=== PATIENT | female | born 1945 | race Caucasian/White ===

== ENCOUNTER 2023-09-06 20:52 | Emergency (ER) | payer OTHER ==
--- OUTSIDE RECORDS SUMMARY | 2023-09-06 21:07 | XMS REPORT | Continuity of Care Document ---
:1945 Author Organization [facility] t Address [address] [place] [address] [address] [place] [address] Care Team Providers Name Role Phone Yareli Casey MD Primary Care Physician [phone] VERONIQUE BURNS Attending Clinician Unavailable ZARIA ARANDA Attending Clinician Unavailable YARELI CASEY Attending Clinician Unavailable [place] HOLLIDAY, Alan Villagran Attending Clinician Unavailable KIM WHITAKER Attending Clinician Unavailable Briana Nunez MD Attending Clinician Kim Whitaker MD Attending Clinician Rod Cadet MD Attending Clinician Veronique Burns MD Attending Clinician [phone] Yareli Casey MD Attending Clinician Doctor Unassigned, [place] Attending Clinician Unavailable Lab, Ang - Db Attending Clinician Unavailable Zaria Aranda MD Attending Clinician 2, [facility] Attending Clinician Unavailable ANA YATES Attending Clinician Unavailable ANA YATES Attending Clinician Unavailable ISMAEL LANCASTER Attending Clinician Unavailable Hebert Lopez MD Attending Clinician Jorje Lane MD Attending Clinician JORJE LANE Attending Clinician Unavailable Pura Gurrola LCSW Attending Clinician Lab, [facility] Attending Clinician Unavailable OGUNLANA, LAURIE A Attending Clinician Unavailable Ilana Elizabeth RN Attending Clinician Unavailable Cira Ibarra MD Attending Clinician Only, [facility] Test Attending Clinician Unavailable Oniel Oliver MD Attending Clinician Nayely Soto MD Attending Clinician NAYELY SOTO Attending Clinician Unavailable Vaccine, Ang Db Cbc Fam Attending Clinician Unavailable ONIEL OLIVER Attending Clinician Unavailable Stormy PT, Susan Tejada Attending Clinician Unavailable Bryan GARCIA, Jacek Dong Attending Clinician Unavailable AMELIA STRINGER Attending Clinician Unavailable Seferino PAC, Amelia S Attending Clinician Aj FLY TIER, Alexandria Villagran Attending Clinician Unavailable Sergio Ponce PT, Jannie Attending Clinician Unavailable Kathy Adams PTA Attending Clinician Unavailable Provider, [facility] Attending Clinician Unavailable Fabiana Palacios RN Attending Clinician Unavailable EBRAMARY DÍAZ Attending Clinician Unavailable Only, Ang Db Test Attending Clinician Unavailable Ebrahim SALES MARKETING DIRECTORMary Attending Clinician Jesus KRUGER Attending Clinician Unavailable Slick PACJesus Attending Clinician ENOC VALERO Attending Clinician Unavailable Nurse, [facility] Pob Immunization Attending Clinician Unavailable Enco Valero DO Attending Clinician Radiology Attending Clinician Unavailable RADIOLOGY Attending Clinician Unavailable ABRAM RASHID Attending Clinician Unavailable ABRAM RASHID Attending Clinician Unavailable 1, [facility] Sleep Lab Bed Attending Clinician Unavailable Abram Rashid MD Attending Clinician VERONIQUE BURNS Admitting Clinician Unavailable ROD CADET Admitting Clinician Unavailable ANA YATES Admitting Clinician Unavailable ISMAEL LANCASTER Admitting Clinician Unavailable Veronique Burns MD Admitting Clinician [phone] ONIEL OLIVER Admitting Clinician Unavailable Jesus KRUGER Admitting Clinician Unavailable RADHA DUFF Admitting Clinician Unavailable Payers Payer Name Policy Type Policy Number Effective Date Expiration Date [facility] MEDICARE PART A [id number] 2011 \\T\\ B 00:00:00 MUTUAL RUSS VARELA [id number] 2011 00:00:00 Problems Condition Condition Condition Status Onset Resolution Last Treating Co mments Source Name Details Category Date Date Treatment Clinician Date Hypotensio Hypotensio Disease Active 2022-11 U nivers n due to n due to 0-08 ity of hypovolemi [place]ov[place]mi [place] a a 00 Medical Branch Leg edema Leg edema Disease Active Uni vers 4-18 ity of 00:00: [place] 00 Medical Branch Diabetic Diabetic Disease Active Unive rs ulcer of ulcer of 2-15 ity of right right 00:00: [place] midfoot midfoot 00 Medical associated associated Br anch with with diabetes diabetes mellitus mellitus due to due to underlying underlying condition, condition, unspecifie unspecifie d ulcer d ulcer stage stage Diabetic Diabetic Disease Active Unive rs ulcer of ulcer of 2-15 ity of right right 00:00: [place] midfoot midfoot 00 Medical associated associated Br anch with with diabetes diabetes mellitus mellitus due to due to underlying underlying condition, condition, unspecifie unspecifie d ulcer d ulcer stage stage Elevated Elevated Disease Active Unive rs brain brain 1-18 ity of natriureti natriureti 00:00: [place] c peptide c peptide 00 Medi doris (BNP) (BNP) Branch level level Venous Venous Disease Active 2021-11 Overview: Univer s insufficie insufficie 2-19 Formattin ity of ncy of ncy of 00:00: g of this [place] both lower both lower 00 note Me dical extremitie extremitie might be Branch s s different from the original. Added automatic ally from request for surgery [id number] Instabilit Instabilit Disease Active Overview : Univers y of y of 8-29 Formattin ity of reverse reverse 00:00: g of this [place] total total 00 note Medical arthroplas arthroplas might be Branch ty of ty of different right right from the shoulder shoulder original. Added automatic ally from request for surgery [id number] Preoperati Preoperati Disease Active Overview : Univers ve testing ve testing 7-25 Formattin ity of 00:00: g of this [place] 00 note Medical might be Branch different from the original. Added automatic ally from request for surgery [id number] Closed Closed Disease Active Overview: Univer s 2-part 2-part 06-17 Formattin ity of displaced displaced 00:00: g of this [place] fracture fracture 00 note Medica l of of might be Branch surgical surgical different neck of neck of from the right right original. humerus humerus Added with with automatic nonunion, nonunion, ally from subsequent subsequent request encounter encounter for surgery [id number] Type 2 Type 2 Disease Active Univers diabetes diabetes 2-11 ity of mellitus, mellitus, 00:[place] without without 00 Medical long-term long-term Bran ch current current use of use of insulin insulin AIDA on AIDA on Disease Active Univers CPAP CPAP 8-16 ity of 00:00: Medical Branch Hyperlipid Hyperlipid Disease Active U nivers emia, emia, 8-16 ity of unspecifie unspecifie 00:00[place] d d 00 Medical hyperlipid hyperlipid Br anch emia type emia type Essential Essential Disease Active Uni vers hypertensi hypertensi 8-16 it y of on on 00:00: Medical Branch Obesity Obesity Disease Active Univers (BMI (BMI 7-28 ity of 30-39.9) 30-39.9) 00:00: 00 Medical Branch Allergies, Adverse Reactions, Alerts Allergy Allergy Status Severity Reaction(s) Onset Inactive Treating Comm ents Source Name Type Date Date Clinician POVIDONE DRUG Active Rash Univers -IODINE INGREDI 1-19 ity of 00:00: Medical Branch Povidone Propensi Active Rash Univer s -Iodine ty to 1-19 ity of adverse 00:00: [place] reaction 00 Medical s Branch Codeine Propensi Active Itching 2005-11 Univer s ty to 0-25 ity of adverse 00:00: [place] reaction Medical s Branch Penicill Propensi Active Hives 2005-11 Univer s ins ty to 0-25 ity of adverse 00:00: [place] reaction Medical s Branch CODEINE DRUG Active ITCHING 2005-11 Univers INGREDI 0-25 ity of 00:00: Medical Branch PENICILL Drug Active Hives 2005-11 Univers INS Class 0-25 ity of 00:00: [place] [id number] Medical Branch Social History Social Habit Start Date Stop Date Quantity Comments Source History of tobacco Passive smoker Un iversity of use [place] [facility] History SDOH University o f Alcohol Std Drinks [place] [facility] History SDOH University o f Alcohol Binge [place] Medic al Branch History SDWI University o f Alcohol Comment [place] Med ical Branch Gender identity Universit y of [facility] Sexual orientation Univer sity of [facility] Alcohol intake 2023-08-31 2023-08-31 Lifetime University of 00:00:00 00:00:00 non-drinker [facility] (finding) Branch Exposure to 2023-03-07 2023-03-17 Not sure [facility] SARS-CoV-2 (event) 00:00:00 13:38:00 [facility] History of Social 2022-12-03 2022-12-03 Univers ity of function 00:00:00 00:00:00 [facility] Tobacco use and 2022-07-24 2022-07-24 Smokeless Universit y of exposure 00:00:00 00:00:00 tobacco non-user [facility] dical Branch History SDOH 2021-09-07 2021-09-07 1 University o f Alcohol Frequency 00:00:00 00:00:00 [facility] edical [place] Sex [birth year] Universit y of 00:00:00 00:00:00 [facility] Smoking Status Start Date Stop Date Source Never smoked tobacco [facility] Medications Ordered Filled Start Stop Current Ordering Indication Dosage Frequency Signature Comments Components Source Medication Medication Date Date Medication? Clinician (SIG) Name Name aspirin 81 2022-11 Yes 81mg Take 81 mg U nivers mg chewable 0-11 by mouth ity of tablet 17:41: daily. [place] [address] Medical Branch Cholecalcif 2022-11 Yes Take by Uni vers hiren, 0-11 mouth ity of Vitamin D3, 17:41: [place]. [place] 25 mcg 39 Medical (1,000 Branch unit) capsule Acetaminoph 2022-11 Yes Take by Uni vers en 500 mg 0-11 mouth ity of Cap 17:41: daily. [place] [address] Indication Medical s: and prn Branch BIOTIN ORAL 2022-11 Yes Take by Uni vers 0-11 mouth ity of 17:41: daily. [place] [address] Medical Branch cycloSPORIN 2022-[address] in Un mayo E (RESTASIS 0-11 each eye 2 it y of MULTIDOSE) 17:41: (two) [place] 0.05 % Drop 39 times Medical daily. Branch tramadol 2022-11 Yes Take by Univer s HCl 0-11 mouth. ity of (TRAMADOL 17:41: [place] ORAL) 39 Medical Branch aspirin 81 2022-11 Yes 81mg Take 81 mg U nivers mg chewable 0-11 by mouth ity of tablet 17:41: daily. [place] [address] Medical Branch Cholecalcif 2022-11 Yes Take by Uni vers hiren, 0-11 mouth ity of Vitamin D3, 17:41: daily. [place] 25 mcg 39 Medical (1,000 Branch unit) capsule Acetaminoph 2022-11 Yes Take by Uni vers en 500 mg 0-11 mouth ity of Cap 17:41: daily. [place] [address] Indication Medical s: and prn Branch BIOTIN ORAL 2022-11 Yes Take by Uni vers 0-11 mouth ity of 17:41: daily. [place] [address] Medical Branch cycloSPORIN 2022-[address] in [place] E (RESTASIS 0-11 each eye 2 it y of MULTIDOSE) 17:41: (two) [place] 0.05 % Drop 39 times Medical daily. Branch tramadol 2022-11 Yes Take by Univer s HCl 0-11 mouth. ity of (TRAMADOL 17:41: [place] ORAL) 39 Medical Branch tiZANidine 2022-11- Yes [id number] 4mg Take 1 Univers 4 mg tablet 0-11 11-11 tablet by it y of 00:00: 05:59 mouth [place] 00 :00 every 8 Medical (eight) Branch hours as needed for Pain (scale 4-6) for up to 30 days. tiZANidine 2022-11- Yes [id number] 4mg Take 1 Univers 4 mg tablet 0-11 11-11 tablet by it y of 00:00: 05:59 mouth [place] 00 :00 every 8 Medical (eight) Branch hours as needed for Pain (scale 4-6) for up to 30 days. simethicone 2022-11 Yes 80mg 80 mg, Univ ers (GAS RELIEF 0-09 Oral, ity of (SIMETHICON 23:00: PC+HS, [place] E)) 00 First dose Medical chewable on [facility] tablet 80 09/01/23 at mg 1800, Until Discontinu ed, Routine methocarbam 2022-11 Yes 500mg 500 mg, Un mayo oL 0-09 Oral, TID, ity of (ROBAXIN) 21:15: First dose [place] tablet 500 00 on [facility] mg 09/01/23 at Branch 1615, Until Discontinu ed, Routine pravastatin 2022-11- No 40mg 40 mg, Uni vers (PRAVACHOL) 009 Oral, QHS, i ty of tablet 40 02:00: 18:31 First dose [place] mg 00 :18 on [facility] 08/31/23 at Branch 2100, Until Discontinu ed, Routine enoxaparin 2022-11 Yes 40mg 40 mg, Unive rs (LOVENOX) 0-08 Subcutaneo ity of injection 22:00: [place], DAILY, [place] 40 mg 00 First dose Medical on [facility] 08/31/23 at 1700, Until Discontinu ed, Routine Sliding 2022-11 Yes Subcutaneo Univ ers Scale 0-08 us, TID ity of Insulin - 17:00: MEALS+HS, [place] Lispro 00 First dose Medical (HumaLOG) on [facility] 08/31/23 at 1200, Until Discontinu ed, Routine magnesium 2022-11- No 2g 2 g, IV Univ ers sulfate in 008-31 Piggyback, it y of water 2 17:00: 17:24 Administer [place] gram/50 mL 00 :00 over 60 Medica l (4 %) Minutes, Branch infusion 2 ONCE, 1 g dose, On [place] 08/31/23 at 1200, Routine sulfur 2022-11- No [id number] 5mL 5 mL, Univ ers hexafluorid 008-31 Intravenou i ty of e microsphr 15:45: 15:31 s, ONCE, 1 [place] (LUMASON) 00 :00 dose, On Medica l injection 5 [facility] mL 08/31/23 at 1045, Routine
pricing/signage team member approving Restricted medication : ZARIA ARANDA omeprazole 2022-11 Yes 20mg 20 mg, Unive rs (PRILOSEC) 0-08 Oral, ity of capsule 20 14:00: DAILY, [place] mg 00 First dose Medical on [facility] 08/31/23 at 0900, Until Discontinu ed, Routine KCL 2022-11 Yes 20meq 20 mEq, Univers (KLOR-CON 0-08 Oral, ity of M20) tablet 14:00: DAILY, [place] 20 mEq 00 First dose Medical on [facility] 08/31/23 at 0900, Until Discontinu ed, Routine fluticasone 2022-11 Yes 2{spray 2 [place], Univers propionate 0-08 } Nasal, ity of 50 14:00: DAILY, [place] mcg/actuati 00 First dose Me dical on nasal on [facility] spray 2 08/31/23 at [place] 0900, Until Discontinu ed, Routine aspirin 2022-11 Yes 81mg 81 mg, Univers chewable 0-08 Oral, ity of tablet 81 14:00: DAILY, [place] mg 00 First dose Medical on [facility] 08/31/23 at 0900, Until Discontinu ed, Routine glucagon 2022-11 Yes 1mg 1 mg, Univers (GLUCAGEN 0-08 Intramuscu ity of DIAGNOSTIC 13:32: lar, PRN, [place] KIT) 50 Starting Medical injection 1 on [facility] mg 08/31/23 at 0832, Until Discontinu ed, BRETT, Blood Glucose < or = 70 mg/dL and patient is NPO, unable to swallow or has mental changes. dextrose 50 2022-11 Yes 25mL 25 mL, Univ ers % in water 0-08 Slow IV ity of (D50W) 13:32: Push, PRN, [place] injection 50 Starting Medica l 25 mL on [facility] 08/31/23 at 0832, Until Discontinu ed, BRETT, Blood Glucose < or = 70 mg/dL and patient is NPO, unable to swallow or has mental status changes. gabapentin 2022-11 Yes 600mg 600 mg, Uni vers (NEURONTIN) 0-08 Oral, BID, it y of tablet 600 13:00: First dose [place] mg 00 on [facility] 08/31/23 at Branch 0800, Until Discontinu ed, Routine KCL 20 2022-11 No 40meq 40 mEq, Univer s mEq/15 mL 0-08 10-08 Oral, ity of solution 40 12:00: 13:53 ONCE, 1 [place] mEq 00 :00 dose, On Medical [facility] 08/31/23 at 0700, Routine NaCl 0.9% 2022-11 Yes 1000mL at 125 Univ ers (NS) IV 0-08 mL/hr, ity of infusion 08:45: Intravenou [place] 1,000 mL 00 s, Medical CONTINUOUS Branch , Starting on [place] 08/31/23 at 0345, Until Discontinu ed, Routine ondansetron 2022-11 Yes 4mg 4 mg, Slow Univers (ZOFRAN 0-08 IV Push, ity of (PF)) 08:15: Q6HPRN, [place] injection 4 45 Starting Medi doris mg on [facility] 08/31/23 at 0315, Until Discontinu ed, Routine, Nausea and Vomiting (N/V) traMADoL 2022-11- No 50mg 50 mg, Univer s (ULTRAM) 0-08 10-10 Oral, ity of tablet 50 08:15: 08:14 Q8HPRN, [place] mg 31 :31 Starting Medical on [facility] 08/31/23 at 0315, Until 09/02/23 at 0314, Routine, Pain (scale 4-6) acetaminoph 2022-11 Yes 1000mg 1,000 mg, Univers en 0-08 Oral, ity of (TYLENOL) 08:15: Q6HPRN, [place] tablet 23 Starting Medical 1,000 mg on [facility] 08/31/23 at 0315, Until Discontinu ed, Routine, Pain (scale 1-3), Temp > 38 C iopamidol 2022-11- No [id number] 88mL 88 mL, U nivers (ISOVUE 0-08 10-08 Intravenou ity o f 370-500 mL) 07:00: 07:00 s, ONCE, 1 [place] injection 00 :00 dose, On Medica l 88 mL [facility] 08/31/23 at 0200, Routine aspirin 81 2022-11 Yes 81mg Take 81 mg U nivers mg chewable 0-08 by mouth ity of tablet 06:18: daily. [place] 40 [facility] Branch Cholecalcif 2022-11 Yes Take by Uni vers hiren, 0-08 mouth ity of Vitamin D3, 06:18: daily. [place] 25 mcg 40 Medical (1,000 Branch unit) capsule Acetaminoph 2022-11 Yes Take by Uni vers en 500 mg 0-08 mouth ity of Cap 06:18: daily. [place] [address] Indication Medical s: and prn Branch BIOTIN ORAL 2022-11 Yes Take by Uni vers 0-08 mouth ity of 06:18: daily. [place] [address] Medical Branch cycloSPORIN 2022-[address] in [place] E (RESTASIS 0-08 each eye 2 it y of MULTIDOSE) 06:18: (two) [place] 0.05 % Drop 40 times Medical daily. Branch tramadol 2022-11 Yes Take by Univer s HCl 0-08 mouth. ity of (TRAMADOL 06:18: [place] ORAL) Medical Branch aspirin 81 2022-11 Yes 81mg Take 81 mg U nivers mg chewable 0-08 by mouth ity of tablet 06:18: daily. [place] [address] Medical Branch Cholecalcif 2022-11 Yes Take by Uni vers hiren, 0-08 mouth ity of Vitamin D3, 06:18: daily. [place] 25 mcg 40 Medical (1,000 Branch unit) capsule Acetaminoph 2022-11 Yes Take by Uni vers en 500 mg 0-08 mouth ity of Cap 06:18: daily. [place] [address] Indication Medical s: and prn Branch BIOTIN ORAL 2022-11 Yes Take by Uni vers 0-08 mouth ity of 06:18: daily. [address] Branch cycloSPORIN 2022-[address] in [place] E (RESTASIS 0-08 each eye 2 it y of MULTIDOSE) 06:18: (two) [place] 0.05 % Drop 40 times Medical daily. Branch tramadol 2022-11 Yes Take by Univer s HCl 0-08 mouth. ity of (TRAMADOL 06:18: [place] ORAL) 40 Medical Branch NaCl 0.9% 2022-11- No 1000mL at 999 Uni vers (NS) IV 0-08 10-08 mL/hr, ity of infusion 05:30: 07:13 Intravenou [place] 1,000 mL 00 :00 s, ONCE, 1 Medic al dose, On Branch 08/31/23 at 0030, Routine acetaminoph 2022-11- No 1000mg 1,000 mg, Univers en 0-08 10-08 Oral, ity of (TYLENOL) 04:00: 03:05 ONCE, 1 [place] tablet 00 :00 dose, On Medical 1,000 mg Sat Branch 08/30/23 at 2300, Routine omeprazole 3-0 Yes TAKE 1 Unive rs 20 mg 8-28 CAPSULE BY ity of capsule 00:00: MOUTH [place] 00 DAILY Medical Branch omeprazole 2023-0 Yes TAKE 1 Unive rs 20 mg 8-28 CAPSULE BY ity of capsule 00:00: MOUTH [place] 00 DAILY Medical Branch omeprazole 2023-0 Yes TAKE 1 Unive rs 20 mg 8-28 CAPSULE BY ity of capsule 00:00: MOUTH [place] 00 DAILY Medical Branch omeprazole 2023-0 Yes TAKE 1 Unive rs 20 mg 8-28 CAPSULE BY ity of capsule 00:00: MOUTH [place] 00 DAILY Medical Branch omeprazole 2023-0 Yes TAKE 1 Unive rs 20 mg 8-28 CAPSULE BY ity of capsule 00:00: MOUTH [place] 00 DAILY Medical Branch OMEPRAZOLE 2023-0 Yes TAKE 1 Unive rs 20 mg 7-18 CAPSULE BY ity of capsule 00:00: MOUTH [place] 00 DAILY Medical Branch OMEPRAZOLE 2023-0 Yes TAKE 1 Unive rs 20 mg 7-18 CAPSULE BY ity of capsule 00:00: MOUTH [place] 00 DAILY Medical Branch furosemide 2023-0 Yes [id number] 40mg Take 2 [place] 20 mg 7-18 tablets by ity of tablet 00:00: mouth in [place] 00 the Medical morning. Branch KCL 10 mEq 3-0 Yes [id number] 20meq Take 2 U nivers tablet 7-18 tablets by ity of 00:00: mouth in [place] 00 the Medical morning. Branch furosemide 2023-0 Yes [id number] 40mg Take 2 [place] 20 mg 7-18 tablets by ity of tablet 00:00: mouth in [place] 00 the Medical morning. Branch KCL 10 mEq 3-0 Yes [id number] 20meq Take 2 U nivers tablet 7-18 tablets by ity of 00:00: mouth in [place] 00 the Medical morning. Branch furosemide 2023-0 Yes [id number] 40mg Take 2 [place] 20 mg 7-18 tablets by ity of tablet 00:00: mouth in [place] 00 the Medical morning. Branch KCL 10 mEq 3-0 Yes [id number] 20meq Take 2 U nivers tablet 7-18 tablets by ity of 00:00: mouth in [place] 00 the Medical morning. Branch furosemide 2022-0 Yes [id number] 40mg Take 2 [place] 20 mg 7-18 tablets by ity of tablet 00:00: mouth in [place] the Medical morning. Branch KCL 10 mEq 2022-0 Yes [id number] 20meq Take 2 U nivers tablet 7-18 tablets by ity of 00:00: mouth in [place] the Medical morning. Branch furosemide 2022-0 Yes [id number] 40mg Take 2 [place] 20 mg 7-18 tablets by ity of tablet 00:00: mouth in [place] the Medical morning. Branch KCL 10 mEq 2022-0 Yes [id number] 20meq Take 2 U nivers tablet 7-18 tablets by ity of 00:00: mouth in [place] the Medical morning. Branch furosemide 2022-0 Yes [id number] 40mg Take 2 [place] 20 mg 7-18 tablets by ity of tablet 00:00: mouth in [place] the Medical morning. Branch KCL 10 mEq 2022-0 Yes [id number] 20meq Take 2 U nivers tablet 7-18 tablets by ity of 00:00: mouth in [place] the Medical morning. Branch OMEPRAZOLE 2022-0 2022- No TAKE 1 Univ ers 20 mg 7-18 08-28 CAPSULE BY ity of capsule 00:00: 00:00 [facility] 00 :00 DAILY Medical Branch OMEPRAZOLE 2022-0 Yes TAKE 1 Unive rs 20 mg 6-21 CAPSULE BY ity of capsule 00:00: [facility] DAILY Medical Branch OMEPRAZOLE 2022-0 2022- No TAKE 1 Univ ers 20 mg 6-21 07-18 CAPSULE BY ity of capsule 00:00: 00:00 [facility] 00 :00 DAILY Medical Branch CETIRIZINE 2022-0 Yes TAKE ONE Uni vers 10 mg 6-13 TABLET BY ity of tablet 00:00: [facility] 00 DAILY Medical Branch CETIRIZINE 2022-0 Yes TAKE ONE Uni vers 10 mg 6-13 TABLET BY ity of tablet 00:00: [facility] DAILY Medical Branch CETIRIZINE 2022-0 Yes TAKE ONE Uni vers 10 mg 6-13 TABLET BY ity of tablet 00:00: [facility] 00 DAILY Medical Branch CETIRIZINE 2022-0 Yes TAKE ONE Uni vers 10 mg 6-13 TABLET BY ity of tablet 00:00: [facility] DAILY Medical Branch CETIRIZINE 0 Yes TAKE ONE Uni vers 10 mg 6-13 TABLET BY ity of tablet 00:00: [facility] DAILY Medical Branch CETIRIZINE 2022-0 Yes TAKE ONE Uni vers 10 mg 6-13 TABLET BY ity of tablet 00:00: [facility] DAILY Medical Branch CETIRIZINE 2022-0 Yes TAKE ONE Uni vers 10 mg 6-13 TABLET BY ity of tablet 00:00: [facility] DAILY Medical Branch CETIRIZINE 2022-0 Yes TAKE ONE Uni vers 10 mg 6-13 TABLET BY ity of tablet 00:00: [facility] DAILY Medical Branch CETIRIZINE 0 Yes TAKE ONE Uni vers 10 mg 6-13 TABLET BY ity of tablet 00:00: [facility] DAILY Medical Branch OMEPRAZOLE 2022-0 Yes TAKE ONE Uni vers 20 mg 5-22 CAPSULE BY ity of capsule 00:00: [facility] DAILY Medical Branch OMEPRAZOLE 2022-0 Yes TAKE ONE Uni vers 20 mg 5-22 CAPSULE BY ity of capsule 00:00: [facility] DAILY Medical Branch OMEPRAZOLE 2022-0 Yes TAKE ONE Uni vers 20 mg 5-22 CAPSULE BY ity of capsule 00:00: [facility] DAILY Medical Branch OMEPRAZOLE 2022-0 2022- No TAKE ONE Un mayo 20 mg 5-22 06-21 CAPSULE BY ity of capsule 00:00: 00:00 [facility] 00 :00 DAILY Medical Branch ENALAPRIL 5 2022-0 Yes [id number] TAKE ONE Univers mg tablet 5-07 TABLET BY ity o f 00:00: [facility] DAILY Medical Branch ENALAPRIL 5 2022-0 Yes [id number] TAKE ONE Univers mg tablet 5-07 TABLET BY ity o f 00:00: [facility] DAILY Medical Branch ENALAPRIL 5 2022-0 Yes [id number] TAKE ONE Univers mg tablet 5-07 TABLET BY ity o f 00:00: [facility] DAILY Medical Branch ENALAPRIL 5 2022-0 Yes [id number] TAKE ONE Univers mg tablet 5-07 TABLET BY ity o f 00:00: [facility] DAILY Medical Branch ENALAPRIL 5 2022-0 Yes [id number] TAKE ONE Univers mg tablet 5-07 TABLET BY ity o f 00:00: MOUTH [place] 00 DAILY Medical Branch ENALAPRIL 5 2022-0 Yes [id number] TAKE ONE Univers mg tablet 5-07 TABLET BY ity o f 00:00: MOUTH [place] 00 DAILY Medical Branch ENALAPRIL 5 2022-0 Yes [id number] TAKE ONE Univers mg tablet 5-07 TABLET BY ity o f 00:00: MOUTH [place] 00 DAILY Medical Branch ENALAPRIL 5 2022-0 Yes [id number] TAKE ONE Univers mg tablet 5-07 TABLET BY ity o f 00:00: MOUTH [place] 00 DAILY Medical Branch ENALAPRIL 5 2022-0 Yes [id number] TAKE ONE Univers mg tablet 5-07 TABLET BY ity o f 00:00: MOUTH [place] 00 DAILY Medical Branch ENALAPRIL 5 2022-0 Yes [id number] TAKE ONE Univers mg tablet 5-07 TABLET BY ity o f 00:00: MOUTH [place] 00 DAILY Medical Branch ENALAPRIL 5 2022-0 Yes [id number] TAKE ONE Univers mg tablet 5-07 TABLET BY ity o f 00:00: MOUTH [place] 00 DAILY Medical Branch ENALAPRIL 5 2022-0 Yes [id number] TAKE ONE Univers mg tablet 5-07 TABLET BY ity o f 00:00: MOUTH [place] 00 DAILY Medical Branch omega-3 2022-0 2022- No 1g Take 1 g Unive rs fatty 4-24 04-24 by mouth ity of acids-vitam 13:58: 00:00 daily. [place] in E 1,000 49 :00 Medical mg capsule Branch omega-3 2022-0 2022- No 1g Take 1 g Unive rs fatty 4-24 04-24 by mouth ity of acids-vitam 13:58: 00:00 daily. [place] in E 1,000 49 :00 Medical mg capsule Branch glipiZIDE 2022-0 Yes [id number] 2.5mg Take 1 U nivers XL 2.5 mg 4-24 tablet by ity o f 24 hr 00:00: mouth [place] tablet 00 daily with Medical breakfast. Branch glipiZIDE 2022-0 Yes [id number] 2.5mg Take 1 [facility] XL 2.5 mg 4-24 tablet by ity o f 24 hr 00:00: mouth [place] tablet 00 daily with Medical breakfast. Branch glipiZIDE 2022-0 Yes [id number] 2.5mg Take 1 [facility] XL 2.5 mg 4-24 tablet by ity o f 24 hr 00:00: mouth [place] tablet 00 daily with Medical breakfast. Branch glipiZIDE 2022-0 Yes [id number] 2.5mg Take 1 [facility] XL 2.5 mg 4-24 tablet by ity o f 24 hr 00:00: mouth [place] tablet 00 daily with Medical breakfast. Branch glipiZIDE 2022-0 Yes [id number] 2.5mg Take 1 [facility] XL 2.5 mg 4-24 tablet by ity o f 24 hr 00:00: mouth [place] tablet 00 daily with Medical breakfast. Branch glipiZIDE 2022-0 Yes [id number] 2.5mg Take 1 [facility] XL 2.5 mg 4-24 tablet by ity o f 24 hr 00:00: mouth [place] tablet 00 daily with Medical breakfast. Branch glipiZIDE 2022-0 Yes [id number] 2.5mg Take 1 [facility] XL 2.5 mg 4-24 tablet by ity o f 24 hr 00:00: mouth [place] tablet 00 daily with Medical breakfast. Branch glipiZIDE 2022-0 Yes [id number] 2.5mg Take 1 [facility] XL 2.5 mg 4-24 tablet by ity o f 24 hr 00:00: mouth [place] tablet 00 daily with Medical breakfast. Branch glipiZIDE 2022-0 Yes [id number] 2.5mg Take 1 [facility] XL 2.5 mg 4-24 tablet by ity o f 24 hr 00:00: mouth [place] tablet 00 daily with Medical breakfast. Branch glipiZIDE 2022-0 Yes [id number] 2.5mg Take 1 [facility] XL 2.5 mg 4-24 tablet by ity o f 24 hr 00:00: mouth [place] tablet 00 daily with Medical breakfast. Branch glipiZIDE 2022-0 Yes [id number] 2.5mg Take 1 [facility] XL 2.5 mg 4-24 tablet by ity o f 24 hr 00:00: mouth [place] tablet 00 daily with Medical breakfast. Branch glipiZIDE 2022-0 Yes [id number] 2.5mg Take 1 [facility] XL 2.5 mg 4-24 tablet by ity o f 24 hr 00:00: mouth [place] tablet 00 daily with Medical breakfast. Branch glipiZIDE 3-0 Yes [id number] 2.5mg Take 1 [facility] XL 2.5 mg 4-24 tablet by ity o f 24 hr 00:00: mouth [place] tablet 00 daily with Medical breakfast. Branch glipiZIDE 2022-0 Yes [id number] 2.5mg Take 1 [facility] XL 2.5 mg 4-24 tablet by ity o f 24 hr 00:00: mouth [place] tablet 00 daily with Medical breakfast. Branch glipiZIDE 2022-0 Yes [id number] 2.5mg Take 1 [facility] XL 2.5 mg 4-24 tablet by ity o f 24 hr 00:00: mouth [place] tablet 00 daily with Medical breakfast. Branch glipiZIDE 2022-0 Yes [id number] 2.5mg Take 1 [facility] XL 2.5 mg 4-24 tablet by ity o f 24 hr 00:00: mouth [place] tablet 00 daily with Medical breakfast. Branch OMEPRAZOLE 3-0 Yes TAKE ONE [facility] vers 20 mg 4-19 CAPSULE BY ity of capsule 00:00: MOUTH [place] 00 DAILY Medical Branch OMEPRAZOLE 3-0 Yes TAKE ONE [facility] vers 20 mg 4-19 CAPSULE BY ity of capsule 00:00: MOUTH 00 DAILY Medical Branch OMEPRAZOLE 3-0 Yes TAKE ONE [facility] vers 20 mg 4-19 CAPSULE BY ity of capsule 00:00: MOUTH [place] 00 DAILY Medical Branch OMEPRAZOLE 3-0 Yes TAKE ONE [facility] vers 20 mg 4-19 CAPSULE BY ity of capsule 00:00: [facility] 00 DAILY Medical Branch OMEPRAZOLE 3-0 Yes TAKE ONE [facility] vers 20 mg 4-19 CAPSULE BY ity of capsule 00:00: MOUTH 00 DAILY Medical Branch OMEPRAZOLE 3-0 Yes TAKE ONE [facility] vers 20 mg 4-19 CAPSULE BY ity of capsule 00:00: MOUTH [place] 00 DAILY Medical Branch OMEPRAZOLE 3-0 2023- No TAKE ONE [facility] 20 mg 4-19 05-22 CAPSULE BY ity of capsule 00:00: 00:00 MOUTH [place] 00 :00 DAILY Medical Branch furosemide 3-0 Yes [id number] 40mg Take 2 [facility] 20 mg 4-18 tablets by ity of tablet 00:00: mouth in [place] 00 the Medical morning. Branch KCL 10 mEq 2022-0 Yes [id number] 20meq Take 2 [facility] tablet 4-18 tablets by ity of 00:00: mouth in [place] the Medical morning. Branch furosemide 2023-0 Yes [id number] 40mg Take 2 [facility] 20 mg 4-18 tablets by ity of tablet 00:00: mouth in [place] the Medical morning. Branch KCL 10 mEq 2023-0 Yes [id number] 20meq Take 2 [facility] tablet 4-18 tablets by ity of 00:00: mouth in [place] the Medical morning. Branch furosemide 2023-0 Yes [id number] 40mg Take 2 [facility] 20 mg 4-18 tablets by ity of tablet 00:00: mouth in [place] the Medical morning. Branch KCL 10 mEq 2023-0 Yes [id number] 20meq Take 2 [facility] tablet 4-18 tablets by ity of 00:00: mouth in [place] the Medical morning. Branch furosemide 2023-0 Yes [id number] 40mg Take 2 [facility] 20 mg 4-18 tablets by ity of tablet 00:00: mouth in [place] the Medical morning. Branch KCL 10 mEq 2023-0 Yes [id number] 20meq Take 2 [facility] tablet 4-18 tablets by ity of 00:00: mouth in [place] the Medical morning. Branch furosemide 2023-0 Yes [id number] 40mg Take 2 [facility] 20 mg 4-18 tablets by ity of tablet 00:00: mouth in [place] the Medical morning. Branch KCL 10 mEq 2023-0 Yes [id number] 20meq Take 2 [facility] tablet 4-18 tablets by ity of 00:00: mouth in [place] the Medical morning. Branch furosemide 2023-0 Yes [id number] 40mg Take 2 [facility] 20 mg 4-18 tablets by ity of tablet 00:00: mouth in [place] the Medical morning. Branch KCL 10 mEq 2023-0 Yes [id number] 20meq Take 2 [facility] tablet 4-18 tablets by ity of 00:00: mouth in [place] the Medical morning. Branch furosemide 2023-0 Yes [id number] 40mg Take 2 [facility] 20 mg 4-18 tablets by ity of tablet 00:00: mouth in [place] the Medical morning. Branch KCL 10 mEq 2023-0 Yes [id number] 20meq Take 2 [facility] tablet 4-18 tablets by ity of 00:00: mouth in [place] 00 the Medical morning. Branch furosemide 2023-0 Yes [id number] 40mg Take 2 [facility] 20 mg 4-18 tablets by ity of tablet 00:00: mouth in [place] the Medical morning. Branch KCL 10 mEq 2023-0 Yes [id number] 20meq Take 2 [facility] tablet 4-18 tablets by ity of 00:00: mouth in [place] the Medical morning. Branch furosemide 2023-0 Yes [id number] 40mg Take 2 [facility] 20 mg 4-18 tablets by ity of tablet 00:00: mouth in [place] the Medical morning. Branch KCL 10 mEq 2023-0 Yes [id number] 20meq Take 2 [facility] tablet 4-18 tablets by ity of 00:00: mouth in [place] the Medical morning. Branch furosemide 2023-0 Yes [id number] 40mg Take 2 [facility] 20 mg 4-18 tablets by ity of tablet 00:00: mouth in [place] the Medical morning. Branch KCL 10 mEq 2023-0 Yes [id number] 20meq Take 2 [facility] tablet 4-18 tablets by ity of 00:00: mouth in [place] the Medical morning. Branch furosemide 2023-0 Yes [id number] 40mg Take 2 [facility] 20 mg 4-18 tablets by ity of tablet 00:00: mouth in [place] the Medical morning. Branch KCL 10 mEq 2023-0 Yes [id number] 20meq Take 2 [facility] tablet 4-18 tablets by ity of 00:00: mouth in [place] the Medical morning. Branch furosemide 2023-0 Yes [id number] 40mg Take 2 [facility] 20 mg 4-18 tablets by ity of tablet 00:00: mouth in [place] the Medical morning. Branch KCL 10 mEq 2023-0 Yes [id number] 20meq Take 2 [facility] tablet 4-18 tablets by ity of 00:00: mouth in [place] the Medical morning. Branch furosemide 2023-0 Yes [id number] 40mg Take 2 [facility] 20 mg 4-18 tablets by ity of tablet 00:00: mouth in [place] the Medical morning. Branch KCL 10 mEq 2023-0 Yes [id number] 20meq Take 2 [facility] tablet 4-18 tablets by ity of 00:00: mouth in [place] 00 the Medical morning. Branch furosemide 2023-0 Yes [id number] 40mg Take 2 [facility] 20 mg 4-18 tablets by ity of tablet 00:00: mouth in [place] 00 the Medical morning. Branch KCL 10 mEq 2023-0 Yes [id number] 20meq Take 2 [facility] tablet 4-18 tablets by ity of 00:00: mouth in [place] 00 the Medical morning. Branch furosemide 2023-0 Yes [id number] 40mg Take 2 [facility] 20 mg 4-18 tablets by ity of tablet 00:00: mouth in [place] 00 the Medical morning. Branch KCL 10 mEq 2023-0 Yes [id number] 20meq Take 2 [facility] tablet 4-18 tablets by ity of 00:00: mouth in [place] 00 the Medical morning. Branch KCL 10 mEq 2023-0 Yes [id number] 20meq Take 2 [facility] tablet 3-31 tablets by ity of 00:00: mouth in [place] 00 the Medical morning. Branch KCL 10 mEq 2023-0 2023- No [id number] 20meq Take 2 [facility] tablet 3-31 04-18 tablets by ity of 00:00: 00:00 mouth in [place] 00 :00 the Medical morning. Branch KCL 10 mEq 2023-0 2023- No [id number] 20meq Take 2 [facility] tablet 3-31 04-18 tablets by ity of 00:00: 00:00 mouth in [place] 00 :00 the Medical morning. Branch KCL 10 mEq 2023-0 2023- No [id number] 20meq Take 2 [facility] tablet 3-31 04-18 tablets by ity of 00:00: 00:00 mouth in [place] 00 :00 the Medical morning. [place] aspirin 81 2023-0 Yes 81mg Take 81 mg [facility] mg chewable 2-15 by mouth ity of tablet 09:36: daily. [address] aspirin 81 2023-0 Yes 81mg Take 81 mg [facility] mg chewable 2-15 by mouth ity of tablet 09:36: daily. [address] aspirin 81 2023-0 Yes 81mg Take 81 mg [facility] mg chewable 2-15 by mouth ity of tablet 09:36: daily. [address] aspirin 81 2023-0 Yes 81mg Take 81 mg [facility] mg chewable 2-15 by mouth ity of tablet 09:36: daily. [address] aspirin 81 2022-0 Yes 81mg Take 81 mg [facility] mg chewable 2-15 by mouth ity of tablet 09:36: daily. [address] Branch aspirin 81 2022-0 Yes 81mg Take 81 mg [facility] mg chewable 2-15 by mouth ity of tablet 09:36: daily. [address] aspirin 81 2022-0 Yes 81mg Take 81 mg [facility] mg chewable 2-15 by mouth ity of tablet 09:36: daily. [address] aspirin 81 2022-0 Yes 81mg Take 81 mg [facility] mg chewable 2-15 by mouth ity of tablet 09:36: daily. [address] aspirin 81 2022-0 Yes 81mg Take 81 mg [facility] mg chewable 2-15 by mouth ity of tablet 09:36: daily. [address] aspirin 81 2022-0 Yes 81mg Take 81 mg [facility] mg chewable 2-15 by mouth ity of tablet 09:36: daily. [address] aspirin 81 2022-0 Yes 81mg Take 81 mg [facility] mg chewable 2-15 by mouth ity of tablet 09:36: daily. [address] aspirin 81 2022-0 Yes 81mg Take 81 mg [facility] mg chewable 2-15 by mouth ity of tablet 09:36: daily. [address] aspirin 81 2022-0 Yes 81mg Take 81 mg [facility] mg chewable 2-15 by mouth ity of tablet 09:36: daily. [address] aspirin 81 2022-0 Yes 81mg Take 81 mg [facility] mg chewable 2-15 by mouth ity of tablet 09:36: daily. [address] aspirin 81 2022-0 Yes 81mg Take 81 mg [facility] mg chewable 2-15 by mouth ity of tablet 09:36: daily. [address] aspirin 81 3-0 Yes 81mg Take 81 mg [facility] mg chewable 2-15 by mouth ity of tablet 09:36: daily. [address] aspirin 81 3-0 Yes 81mg Take 81 mg [facility] mg chewable 2-15 by mouth ity of tablet 09:36: daily. [address] aspirin 81 3-0 Yes 81mg Take 81 mg [facility] mg chewable 2-15 by mouth ity of tablet 09:36: daily. [address] aspirin 81 2022-0 Yes 81mg Take 81 mg [facility] mg chewable 2-15 by mouth ity of tablet 09:36: daily. [address] aspirin 81 3-0 Yes 81mg Take 81 mg [facility] mg chewable 2-15 by mouth ity of tablet 09:36: daily. [address] aspirin 81 2022-0 Yes 81mg Take 81 mg [facility] mg chewable 2-15 by mouth ity of tablet 09:36: daily. [address] aspirin 81 3-0 Yes 81mg Take 81 mg [facility] mg chewable 2-15 by mouth ity of tablet 09:36: daily. [address] aspirin 81 3-0 Yes 81mg Take 81 mg [facility] mg chewable 2-15 by mouth ity of tablet 09:36: daily. [address] aspirin 81 3-0 Yes 81mg Take 81 mg [facility] mg chewable 2-15 by mouth ity of tablet 09:36: daily. [address] aspirin 81 3-0 Yes 81mg Take 81 mg [facility] mg chewable 2-15 by mouth ity of tablet 09:36: daily. [address] silver 2023-0 Yes [id number] Apply to [facility] sulfADIAZIN 2-06 area(s) 2 ity of E 1 % cream 00:00: (two) [place] 00 times Medical daily. Branch silver 2023-0 Yes [id number] Apply to [facility] sulfADIAZIN 2-06 area(s) 2 ity of E 1 % cream 00:00: (two) [place] 00 times Medical daily. Branch silver 2023-0 Yes [id number] Apply to [facility] sulfADIAZIN 2-06 area(s) 2 ity of E 1 % cream 00:00: (two) [place] 00 times Medical daily. Branch silver 2023-0 Yes [id number] Apply to [facility] sulfADIAZIN 2-06 area(s) 2 ity of E 1 % cream 00:00: (two) [place] 00 times Medical daily. Branch silver 2023-0 Yes [id number] Apply to [facility] sulfADIAZIN 2-06 area(s) 2 ity of E 1 % cream 00:00: (two) [place] 00 times Medical daily. Branch silver 2023-0 Yes [id number] Apply to [facility] sulfADIAZIN 2-06 area(s) 2 ity of E 1 % cream 00:00: (two) [place] 00 times Medical daily. Branch silver 2023-0 Yes [id number] Apply to [facility] sulfADIAZIN 2-06 area(s) 2 ity of E 1 % cream 00:00: (two) [place] 00 times Medical daily. Branch silver 2023-0 Yes [id number] Apply to [facility] sulfADIAZIN 2-06 area(s) 2 ity of E 1 % cream 00:00: (two) [place] 00 times Medical daily. Branch silver 2023-0 Yes [id number] Apply to [facility] sulfADIAZIN 2-06 area(s) 2 ity of E 1 % cream 00:00: (two) [place] 00 times Medical daily. Branch silver 2023-0 Yes [id number] Apply to [facility] sulfADIAZIN 2-06 area(s) 2 ity of E 1 % cream 00:00: (two) [place] 00 times Medical daily. Branch silver 2023-0 Yes [id number] Apply to [facility] sulfADIAZIN 2-06 area(s) 2 ity of E 1 % cream 00:00: (two) [place] 00 times Medical daily. Branch silver 2023-0 Yes [id number] Apply to [facility] sulfADIAZIN 2-06 area(s) 2 ity of E 1 % cream 00:00: (two) [place] 00 times Medical daily. Branch silver 2023-0 Yes [id number] Apply to [facility] sulfADIAZIN 2-06 area(s) 2 ity of E 1 % cream 00:00: (two) [place] 00 times Medical daily. Branch silver 2023-0 Yes [id number] Apply to [facility] sulfADIAZIN 2-06 area(s) 2 ity of E 1 % cream 00:00: (two) [place] 00 times Medical daily. Branch silver 2023-0 Yes [id number] Apply to [facility] sulfADIAZIN 2-06 area(s) 2 ity of E 1 % cream 00:00: (two) [place] 00 times Medical daily. Branch silver 2023-0 Yes [id number] Apply to [facility] sulfADIAZIN 2-06 area(s) 2 ity of E 1 % cream 00:00: (two) [place] 00 times Medical daily. Branch silver 2023-0 Yes [id number] Apply to [facility] sulfADIAZIN 2-06 area(s) 2 ity of E 1 % cream 00:00: (two) [place] 00 times Medical daily. Branch silver 2023-0 Yes [id number] Apply to [facility] sulfADIAZIN 2-06 area(s) 2 ity of E 1 % cream 00:00: (two) [place] 00 times Medical daily. Branch ciprofloxac 2023-0 Yes [id number] 500mg Take 1 [facility] in HCl 500 2-06 tablet by ity of mg tablet 00:00: mouth [place] 00 every 12 Medical (twelve) Branch hours. silver 2023-0 Yes [id number] Apply to [facility] sulfADIAZIN 2-06 area(s) 2 ity of E 1 % cream 00:00: (two) [place] 00 times Medical daily. Branch ciprofloxac 2023-0 Yes [id number] 500mg Take 1 [facility] in HCl 500 2-06 tablet by ity of mg tablet 00:00: mouth [place] 00 every 12 Medical (twelve) Branch hours. silver 2023-0 Yes [id number] Apply to [facility] sulfADIAZIN 2-06 area(s) 2 ity of E 1 % cream 00:00: (two) [place] 00 times Medical daily. Branch ciprofloxac 2023-0 Yes [id number] 500mg Take 1 [facility] in HCl 500 2-06 tablet by ity of mg tablet 00:00: mouth [place] 00 every 12 Medical (twelve) Branch hours. silver 2023-0 Yes [id number] Apply to [facility] sulfADIAZIN 2-06 area(s) 2 ity of E 1 % cream 00:00: (two) [place] 00 times Medical daily. Branch ciprofloxac 2023-0 Yes [id number] 500mg Take 1 [facility] in HCl 500 2-06 tablet by ity of mg tablet 00:00: mouth [place] 00 every 12 Medical (twelve) Branch hours. silver 2023-0 Yes [id number] Apply to [facility] sulfADIAZIN 2-06 area(s) 2 ity of E 1 % cream 00:00: (two) [place] 00 times Medical daily. Branch ciprofloxac 2023-0 Yes [id number] 500mg Take 1 [facility] in HCl 500 2-06 tablet by ity of mg tablet 00:00: mouth [place] 00 every 12 Medical (twelve) Branch hours. silver 2023-0 Yes [id number] Apply to [facility] sulfADIAZIN 2-06 area(s) 2 ity of E 1 % cream 00:00: (two) [place] 00 times Medical daily. Branch ciprofloxac 2023-0 Yes [id number] 500mg Take 1 [facility] in HCl 500 2-06 tablet by ity of mg tablet 00:00: mouth [place] 00 every 12 Medical (twelve) Branch hours. silver 2023-0 Yes [id number] Apply to [facility] sulfADIAZIN 2-06 area(s) 2 ity of E 1 % cream 00:00: (two) [place] 00 times Medical daily. Branch ciprofloxac 2023-0 Yes [id number] 500mg Take 1 [facility] in HCl 500 2-06 tablet by ity of mg tablet 00:00: mouth [place] 00 every 12 Medical (twelve) Branch hours. silver 2023-0 Yes [id number] Apply to [facility] sulfADIAZIN 2-06 area(s) 2 ity of E 1 % cream 00:00: (two) [place] 00 times Medical daily. Branch ciprofloxac 2023-0 Yes [id number] 500mg Take 1 [facility] in HCl 500 2-06 tablet by ity of mg tablet 00:00: mouth [place] 00 every 12 Medical (twelve) Branch hours. silver 2023-0 Yes [id number] Apply to [facility] sulfADIAZIN 2-06 area(s) 2 ity of E 1 % cream 00:00: (two) [place] 00 times Medical daily. Branch ciprofloxac 2023-0 Yes [id number] 500mg Take 1 [facility] in HCl 500 2-06 tablet by ity of mg tablet 00:00: mouth [place] 00 every 12 Medical (twelve) Branch hours. silver 2023-0 Yes [id number] Apply to [facility] sulfADIAZIN 2-06 area(s) 2 ity of E 1 % cream 00:00: (two) [place] 00 times Medical daily. Branch silver 2023-0 Yes [id number] Apply to [facility] sulfADIAZIN 2-06 area(s) 2 ity of E 1 % cream 00:00: (two) [place] 00 times Medical daily. Branch silver 2023-0 Yes [id number] Apply to [facility] sulfADIAZIN 2-06 area(s) 2 ity of E 1 % cream 00:00: (two) [place] 00 times Medical daily. Branch silver 2023-0 Yes [id number] Apply to [facility] sulfADIAZIN 2-06 area(s) 2 ity of E 1 % cream 00:00: (two) [place] 00 times Medical daily. Branch silver 2023-0 Yes [id number] Apply to [facility] sulfADIAZIN 2-06 area(s) 2 ity of E 1 % cream 00:00: (two) [place] 00 times Medical daily. Branch silver 2023-0 Yes [id number] Apply to [facility] sulfADIAZIN 2-06 area(s) 2 ity of E 1 % cream 00:00: (two) [place] 00 times Medical daily. Branch silver 3-0 Yes [id number] Apply to [facility] sulfADIAZIN 2-06 area(s) 2 ity of E 1 % cream 00:00: (two) [place] 00 times Medical daily. Branch ciprofloxac 3-0 3- No [id number] 500mg Take 1 [facility] in HCl 500 2-06 04-18 tablet by ity of mg tablet 00:00: 00:00 mouth [place] 00 :00 every 12 Medical (twelve) Branch hours. ciprofloxac 3-0 3- No [id number] 500mg Take 1 [facility] in HCl 500 2-06 04-18 tablet by ity of mg tablet 00:00: 00:00 mouth [place] 00 :00 every 12 Medical (twelve) Branch hours. ciprofloxac 3-0 2023- No [id number] 500mg Take 1 [facility] in HCl 500 2-06 04-18 tablet by ity of mg tablet 00:00: 00:00 mouth [place] 00 :00 every 12 Medical (twelve) Branch hours. OMEPRAZOLE 2022-0 Yes TAKE ONE [facility] vers 20 mg 1-30 CAPSULE BY ity of capsule 00:00: MOUTH [place] 00 DAILY Medical Branch OMEPRAZOLE 2022-0 Yes TAKE ONE [facility] vers 20 mg 1-30 CAPSULE BY ity of capsule 00:00: MOUTH [place] 00 DAILY Medical Branch OMEPRAZOLE 2023-0 Yes TAKE ONE [facility] vers 20 mg 1-30 CAPSULE BY ity of capsule 00:00: [facility] DAILY Medical Branch OMEPRAZOLE 2023-0 Yes TAKE ONE [facility] vers 20 mg 1-30 CAPSULE BY ity of capsule 00:00: [facility] DAILY Medical Branch OMEPRAZOLE 2023-0 Yes TAKE ONE [facility] vers 20 mg 1-30 CAPSULE BY ity of capsule 00:00: [facility] DAILY Medical Branch OMEPRAZOLE 2023-0 Yes TAKE ONE [facility] vers 20 mg 1-30 CAPSULE BY ity of capsule 00:00: [facility] DAILY Medical Branch OMEPRAZOLE 3-0 Yes TAKE ONE [facility] vers 20 mg 1-30 CAPSULE BY ity of capsule 00:00: [facility] DAILY Medical Branch OMEPRAZOLE 3-0 Yes TAKE ONE [facility] vers 20 mg 1-30 CAPSULE BY ity of capsule 00:00: [facility] DAILY Medical Branch OMEPRAZOLE 3-0 Yes TAKE ONE [facility] vers 20 mg 1-30 CAPSULE BY ity of capsule 00:00: [facility] DAILY Medical Branch OMEPRAZOLE 3-0 Yes TAKE ONE [facility] vers 20 mg 1-30 CAPSULE BY ity of capsule 00:00: [facility] DAILY Medical Branch OMEPRAZOLE 3-0 Yes TAKE ONE [facility] vers 20 mg 1-30 CAPSULE BY ity of capsule 00:00: [facility] DAILY Medical Branch OMEPRAZOLE 3-0 Yes TAKE ONE [facility] vers 20 mg 1-30 CAPSULE BY ity of capsule 00:00: [facility] DAILY Medical Branch OMEPRAZOLE 3-0 2023- No TAKE ONE [facility] 20 mg 1-30 04-19 CAPSULE BY ity of capsule 00:00: 00:00 [facility] 00 :00 DAILY Medical Branch gadobenate 2022-0 2023- No [id number] .2mL/kg 0.2 mL/kg, [facility] dimeglumine 12-20 Intravenou i ty of (MULTIHANCE 20:00: 19:46 s, ONCE, 1 [place] -15 mL) 00 :00 dose, On Medical injection Fri Branch 0.2 mL/kg 12/20/22 at 1400, Routine ciprofloxac 2022-0 Yes [id number] 250mg Take 1 [facility] in HCl 1-20 tablet by ity of (CIPRO) 250 00:00: mouth [place] mg tablet 00 every 12 Medica l (twelve) Branch hours. ciprofloxac 2023-0 Yes [id number] 250mg Take 1 [facility] in HCl 1-20 tablet by ity of (CIPRO) 250 00:00: mouth [place] mg tablet 00 every 12 Medica l (twelve) Branch hours. ciprofloxac 2023-0 Yes [id number] 250mg Take 1 [facility] in HCl 1-20 tablet by ity of (CIPRO) 250 00:00: mouth [place] mg tablet 00 every 12 Medica l (twelve) Branch hours. ciprofloxac 2023-0 Yes [id number] 250mg Take 1 [facility] in HCl 1-20 tablet by ity of (CIPRO) 250 00:00: mouth [place] mg tablet 00 every 12 Medica l (twelve) Branch hours. ciprofloxac 2023-0 Yes [id number] 250mg Take 1 [facility] in HCl 1-20 tablet by ity of (CIPRO) 250 00:00: mouth [place] mg tablet 00 every 12 Medica l (twelve) Branch hours. ciprofloxac 2023-0 Yes [id number] 250mg Take 1 [facility] in HCl 1-20 tablet by ity of (CIPRO) 250 00:00: mouth [place] mg tablet 00 every 12 Medica l (twelve) Branch hours. ciprofloxac 2023-0 Yes [id number] 250mg Take 1 [facility] in HCl 1-20 tablet by ity of (CIPRO) 250 00:00: mouth [place] mg tablet 00 every 12 Medica l (twelve) Branch hours. ciprofloxac 2023-0 Yes [id number] 250mg Take 1 [facility] in HCl 1-20 tablet by ity of (CIPRO) 250 00:00: mouth [place] mg tablet 00 every 12 Medica l (twelve) Branch hours. ciprofloxac 2023-0 Yes [id number] 250mg Take 1 [facility] in HCl 1-20 tablet by ity of (CIPRO) 250 00:00: mouth [place] mg tablet 00 every 12 Medica l (twelve) Branch hours. ciprofloxac 2023-0 2023- No [id number] 250mg Take 1 [facility] in HCl 1-20 04-18 tablet by ity of (CIPRO) 250 00:00: 00:00 mouth [place] mg tablet 00 :00 every 12 Medica l (twelve) Branch hours. ciprofloxac 3-0 3- No [id number] 250mg Take 1 [facility] in HCl 1-20 04-18 tablet by ity of (CIPRO) 250 00:00: 00:00 mouth [place] mg tablet 00 :00 every 12 Medica l (twelve) Branch hours. ciprofloxac 2022-0 3- No [id number] 250mg Take 1 [facility] in HCl 1-20 04-18 tablet by ity of (CIPRO) 250 00:00: 00:00 mouth [place] mg tablet 00 :00 every 12 Medica l (twelve) Branch hours. doxycycline 2022-0 Yes [id number] 100mg Take 1 [facility] monohydrate 1-17 capsule by it y of 100 mg 00:00: mouth in [place] capsule 00 the Medical morning Branch and 1 capsule in the evening. doxycycline 2022-0 Yes [id number] 100mg Take 1 [facility] monohydrate 1-17 capsule by it y of 100 mg 00:00: mouth in [place] capsule 00 the Medical morning Branch and 1 capsule in the evening. doxycycline 2022-0 Yes [id number] 100mg Take 1 [facility] monohydrate 1-17 capsule by it y of 100 mg 00:00: mouth in [place] capsule 00 the Medical morning Branch and 1 capsule in the evening. doxycycline 3-0 Yes [id number] 100mg Take 1 [facility] monohydrate 1-17 capsule by it y of 100 mg 00:00: mouth in [place] capsule 00 the Medical morning Branch and 1 capsule in the evening. doxycycline 3-0 Yes [id number] 100mg Take 1 [facility] monohydrate 1-17 capsule by it y of 100 mg 00:00: mouth in [place] capsule 00 the Medical morning Branch and 1 capsule in the evening. doxycycline 3-0 Yes [id number] 100mg Take 1 [facility] monohydrate 1-17 capsule by it y of 100 mg 00:00: mouth in [place] capsule 00 the Medical morning Branch and 1 capsule in the evening. doxycycline 2023-0 Yes [id number] 100mg Take 1 [facility] monohydrate 1-17 capsule by it y of 100 mg 00:00: mouth in [place] capsule 00 the Medical morning Branch and 1 capsule in the evening. doxycycline 3-0 Yes [id number] 100mg Take 1 [facility] monohydrate 1-17 capsule by it y of 100 mg 00:00: mouth in [place] capsule 00 the Medical morning Branch and 1 capsule in the evening. doxycycline 2023-0 Yes [id number] 100mg Take 1 [facility] monohydrate 1-17 capsule by it y of 100 mg 00:00: mouth in [place] capsule 00 the Medical morning Branch and 1 capsule in the evening. doxycycline 2023-0 Yes [id number] 100mg Take 1 [facility] monohydrate 1-17 capsule by it y of 100 mg 00:00: mouth in [place] capsule 00 the Medical morning Branch and 1 capsule in the evening. doxycycline 2023-0 Yes [id number] 100mg Take 1 [facility] monohydrate 1-17 capsule by it y of 100 mg 00:00: mouth in [place] capsule 00 the Medical morning Branch and 1 capsule in the evening. doxycycline 2023-0 Yes [id number] 100mg Take 1 [facility] monohydrate 1-17 capsule by it y of 100 mg 00:00: mouth in [place] capsule 00 the Medical morning Branch and 1 capsule in the evening. doxycycline 2023-0 Yes [id number] 100mg Take 1 [facility] monohydrate 1-17 capsule by it y of 100 mg 00:00: mouth in [place] capsule 00 the Medical morning Branch and 1 capsule in the evening. doxycycline 2023-0 Yes [id number] 100mg Take 1 [facility] monohydrate 1-17 capsule by it y of 100 mg 00:00: mouth in [place] capsule 00 the Medical morning Branch and 1 capsule in the evening. doxycycline 2023-0 Yes [id number] 100mg Take 1 [facility] monohydrate 1-17 capsule by it y of 100 mg 00:00: mouth in [place] capsule 00 the Medical morning Branch and 1 capsule in the evening. doxycycline 2023-0 Yes [id number] 100mg Take 1 [facility] monohydrate 1-17 capsule by it y of 100 mg 00:00: mouth in [place] capsule 00 the Medical morning Branch and 1 capsule in the evening. doxycycline 2023-0 Yes [id number] 100mg Take 1 [facility] monohydrate 1-17 capsule by it y of 100 mg 00:00: mouth in [place] capsule 00 the Medical morning Branch and 1 capsule in the evening. doxycycline 2023-0 Yes [id number] 100mg Take 1 [facility] monohydrate 1-17 capsule by it y of 100 mg 00:00: mouth in [place] capsule 00 the Medical morning Branch and 1 capsule in the evening. doxycycline 2023-0 Yes [id number] 100mg Take 1 [facility] monohydrate 1-17 capsule by it y of 100 mg 00:00: mouth in [place] capsule 00 the Medical morning Branch and 1 capsule in the evening. doxycycline 2022-0 Yes [id number] 100mg Take 1 [facility] monohydrate 1-17 capsule by it y of 100 mg 00:00: mouth in [place] capsule 00 the Medical morning Branch and 1 capsule in the evening. doxycycline 2022-0 Yes [id number] 100mg Take 1 [facility] monohydrate 1-17 capsule by it y of 100 mg 00:00: mouth in [place] capsule 00 the Medical morning Branch and 1 capsule in the evening. doxycycline 2022-0 Yes [id number] 100mg Take 1 [facility] monohydrate 1-17 capsule by it y of 100 mg 00:00: mouth in [place] capsule 00 the Medical morning Branch and 1 capsule in the evening. doxycycline 2022-0 Yes [id number] 100mg Take 1 [facility] monohydrate 1-17 capsule by it y of 100 mg 00:00: mouth in [place] capsule 00 the Medical morning Branch and 1 capsule in the evening. doxycycline 2022-0 2023- No [id number] 100mg Take 1 [facility] monohydrate 1-17 04-18 capsule by i ty of 100 mg 00:00: 00:00 mouth in [place] capsule 00 :00 the Medical morning Branch and 1 capsule in the evening. doxycycline 2022-0 3- No [id number] 100mg Take 1 [facility] monohydrate 1-17 04-18 capsule by i ty of 100 mg 00:00: 00:00 mouth in [place] capsule 00 :00 the Medical morning Branch and 1 capsule in the evening. doxycycline 2022-0 3- No [id number] 100mg Take 1 [facility] monohydrate 1-17 04-18 capsule by i ty of 100 mg 00:00: 00:00 mouth in [place] capsule 00 :00 the Medical morning Branch and 1 capsule in the evening. FENTanyl PF 2022-0 Yes 25ug 25 mcg, [facility] vers (SUBLIMAZE 1-10 Slow IV ity of (PF)) 19:44: Push, [place] injection 11 Q5MIN PRN, Medi doris 25 mcg 4 doses, Branch Starting on Fri12/03/22 at 1344, Until Discontinu ed, Routine, Pain (scale 4-6), PACU ondansetron Yes 4mg 4 mg, Slow [facility] (ZOFRAN -10 IV Push, ity of (PF)) 19:44: PRN, 1 [place] injection 4 11 dose, Medical mg Starting Branch on Fri12/03/22 at 1344, Until Discontinu ed, Routine, Nausea and Vomiting (N/V), PACU acetaminoph 2022- No 1000mg 1,000 mg, [facility] en ADULT 12-03 IV ity of ([facility]) 19:44: 19:43 Infusion, [place] injection 11 :11 at 400 Medical 1,000 mg mL/hr Branch Administer over 15 Minutes, PRN, Starting on Fri12/03/22 at 1344, Until Fri12/04/22 at 1343, Routine, Pain (scale 1-3), PACU
In dication: Perioperat jerrica Patient FENTanyl PF 2022- No 25ug 25 mcg, [facility] (SUBLIMAZE 12-03 Slow IV ity o f (PF)) 19:44: 00:10 Push, [place] injection 11 :53 Q5MIN PRN, Medi doris 25 mcg 4 doses, Branch Starting on Fri12/03/22 at 1344, Until Fri12/03/22 at 1810, Routine, Pain (scale 4-6), PACU acetaminoph 2022- No 1000mg 1,000 mg, [facility] en ADULT 12-03 IV ity of ([facility]) 19:44: 00:10 [place]fusion, [place] injection 11 :53 at 400 Medical 1,000 mg mL/hr Branch Administer over 15 Minutes, PRN, Starting on Fri12/03/22 at 1344, Until Fri12/03/22 at 1810, Routine, Pain (scale 1-3), PACU
In dication: Perioperat jerrica Patient ondansetron 2022- No 4mg 4 mg, Slow [facility] (ZOFRAN 12-03 IV Push, ity of (PF)) 19:44: 00:10 PRN, 1 [place] injection 4 11 :53 dose, Medical mg Starting Branch on Fri12/03/22 at 1344, Until Fri12/03/22 at 1810, Routine, Nausea and Vomiting (N/V), PACU EPINEPHrine 2022-0 2022- No PRN, [facility] rs 1:1,000 (1 -08 24- Starting ity of mg/mL) 16:58: 19:52 on Fri (ADRENALIN) 00 :47 12/03/22 at [place] [facility] 2 mL, 1058, Branch lidocaine Intra-op 2% (XYLOCAINE) 40 mL, sodium bicarbonate 1 mEq/mL (8.4 %) 10 mL in NaCl 0.9% (NS) 1,000 mL OR irrigation heparin 2022-0 2022- No PRN, [facility] 10,000 -08 24- Starting ity of units in NS 16:58: 19:52 on Fri [place] as 1000 mL for 00 :47 12/03/22 at [facility] [facility] vascular 1058, Branch Intra-op aspirin 81 0 Yes 81mg Take 81 mg U nivers mg chewable 1-10 by mouth ity of tablet 16:05: daily. [place] [address] Medical Branch omega-3 0 Yes 1g Take 1 g [facility] fatty 1-10 by mouth ity of acids-vitam 16:05: [place]. [place] 1,000 53 Medical mg capsule Branch Cholecalcif Yes Take by [facility] vers hiren, 1-10 mouth ity of Vitamin D3, 16:05: daily. [place] 25 [place] 53 Medical (1,000 Branch unit) capsule Acetaminoph Yes Take by [facility] en 500 mg 1-10 mouth ity of Cap 16:05: daily. [place] [address] Indication Medical s: and prn Branch BIOTIN ORAL 0 Yes Take by [facility] vers 1-10 mouth ity of 16:05: daily. [place] [address] Medical Branch cycloSPORIN [address] [facility] (RESTASIS 1-10 each eye 2 it y of MULTIDOSE) 16:05: (two) [place] 0.05 % Drop 53 times Medical daily. Branch tramadol 0 Yes Take by Un[facility] HCl 1-10 mouth. ity of (TRAMADOL 16:05: [place] ORAL) 53 Medical Branch aspirin 81 0 Yes 81mg Take 81 mg U nivers mg chewable 1-10 by mouth ity of tablet 16:05: daily. [place] [address] Medical Branch omega-3 2023-0 Yes 1g Take 1 g [facility] fatty 1-10 by mouth ity of acids-vitam 16:05: daily. [place] 1,000 53 Medical mg capsule Branch Cholecalcif 3-0 Yes Take by [facility] vers hiren, 1-10 mouth ity of Vitamin D3, 16:05: daily. [place] 25 [place] 53 Medical (1,000 Branch unit) capsule Acetaminoph 2023-0 Yes Take by [facility] en 500 mg 1-10 mouth ity of Cap 16:05: daily. [place] [address] Indication Medical s: and prn Branch BIOTIN ORAL 3-0 Yes Take by [facility] vers 1-10 mouth ity of 16:05: daily. [place] [address] Medical Branch cycloSPORIN 3-[address] in [facility] (RESTASIS 1-10 each eye 2 it y of MULTIDOSE) 16:05: (two) [place] 0.05 % Drop 53 times Medical daily. Branch tramadol 3-0 Yes Take by Univer s HCl 1-10 mouth. ity of (TRAMADOL 16:05: [place] ORAL) Medical Branch aspirin 81 2022-0 Yes 81mg Take 81 mg U nivers mg chewable 1-10 by mouth ity of tablet 16:05: daily. [place] [address] Medical Branch omega-3 3-0 Yes 1g Take 1 g [facility] fatty 1-10 by mouth ity of acids-vitam 16:05: daily. [place] 1,000 53 Medical mg capsule Branch Cholecalcif 3-0 Yes Take by [facility] vers hiren, 1-10 mouth ity of Vitamin D3, 16:05: daily. [place] 25 [place] 53 Medical (1,000 Branch unit) capsule Acetaminoph 3-0 Yes Take by [facility] vers en 500 mg 1-10 mouth ity of Cap 16:05: daily. [place] [address] Indication Medical s: and prn Branch BIOTIN ORAL 3-0 Yes Take by [facility] vers 1-10 mouth ity of 16:05: daily. [place] [address] Medical Branch cycloSPORIN 3-[address] in [facility] (RESTASIS 1-10 each eye 2 it y of MULTIDOSE) 16:05: (two) [place] 0.05 % Drop 53 times Medical daily. Branch tramadol 2023-0 Yes Take by Univer s HCl 1-10 mouth. ity of (TRAMADOL 16:05: [place] ORAL) 53 Medical Branch aspirin 81 2022-0 Yes 81mg Take 81 mg U nivers mg chewable 1-10 by mouth ity of tablet 16:05: daily. [place] [address] Medical Branch omega-3 2022-0 Yes 1g Take 1 g [facility] fatty 1-10 by mouth ity of acids-vitam 16:05: daily. [place] 1,000 53 Medical mg capsule Branch Cholecalcif 0 Yes Take by [facility] vers hiren, 1-10 mouth ity of Vitamin D3, 16:05: daily. [place] 25 [place] 53 Medical (1,000 Branch unit) capsule Acetaminoph 2022-0 Yes Take by [facility] vers en 500 mg 1-10 mouth ity of Cap 16:05: daily. [place] [address] Indication Medical s: and prn Branch BIOTIN ORAL 0 Yes Take by [facility] vers 1-10 mouth ity of 16:05: daily. [place] [address] Medical Branch cycloSPORIN [address] [facility] (RESTASIS 1-10 each eye 2 it y of MULTIDOSE) 16:05: (two) [place] 0.05 % Drop 53 times Medical daily. Branch tramadol 0 Yes Take by Univer s HCl 1-10 mouth. ity of (TRAMADOL 16:05: [place] ORAL) 53 Medical Branch aspirin 81 0 Yes 81mg Take 81 mg U nivers mg chewable 1-10 by mouth ity of tablet 16:05: daily. [place] [address] Medical Branch omega-3 2022-0 Yes 1g Take 1 g [facility] fatty 1-10 by mouth ity of acids-vitam 16:05: daily. [place] 1,000 53 Medical mg capsule Branch Cholecalcif 0 Yes Take by [facility] vers hiren, 1-10 mouth ity of Vitamin D3, 16:05: daily. [place] 25 [place] 53 Medical (1,000 Branch unit) capsule Acetaminoph 2022-0 Yes Take by [facility] vers en 500 mg 1-10 mouth ity of Cap 16:05: daily. [place] [address] Indication Medical s: and prn Branch BIOTIN ORAL 2022-0 Yes Take by [facility] vers 1-10 mouth ity of 16:05: daily. [place] [address] Medical Branch cycloSPORIN 2022-[address] in [facility] (RESTASIS 1-10 each eye 2 it y of MULTIDOSE) 16:05: (two) [place] 0.05 % Drop 53 times Medical daily. Branch tramadol 3-0 Yes Take by Univer s HCl 1-10 mouth. ity of (TRAMADOL 16:05: [place] ORAL) 53 Medical Branch aspirin 81 2022-0 Yes 81mg Take 81 mg U nivers mg chewable 1-10 by mouth ity of tablet 16:05: daily. [place] [address] Medical Branch omega-3 2022-0 Yes 1g Take 1 g [facility] fatty 1-10 by mouth ity of acids-vitam 16:05: daily. [place] 1,000 53 Medical mg capsule Branch Cholecalcif 2022-0 Yes Take by [facility] vers hiren, 1-10 mouth ity of Vitamin D3, 16:05: daily. [place] 25 [place] 53 Medical (1,000 Branch unit) capsule Acetaminoph 2022-0 Yes Take by [facility] vers en 500 mg 1-10 mouth ity of Cap 16:05: daily. [place] [address] Indication Medical s: and prn Branch BIOTIN ORAL 2022-0 Yes Take by [facility] vers 1-10 mouth ity of 16:05: daily. [place] [address] Medical Branch cycloSPORIN 2022-[address] in [facility] (RESTASIS 1-10 each eye 2 it y of MULTIDOSE) 16:05: (two) [place] 0.05 % Drop 53 times Medical daily. Branch tramadol 2022-0 Yes Take by Univer s HCl 1-10 mouth. ity of (TRAMADOL 16:05: [place] ORAL) 53 Medical Branch aspirin 81 2022-0 Yes 81mg Take 81 mg U nivers mg chewable 1-10 by mouth ity of tablet 16:05: daily. [place] [address] Medical Branch omega-3 2022-0 Yes 1g Take 1 g [facility] fatty 1-10 by mouth ity of acids-vitam 16:05: daily. [place] 1,000 53 Medical mg capsule Branch Cholecalcif 2022-0 Yes Take by [facility] vers hiren, 1-10 mouth ity of Vitamin D3, 16:05: daily. [place] 25 [place] 53 Medical (1,000 Branch unit) capsule Acetaminoph 2023-0 Yes Take by [facility] vers en 500 mg 1-10 mouth ity of Cap 16:05: daily. [place] [address] Indication Medical s: and prn Branch BIOTIN ORAL 2022-0 Yes Take by [facility] vers 1-10 mouth ity of 16:05: daily. [place] [address] Medical Branch cycloSPORIN 2022-[address] in [facility] (RESTASIS 1-10 each eye 2 it y of MULTIDOSE) 16:05: (two) [place] 0.05 % Drop 53 times Medical daily. Branch tramadol 2022-0 Yes Take by Univer s HCl 1-10 mouth. ity of (TRAMADOL 16:05: [place] ORAL) 53 Medical Branch aspirin 81 2022-0 Yes 81mg Take 81 mg U nivers mg chewable 1-10 by mouth ity of tablet 16:05: daily. [place] [address] Medical Branch omega-3 2022-0 Yes 1g Take 1 g [facility] fatty 1-10 by mouth ity of acids-vitam 16:05: daily. [place] 1,000 53 Medical mg capsule Branch Cholecalcif 0 Yes Take by [facility] vers hiren, 1-10 mouth ity of Vitamin D3, 16:05: daily. [place] 25 [place] 53 Medical (1,000 Branch unit) capsule Acetaminoph 2022-0 Yes Take by [facility] vers en 500 mg 1-10 mouth ity of Cap 16:05: daily. [place] [address] Indication Medical s: and prn Branch BIOTIN ORAL 2022-0 Yes Take by [facility] vers 1-10 mouth ity of 16:05: daily. [place] [address] Medical Branch cycloSPORIN 2022-[address] in [facility] (RESTASIS 1-10 each eye 2 it y of MULTIDOSE) 16:05: (two) [place] 0.05 % Drop 53 times Medical daily. Branch tramadol 2022-0 Yes Take by Univer s HCl 1-10 mouth. ity of (TRAMADOL 16:05: [place] ORAL) 53 Medical Branch aspirin 81 2022-0 Yes 81mg Take 81 mg U nivers mg chewable 1-10 by mouth ity of tablet 16:05: daily. [place] [address] Medical Branch omega-3 2022-0 Yes 1g Take 1 g [facility] fatty 1-10 by mouth ity of acids-vitam 16:05: daily. [place] 1,000 53 Medical mg capsule Branch Cholecalcif 3-0 Yes Take by [facility] vers hiren, 1-10 mouth ity of Vitamin D3, 16:05: daily. [place] 25 [place]cg 53 Medical (1,000 Branch unit) capsule Acetaminoph 3-0 Yes Take by [facility] vers en 500 mg 1-10 mouth ity of Cap 16:05: daily. [place] [address] Indication Medical s: and prn Branch BIOTIN ORAL 2022-0 Yes Take by [facility] vers 1-10 mouth ity of 16:05: daily. [place] [address] Medical Branch cycloSPORIN 3-[address] in [facility] (RESTASIS 1-10 each eye 2 it y of MULTIDOSE) 16:05: (two) [place] 0.05 % Drop 53 times Medical daily. Branch tramadol 2022-0 Yes Take by Univer s HCl 1-10 mouth. ity of (TRAMADOL 16:05: [place] ORAL) 53 Medical Branch aspirin 81 2022-0 Yes 81mg Take 81 mg U nivers mg chewable 1-10 by mouth ity of tablet 16:05: daily. [place] [address] Medical Branch omega-3 2022-0 Yes 1g Take 1 g [facility] fatty 1-10 by mouth ity of acids-vitam 16:05: daily. [place] 1,000 53 Medical mg capsule Branch Cholecalcif 3-0 Yes Take by Uni vers hiren, 1-10 mouth ity of Vitamin D3, 16:05: daily. [place] 25 [place]cg 53 Medical (1,000 Branch unit) capsule Acetaminoph 2023-0 Yes Take by Uni vers en 500 mg 1-10 mouth ity of Cap 16:05: daily. [place] [address] Indication Medical s: and prn Branch BIOTIN ORAL 3-0 Yes Take by Uni vers 1-10 mouth ity of 16:05: daily. [place] [address] Medical Branch cycloSPORIN 3-[address] in [facility] (RESTASIS 1-10 each eye 2 it y of MULTIDOSE) 16:05: (two) [place] 0.05 % Drop 53 times Medical daily. Branch tramadol 3-0 Yes Take by Univer s HCl 1-10 mouth. ity of (TRAMADOL 16:05: [place] ORAL) 53 Medical Branch aspirin 81 3-0 Yes 81mg Take 81 mg U nivers mg chewable 1-10 by mouth ity of tablet 16:05: daily. [place] [address] Medical Branch omega-3 3-0 Yes 1g Take 1 g [facility] fatty 1-10 by mouth ity of acids-vitam 16:05: daily. [place] in [place] 1,000 53 Medical mg capsule Branch Cholecalcif 3-0 Yes Take by Uni vers hiren, 1-10 mouth ity of Vitamin D3, 16:05: daily. [place] 25 [place]cg 53 Medical (1,000 Branch unit) capsule Acetaminoph 3-0 Yes Take by Uni vers en 500 mg 1-10 mouth ity of Cap 16:05: daily. [place] [address] Indication Medical s: and prn Branch BIOTIN ORAL 3-0 Yes Take by Uni vers 1-10 mouth ity of 16:05: daily. [place] [address] Medical Branch cycloSPORIN 3-[address] in [facility] (RESTASIS 1-10 each eye 2 it y of MULTIDOSE) 16:05: (two) [place] 0.05 % Drop 53 times Medical daily. Branch tramadol 2022-0 Yes Take by Univer s HCl 1-10 mouth. ity of (TRAMADOL 16:05: [place] ORAL) Medical Branch aspirin 81 2022-0 Yes 81mg Take 81 mg U nivers mg chewable 1-10 by mouth ity of tablet 16:05: daily. [place] [address] Medical Branch omega-3 3-0 Yes 1g Take 1 g [facility] fatty 1-10 by mouth ity of acids-vitam 16:05: daily. [place] 1,000 53 Medical mg capsule Branch Cholecalcif 3-0 Yes Take by Uni vers hiren, 1-10 mouth ity of Vitamin D3, 16:05: daily. [place] 25 [place]cg 53 Medical (1,000 Branch unit) capsule Acetaminoph 3-0 Yes Take by Uni vers en 500 mg 1-10 mouth ity of Cap 16:05: daily. [place] [address] Indication Medical s: and prn Branch BIOTIN ORAL 3-0 Yes Take by Uni vers 1-10 mouth ity of 16:05: daily. [place] [address] Medical Branch cycloSPORIN 3-[address] in [facility] (RESTASIS 1-10 each eye 2 it y of MULTIDOSE) 16:05: (two) [place] 0.05 % Drop 53 times Medical daily. Branch tramadol 2023-0 Yes Take by Univer s HCl 1-10 mouth. ity of (TRAMADOL 16:05: [place] ORAL) 53 Medical Branch aspirin 81 2022-0 Yes 81mg Take 81 mg U nivers mg chewable 1-10 by mouth ity of tablet 16:05: daily. [place] [address] Medical Branch omega-3 2022-0 Yes 1g Take 1 g [facility] fatty 1-10 by mouth ity of acids-vitam 16:05: daily. [place] in [place] 1,000 53 Medical mg capsule Branch Cholecalcif 0 Yes Take by [facility] vers hiren, 1-10 mouth ity of Vitamin D3, 16:05: daily. [place] 25 [place]cg 53 Medical (1,000 Branch unit) capsule Acetaminoph 2022-0 Yes Take by [facility] en 500 mg 1-10 mouth ity of Cap 16:05: daily. [place] [address] Indication Medical s: and prn Branch BIOTIN ORAL 2022-0 Yes Take by [facility] vers 1-10 mouth ity of 16:05: daily. [place] [address] Medical Branch cycloSPORIN 2022-[address] in [facility] (RESTASIS 1-10 each eye 2 it y of MULTIDOSE) 16:05: (two) [place] 0.05 % Drop 53 times Medical daily. Branch aspirin 81 0 Yes 81mg Take 81 mg U nivers mg chewable 1-10 by mouth ity of tablet 16:05: daily. [place] [address] Medical Branch omega-3 0 Yes 1g Take 1 g [facility] fatty 1-10 by mouth ity of acids-vitam 16:05: daily. [place] in [place] 1,000 53 Medical mg capsule Branch Cholecalcif 2022-0 Yes Take by [facility] vers hiren, 1-10 mouth ity of Vitamin D3, 16:05: daily. [place] 25 [place]cg 53 Medical (1,000 Branch unit) capsule Acetaminoph 2022-0 Yes Take by [facility] vers en 500 mg 1-10 mouth ity of Cap 16:05: daily. [place] [address] Indication Medical s: and prn Branch BIOTIN ORAL 2022-0 Yes Take by [facility] vers 1-10 mouth ity of 16:05: daily. [place] [address] Medical Branch cycloSPORIN 2022-[address] in [facility] (RESTASIS 1-10 each eye 2 it y of MULTIDOSE) 16:05: (two) [place] 0.05 % Drop 53 times Medical daily. Branch tramadol 2023-0 Yes Take by Univer s HCl 1-10 mouth. ity of (TRAMADOL 16:05: [place] ORAL) 53 Medical Branch aspirin 81 3-0 Yes 81mg Take 81 mg U nivers mg chewable 1-10 by mouth ity of tablet 16:05: daily. [place] [address] Medical Branch omega-3 2022-0 Yes 1g Take 1 g [facility] fatty 1-10 by mouth ity of acids-vitam 16:05: daily. [place] in [place] 1,000 53 Medical mg capsule Branch Cholecalcif 2022-0 Yes Take by Uni vers hiren, 1-10 mouth ity of Vitamin D3, 16:05: daily. [place] 25 [place]cg 53 Medical (1,000 Branch unit) capsule Acetaminoph 2022-0 Yes Take by Uni vers en 500 mg 1-10 mouth ity of Cap 16:05: daily. [place] [address] Indication Medical s: and prn Branch BIOTIN ORAL 2022-0 Yes Take by Uni vers 1-10 mouth ity of 16:05: daily. [place] [address] Medical Branch cycloSPORIN 2022-[address] in [facility] (RESTASIS 1-10 each eye 2 it y of MULTIDOSE) 16:05: (two) [place] 0.05 % Drop 53 times Medical daily. Branch tramadol 3-0 Yes Take by Univer s HCl 1-10 mouth. ity of (TRAMADOL 16:05: [place] ORAL) 53 Medical Branch aspirin 81 2022-0 Yes 81mg Take 81 mg U nivers mg chewable 1-10 by mouth ity of tablet 16:05: daily. [place] [address] Medical Branch omega-3 2022-0 Yes 1g Take 1 g [facility] fatty 1-10 by mouth ity of acids-vitam 16:05: daily. [place] in [place] 1,000 53 Medical mg capsule Branch Cholecalcif 3-0 Yes Take by Uni vers hiren, 1-10 mouth ity of Vitamin D3, 16:05: daily. [place] 25 [place] 53 Medical (1,000 Branch unit) capsule Acetaminoph 2023-0 Yes Take by Uni vers en 500 mg 1-10 mouth ity of Cap 16:05: daily. [place] 53 Indication Medical s: and prn Branch BIOTIN ORAL 2022-0 Yes Take by Uni vers 1-10 mouth ity of 16:05: daily. [place] 53 Medical Branch cycloSPORIN 2022-[address] in [facility] (RESTASIS 1-10 each eye 2 it y of MULTIDOSE) 16:05: (two) [place] 0.05 % Drop 53 times Medical daily. Branch tramadol 2022-0 Yes Take by Univer s HCl 1-10 mouth. ity of (TRAMADOL 16:05: [place] ORAL) 53 Medical Branch aspirin 81 2022-0 Yes 81mg Take 81 mg U nivers mg chewable 1-10 by mouth ity of tablet 16:05: daily. [place] [address] Medical Branch omega-3 2022-0 Yes 1g Take 1 g [facility] fatty 1-10 by mouth ity of acids-vitam 16:05: daily. [place] in [place] 1,000 53 Medical mg capsule Branch Cholecalcif 2022-0 Yes Take by Uni vers hiren, 1-10 mouth ity of Vitamin D3, 16:05: daily. [place] 25 [place] 53 Medical (1,000 Branch unit) capsule Acetaminoph 0 Yes Take by [facility] vers en 500 mg 1-10 mouth ity of Cap 16:05: daily. [place] [address] Indication Medical s: and prn Branch BIOTIN ORAL 2022-0 Yes Take by Uni vers 1-10 mouth ity of 16:05: daily. [place] [address] Medical Branch cycloSPORIN 2022-[address] in [facility] (RESTASIS 1-10 each eye 2 it y of MULTIDOSE) 16:05: (two) [place] 0.05 % Drop 53 times Medical daily. Branch tramadol 2022-0 Yes Take by Univer s HCl 1-10 mouth. ity of (TRAMADOL 16:05: [place] ORAL) 53 Medical Branch aspirin 81 2022-0 Yes 81mg Take 81 mg U nivers mg chewable 1-10 by mouth ity of tablet 16:05: daily. [place] [address] Medical Branch omega-3 2022-0 Yes 1g Take 1 g [facility] fatty 1-10 by mouth ity of acids-vitam 16:05: daily. [place] in [place] 1,000 53 Medical mg capsule Branch Cholecalcif 2022-0 Yes Take by Uni vers hiren, 1-10 mouth ity of Vitamin D3, 16:05: daily. [place] 25 [place] 53 Medical (1,000 Branch unit) capsule Acetaminoph 2022-0 Yes Take by Uni vers en 500 mg 1-10 mouth ity of Cap 16:05: daily. [place] [address] Indication Medical s: and prn Branch BIOTIN ORAL 2022-0 Yes Take by Uni vers 1-10 mouth ity of 16:05: daily. [place] [address] Medical Branch cycloSPORIN 2022-[address] in [facility] (RESTASIS 1-10 each eye 2 it y of MULTIDOSE) 16:05: (two) [place] 0.05 % Drop 53 times Medical daily. Branch tramadol 2022-0 Yes Take by Univer s HCl 1-10 mouth. ity of (TRAMADOL 16:05: [place] ORAL) 53 Medical Branch aspirin 81 2022-0 Yes 81mg Take 81 mg U nivers mg chewable 1-10 by mouth ity of tablet 16:05: daily. [place] [address] Medical Branch omega-3 2022-0 Yes 1g Take 1 g [facility] fatty 1-10 by mouth ity of acids-vitam 16:05: daily. [place] in [place] 1,000 53 Medical mg capsule Branch Cholecalcif 2022-0 Yes Take by Uni vers hiren, 1-10 mouth ity of Vitamin D3, 16:05: daily. [place] 25 [place] 53 Medical (1,000 Branch unit) capsule Acetaminoph 2022-0 Yes Take by Uni vers en 500 mg 1-10 mouth ity of Cap 16:05: daily. [place] [address] Indication Medical s: and prn Branch BIOTIN ORAL 2022-0 Yes Take by Uni vers 1-10 mouth ity of 16:05: daily. [place] [address] Medical Branch cycloSPORIN 3-[address] in [facility] (RESTASIS 1-10 each eye 2 it y of MULTIDOSE) 16:05: (two) [place] 0.05 % Drop 53 times Medical daily. Branch tramadol 3-0 Yes Take by Univer s HCl 1-10 mouth. ity of (TRAMADOL 16:05: [place] ORAL) 53 Medical Branch aspirin 81 2022-0 Yes 81mg Take 81 mg U nivers mg chewable 1-10 by mouth ity of tablet 16:05: daily. [place] [address] Medical Branch omega-3 2022-0 Yes 1g Take 1 g [facility] fatty 1-10 by mouth ity of acids-vitam 16:05: daily. [place] in [place] 1,000 53 Medical mg capsule Branch Cholecalcif 3-0 Yes Take by Uni vers hiren, 1-10 mouth ity of Vitamin D3, 16:05: daily. [place] 25 [place] 53 Medical (1,000 Branch unit) capsule Acetaminoph 2023-0 Yes Take by Uni vers en 500 mg 1-10 mouth ity of Cap 16:05: daily. [place] [address] Indication Medical s: and prn Branch BIOTIN ORAL 2022-0 Yes Take by Uni vers 1-10 mouth ity of 16:05: daily. [place] [address] Medical Branch cycloSPORIN 3-[address] in [facility] (RESTASIS 1-10 each eye 2 it y of MULTIDOSE) 16:05: (two) [place] 0.05 % Drop 53 times Medical daily. Branch tramadol 2022-0 Yes Take by Univer s HCl 1-10 mouth. ity of (TRAMADOL 16:05: [place] ORAL) 53 Medical Branch aspirin 81 2022-0 Yes 81mg Take 81 mg U nivers mg chewable 1-10 by mouth ity of tablet 16:05: daily. [place] [address] Medical Branch omega-3 2022-0 Yes 1g Take 1 g [facility] s fatty 1-10 by mouth ity of acids-vitam 16:05: daily. [place] in [place] 1,000 53 Medical mg capsule Branch Cholecalcif 2022-0 Yes Take by Uni vers [place], 1-10 mouth ity of Vitamin D3, 16:05: daily. [place] 25 [place] 53 Medical (1,000 Branch unit) capsule Acetaminoph 2023-0 Yes Take by Uni vers en 500 mg 1-10 mouth ity of Cap 16:05: daily. [place] [address] Indication Medical s: and prn Branch BIOTIN ORAL 3-0 Yes Take by Uni vers 1-10 mouth ity of 16:05: daily. [place] [address] Medical Branch cycloSPORIN 3-[address] in [facility] (RESTASIS 1-10 each eye 2 it y of MULTIDOSE) 16:05: (two) [place] 0.05 % Drop 53 times Medical daily. Branch tramadol 3-0 Yes Take by Univer s HCl 1-10 mouth. ity of (TRAMADOL 16:05: [place] ORAL) 53 Medical Branch omega-3 2022-0 Yes 1g Take 1 g [facility] fatty 1-10 by mouth ity of acids-vitam 16:05: [place]. [place]000 53 [facility] mg capsule Branch Cholecalcif 2022-0 Yes Take by [facility] hiren, 1-10 mouth ity of Vitamin D3, 16:05: daily. [place] 25 [place] 53 [facility] (1,000 Branch unit) capsule Acetaminoph 2022-0 Yes Take by [facility] vers en 500 mg 1-10 mouth ity of Cap 16:05: daily. [place] [address] Indication Medical s: and prn Branch BIOTIN ORAL 2022-0 Yes Take by [facility] vers 1-10 mouth ity of 16:05: daily. [place] [address] Medical Branch cycloSPORIN 2022-[address] in [facility] (RESTASIS 1-10 each eye 2 it y of MULTIDOSE) 16:05: (two) [place] 0.05 % Drop 53 times Medical daily. Branch tramadol 2022-0 Yes Take by [facility] HCl 1-10 mouth. ity of (TRAMADOL 16:05: [place] ORAL) 53 Medical Branch omega-3 2022-0 Yes 1g Take 1 g [facility] fatty 1-10 by mouth ity of acids-vitam 16:05: daily. [place],000 53 [facility] mg capsule Branch Cholecalcif 0 Yes Take by [facility], 1-10 mouth ity of Vitamin D3, 16:05: daily. [place] 25 [place] 53 [facility] (1,000 Branch unit) capsule Acetaminoph 2022-0 Yes Take by [facility] en 500 mg 1-10 mouth ity of Cap 16:05: daily. [place] [address] Indication Medical s: and prn Branch BIOTIN ORAL 2022-0 Yes Take by [facility] vers 1-10 mouth ity of 16:05: daily. [place] [address] Medical Branch cycloSPORIN 2022-[address] in [facility] (RESTASIS 1-10 each eye 2 it y of MULTIDOSE) 16:05: (two) [place] 0.05 % Drop 53 times Medical daily. Branch tramadol 3-0 Yes Take by [facility] HCl 1-10 mouth. ity of (TRAMADOL 16:05: [place] ORAL) 53 Medical Branch omega-3 2022-0 Yes 1g Take 1 g [facility] fatty 1-10 by mouth ity of acids-vitam 16:05: daily. [place],000 53 [facility] mg capsule Branch Cholecalcif 3-0 Yes Take by [facility] vers [place], 1-10 mouth ity of Vitamin D3, 16:05: daily. [place] 25 [place] 53 [facility] (1,000 Branch unit) capsule Acetaminoph 3-0 Yes Take by [facility] vers en 500 mg 1-10 mouth ity of Cap 16:05: daily. [place] [address] Indication Medical s: and prn Branch BIOTIN ORAL 3-0 Yes Take by [facility] vers 1-10 mouth ity of 16:05: daily. [place] [address] Medical Branch cycloSPORIN 3-[address] in [facility] (RESTASIS 1-10 each eye 2 it y of MULTIDOSE) 16:05: (two) [place] 0.05 % Drop 53 times Medical daily. Branch tramadol 3-0 Yes Take by [facility] HCl 1-10 mouth. ity of (TRAMADOL 16:05: [place] ORAL) 53 Medical Branch omega-3 2022-0 Yes 1g Take 1 g [facility] fatty 1-10 by mouth ity of acids-vitam 16:05: daily. [place],000 53 [facility] mg capsule Branch Cholecalcif 2022-0 Yes Take by [facility], 1-10 mouth ity of Vitamin D3, 16:05: daily. [place] 25 [place] 53 [facility] (1,000 Branch unit) capsule Acetaminoph 3-0 Yes Take by [facility] en 500 mg 1-10 mouth ity of Cap 16:05: daily. [place] [address] Indication Medical s: and prn Branch BIOTIN ORAL 2022-0 Yes Take by [facility] vers 1-10 mouth ity of 16:05: daily. [place] [address] Medical Branch cycloSPORIN 3-[address] in [facility] (RESTASIS 1-10 each eye 2 it y of MULTIDOSE) 16:05: (two) [place] 0.05 % Drop 53 times Medical daily. Branch tramadol 2023-0 Yes Take by [facility] HCl 1-10 mouth. ity of (TRAMADOL 16:05: [place] ORAL) 53 Medical Branch omega-3 2023-0 Yes 1g Take 1 g [facility] fatty 1-10 by mouth ity of acids-vitam 16:05: daily. [place] 1,000 53 [facility] mg capsule Branch Cholecalcif 2022-0 Yes Take by [facility], 1-10 mouth ity of Vitamin D3, 16:05: daily. [place] 25 [place] 53 [facility] (1,000 Branch unit) capsule Acetaminoph 2022-0 Yes Take by [facility] vers en 500 mg 1-10 mouth ity of Cap 16:05: daily. [place] [address] Indication Medical s: and prn Branch BIOTIN ORAL 2022-0 Yes Take by [facility] vers 1-10 mouth ity of 16:05: daily. [place] 53 Medical Branch cycloSPORIN 2022-[address] in [facility] (RESTASIS 1-10 each eye 2 it y of MULTIDOSE) 16:05: (two) [place] 0.05 % Drop 53 times Medical daily. Branch tramadol 2022-0 Yes Take by [facility] HCl 1-10 mouth. ity of (TRAMADOL 16:05: [place] ORAL) 53 Medical Branch omega-3 2022-0 Yes 1g Take 1 g [facility] fatty 1-10 by mouth ity of acids-vitam 16:05: daily. [place] 1,000 53 [facility] mg capsule Branch Cholecalcif 2022-0 Yes Take by [facility], 1-10 mouth ity of Vitamin D3, 16:05: daily. [place] 25 [place] 53 [facility] (1,000 Branch unit) capsule Acetaminoph 2022-0 Yes Take by [facility] en 500 mg 1-10 mouth ity of Cap 16:05: daily. [place] [address] Indication Medical s: and prn Branch BIOTIN ORAL 2022-0 Yes Take by [facility] vers 1-10 mouth ity of 16:05: daily. [place] [address] Medical Branch cycloSPORIN 2022-[address] in [facility] (RESTASIS 1-10 each eye 2 it y of MULTIDOSE) 16:05: (two) [place] 0.05 % Drop 53 times Medical daily. Branch tramadol 3-0 Yes Take by [facility] HCl 1-10 mouth. ity of (TRAMADOL 16:05: [place] ORAL) 53 Medical Branch omega-3 2022-0 Yes 1g Take 1 g [facility] fatty 1-10 by mouth ity of acids-vitam 16:05: daily. [place] 1,000 53 Medical mg capsule Branch Cholecalcif 2022-0 Yes Take by [facility], 1-10 mouth ity of Vitamin D3, 16:05: daily. [place] 25 [place] 53 [facility] (1,000 Branch unit) capsule Acetaminoph 2022-0 Yes Take by [facility] en 500 mg 1-10 mouth ity of Cap 16:05: daily. [place] [address] Indication Medical s: and prn Branch BIOTIN ORAL 2022-0 Yes Take by [facility] vers 1-10 mouth ity of 16:05: daily. [place] [address] Medical Branch cycloSPORIN 2022-[address] in [facility] (RESTASIS 1-10 each eye 2 it y of MULTIDOSE) 16:05: (two) [place] 0.05 % Drop 53 times Medical daily. Branch tramadol 2022-0 Yes Take by [facility] HCl 1-10 mouth. ity of (TRAMADOL 16:05: [place] ORAL) 53 Medical Branch omega-3 2022-0 Yes 1g Take 1 g [facility] fatty 1-10 by mouth ity of acids-vitam 16:05: daily. [place],000 53 [facility] mg capsule Branch Cholecalcif 2022-0 Yes Take by [facility], 1-10 mouth ity of Vitamin D3, 16:05: daily. [place] 25 [place] 53 [facility] (1,000 Branch unit) capsule Acetaminoph 2022-0 Yes Take by [facility] en 500 mg 1-10 mouth ity of Cap 16:05: daily. [place] [address] Indication Medical s: and prn Branch BIOTIN ORAL 2022-0 Yes Take by [facility] vers 1-10 mouth ity of 16:05: daily. [place] [address] Medical Branch cycloSPORIN 2022-[address] in [facility] (RESTASIS 1-10 each eye 2 it y of MULTIDOSE) 16:05: (two) [place] 0.05 % Drop 53 times Medical daily. Branch tramadol 3-0 Yes Take by [facility] HCl 1-10 mouth. ity of (TRAMADOL 16:05: [place] ORAL) 53 Medical Branch omega-3 3-0 Yes 1g Take 1 g [facility] fatty 1-10 by mouth ity of acids-vitam 16:05: daily. [place] 1,000 53 Medical mg capsule Branch Cholecalcif 2022-0 Yes Take by [facility], 1-10 mouth ity of Vitamin D3, 16:05: daily. [place] 25 [place] 53 Medical (1,000 Branch unit) capsule Acetaminoph 2022-0 Yes Take by [facility] en 500 mg 1-10 mouth ity of Cap 16:05: daily. [place] [address] Indication Medical s: and prn Branch BIOTIN ORAL 2022-0 Yes Take by [facility] vers 1-10 mouth ity of 16:05: daily. [place] [address] Medical Branch cycloSPORIN 2022-[address] in [facility] (RESTASIS 1-10 each eye 2 it y of MULTIDOSE) 16:05: (two) [place] 0.05 % Drop 53 times Medical daily. Branch tramadol 2022-0 Yes Take by [facility] HCl 1-10 mouth. ity of (TRAMADOL 16:05: [place] ORAL) 53 Medical Branch omega-3 2022-0 Yes 1g Take 1 g [facility] fatty 1-10 by mouth ity of acids-vitam 16:05: daily. [place] 1,000 53 Medical mg capsule Branch Cholecalcif 2022-0 Yes Take by [facility], 1-10 mouth ity of Vitamin D3, 16:05: daily. [place] 25 [place] 53 Medical (1,000 Branch unit) capsule Acetaminoph 2022-0 Yes Take by [facility] vers en 500 mg 1-10 mouth ity of Cap 16:05: daily. [place] [address] Indication Medical s: and prn Branch BIOTIN ORAL 2022-0 Yes Take by [facility] vers 1-10 mouth ity of 16:05: daily. [place] [address] Medical Branch cycloSPORIN 2022-[address] in [facility] (RESTASIS 1-10 each eye 2 it y of MULTIDOSE) 16:05: (two) [place] 0.05 % Drop 53 times Medical daily. Branch tramadol 3-0 Yes Take by [facility] HCl 1-10 mouth. ity of (TRAMADOL 16:05: [place] ORAL) 53 Medical Branch omega-3 2022-0 Yes 1g Take 1 g [facility] fatty 1-10 by mouth ity of acids-vitam 16:05: daily. [place] 1,000 53 Medical mg capsule Branch Cholecalcif 3-0 Yes Take by [facility] hi[facility], 1-10 mouth ity of Vitamin D3, 16:05: daily. [place] 25 [place]cg 53 Medical (1,000 Branch unit) capsule Acetaminoph 2023-0 Yes Take by [facility] en 500 mg 1-10 mouth ity of Cap 16:05: daily. [place] 53 Indication Medical s: and prn Branch BIOTIN ORAL 2023-0 Yes Take by [facility] vers 1-10 mouth ity of 16:05: daily. [place] [address] Medical Branch cycloSPORIN 2023-[address] in [facility] (RESTASIS 1-10 each eye 2 it y of MULTIDOSE) 16:05: (two) [place] 0.05 % Drop 53 times Medical daily. Branch tramadol 2023-0 Yes Take by [facility] HCl 1-10 mouth. ity of (TRAMADOL 16:05: [place] ORAL) 53 Medical Branch Cholecalcif 2023-0 Yes Take by [facility] hi[facility], 1-10 mouth ity of Vitamin D3, 16:05: daily. [place] 25 [place] 53 Medical (1,000 Branch unit) capsule Acetaminoph 2023-0 Yes Take by [facility] vers en 500 mg 1-10 mouth ity of Cap 16:05: daily. [place] [address] Indication Medical s: and prn Branch BIOTIN ORAL 3-0 Yes Take by [facility] vers 1-10 mouth ity of 16:05: daily. [place] [address] Medical Branch cycloSPORIN 2023-[address] in [facility] (RESTASIS 1-10 each eye 2 it y of MULTIDOSE) 16:05: (two) [place] 0.05 % Drop 53 times Medical daily. Branch tramadol 2023-0 Yes Take by [facility] HCl 1-10 mouth. ity of (TRAMADOL 16:05: [place] ORAL) 53 Medical Branch Cholecalcif 2023-0 Yes Take by [facility] hi[facility], 1-10 mouth ity of Vitamin D3, 16:05: daily. [place] 25 [place] 53 Medical (1,000 Branch unit) capsule Acetaminoph 2023-0 Yes Take by [facility] vers en 500 mg 1-10 mouth ity of Cap 16:05: daily. [place] 53 Indication Medical s: and prn Branch BIOTIN ORAL 2023-0 Yes Take by [facility] vers 1-10 mouth ity of 16:05: daily. [place] 53 Medical Branch cycloSPORIN 2023-[address] in [facility] (RESTASIS 1-10 each eye 2 it y of MULTIDOSE) 16:05: (two) [place] 0.05 % Drop 53 times Medical daily. Branch tramadol 2023-0 Yes Take by [facility] HCl 1-10 mouth. ity of (TRAMADOL 16:05: [place] ORAL) 53 Medical Branch Cholecalcif 2023-0 Yes Take by [facility] hiren, 1-10 mouth ity of Vitamin D3, 16:05: daily. [place] 25 [place] 53 Medical (1,000 Branch unit) capsule Acetaminoph 2023-0 Yes Take by [facility] vers en 500 mg 1-10 mouth ity of Cap 16:05: daily. [place] [address] Indication Medical s: and prn Branch BIOTIN ORAL 3-0 Yes Take by [facility] vers 1-10 mouth ity of 16:05: daily. [place] [address] Medical Branch cycloSPORIN 3-[address] in [facility] (RESTASIS 1-10 each eye 2 it y of MULTIDOSE) 16:05: (two) [place] 0.05 % Drop 53 times Medical daily. Branch tramadol 2023-0 Yes Take by [facility] HCl 1-10 mouth. ity of (TRAMADOL 16:05: [place] ORAL) 53 Medical Branch Cholecalcif 3-0 Yes Take by [facility] vers hiren, 1-10 mouth ity of Vitamin D3, 16:05: daily. [place] 25 [place]cg 53 Medical (1,000 Branch unit) capsule Acetaminoph 2023-0 Yes Take by [facility] vers en 500 mg 1-10 mouth ity of Cap 16:05: daily. [place] [address] Indication Medical s: and prn Branch BIOTIN ORAL 3-0 Yes Take by Uni vers 1-10 mouth ity of 16:05: daily. [place] [address] Medical Branch cycloSPORIN 2023-[address] in [facility] (RESTASIS 1-10 each eye 2 it y of MULTIDOSE) 16:05: (two) [place] 0.05 % Drop 53 times Medical daily. Branch tramadol 2023-0 Yes Take by [facility] HCl 1-10 mouth. ity of (TRAMADOL 16:05: [place] ORAL) 53 Medical Branch Cholecalcif 2023-0 Yes Take by [facility] hiren, 1-10 mouth ity of Vitamin D3, 16:05: daily. [place] 25 [place] 53 Medical (1,000 Branch unit) capsule Acetaminoph 2023-0 Yes Take by [facility] vers en 500 mg 1-10 mouth ity of Cap 16:05: daily. [place] [address] Indication Medical s: and prn Branch BIOTIN ORAL 3-0 Yes Take by Uni vers 1-10 mouth ity of 16:05: daily. [place] 53 Medical Branch cycloSPORIN 3-[address] in [facility] (RESTASIS 1-10 each eye 2 it y of MULTIDOSE) 16:05: (two) [place] 0.05 % Drop 53 times Medical daily. Branch tramadol 3-0 Yes Take by [facility] HCl 1-10 mouth. ity of (TRAMADOL 16:05: [place] ORAL) 53 Medical Branch Cholecalcif 3-0 Yes Take by [facility] hiren, 1-10 mouth ity of Vitamin D3, 16:05: daily. [place] 25 [place] 53 Medical (1,000 Branch unit) capsule Acetaminoph 2023-0 Yes Take by [facility] vers en 500 mg 1-10 mouth ity of Cap 16:05: daily. [place] [address] Indication Medical s: and prn Branch BIOTIN ORAL 3-0 Yes Take by Uni vers 1-10 mouth ity of 16:05: daily. [place] [address] Medical Branch cycloSPORIN 3-[address] in [facility] (RESTASIS 1-10 each eye 2 it y of MULTIDOSE) 16:05: (two) [place] 0.05 % Drop 53 times Medical daily. Branch tramadol 3-0 Yes Take by [facility] HCl 1-10 mouth. ity of (TRAMADOL 16:05: [place] ORAL) 53 Medical Branch Cholecalcif 3-0 Yes Take by [facility] hiren, 1-10 mouth ity of Vitamin D3, 16:05: daily. [place] 25 [place] 53 Medical (1,000 Branch unit) capsule Acetaminoph 2023-0 Yes Take by [facility] vers en 500 mg 1-10 mouth ity of Cap 16:05: daily. [place] [address] Indication Medical s: and prn Branch BIOTIN ORAL 3-0 Yes Take by Uni vers 1-10 mouth ity of 16:05: daily. [place] 53 Medical Branch cycloSPORIN 3-[address] in [facility] (RESTASIS 1-10 each eye 2 it y of MULTIDOSE) 16:05: (two) [place] 0.05 % Drop 53 times Medical daily. Branch tramadol 2023-0 Yes Take by [facility] HCl 1-10 mouth. ity of (TRAMADOL 16:05: [place] ORAL) 53 Medical Branch Cholecalcif 2023-0 Yes Take by [facility] hiren, 1-10 mouth ity of Vitamin D3, 16:05: daily. [place] 25 [place] 53 Medical (1,000 Branch unit) capsule Acetaminoph 2023-0 Yes Take by [facility] vers en 500 mg 1-10 mouth ity of Cap 16:05: daily. [place] [address] Indication Medical s: and prn Branch BIOTIN ORAL 3-0 Yes Take by Uni vers 1-10 mouth ity of 16:05: daily. [place] [address] Medical Branch cycloSPORIN 3-[address] in [facility] (RESTASIS 1-10 each eye 2 it y of MULTIDOSE) 16:05: (two) [place] 0.05 % Drop 53 times Medical daily. Branch tramadol 3-0 Yes Take by [facility] HCl 1-10 mouth. ity of (TRAMADOL 16:05: [place] ORAL) 53 Medical Branch Cholecalcif 3-0 Yes Take by [facility] vers hiren, 1-10 mouth ity of Vitamin D3, 16:05: daily. [place] 25 [place] 53 Medical (1,000 Branch unit) capsule Acetaminoph 3-0 Yes Take by [facility] vers en 500 mg 1-10 mouth ity of Cap 16:05: daily. [place] [address] Indication Medical s: and prn Branch BIOTIN ORAL 3-0 Yes Take by Uni vers 1-10 mouth ity of 16:05: daily. [place] [address] Medical Branch cycloSPORIN 3-[address] in [facility] (RESTASIS 1-10 each eye 2 it y of MULTIDOSE) 16:05: (two) [place] 0.05 % Drop 53 times Medical daily. Branch tramadol 2023-0 Yes Take by [facility] HCl 1-10 mouth. ity of (TRAMADOL 16:05: [place] ORAL) 53 Medical Branch Cholecalcif 3-0 Yes Take by [facility] vers hiren, 1-10 mouth ity of Vitamin D3, 16:05: daily. [place] 25 [place] 53 Medical (1,000 Branch unit) capsule Acetaminoph 2023-0 Yes Take by [facility] vers en 500 mg 1-10 mouth ity of Cap 16:05: daily. [place] [address] Indication Medical s: and prn Branch BIOTIN ORAL 3-0 Yes Take by Uni vers 1-10 mouth ity of 16:05: daily. [place] [address] Medical Branch cycloSPORIN 2023-[address] in [facility] (RESTASIS 1-10 each eye 2 it y of MULTIDOSE) 16:05: (two) [place] 0.05 % Drop 53 times Medical daily. Branch tramadol 2023-0 Yes Take by [facility] HCl 1-10 mouth. ity of (TRAMADOL 16:05: [place] ORAL) 53 Medical Branch Cholecalcif 2023-0 Yes Take by [facility] vers hiren, 1-10 mouth ity of Vitamin D3, 16:05: daily. [place] 25 [place] 53 Medical (1,000 Branch unit) capsule Acetaminoph 2023-0 Yes Take by [facility] vers en 500 mg 1-10 mouth ity of Cap 16:05: daily. [place] [address] Indication Medical s: and prn Branch BIOTIN ORAL 3-0 Yes Take by Uni vers 1-10 mouth ity of 16:05: daily. [place] [address] Medical Branch cycloSPORIN 2023-[address] in [facility] (RESTASIS 1-10 each eye 2 it y of MULTIDOSE) 16:05: (two) [place] 0.05 % Drop 53 times Medical daily. Branch tramadol 2023-0 Yes Take by [facility] HCl 1-10 mouth. ity of (TRAMADOL 16:05: [place] ORAL) 53 Medical Branch Cholecalcif 3-0 Yes Take by [facility] vers hiren, 1-10 mouth ity of Vitamin D3, 16:05: daily. [place] 25 [place] 53 Medical (1,000 Branch unit) capsule Acetaminoph 2023-0 Yes Take by [facility] vers en 500 mg 1-10 mouth ity of Cap 16:05: daily. [place] [address] Indication Medical s: and prn Branch BIOTIN ORAL 3-0 Yes Take by Uni vers 1-10 mouth ity of 16:05: daily. [place] [address] Medical Branch cycloSPORIN 2023-[address] in [facility] (RESTASIS 1-10 each eye 2 it y of MULTIDOSE) 16:05: (two) [place] 0.05 % Drop 53 times Medical daily. Branch tramadol 2023-0 Yes Take by [facility] HCl 1-10 mouth. ity of (TRAMADOL 16:05: [place] ORAL) 53 Medical Branch Cholecalcif 2023-0 Yes Take by [facility] vers hiren, 1-10 mouth ity of Vitamin D3, 16:05: daily. [place] 25 [place] 53 Medical (1,000 Branch unit) capsule Acetaminoph 2022-0 Yes Take by [facility] vers en 500 mg 1-10 mouth ity of Cap 16:05: daily. [place] [address] Indication Medical s: and prn Branch BIOTIN ORAL 2022-0 Yes Take by Uni vers 1-10 mouth ity of 16:05: daily. [place] [address] Medical Branch cycloSPORIN 2022-[address] in [facility] (RESTASIS 1-10 each eye 2 it y of MULTIDOSE) 16:05: (two) [place] 0.05 % Drop 53 times Medical daily. Branch tramadol 2022-0 Yes Take by [facility] s HCl 1-10 mouth. ity of (TRAMADOL 16:05: [place] ORAL) Medical Branch Cholecalcif 0 Yes Take by [facility] hiren, 1-10 mouth ity of Vitamin D3, 16:05: daily. [place] 25 [place] 53 Medical (1,000 Branch unit) capsule Acetaminoph 2022-0 Yes Take by [facility] vers en 500 mg 1-10 mouth ity of Cap 16:05: daily. [place] [address] Indication Medical s: and prn Branch BIOTIN ORAL 0 Yes Take by Uni vers 1-10 mouth ity of 16:05: daily. [place] [address] Medical Branch cycloSPORIN 2022-[address] in [facility] (RESTASIS 1-10 each eye 2 it y of MULTIDOSE) 16:05: (two) [place] 0.05 % Drop 53 times Medical daily. Branch tramadol 0 Yes Take by [facility] s HCl 1-10 mouth. ity of (TRAMADOL 16:05: [place] ORAL) 53 Medical Branch clindamycin 2021-11 Yes [id number] 150mg Take 1 [facility] 150 mg 2-22 capsule by ity of capsule 00:00: mouth 4 [place] 00 (four) Medical times Branch daily. clindamycin 2021- Yes [id number] 150mg Take 1 [facility] 150 mg 2-22 capsule by ity of capsule 00:00: mouth 4 [place] 00 (four) Medical times Branch daily. clindamycin 2021-11 Yes [id number] 150mg Take 1 [facility] 150 mg 2-22 capsule by ity of capsule 00:00: mouth 4 [place] 00 (four) Medical times Branch daily. clindamycin 2021-11 Yes [id number] 150mg Take 1 [facility] 150 mg 2-22 capsule by ity of capsule 00:00: mouth [address] [place] [address] () Medical times Branch daily. clindamycin 2021-11 Yes [id number] 150mg Take 1 [facility] 150 mg 2-22 capsule by ity of capsule 00:00: mouth [address] [place] [address] (four) Medical times Branch daily. clindamycin 2021-11 Yes [id number] 150mg Take 1 [facility] 150 mg 2-22 capsule by ity of capsule 00:00: mouth [address] [place] [address] (four) Medical times Branch daily. clindamycin 2021-11 Yes [id number] 150mg Take 1 [facility] 150 mg 2-22 capsule by ity of capsule 00:00: [address] () Medical times Branch daily. clindamycin 2021-11 Yes [id number] 150mg Take 1 [facility] 150 mg 2-22 capsule by ity of capsule 00:00: [address] () Medical times Branch daily. clindamycin 2021-11 Yes [id number] 150mg Take 1 [facility] 150 mg 2-22 capsule by ity of capsule 00:00: mouth [address] [place] [address] () Medical times Branch daily. clindamycin 2021-11 Yes [id number] 150mg Take 1 [facility] 150 mg 2-22 capsule by ity of capsule 00:00: [address] () Medical times Branch daily. clindamycin 2021-11 Yes [id number] 150mg Take 1 [facility] 150 mg 2-22 capsule by ity of capsule 00:00: [address] () Medical times Branch daily. clindamycin 2021-11 Yes [id number] 150mg Take 1 [facility] 150 mg 2-22 capsule by ity of capsule 00:00: mouth [address] [place] [address] () Medical times Branch daily. clindamycin 2021-11 Yes [id number] 150mg Take 1 [facility] 150 mg 2-22 capsule by ity of capsule 00:00: mouth [address] [place] [address] () Medical times Branch daily. clindamycin 2021-11 Yes [id number] 150mg Take 1 [facility] 150 mg 2-22 capsule by ity of capsule 00:00: mouth [address] [place] [address] () Medical times Branch daily. clindamycin 2021-11 Yes [id number] 150mg Take 1 [facility] 150 mg 2-22 capsule by ity of capsule 00:00: mouth [place] () Medical times Branch daily. clindamycin 2021-11 Yes [id number] 150mg Take 1 [facility] 150 mg 2-22 capsule by ity of capsule 00:00: mouth [place] () Medical times Branch daily. clindamycin 2021-11 Yes [id number] 150mg Take 1 [facility] 150 mg 2-22 capsule by ity of capsule 00:00: mouth [place] () Medical times Branch daily. clindamycin 2021-11 Yes [id number] 150mg Take 1 [facility] 150 mg 2-22 capsule by ity of capsule 00:00: mouth [place] () Medical times Branch daily. clindamycin 2021-11 Yes [id number] 150mg Take 1 [facility] 150 mg 2-22 capsule by ity of capsule 00:00: mouth [place] () Medical times Branch daily. clindamycin 2021-11 Yes [id number] 150mg Take 1 [facility] 150 mg 2-22 capsule by ity of capsule 00:00: mouth [address] [place] [address] () Medical times Branch daily. clindamycin 2021-11 Yes [id number] 150mg Take 1 [facility] 150 mg 2-22 capsule by ity of capsule 00:00: [address] () Medical times Branch daily. clindamycin 2021-11 Yes [id number] 150mg Take 1 [facility] 150 mg 2-22 capsule by ity of capsule 00:00: mouth [address] [place] [address] () Medical times Branch daily. clindamycin 2021-11 Yes [id number] 150mg Take 1 [facility] 150 mg 2-22 capsule by ity of capsule 00:00: mouth [address] [place] [address] () Medical times Branch daily. clindamycin 2021-11 Yes [id number] 150mg Take 1 [facility] 150 mg 2-22 capsule by ity of capsule 00:00: mouth [address] [place] [address] () Medical times Branch daily. clindamycin 2021-11 Yes [id number] 150mg Take 1 [facility] 150 mg 2-22 capsule by ity of capsule 00:00: mouth [address] [place] [address] () Medical times Branch daily. clindamycin 2021-11 2023- No [id number] 150mg Take 1 [facility] 150 mg 2-22 04-18 capsule by ity of capsule 00:00: 00:00 [facility] 4 [place] 00 :00 (four) Medical times Branch daily. clindamycin 2021-11- No [id number] 150mg Take 1 [facility] 150 mg 2-22 04-18 capsule by ity of capsule 00:00: 00:00 [facility] 4 [place] 00 :00 (four) Medical times Branch daily. clindamycin 2021-11- No [id number] 150mg Take 1 [facility] 150 mg 2-22 04-18 capsule by ity of capsule 00:00: 00:00 [facility] 4 [place] 00 :00 (four) Medical times Branch daily. cetirizine 2021-11 Yes TAKE ONE [facility] vers 10 mg 2-19 TABLET BY ity of tablet 00:00: [facility] DAILY Medical Branch cetirizine 2021-11 Yes TAKE ONE Uni vers 10 mg 2-19 TABLET BY ity of tablet 00:00: [facility] DAILY Medical Branch cetirizine 2021-11 Yes TAKE ONE [facility] vers 10 mg 2-19 TABLET BY ity of tablet 00:00: [facility] DAILY Medical Branch cetirizine 2021-11 Yes TAKE ONE [facility] vers 10 mg 2-19 TABLET BY ity of tablet 00:00: [facility] DAILY Medical Branch cetirizine 2021-11 Yes TAKE ONE [facility] vers 10 mg 2-19 TABLET BY ity of tablet 00:00: [facility] DAILY Medical Branch cetirizine 2021-11 Yes TAKE ONE [facility] vers 10 mg 2-19 TABLET BY ity of tablet 00:00: [facility] DAILY Medical Branch cetirizine 2021-11 Yes TAKE ONE [facility] vers 10 mg 2-19 TABLET BY ity of tablet 00:00: [facility] DAILY Medical Branch cetirizine 2021-11 Yes TAKE ONE [facility] vers 10 mg 2-19 TABLET BY ity of tablet 00:00: [facility] DAILY Medical Branch cetirizine 2021-11 Yes TAKE ONE [facility] vers 10 mg 2-19 TABLET BY ity of tablet 00:00: [facility] DAILY Medical Branch cetirizine 2021-11 Yes TAKE ONE [facility] vers 10 mg 2-19 TABLET BY ity of tablet 00:00: [facility] DAILY Medical Branch cetirizine 2021-11 Yes TAKE ONE [facility] vers 10 mg 2-19 TABLET BY ity of tablet 00:00: [facility] DAILY Medical Branch cetirizine 2021-11 Yes TAKE ONE Uni vers 10 mg 2-19 TABLET BY ity of tablet 00:00: [facility] DAILY Medical Branch cetirizine 2021-11 Yes TAKE ONE [facility] vers 10 mg 2-19 TABLET BY ity of tablet 00:00: [facility] DAILY Medical Branch cetirizine 2021-11 Yes TAKE ONE Uni vers 10 mg 2-19 TABLET BY ity of tablet 00:00: [facility] DAILY Medical Branch cetirizine 2021-11 Yes TAKE ONE [facility] vers 10 mg 2-19 TABLET BY ity of tablet 00:00: [facility] DAILY Medical Branch cetirizine 2021-11 Yes TAKE ONE [facility] vers 10 mg 2-19 TABLET BY ity of tablet 00:00: [facility] DAILY Medical Branch cetirizine 2021-11 Yes TAKE ONE [facility] vers 10 mg 2-19 TABLET BY ity of tablet 00:00: [facility] DAILY Medical Branch cetirizine 2021-11 Yes TAKE ONE [facility] vers 10 mg 2-19 TABLET BY ity of tablet 00:00: [facility] DAILY Medical Branch cetirizine 2021-11 Yes TAKE ONE [facility] vers 10 mg 2-19 TABLET BY ity of tablet 00:00: [facility] DAILY Medical Branch cetirizine 2021-11 Yes TAKE ONE [facility] vers 10 mg 2-19 TABLET BY ity of tablet 00:00: [facility] DAILY Medical Branch cetirizine 2021-11 Yes TAKE ONE [facility] vers 10 mg 2-19 TABLET BY ity of tablet 00:00: [facility] DAILY Medical Branch cetirizine 2021-11 Yes TAKE ONE [facility] vers 10 mg 2-19 TABLET BY ity of tablet 00:00: [facility] DAILY Medical Branch cetirizine 2021-11 Yes TAKE ONE [facility] vers 10 mg 2-19 TABLET BY ity of tablet 00:00: [facility] DAILY Medical Branch cetirizine 2021-11 Yes TAKE ONE [facility] vers 10 mg 2-19 TABLET BY ity of tablet 00:00: [facility] DAILY Medical Branch cetirizine 2021-11 Yes TAKE ONE [facility] vers 10 mg 2-19 TABLET BY ity of tablet 00:00: [facility] DAILY Medical Branch cetirizine 2021-11 Yes TAKE ONE [facility] vers 10 mg 2-19 TABLET BY ity of tablet 00:00: [facility] DAILY Medical Branch cetirizine 2021-11 Yes TAKE ONE [facility] vers 10 mg 2-19 TABLET BY ity of tablet 00:00: [facility] DAILY Medical Branch cetirizine 2021-11 Yes TAKE ONE [facility] vers 10 mg 2-19 TABLET BY ity of tablet 00:00: [facility] DAILY Medical Branch cetirizine 2021-11 Yes TAKE ONE [facility] vers 10 mg 2-19 TABLET BY ity of tablet 00:00: [facility] DAILY Medical Branch cetirizine 2021-11 Yes TAKE ONE [facility] vers 10 mg 2-19 TABLET BY ity of tablet 00:00: [facility] DAILY Medical Branch cetirizine 2021-11 Yes TAKE ONE [facility] vers 10 mg 2-19 TABLET BY ity of tablet 00:00: [facility] DAILY Medical Branch cetirizine 2021-11 Yes TAKE ONE [facility] vers 10 mg 2-19 TABLET BY ity of tablet 00:00: [facility] DAILY Medical Branch cetirizine 2021-11 Yes TAKE ONE [facility] vers 10 mg 2-19 TABLET BY ity of tablet 00:00: [facility] DAILY Medical Branch cetirizine 2021-11 Yes TAKE ONE [facility] vers 10 mg 2-19 TABLET BY ity of tablet 00:00: [facility] DAILY Medical Branch cetirizine 2021-11 Yes TAKE ONE [facility] vers 10 mg 2-19 TABLET BY ity of tablet 00:00: [facility] DAILY Medical Branch cetirizine 2021-11 Yes TAKE ONE [facility] vers 10 mg 2-19 TABLET BY ity of tablet 00:00: [facility] DAILY Medical Branch cetirizine 2021-11 Yes TAKE ONE [facility] vers 10 mg 2-19 TABLET BY ity of tablet 00:00: [facility] DAILY Medical Branch cetirizine 2021-11 Yes TAKE ONE [facility] vers 10 mg 2-19 TABLET BY ity of tablet 00:00: [facility] DAILY Medical Branch cetirizine 2021-11 Yes TAKE ONE [facility] vers 10 mg 2-19 TABLET BY ity of tablet 00:00: [facility] DAILY Medical Branch cetirizine 2021-11 Yes TAKE ONE [facility] vers 10 mg 2-19 TABLET BY ity of tablet 00:00: [facility] DAILY Medical Branch cetirizine 2021-11 Yes TAKE ONE [facility] vers 10 mg 2-19 TABLET BY ity of tablet 00:00: [facility] DAILY Medical Branch cetirizine 2021-11- No TAKE ONE [facility] 10 mg 2-19 06-13 TABLET BY ity of tablet 00:00: 00:00 [facility] 00 : DAILY Medical Branch OMEPRAZOLE 2021-11 Yes TAKE ONE [facility] vers 20 mg 1-26 CAPSULE BY ity of capsule 00:00: [facility] DAILY Medical Branch OMEPRAZOLE 2021-11 Yes TAKE ONE [facility] vers 20 mg 1-26 CAPSULE BY ity of capsule 00:00: [facility] DAILY Medical Branch OMEPRAZOLE 2021-11 Yes TAKE ONE [facility] vers 20 mg 1-26 CAPSULE BY ity of capsule 00:00: [facility] DAILY Medical Branch OMEPRAZOLE 2021-11 Yes TAKE ONE [facility] vers 20 mg 1-26 CAPSULE BY ity of capsule 00:00: [facility] DAILY Medical Branch OMEPRAZOLE 2021-11 Yes TAKE ONE [facility] vers 20 mg 1-26 CAPSULE BY ity of capsule 00:00: [facility] DAILY Medical Branch OMEPRAZOLE 2021-11 Yes TAKE ONE [facility] vers 20 mg 1-26 CAPSULE BY ity of capsule 00:00: [facility] DAILY Medical Branch OMEPRAZOLE 2021-11 Yes TAKE ONE [facility] vers 20 mg 1-26 CAPSULE BY ity of capsule 00:00: [facility] DAILY Medical Branch OMEPRAZOLE 2021-11 Yes TAKE ONE [facility] vers 20 mg 1-26 CAPSULE BY ity of capsule 00:00: [facility] DAILY Medical Branch OMEPRAZOLE 2021-11 Yes TAKE ONE [facility] vers 20 mg 1-26 CAPSULE BY ity of capsule 00:00: [facility] DAILY Medical Branch OMEPRAZOLE 2021-11 Yes TAKE ONE [facility] vers 20 mg 1-26 CAPSULE BY ity of capsule 00:00: [facility] DAILY Medical Branch OMEPRAZOLE 2021-11 Yes TAKE ONE [facility] vers 20 mg 1-26 CAPSULE BY ity of capsule 00:00: [facility] DAILY Medical Branch OMEPRAZOLE 2021-11 Yes TAKE ONE [facility] vers 20 mg 1-26 CAPSULE BY ity of capsule 00:00: [facility] DAILY Medical Branch OMEPRAZOLE 2021-11 Yes TAKE ONE [facility] vers 20 mg 1-26 CAPSULE BY ity of capsule 00:00: [facility] DAILY Medical Branch OMEPRAZOLE 2021-11 Yes TAKE ONE [facility] vers 20 mg 1-26 CAPSULE BY ity of capsule 00:00: [facility] DAILY Medical Branch OMEPRAZOLE 2021-11 Yes TAKE ONE [facility] vers 20 mg 1-26 CAPSULE BY ity of capsule 00:00: [facility] DAILY Medical Branch OMEPRAZOLE 2021-11 Yes TAKE ONE [facility] vers 20 mg 1-26 CAPSULE BY ity of capsule 00:00: [facility] DAILY Medical Branch OMEPRAZOLE 2021-11 Yes TAKE ONE [facility] vers 20 mg 1-26 CAPSULE BY ity of capsule 00:00: [facility] DAILY Medical Branch OMEPRAZOLE 2021-11 Yes TAKE ONE [facility] vers 20 mg 1-26 CAPSULE BY ity of capsule 00:00: [facility] DAILY Medical Branch OMEPRAZOLE 2021-11 Yes TAKE ONE [facility] vers 20 mg 1-26 CAPSULE BY ity of capsule 00:00: [facility] DAILY Medical Branch OMEPRAZOLE 2021-11 Yes TAKE ONE [facility] vers 20 mg 1-26 CAPSULE BY ity of capsule 00:00: [facility] DAILY Medical Branch OMEPRAZOLE 2021-11 Yes TAKE ONE [facility] vers 20 mg 1-26 CAPSULE BY ity of capsule 00:00: [facility] DAILY Medical Branch OMEPRAZOLE 2021-11- No TAKE ONE [facility] 20 mg 1-26 01-30 CAPSULE BY ity of capsule 00:00: 00:00 [facility] 00 :00 DAILY Medical Branch OMEPRAZOLE 2021-11- No TAKE ONE [facility] 20 mg 1-26 01-30 CAPSULE BY ity of capsule 00:00: 00:00 [facility] 00 :00 DAILY Medical Branch CETIRIZINE 2021-11 Yes TAKE ONE [facility] vers 10 mg 1-22 TABLET BY ity of tablet 00:00: [facility] DAILY Medical Branch CETIRIZINE 2021-11 Yes TAKE ONE [facility] vers 10 mg 1-22 TABLET BY ity of tablet 00:00: [facility] DAILY Medical Branch CETIRIZINE 2021-11 Yes TAKE ONE [facility] vers 10 mg 1-22 TABLET BY ity of tablet 00:00: [facility] DAILY Medical Branch CETIRIZINE 2021-11 Yes TAKE ONE [facility] vers 10 mg 1-22 TABLET BY ity of tablet 00:00: [facility] DAILY Medical Branch CETIRIZINE 2021-11 Yes TAKE ONE [facility] vers 10 mg 1-22 TABLET BY ity of tablet 00:00: [facility] 00 DAILY Medical Branch CETIRIZINE 2021-11- No TAKE ONE [facility] 10 mg 1-22 12-19 TABLET BY ity of tablet 00:00: 00:00 MOUTH [place] 00 :00 DAILY Medical Branch KCL 10 mEq 2021-1 Yes [id number] 20meq Take 2 U nivers tablet 0-31 tablets by ity of 00:00: mouth in [place] the Medical morning. Branch KCL 10 mEq 2021-1 Yes [id number] 20meq Take 2 U nivers tablet 0-31 tablets by ity of 00:00: mouth in [place] the Medical morning. Branch KCL 10 mEq 2021-1 Yes [id number] 20meq Take 2 U nivers tablet 0-31 tablets by ity of 00:00: mouth in [place] the Medical morning. Branch KCL 10 mEq 2021-1 Yes [id number] 20meq Take 2 U nivers tablet 0-31 tablets by ity of 00:00: mouth in [place] the Medical morning. Branch KCL 10 mEq 2021-1 Yes [id number] 20meq Take 2 U nivers tablet 0-31 tablets by ity of 00:00: mouth in [place] the Medical morning. Branch KCL 10 mEq 2021-1 Yes [id number] 20meq Take 2 U nivers tablet 0-31 tablets by ity of 00:00: mouth in [place] the Medical morning. Branch KCL 10 mEq 2021-1 Yes [id number] 20meq Take 2 U [facility]ivers tablet 0-31 tablets by ity of 00:00: mouth in [place] the Medical morning. Branch KCL 10 mEq 2021-1 Yes [id number] 20meq Take 2 U [facility]ivers tablet 0-31 tablets by ity of 00:00: mouth in [place] the Medical morning. Branch KCL 10 mEq 2021-1 Yes [id number] 20meq Take 2 U nivers tablet 0-31 tablets by ity of 00:00: mouth in [place] the Medical morning. Branch KCL 10 mEq 2021-1 Yes [id number] 20meq Take 2 U nivers tablet 0-31 tablets by ity of 00:00: mouth in [place] the Medical morning. Branch KCL 10 mEq 2021-1 Yes [id number] 20meq Take 2 U nivers tablet 0-31 tablets by ity of 00:00: mouth in [place] the Medical morning. Branch KCL 10 mEq 2021-11 Yes [id number] 20meq Take 2 U [facility]ivers tablet 0-31 tablets by ity of 00:00: mouth in [place] the Medical morning. Branch KCL 10 mEq 2021-1 Yes [id number] 20meq Take 2 U nivers tablet 0-31 tablets by ity of 00:00: mouth in [place] the Medical morning. Branch KCL 10 mEq 2021-1 Yes [id number] 20meq Take 2 U nivers tablet 0-31 tablets by ity of 00:00: mouth in [place] the Medical morning. Branch KCL 10 mEq 2021-11 Yes [id number] 20meq Take 2 U [facility]ivers tablet 0-31 tablets by ity of 00:00: mouth in [place] the Medical morning. Branch KCL 10 mEq 2021- Yes [id number] 20meq Take 2 U [facility]ivers tablet 0-31 tablets by ity of 00:00: mouth in [place] the Medical morning. Branch KCL 10 mEq 2021- Yes [id number] 20meq Take 2 U [facility]ivers tablet 0-31 tablets by ity of 00:00: mouth in [place] the Medical morning. Branch KCL 10 mEq 2021-11 Yes [id number] 20meq Take 2 U [facility]ivers tablet 0-31 tablets by ity of 00:00: mouth in [place] the Medical morning. Branch KCL 10 mEq 2021-11 Yes [id number] 20meq Take 2 [facility]ivers tablet 0-31 tablets by ity of 00:00: mouth in [place] the Medical morning. Branch KCL 10 mEq 2021- Yes [id number] 20meq Take 2 U [facility]ivers tablet 0-31 tablets by ity of 00:00: mouth in [place] the Medical morning. Branch KCL 10 mEq 2021-11 Yes [id number] 20meq Take 2 U [facility]ivers tablet 0-31 tablets by ity of 00:00: mouth in [place] the Medical morning. Branch KCL 10 mEq 2021-1 Yes [id number] 20meq Take 2 U [facility]ivers tablet 0-31 tablets by ity of 00:00: mouth in [place] the Medical morning. Branch KCL 10 mEq 2021-1 Yes [id number] 20meq Take 2 U [facility]ivers tablet 0-31 tablets by ity of 00:00: mouth in [place] the Medical morning. Branch KCL 10 mEq 2021-1 Yes [id number] 20meq Take 2 U [facility]ivers tablet 0-31 tablets by ity of 00:00: mouth in [place] the Medical morning. Branch KCL 10 mEq 2021-1 Yes [id number] 20meq Take 2 [facility] tablet 0-31 tablets by ity of 00:00: mouth in [place] the Medical morning. Branch KCL 10 mEq 2021-1 Yes [id number] 20meq Take 2 [facility]ivers tablet 0-31 tablets by ity of 00:00: mouth in [place] the Medical morning. Branch KCL 10 mEq 2021-1 Yes [id number] 20meq Take 2 U [facility]ivers tablet 0-31 tablets by ity of 00:00: mouth in [place] the Medical morning. Branch KCL 10 mEq 2021-1 Yes [id number] 20meq Take 2 U nivers tablet 0-31 tablets by ity of 00:00: mouth in [place] the Medical morning. Branch KCL 10 mEq 2021-1 Yes [id number] 20meq Take 2 [facility]ivers tablet 0-31 tablets by ity of 00:00: mouth in [place] the Medical morning. Branch KCL 10 mEq 2021-1 Yes [id number] 20meq Take 2 U nivers tablet 0-31 tablets by ity of 00:00: mouth in [place] the Medical morning. Branch KCL 10 mEq 2021-1 Yes [id number] 20meq Take 2 [facility]ivers tablet 0-31 tablets by ity of 00:00: mouth in [place] the Medical morning. Branch KCL 10 mEq 2021-1 Yes [id number] 20meq Take 2 [facility] nivers tablet 0-31 tablets by ity of 00:00: mouth in [place] the Medical morning. Branch KCL 10 mEq 2021-1 Yes [id number] 20meq Take 2 U nivers tablet 0-31 tablets by ity of 00:00: mouth in [place] the Medical morning. Branch KCL 10 mEq 2021-1 Yes [id number] 20meq Take 2 [facility] nivers tablet 0-31 tablets by ity of 00:00: mouth in [place] the Medical morning. Branch KCL 10 mEq 2021-1 Yes [id number] 20meq Take 2 [facility]ivers tablet 0-31 tablets by ity of 00:00: mouth in [place] the Medical morning. Branch KCL 10 mEq 2021-1 Yes [id number] 20meq Take 2 U nivers tablet 0-31 tablets by ity of 00:00: mouth in [place] 00 the Medical morning. Branch KCL 10 mEq 2021-11- No [id number] 20meq Take 2 [facility] tablet 0-31 03-31 tablets by ity of 00:00: 00:00 mouth in [place] 00 :00 the Medical morning. Branch CETIRIZINE 2021-11 Yes TAKE ONE [facility] vers 10 mg 0-24 TABLET BY ity of tablet 00:00: MOUTH [place] DAILY Medical Branch CETIRIZINE 2021-11 Yes TAKE ONE [facility] vers 10 mg 0-24 TABLET BY ity of tablet 00:00: MOUTH [place] DAILY Medical Branch CETIRIZINE 2021-11 Yes TAKE ONE [facility] vers 10 mg 0-24 TABLET BY ity of tablet 00:00: MOUTH [place] DAILY Medical Branch CETIRIZINE 2021-11 Yes TAKE ONE [facility] vers 10 mg 0-24 TABLET BY ity of tablet 00:00: MOUTH [place] DAILY Medical Branch CETIRIZINE 2021-11 Yes TAKE ONE [facility] vers 10 mg 0-24 TABLET BY ity of tablet 00:00: MOUTH [place] 00 DAILY Medical Branch CETIRIZINE 2021-11- No TAKE ONE [facility] 10 mg 0-24 11-22 TABLET BY ity of tablet 00:00: 00:00 MOUTH [place] 00 :00 DAILY Medical Branch aspirin 81 2021-11 Yes 81mg Take 81 mg U nivers mg chewable 0-13 by mouth ity of tablet 13:10: daily. [address] omega-3 2021-11 Yes 1g Take 1 g Univer s fatty 0-13 by mouth ity of acids-vitam 13:10: [place]. [place] in E 1,000 19 Medical mg capsule Branch Cholecalcif 2021-11 Yes Take by Uni vers hiren, 0-13 mouth ity of Vitamin D3, 13:10: [place]. [place] 25 mcg 19 Medical (1,000 Branch unit) capsule Acetaminoph 2021-11 Yes Take by Uni vers en 500 mg 0-13 mouth ity of Cap 13:10: daily. [place] [address] Indication Medical s: and prn Branch BIOTIN ORAL 2021-11 Yes Take by Uni vers 0-13 mouth ity of 13:10: daily. [place] [address] Medical Branch cycloSPORIN 2022-[address] [facility] E (RESTASIS 0-13 each eye 2 it y of MULTIDOSE) 13:10: (two) [place] 0.05 % Drop 19 times Medical daily. Branch tramadol 2021-11 Yes Take by Univer s HCl 0-13 mouth. ity of (TRAMADOL 13:10: [place] ORAL) 19 Medical Branch aspirin 81 2021-11 Yes 81mg Take 81 mg U nivers mg chewable 0-13 by mouth ity of tablet 13:10: daily. [place] [address] Medical Branch omega-3 2021-11 Yes 1g Take 1 g Univer s fatty 0-13 by mouth ity of acids-vitam 13:10: daily. [place] in [place] 1,000 19 Medical mg capsule Branch Cholecalcif 2021-11 Yes Take by Uni vers hiren, 0-13 mouth ity of Vitamin D3, 13:10: daily. [place] 25 mcg 19 Medical (1,000 Branch unit) capsule Acetaminoph 2021-11 Yes Take by Uni vers en 500 mg 0-13 mouth ity of Cap 13:10: daily. [place] [address] Indication Medical s: and prn Branch BIOTIN ORAL 2021-11 Yes Take by Uni vers 0-13 mouth ity of 13:10: daily. [place] [address] Medical Branch cycloSPORIN 2021-[address] in [facility] (RESTASIS 0-13 each eye 2 it y of MULTIDOSE) 13:10: (two) [place] 0.05 % Drop 19 times Medical daily. Branch tramadol 2021-11 Yes Take by Univer s HCl 0-13 mouth. ity of (TRAMADOL 13:10: [place] ORAL) 19 Medical Branch aspirin 81 2021-11 Yes 81mg Take 81 mg U nivers mg chewable 0-13 by mouth ity of tablet 13:10: daily. [place] [address] Medical Branch omega-3 2021-11 Yes 1g Take 1 g Univer s fatty 0-13 by mouth ity of acids-vitam 13:10: daily. [place] in [place] 1,000 19 Medical mg capsule Branch Cholecalcif 2021-11 Yes Take by Uni vers hiren, 0-13 mouth ity of Vitamin D3, 13:10: daily. [place] 25 mcg 19 Medical (1,000 Branch unit) capsule Acetaminoph 2021-11 Yes Take by Uni vers en 500 mg 0-13 mouth ity of Cap 13:10: daily. [place] 19 Indication Medical s: and prn Branch BIOTIN ORAL 2021-11 Yes Take by Uni vers 0-13 mouth ity of 13:10: daily. [place] [address] Medical Branch cycloSPORIN 2021-[address] in [facility] (RESTASIS 0-13 each eye 2 it y of MULTIDOSE) 13:10: (two) [place] 0.05 % Drop 19 times Medical daily. Branch tramadol 2021-11 Yes Take by Univer s HCl 0-13 mouth. ity of (TRAMADOL 13:10: [place] ORAL) 19 Medical Branch aspirin 81 2021-11 Yes 81mg Take 81 mg U nivers mg chewable 0-13 by mouth ity of tablet 13:10: daily. [place] [address] Medical Branch omega-3 2021-11 Yes 1g Take 1 g Univer s fatty 0-13 by mouth ity of acids-vitam 13:10: daily. [place] in [place] 1,000 19 Medical mg capsule Branch Cholecalcif 2021-11 Yes Take by Uni vers hiren, 0-13 mouth ity of Vitamin D3, 13:10: daily. [place] 25 mcg 19 Medical (1,000 Branch unit) capsule Acetaminoph 2021-11 Yes Take by Uni vers en 500 mg 0-13 mouth ity of Cap 13:10: daily. [place] [address] Indication Medical s: and prn Branch BIOTIN ORAL 2021-11 Yes Take by Uni vers 0-13 mouth ity of 13:10: daily. [place] [address] Medical Branch cycloSPORIN 2021-[address] in [facility] (RESTASIS 0-13 each eye 2 it y of MULTIDOSE) 13:10: (two) [place] 0.05 % Drop 19 times Medical daily. Branch tramadol 2021-11 Yes Take by Univer s HCl 0-13 mouth. ity of (TRAMADOL 13:10: [place] ORAL) 19 Medical Branch aspirin 81 2021-11 Yes 81mg Take 81 mg U nivers mg chewable 0-13 by mouth ity of tablet 13:10: daily. [place] [address] Medical Branch omega-3 2021-11 Yes 1g Take 1 g Univer s fatty 0-13 by mouth ity of acids-vitam 13:10: daily. [place] in [place] 1,000 19 Medical mg capsule Branch Cholecalcif 2021-11 Yes Take by Uni vers hiren, 0-13 mouth ity of Vitamin D3, 13:10: daily. [place] 25 mcg 19 Medical (1,000 Branch unit) capsule Acetaminoph 2021-11 Yes Take by Uni vers en 500 mg 0-13 mouth ity of Cap 13:10: daily. [place] [address] Indication Medical s: and prn Branch BIOTIN ORAL 2021-11 Yes Take by Uni vers 0-13 mouth ity of 13:10: daily. [place] [address] Medical Branch cycloSPORIN 2021-[address] in [facility] (RESTASIS 0-13 each eye 2 it y of MULTIDOSE) 13:10: (two) [place] 0.05 % Drop 19 times Medical daily. Branch tramadol 2021-11 Yes Take by Univer s HCl 0-13 mouth. ity of (TRAMADOL 13:10: [place] ORAL) 19 Medical Branch aspirin 81 2021-11 Yes 81mg Take 81 mg U nivers mg chewable 0-13 by mouth ity of tablet 13:10: daily. [place] [address] Medical Branch omega-3 2021-11 Yes 1g Take 1 g Univer s fatty 0-13 by mouth ity of acids-vitam 13:10: daily. [place] in [place] 1,000 19 Medical mg capsule Branch Cholecalcif 2021-11 Yes Take by Uni vers hiren, 0-13 mouth ity of Vitamin D3, 13:10: daily. [place] 25 mcg 19 Medical (1,000 Branch unit) capsule Acetaminoph 2021-11 Yes Take by Uni vers en 500 mg 0-13 mouth ity of Cap 13:10: daily. [place] [address] Indication Medical s: and prn Branch BIOTIN ORAL 2021-11 Yes Take by Uni vers 0-13 mouth ity of 13:10: daily. [place] [address] Medical Branch cycloSPORIN 2021-[address] [facility] (RESTASIS 0-13 each eye 2 it y of MULTIDOSE) 13:10: (two) [place] 0.05 % Drop 19 times Medical daily. Branch tramadol 2021-11 Yes Take by Univer s HCl 0-13 mouth. ity of (TRAMADOL 13:10: [place] ORAL) 19 Medical Branch aspirin 81 2021-11 Yes 81mg Take 81 mg U nivers mg chewable 0-13 by mouth ity of tablet 13:10: daily. [place] 19 Medical Branch omega-3 2021-11 Yes 1g Take 1 g Univer s fatty 0-13 by mouth ity of acids-vitam 13:10: daily. [place] in [place] 1,000 19 Medical mg capsule Branch Cholecalcif 2021-11 Yes Take by Uni vers hiren, 0-13 mouth ity of Vitamin D3, 13:10: daily. [place] 25 mcg 19 Medical (1,000 Branch unit) capsule Acetaminoph 2021-11 Yes Take by Uni vers en 500 mg 0-13 mouth ity of Cap 13:10: daily. [place] [address] Indication Medical s: and prn Branch BIOTIN ORAL 2021-11 Yes Take by Uni vers 0-13 mouth ity of 13:10: daily. [place] [address] Medical Branch cycloSPORIN 2021-[address] in [facility] (RESTASIS 0-13 each eye 2 it y of MULTIDOSE) 13:10: (two) [place] 0.05 % Drop 19 times Medical daily. Branch tramadol 2021-11 Yes Take by Univer s HCl 0-13 mouth. ity of (TRAMADOL 13:10: [place] ORAL) Medical Branch aspirin 81 2021-11 Yes 81mg Take 81 mg U nivers mg chewable 0-13 by mouth ity of tablet 13:10: daily. [place] [address] Medical Branch omega-3 2021-11 Yes 1g Take 1 g Univer s fatty 0-13 by mouth ity of acids-vitam 13:10: daily. [place] in [place] 1,000 19 Medical mg capsule Branch Cholecalcif 2021-11 Yes Take by Uni vers hiren, 0-13 mouth ity of Vitamin D3, 13:10: daily. [place] 25 mcg 19 Medical (1,000 Branch unit) capsule Acetaminoph 2021-11 Yes Take by Uni vers en 500 mg 0-13 mouth ity of Cap 13:10: daily. [place] [address] Indication Medical s: and prn Branch BIOTIN ORAL 2021-11 Yes Take by Uni vers 0-13 mouth ity of 13:10: daily. [place] [address] Medical Branch cycloSPORIN 2021-[address] [facility] (RESTASIS 0-13 each eye 2 it y of MULTIDOSE) 13:10: (two) [place] 0.05 % Drop 19 times Medical daily. Branch tramadol 2021-11 Yes Take by Univer s HCl 0-13 mouth. ity of (TRAMADOL 13:10: [place] ORAL) 19 Medical Branch aspirin 81 2021-11 Yes 81mg Take 81 mg U nivers mg chewable 0-13 by mouth ity of tablet 13:10: daily. [place] [address] Medical Branch omega-3 2021-11 Yes 1g Take 1 g Univer s fatty 0-13 by mouth ity of acids-vitam 13:10: daily. [place] in [place] ,000 19 Medical mg capsule Branch Cholecalcif 2021-11 Yes Take by Uni vers hiren, 0-13 mouth ity of Vitamin D3, 13:10: daily. [place] 25 mcg 19 Medical (1,000 Branch unit) capsule Acetaminoph 2021-11 Yes Take by Uni vers en 500 mg 0-13 mouth ity of Cap 13:10: daily. [place] [address] Indication Medical s: and prn Branch BIOTIN ORAL 2021-11 Yes Take by Uni vers 0-13 mouth ity of 13:10: daily. [place] [address] Medical Branch cycloSPORIN 2021-[address] [facility] (RESTASIS 0-13 each eye 2 it y of MULTIDOSE) 13:10: (two) [place] 0.05 % Drop 19 times Medical daily. Branch tramadol 2021-11 Yes Take by Univer s HCl 0-13 mouth. ity of (TRAMADOL 13:10: [place] ORAL) 19 Medical Branch aspirin 81 2021-11 Yes 81mg Take 81 mg U nivers mg chewable 0-13 by mouth ity of tablet 13:10: daily. [place] [address] Medical Branch omega-3 2021-11 Yes 1g Take 1 g Univer s fatty 0-13 by mouth ity of acids-vitam 13:10: daily. [place] in [place] ,000 19 Medical mg capsule Branch Cholecalcif 2021-11 Yes Take by Uni vers hiren, 0-13 mouth ity of Vitamin D3, 13:10: daily. [place] 25 mcg 19 Medical (1,000 Branch unit) capsule Acetaminoph 2021-11 Yes Take by Uni vers en 500 mg 0-13 mouth ity of Cap 13:10: daily. [place] [address] Indication Medical s: and prn Branch BIOTIN ORAL 2021-11 Yes Take by Uni vers 0-13 mouth ity of 13:10: daily. [place] [address] Medical Branch cycloSPORIN 2021-[address] [facility] (RESTASIS 0-13 each eye 2 it y of MULTIDOSE) 13:10: (two) [place] 0.05 % Drop 19 times Medical daily. Branch tramadol 2021-11 Yes Take by Univer s HCl 0-13 mouth. ity of (TRAMADOL 13:10: [place] ORAL) 19 Medical Branch aspirin 81 2021-11 Yes 81mg Take 81 mg U nivers mg chewable 0-13 by mouth ity of tablet 13:10: daily. [place] [address] Medical Branch omega-3 2021-11 Yes 1g Take 1 g Univer s fatty 0-13 by mouth ity of acids-vitam 13:10: daily. [place] in E 1,000 19 Medical mg capsule Branch Cholecalcif 2021-11 Yes Take by Uni vers hiren, 0-13 mouth ity of Vitamin D3, 13:10: daily. [place] 25 mcg 19 Medical (1,000 Branch unit) capsule Acetaminoph 2021-11 Yes Take by Uni vers en 500 mg 0-13 mouth ity of Cap 13:10: daily. [place] [address] Indication Medical s: and prn Branch BIOTIN ORAL 2021-11 Yes Take by Uni vers 0-13 mouth ity of 13:10: daily. [place] [address] Medical Branch cycloSPORIN 2021-[address] [facility] (RESTASIS 0-13 each eye 2 it y of MULTIDOSE) 13:10: (two) [place] 0.05 % Drop 19 times Medical daily. Branch tramadol 2021-11 Yes Take by Univer s HCl 0-13 mouth. ity of (TRAMADOL 13:10: [place] ORAL) 19 Medical Branch aspirin 81 2021-11 Yes 81mg Take 81 mg U nivers mg chewable 0-13 by mouth ity of tablet 13:10: daily. [place] [address] Medical Branch omega-3 2021-11 Yes 1g Take 1 g Univer s fatty 0-13 by mouth ity of acids-vitam 13:10: daily. [place] in E 1,000 19 Medical mg capsule Branch Cholecalcif 2021-11 Yes Take by Uni vers hiren, 0-13 mouth ity of Vitamin D3, 13:10: daily. [place] 25 mcg 19 Medical (1,000 Branch unit) capsule Acetaminoph 2021-11 Yes Take by Uni vers en 500 mg 0-13 mouth ity of Cap 13:10: daily. [place] 19 Indication Medical s: and prn Branch BIOTIN ORAL 2021-11 Yes Take by Uni vers 0-13 mouth ity of 13:10: daily. [place] [address] Medical Branch cycloSPORIN 2021-11 Yes Place in [facility] (RESTASIS 0-13 each eye 2 it y of MULTIDOSE) 13:10: (two) [place] 0.05 % Drop 19 times Medical daily. Branch tramadol 2021-11 Yes Take by [facility] HCl 0-13 mouth. ity of (TRAMADOL 13:10: [place] ORAL) 19 Medical Branch aspirin 81 2021-11 Yes 81mg Take 81 mg U nivers mg chewable 0-13 by mouth ity of tablet 13:10: daily. [place] [address] Medical Branch omega-3 2021-11 Yes 1g Take 1 g [facility] fatty 0-13 by mouth ity of acids-vitam 13:10: [place]. [place] 1,000 19 Medical mg capsule Branch Cholecalcif 2021-11 Yes Take by [facility] vers hiren, 0-13 mouth ity of Vitamin D3, 13:10: [place]. [place] 25 mcg 19 Medical (1,000 Branch unit) capsule Acetaminoph 2021-11 Yes Take by [facility] vers en 500 mg 0-13 mouth ity of Cap 13:10: daily. [place] Indication Medical s: and prn Branch BIOTIN ORAL 2021-11 Yes Take by Uni vers 0-13 mouth ity of 13:10: daily. [place] [address] Medical Branch cycloSPORIN 2021-[address] [facility] (RESTASIS 0-13 each eye 2 it y of MULTIDOSE) 13:10: (two) [place] 0.05 % Drop 19 times Medical daily. Branch tramadol 2021-11 Yes Take by [facility] HCl 0-13 mouth. ity of (TRAMADOL 13:10: [place] ORAL) 19 Medical Branch aspirin 81 2021-11 Yes 81mg Take 81 mg U nivers mg chewable 0-13 by mouth ity of tablet 13:10: daily. [place] [address] Medical Branch omega-3 2021-11 Yes 1g Take 1 g [facility] fatty 0-13 by mouth ity of acids-vitam 13:10: [place]. [place] 1,000 19 Medical mg capsule Branch Cholecalcif 2021-11 Yes Take by [facility], 0-13 mouth ity of Vitamin D3, 13:10: daily. [place] 25 [place]cg 19 Medical (1,000 Branch unit) capsule Acetaminoph 2021-11 Yes Take by [facility] en 500 mg 0-13 mouth ity of Cap 13:10: daily. [place] [address] Indication Medical s: and prn Branch BIOTIN ORAL 2021-11 Yes Take by Uni vers 0-13 mouth ity of 13:10: daily. [place] [address] Medical Branch cycloSPORIN 2021-[address] [place] [facility] (RESTASIS 0-13 each eye 2 it y of MULTIDOSE) 13:10: (two) [place] 0.05 % Drop 19 times Medical daily. Branch tramadol 2021-11 Yes Take by [facility] HCl 0-13 mouth. ity of (TRAMADOL 13:10: [place] ORAL) 19 Medical Branch aspirin 81 2021-11 Yes 81mg Take 81 mg U nivers mg chewable 0-13 by mouth ity of tablet 13:10: daily. [place] [address] Medical Branch omega-3 2021-11 Yes 1g Take 1 g [facility] fatty 0-13 by mouth ity of acids-vitam 13:10: daily. [place] 1,000 19 Medical mg capsule Branch Cholecalcif 2021-11 Yes Take by [facility], 0-13 mouth ity of Vitamin D3, 13:10: daily. [place] 25 [place]cg 19 Medical (1,000 Branch unit) capsule Acetaminoph 2021-11 Yes Take by [facility] vers en 500 mg 0-13 mouth ity of Cap 13:10: daily. [place] [address] Indication Medical s: and prn Branch BIOTIN ORAL 2021-11 Yes Take by Uni vers 0-13 mouth ity of 13:10: daily. [place] [address] Medical Branch cycloSPORIN 2021-[address] [place] [facility] (RESTASIS 0-13 each eye 2 it y of MULTIDOSE) 13:10: (two) [place] 0.05 % Drop 19 times Medical daily. Branch tramadol 2021-11 Yes Take by [facility] HCl 0-13 mouth. ity of (TRAMADOL 13:10: [place] ORAL) 19 Medical Branch aspirin 81 2021-11 Yes 81mg Take 81 mg U nivers mg chewable 0-13 by mouth ity of tablet 13:10: daily. [place] [address] Medical Branch omega-3 2021-11 Yes 1g Take 1 g [facility] fatty 0-13 by mouth ity of acids-vitam 13:10: daily. [place] 1,000 19 Medical mg capsule Branch Cholecalcif 2021-11 Yes Take by [facility], 0-13 mouth ity of Vitamin D3, 13:10: daily. [place] 25 mcg 19 Medical (1,000 Branch unit) capsule Acetaminoph 2021-11 Yes Take by [facility] vers en 500 mg 0-13 mouth ity of Cap 13:10: daily. [place] [address] Indication Medical s: and prn Branch BIOTIN ORAL 2021-11 Yes Take by [facility] vers 0-13 mouth ity of 13:10: daily. [place] [address] Medical Branch cycloSPORIN 2021-[address] [facility] (RESTASIS 0-13 each eye 2 it y of MULTIDOSE) 13:10: (two) [place] 0.05 % Drop 19 times Medical daily. Branch tramadol 2021-11 Yes Take by [facility] HCl 0-13 mouth. ity of (TRAMADOL 13:10: [place] ORAL) Medical Branch aspirin 81 2021-11 Yes 81mg Take 81 mg U nivers mg chewable 0-13 by mouth ity of tablet 13:10: daily. [place] [address] Medical Branch omega-3 2021-11 Yes 1g Take 1 g [facility] fatty 0-13 by mouth ity of acids-vitam 13:10: daily. [place] 1,000 19 Medical mg capsule Branch Cholecalcif 2021-11 Yes Take by [facility] hi[facility], 0-13 mouth ity of Vitamin D3, 13:10: daily. [place] 25 [place]cg 19 Medical (1,000 Branch unit) capsule Acetaminoph 2021-11 Yes Take by [facility] vers en 500 mg 0-13 mouth ity of Cap 13:10: daily. [place] [address] Indication Medical s: and prn Branch BIOTIN ORAL 2021-11 Yes Take by [facility] vers 0-13 mouth ity of 13:10: daily. [place] [address] Medical Branch cycloSPORIN 2021-[address] [place] [facility] (RESTASIS 0-13 each eye 2 it y of MULTIDOSE) 13:10: (two) [place] 0.05 % Drop 19 times Medical daily. Branch tramadol 2021-11 Yes Take by [facility] HCl 0-13 mouth. ity of (TRAMADOL 13:10: [place] ORAL) 19 Medical Branch aspirin 81 2021-11 Yes 81mg Take 81 mg U nivers mg chewable 0-13 by mouth ity of tablet 13:10: daily. [place] [address] Medical Branch omega-3 2021-11 Yes 1g Take 1 g [facility] fatty 0-13 by mouth ity of acids-vitam 13:10: daily. [place] ,000 19 Medical mg capsule Branch Cholecalcif 2021-11 Yes Take by [facility], 0-13 mouth ity of Vitamin D3, 13:10: daily. [place] 25 [place]cg 19 Medical (1,000 Branch unit) capsule Acetaminoph 2021-11 Yes Take by [facility] vers en 500 mg 0-13 mouth ity of Cap 13:10: daily. [place] [address] Indication Medical s: and prn Branch BIOTIN ORAL 2021-11 Yes Take by Uni vers 0-13 mouth ity of 13:10: daily. [place] [address] Medical Branch cycloSPORIN 2021-[address] [place] [facility] (RESTASIS 0-13 each eye 2 it y of MULTIDOSE) 13:10: (two) [place] 0.05 % Drop 19 times Medical daily. Branch tramadol 2021-11 Yes Take by [facility] HCl 0-13 mouth. ity of (TRAMADOL 13:10: [place] ORAL) 19 Medical Branch aspirin 81 2021-11 Yes 81mg Take 81 mg U nivers mg chewable 0-13 by mouth ity of tablet 13:10: daily. [place] [address] Medical Branch omega-3 2021-11 Yes 1g Take 1 g [facility] fatty 0-13 by mouth ity of acids-vitam 13:10: daily. [place] ,000 19 Medical mg capsule Branch Cholecalcif 2021-11 Yes Take by [facility], 0-13 mouth ity of Vitamin D3, 13:10: daily. [place] 25 [place]cg 19 Medical (1,000 Branch unit) capsule Acetaminoph 2021-11 Yes Take by [facility] vers en 500 mg 0-13 mouth ity of Cap 13:10: daily. [place] [address] Indication Medical s: and prn Branch BIOTIN ORAL 2021-11 Yes Take by [facility] vers 0-13 mouth ity of 13:10: daily. [place] [address] Medical Branch cycloSPORIN 2021-[address] [place] [facility] (RESTASIS 0-13 each eye 2 it y of MULTIDOSE) 13:10: (two) [place] 0.05 % Drop 19 times Medical daily. Branch tramadol 2021-11 Yes Take by [facility] HCl 0-13 mouth. ity of (TRAMADOL 13:10: [place] ORAL) 19 Medical Branch aspirin 81 2021-11 Yes 81mg Take 81 mg U nivers mg chewable 0-13 by mouth ity of tablet 13:10: daily. [place] [address] Medical Branch omega-3 2021-11 Yes 1g Take 1 g [facility] fatty 0-13 by mouth ity of acids-vitam 13:10: daily. [place] in [place] 1,000 19 Medical mg capsule Branch Cholecalcif 2021-11 Yes Take by [facility] hiren, 0-13 mouth ity of Vitamin D3, 13:10: daily. [place] 25 mcg 19 Medical (1,000 Branch unit) capsule Acetaminoph 2021-11 Yes Take by [facility] vers en 500 mg 0-13 mouth ity of Cap 13:10: daily. [place] 19 Indication Medical s: and prn Branch BIOTIN ORAL 2021-11 Yes Take by Uni vers 0-13 mouth ity of 13:10: daily. [place] [address] Medical Branch cycloSPORIN 2021-[address] [place] [facility] (RESTASIS 0-13 each eye 2 it y of MULTIDOSE) 13:10: (two) [place] 0.05 % Drop 19 times Medical daily. Branch tramadol 2021-11 Yes Take by [facility] HCl 0-13 mouth. ity of (TRAMADOL 13:10: [place] ORAL) Medical Branch CALCIUM 2021-11- No Take by Un[facility] s CARBONATE/V 0-13 10-13 mouth ity of ITAMIN D2 13:10: 00:00 daily. [place] (CALCIUM 19 :00 Medical 600 + D Branch ORAL) CALCIUM 2021-11- No Take by Univer s CARBONATE/V 0-13 10-13 mouth ity of ITAMIN D2 13:10: 00:00 daily. [place] (CALCIUM 19 :00 Medical 600 + D Branch ORAL) gabapentin 2021-11 Yes [id number] 600mg Take 1 [facility] 600 mg 0-13 tablet by ity of tablet 00:00: mouth in [place] 00 the Medical morning Branch and 1 tablet in the evening. pravastatin 2021-11 Yes [id number] 40mg Take 1 [facility] 40 mg 0-13 tablet by ity of tablet 00:00: mouth at [place] 00 bedtime. Medical Branch raloxifene 2021-11 Yes [id number] 60mg Take 1 [facility] 60 mg 0-13 tablet by ity of tablet 00:00: mouth in [place] 00 the Medical morning. Branch gabapentin 2021-11 Yes [id number] 600mg Take 1 [facility] 600 mg 0-13 tablet by ity of tablet 00:00: mouth in [place] 00 the Medical morning Branch and 1 tablet in the evening. pravastatin 2021-11 Yes [id number] 40mg Take 1 [facility] 40 mg 0-13 tablet by ity of tablet 00:00: mouth at [place] 00 bedtime. Medical Branch raloxifene 2021-11 Yes [id number] 60mg Take 1 [facility] 60 mg 0-13 tablet by ity of tablet 00:00: mouth in [place] 00 the Medical morning. Branch gabapentin 2021-11 Yes [id number] 600mg Take 1 [facility] 600 mg 0-13 tablet by ity of tablet 00:00: mouth in [place] the Medical morning Branch and 1 tablet in the evening. pravastatin 2021-11 Yes [id number] 40mg Take 1 [facility] 40 mg 0-13 tablet by ity of tablet 00:00: mouth at [place] 00 bedtime. Medical Branch raloxifene 2021-11 Yes [id number] 60mg Take 1 [facility] 60 mg 0-13 tablet by ity of tablet 00:00: mouth in [place] 00 the Medical morning. Branch gabapentin 2021-11 Yes [id number] 600mg Take 1 [facility] 600 mg 0-13 tablet by ity of tablet 00:00: mouth in [place] 00 the Medical morning Branch and 1 tablet in the evening. pravastatin 2021-11 Yes [id number] 40mg Take 1 [facility] 40 mg 0-13 tablet by ity of tablet 00:00: mouth at [place] 00 bedtime. Medical Branch raloxifene 2021-11 Yes [id number] 60mg Take 1 [facility] 60 mg 0-13 tablet by ity of tablet 00:00: mouth in [place] 00 the Medical morning. Branch gabapentin 2021-11 Yes [id number] 600mg Take 1 [facility] 600 mg 0-13 tablet by ity of tablet 00:00: mouth in [place] 00 the Medical morning Branch and 1 tablet in the evening. pravastatin 2021-11 Yes [id number] 40mg Take 1 [facility] 40 mg 0-13 tablet by ity of tablet 00:00: mouth at [place] 00 bedtime. Medical Branch raloxifene 2021-11 Yes [id number] 60mg Take 1 [facility] 60 mg 0-13 tablet by ity of tablet 00:00: mouth in [place] 00 the Medical morning. Branch gabapentin 2021-11 Yes [id number] 600mg Take 1 [facility] 600 mg 0-13 tablet by ity of tablet 00:00: mouth in [place] 00 the Medical morning Branch and 1 tablet in the evening. pravastatin 2021-11 Yes [id number] 40mg Take 1 [facility] 40 mg 0-13 tablet by ity of tablet 00:00: mouth at [place] 00 bedtime. Medical Branch raloxifene 2021-11 Yes [id number] 60mg Take 1 [facility] 60 mg 0-13 tablet by ity of tablet 00:00: mouth in [place] 00 the Medical morning. Branch gabapentin 2021-11 Yes [id number] 600mg Take 1 [facility] 600 mg 0-13 tablet by ity of tablet 00:00: mouth in [place] the Medical morning Branch and 1 tablet in the evening. pravastatin 2021-11 Yes [id number] 40mg Take 1 [facility] 40 mg 0-13 tablet by ity of tablet 00:00: mouth at [place] 00 bedtime. Medical Branch raloxifene 2021-11 Yes [id number] 60mg Take 1 [facility] 60 mg 0-13 tablet by ity of tablet 00:00: mouth in [place] 00 the Medical morning. Branch gabapentin 2021-11 Yes [id number] 600mg Take 1 [facility] 600 mg 0-13 tablet by ity of tablet 00:00: mouth in [place] 00 the Medical morning Branch and 1 tablet in the evening. pravastatin 2021-11 Yes [id number] 40mg Take 1 [facility] 40 mg 0-13 tablet by ity of tablet 00:00: mouth at [place] 00 bedtime. Medical Branch raloxifene 2021-11 Yes [id number] 60mg Take 1 [facility] 60 mg 0-13 tablet by ity of tablet 00:00: mouth in [place] 00 the Medical morning. Branch gabapentin 2021-11 Yes [id number] 600mg Take 1 [facility] 600 mg 0-13 tablet by ity of tablet 00:00: mouth in [place] 00 the Medical morning Branch and 1 tablet in the evening. pravastatin 2021-11 Yes [id number] 40mg Take 1 [facility] 40 mg 0-13 tablet by ity of tablet 00:00: mouth at [place] 00 bedtime. Medical Branch raloxifene 2021-11 Yes [id number] 60mg Take 1 [facility] 60 mg 0-13 tablet by ity of tablet 00:00: mouth in [place] 00 the Medical morning. Branch gabapentin 2021-11 Yes [id number] 600mg Take 1 [facility] 600 mg 0-13 tablet by ity of tablet 00:00: mouth in [place] 00 the Medical morning Branch and 1 tablet in the evening. pravastatin 2021-11 Yes [id number] 40mg Take 1 [facility] 40 mg 0-13 tablet by ity of tablet 00:00: mouth at [place] 00 bedtime. Medical Branch raloxifene 2021-11 Yes [id number] 60mg Take 1 [facility] 60 mg 0-13 tablet by ity of tablet 00:00: mouth in [place] 00 the Medical morning. Branch gabapentin 2021-11 Yes [id number] 600mg Take 1 [facility] 600 mg 0-13 tablet by ity of tablet 00:00: mouth in [place] the Medical morning Branch and 1 tablet in the evening. pravastatin 2021-11 Yes [id number] 40mg Take 1 [facility] 40 mg 0-13 tablet by ity of tablet 00:00: mouth at [place] 00 bedtime. Medical Branch raloxifene 2021-11 Yes [id number] 60mg Take 1 [facility] 60 mg 0-13 tablet by ity of tablet 00:00: mouth in [place] 00 the Medical morning. Branch gabapentin 2021-11 Yes [id number] 600mg Take 1 [facility] 600 mg 0-13 tablet by ity of tablet 00:00: mouth in [place] 00 the Medical morning Branch and 1 tablet in the evening. pravastatin 2021-11 Yes [id number] 40mg Take 1 [facility] 40 mg 0-13 tablet by ity of tablet 00:00: mouth at [place] 00 bedtime. Medical Branch raloxifene 2021-11 Yes [id number] 60mg Take 1 [facility] 60 mg 0-13 tablet by ity of tablet 00:00: mouth in [place] 00 the Medical morning. Branch gabapentin 2021-11 Yes [id number] 600mg Take 1 [facility] 600 mg 0-13 tablet by ity of tablet 00:00: mouth in [place] 00 the Medical morning Branch and 1 tablet in the evening. pravastatin 2021-11 Yes [id number] 40mg Take 1 [facility] 40 mg 0-13 tablet by ity of tablet 00:00: mouth at [place] 00 bedtime. Medical Branch raloxifene 2021-11 Yes [id number] 60mg Take 1 [facility] 60 mg 0-13 tablet by ity of tablet 00:00: mouth in [place] 00 the Medical morning. Branch gabapentin 2021-11 Yes [id number] 600mg Take 1 [facility] 600 mg 0-13 tablet by ity of tablet 00:00: mouth in [place] 00 the Medical morning Branch and 1 tablet in the evening. pravastatin 2021-11 Yes [id number] 40mg Take 1 [facility] 40 mg 0-13 tablet by ity of tablet 00:00: mouth at [place] 00 bedtime. Medical Branch raloxifene 2021-11 Yes [id number] 60mg Take 1 [facility] 60 mg 0-13 tablet by ity of tablet 00:00: mouth in [place] 00 the Medical morning. Branch gabapentin 2021-11 Yes [id number] 600mg Take 1 [facility] 600 mg 0-13 tablet by ity of tablet 00:00: mouth in [place] the Medical morning Branch and 1 tablet in the evening. pravastatin 2021-11 Yes [id number] 40mg Take 1 [facility] 40 mg 0-13 tablet by ity of tablet 00:00: mouth at [place] 00 bedtime. Medical Branch raloxifene 2021-11 Yes [id number] 60mg Take 1 [facility] 60 mg 0-13 tablet by ity of tablet 00:00: mouth in [place] 00 the Medical morning. Branch gabapentin 2021-11 Yes [id number] 600mg Take 1 [facility] 600 mg 0-13 tablet by ity of tablet 00:00: mouth in [place] 00 the Medical morning Branch and 1 tablet in the evening. pravastatin 2021-11 Yes [id number] 40mg Take 1 [facility] 40 mg 0-13 tablet by ity of tablet 00:00: mouth at [place] 00 bedtime. Medical Branch raloxifene 2021-11 Yes [id number] 60mg Take 1 [facility] 60 mg 0-13 tablet by ity of tablet 00:00: mouth in [place] 00 the Medical morning. Branch gabapentin 2021-11 Yes [id number] 600mg Take 1 [facility] 600 mg 0-13 tablet by ity of tablet 00:00: mouth in [place] 00 the Medical morning Branch and 1 tablet in the evening. pravastatin 2021-11 Yes [id number] 40mg Take 1 [facility] 40 mg 0-13 tablet by ity of tablet 00:00: mouth at [place] 00 bedtime. Medical Branch raloxifene 2021-11 Yes [id number] 60mg Take 1 [facility] 60 mg 0-13 tablet by ity of tablet 00:00: mouth in [place] 00 the Medical morning. Branch gabapentin 2021-11 Yes [id number] 600mg Take 1 [facility] 600 mg 0-13 tablet by ity of tablet 00:00: mouth in [place] 00 the Medical morning Branch and 1 tablet in the evening. pravastatin 2021-11 Yes [id number] 40mg Take 1 [facility] 40 mg 0-13 tablet by ity of tablet 00:00: mouth at [place] 00 bedtime. Medical Branch raloxifene 2021-11 Yes [id number] 60mg Take 1 [facility] 60 mg 0-13 tablet by ity of tablet 00:00: mouth in [place] 00 the Medical morning. Branch gabapentin 2021-11 Yes [id number] 600mg Take 1 [facility] 600 mg 0-13 tablet by ity of tablet 00:00: mouth in [place] the Medical morning Branch and 1 tablet in the evening. pravastatin 2021-11 Yes [id number] 40mg Take 1 [facility] 40 mg 0-13 tablet by ity of tablet 00:00: mouth at [place] 00 bedtime. Medical Branch raloxifene 2021-11 Yes [id number] 60mg Take 1 [facility] 60 mg 0-13 tablet by ity of tablet 00:00: mouth in [place] 00 the Medical morning. Branch gabapentin 2021-11 Yes [id number] 600mg Take 1 [facility] 600 mg 0-13 tablet by ity of tablet 00:00: mouth in [place] 00 the Medical morning Branch and 1 tablet in the evening. pravastatin 2021-11 Yes [id number] 40mg Take 1 [facility] 40 mg 0-13 tablet by ity of tablet 00:00: mouth at [place] 00 bedtime. Medical Branch raloxifene 2021-11 Yes [id number] 60mg Take 1 [facility] 60 mg 0-13 tablet by ity of tablet 00:00: mouth in [place] 00 the Medical morning. Branch gabapentin 2021-11 Yes [id number] 600mg Take 1 [facility] 600 mg 0-13 tablet by ity of tablet 00:00: mouth in [place] 00 the Medical morning Branch and 1 tablet in the evening. pravastatin 2021-11 Yes [id number] 40mg Take 1 [facility] 40 mg 0-13 tablet by ity of tablet 00:00: mouth at [place] 00 bedtime. Medical Branch raloxifene 2021-11 Yes [id number] 60mg Take 1 [facility] 60 mg 0-13 tablet by ity of tablet 00:00: mouth in [place] 00 the Medical morning. Branch gabapentin 2021-11 Yes [id number] 600mg Take 1 [facility] 600 mg 0-13 tablet by ity of tablet 00:00: mouth in [place] 00 the Medical morning Branch and 1 tablet in the evening. pravastatin 2021-11 Yes [id number] 40mg Take 1 [facility] 40 mg 0-13 tablet by ity of tablet 00:00: mouth at [place] 00 bedtime. Medical Branch raloxifene 2021-11 Yes [id number] 60mg Take 1 [facility] 60 mg 0-13 tablet by ity of tablet 00:00: mouth in [place] 00 the Medical morning. Branch gabapentin 2021-11 Yes [id number] 600mg Take 1 [facility] 600 mg 0-13 tablet by ity of tablet 00:00: mouth in [place] the Medical morning Branch and 1 tablet in the evening. pravastatin 2021-11 Yes [id number] 40mg Take 1 [facility] 40 mg 0-13 tablet by ity of tablet 00:00: mouth at [place] 00 bedtime. Medical Branch raloxifene 2021-11 Yes [id number] 60mg Take 1 [facility] 60 mg 0-13 tablet by ity of tablet 00:00: mouth in [place] 00 the Medical morning. Branch gabapentin 2021-11 Yes [id number] 600mg Take 1 [facility] 600 mg 0-13 tablet by ity of tablet 00:00: mouth in [place] 00 the Medical morning Branch and 1 tablet in the evening. pravastatin 2021-11 Yes [id number] 40mg Take 1 [facility] 40 mg 0-13 tablet by ity of tablet 00:00: mouth at [place] 00 bedtime. Medical Branch raloxifene 2021-11 Yes [id number] 60mg Take 1 [facility] 60 mg 0-13 tablet by ity of tablet 00:00: mouth in [place] 00 the Medical morning. Branch gabapentin 2021-11 Yes [id number] 600mg Take 1 [facility] 600 mg 0-13 tablet by ity of tablet 00:00: mouth in [place] 00 the Medical morning Branch and 1 tablet in the evening. pravastatin 2021-11 Yes [id number] 40mg Take 1 [facility] 40 mg 0-13 tablet by ity of tablet 00:00: mouth at [place] 00 bedtime. Medical Branch raloxifene 2021-11 Yes [id number] 60mg Take 1 [facility] 60 mg 0-13 tablet by ity of tablet 00:00: mouth in [place] 00 the Medical morning. Branch gabapentin 2021-11 Yes [id number] 600mg Take 1 [facility] 600 mg 0-13 tablet by ity of tablet 00:00: mouth in [place] 00 the Medical morning Branch and 1 tablet in the evening. pravastatin 2021-11 Yes [id number] 40mg Take 1 [facility] 40 mg 0-13 tablet by ity of tablet 00:00: mouth at [place] 00 bedtime. Medical Branch raloxifene 2021-11 Yes [id number] 60mg Take 1 [facility] 60 mg 0-13 tablet by ity of tablet 00:00: mouth in [place] 00 the Medical morning. Branch gabapentin 2021-11 Yes [id number] 600mg Take 1 [facility] 600 mg 0-13 tablet by ity of tablet 00:00: mouth in [place] the Medical morning Branch and 1 tablet in the evening. pravastatin 2021-11 Yes [id number] 40mg Take 1 [facility] 40 mg 0-13 tablet by ity of tablet 00:00: mouth at [place] 00 bedtime. Medical Branch raloxifene 2021-11 Yes [id number] 60mg Take 1 [facility] 60 mg 0-13 tablet by ity of tablet 00:00: mouth in [place] 00 the Medical morning. Branch gabapentin 2021-11 Yes [id number] 600mg Take 1 [facility] 600 mg 0-13 tablet by ity of tablet 00:00: mouth in [place] 00 the Medical morning Branch and 1 tablet in the evening. pravastatin 2021-11 Yes [id number] 40mg Take 1 [facility] 40 mg 0-13 tablet by ity of tablet 00:00: mouth at [place] 00 bedtime. Medical Branch raloxifene 2021-11 Yes [id number] 60mg Take 1 [facility] 60 mg 0-13 tablet by ity of tablet 00:00: mouth in [place] 00 the Medical morning. Branch gabapentin 2021-11 Yes [id number] 600mg Take 1 [facility] 600 mg 0-13 tablet by ity of tablet 00:00: mouth in [place] 00 the Medical morning Branch and 1 tablet in the evening. pravastatin 2021-11 Yes [id number] 40mg Take 1 [facility] 40 mg 0-13 tablet by ity of tablet 00:00: mouth at [place] 00 bedtime. Medical Branch raloxifene 2021-11 Yes [id number] 60mg Take 1 [facility] 60 mg 0-13 tablet by ity of tablet 00:00: mouth in [place] 00 the Medical morning. Branch gabapentin 2021-11 Yes [id number] 600mg Take 1 [facility] 600 mg 0-13 tablet by ity of tablet 00:00: mouth in [place] 00 the Medical morning Branch and 1 tablet in the evening. pravastatin 2021-11 Yes [id number] 40mg Take 1 [facility] 40 mg 0-13 tablet by ity of tablet 00:00: mouth at [place] 00 bedtime. Medical Branch raloxifene 2021-11 Yes [id number] 60mg Take 1 [facility] 60 mg 0-13 tablet by ity of tablet 00:00: mouth in [place] 00 the Medical morning. Branch gabapentin 2021-11 Yes [id number] 600mg Take 1 [facility] 600 mg 0-13 tablet by ity of tablet 00:00: mouth in [place] the Medical morning Branch and 1 tablet in the evening. pravastatin 2021-11 Yes [id number] 40mg Take 1 [facility] 40 mg 0-13 tablet by ity of tablet 00:00: mouth at [place] 00 bedtime. Medical Branch raloxifene 2021-11 Yes [id number] 60mg Take 1 [facility] 60 mg 0-13 tablet by ity of tablet 00:00: mouth in [place] 00 the Medical morning. Branch gabapentin 2021-11 Yes [id number] 600mg Take 1 [facility] 600 mg 0-13 tablet by ity of tablet 00:00: mouth in [place] 00 the Medical morning Branch and 1 tablet in the evening. pravastatin 2021-11 Yes [id number] 40mg Take 1 [facility] 40 mg 0-13 tablet by ity of tablet 00:00: mouth at [place] 00 bedtime. Medical Branch raloxifene 2021-11 Yes [id number] 60mg Take 1 [facility] 60 mg 0-13 tablet by ity of tablet 00:00: mouth in [place] 00 the Medical morning. Branch gabapentin 2021-11 Yes [id number] 600mg Take 1 [facility] 600 mg 0-13 tablet by ity of tablet 00:00: mouth in [place] 00 the Medical morning Branch and 1 tablet in the evening. pravastatin 2021-11 Yes [id number] 40mg Take 1 [facility] 40 mg 0-13 tablet by ity of tablet 00:00: mouth at [place] 00 bedtime. Medical Branch raloxifene 2021-11 Yes [id number] 60mg Take 1 [facility] 60 mg 0-13 tablet by ity of tablet 00:00: mouth in [place] 00 the Medical morning. Branch gabapentin 2021-11 Yes [id number] 600mg Take 1 [facility] 600 mg 0-13 tablet by ity of tablet 00:00: mouth in [place] 00 the Medical morning Branch and 1 tablet in the evening. pravastatin 2021-11 Yes [id number] 40mg Take 1 [facility] 40 mg 0-13 tablet by ity of tablet 00:00: mouth at [place] 00 bedtime. [facility] Branch raloxifene 2021-11 Yes [id number] 60mg Take 1 [facility] 60 mg 0-13 tablet by [facility] tablet 00:00: mouth in [place] 00 the Medical morning. Branch gabapentin 2021-11 Yes [id number] 600mg Take 1 [facility] 600 mg 0-13 tablet by [facility] tablet 00:00: mouth in [place] the Medical morning Branch and 1 tablet in the evening. pravastatin 2021-11 Yes [id number] 40mg Take 1 [facility] 40 mg 0-13 tablet by [facility] tablet 00:00: mouth at [place] 00 bedtime. [facility] Branch raloxifene 2021-11 Yes [id number] 60mg Take 1 [facility] 60 mg 0-13 tablet by [facility] tablet 00:00: mouth in [place] 00 the Medical morning. Branch gabapentin 2021-11 Yes [id number] 600mg Take 1 [facility] 600 mg 0-13 tablet by [facility] of tablet 00:00: mouth in [place] 00 the Medical morning Branch and 1 tablet in the evening. pravastatin 2021-11 Yes [id number] 40mg Take 1 [facility] 40 mg 0-13 tablet by [facility] of tablet 00:00: mouth at [place] 00 bedtime. [facility] Branch raloxifene 2021-11 Yes [id number] 60mg Take 1 [facility] 60 mg 0-13 tablet by [facility] of tablet 00:00: mouth in [place] 00 the Medical morning. Branch gabapentin 2021-11 Yes [id number] 600mg Take 1 [facility] 600 mg 0-13 tablet by [facility] of tablet 00:00: mouth in [place] 00 the Medical morning Branch and 1 tablet in the evening. pravastatin 2021-11 Yes [id number] 40mg Take 1 [facility] 40 mg 0-13 tablet by [facility] of tablet 00:00: mouth at [place] 00 bedtime. [facility] Branch raloxifene 2021-11 Yes [id number] 60mg Take 1 [facility] 60 mg 0-13 tablet by [facility] of tablet 00:00: mouth in [place] 00 the Medical morning. Branch gabapentin 2021-11 Yes [id number] 600mg Take 1 [facility] 600 mg 0-13 tablet by [facility] of tablet 00:00: mouth in [place] 00 the Medical morning Branch and 1 tablet in the evening. pravastatin 2021-11 Yes [id number] 40mg Take 1 [facility] 40 mg 0-13 tablet by [facility] of tablet 00:00: mouth at [place] 00 bedtime. [facility] Branch raloxifene 2021-11 Yes [id number] 60mg Take 1 [facility] 60 mg 0-13 tablet by [facility] tablet 00:00: mouth in [place] 00 the Medical morning. Branch gabapentin 2021-11 Yes [id number] 600mg Take 1 [facility] 600 mg 0-13 tablet by [facility] tablet 00:00: mouth in [place] the Medical morning Branch and 1 tablet in the evening. pravastatin 2021-11 Yes [id number] 40mg Take 1 [facility] 40 mg 0-13 tablet by [facility] of tablet 00:00: mouth at [place] 00 bedtime. [facility] Branch raloxifene 2021-11 Yes [id number] 60mg Take 1 [facility] 60 mg 0-13 tablet by [facility] of tablet 00:00: mouth in [place] 00 the Medical morning. Branch gabapentin 2021-11 Yes [id number] 600mg Take 1 [facility] 600 mg 0-13 tablet by [facility] of tablet 00:00: mouth in [place] 00 the Medical morning Branch and 1 tablet in the evening. pravastatin 2021-11 Yes [id number] 40mg Take 1 [facility] 40 mg 0-13 tablet by [facility] tablet 00:00: mouth at [place] 00 bedtime. [facility] Branch raloxifene 2021-11 Yes [id number] 60mg Take 1 [facility] 60 mg 0-13 tablet by [facility] of tablet 00:00: mouth in [place] 00 the Medical morning. Branch gabapentin 2021-11 Yes [id number] 600mg Take 1 [facility] 600 mg 0-13 tablet by [facility] of tablet 00:00: mouth in [place] 00 the Medical morning Branch and 1 tablet in the evening. pravastatin 2021-11 Yes [id number] 40mg Take 1 [facility] 40 mg 0-13 tablet by [facility] of tablet 00:00: mouth at [place] 00 bedtime. [facility] Branch raloxifene 2021-11 Yes [id number] 60mg Take 1 [facility] 60 mg 0-13 tablet by [facility] of tablet 00:00: mouth in [place] 00 the Medical morning. Branch gabapentin 2021-11 Yes [id number] 600mg Take 1 [facility] 600 mg 0-13 tablet by [facility] of tablet 00:00: mouth in [place] 00 the Medical morning Branch and 1 tablet in the evening. pravastatin 2021-11 Yes [id number] 40mg Take 1 [facility] 40 mg 0-13 tablet by [facility] tablet 00:00: mouth at [place] 00 bedtime. [facility] Branch raloxifene 2021-11 Yes [id number] 60mg Take 1 [facility] 60 mg 0-13 tablet by [facility] tablet 00:00: mouth in [place] 00 the Medical morning. Branch gabapentin 2021-11 Yes [id number] 600mg Take 1 [facility] 600 mg 0-13 tablet by [facility] of tablet 00:00: mouth in [place] the Medical morning Branch and 1 tablet in the evening. pravastatin 2021-11 Yes [id number] 40mg Take 1 [facility] 40 mg 0-13 tablet by [facility] of tablet 00:00: mouth at [place] 00 bedtime. [facility] Branch raloxifene 2021-11 Yes [id number] 60mg Take 1 [facility] 60 mg 0-13 tablet by [facility] of tablet 00:00: mouth in [place] 00 the Medical morning. Branch gabapentin 2021-11 Yes [id number] 600mg Take 1 [facility] 600 mg 0-13 tablet by [facility] of tablet 00:00: mouth in [place] 00 the Medical morning Branch and 1 tablet in the evening. pravastatin 2021-11 Yes [id number] 40mg Take 1 [facility] 40 mg 0-13 tablet by [facility] of tablet 00:00: mouth at [place] 00 bedtime. Medical Branch raloxifene 2021-11 Yes [id number] 60mg Take 1 [facility] 60 mg 0-13 tablet by [facility] of tablet 00:00: mouth in [place] 00 the Medical morning. Branch gabapentin 2021-11 Yes [id number] 600mg Take 1 [facility] 600 mg 0-13 tablet by [facility] of tablet 00:00: mouth in [place] 00 the Medical morning Branch and 1 tablet in the evening. pravastatin 2021-11 Yes [id number] 40mg Take 1 [facility] 40 mg 0-13 tablet by [facility] of tablet 00:00: mouth at [place] 00 bedtime. Medical Branch raloxifene 2021-11 Yes [id number] 60mg Take 1 [facility] 60 mg 0-13 tablet by [facility] of tablet 00:00: mouth in [place] 00 the Medical morning. Branch gabapentin 2021-11 Yes [id number] 600mg Take 1 [facility] 600 mg 0-13 tablet by [facility] of tablet 00:00: mouth in [place] 00 the Medical morning Branch and 1 tablet in the evening. pravastatin 2021-11 Yes [id number] 40mg Take 1 [facility] 40 mg 0-13 tablet by [facility] of tablet 00:00: mouth at [place] 00 bedtime. Medical Branch raloxifene 2021-11 Yes [id number] 60mg Take 1 [facility] 60 mg 0-13 tablet by [facility] of tablet 00:00: mouth in [place] 00 the Medical morning. Branch gabapentin 2021-11 Yes [id number] 600mg Take 1 [facility] 600 mg 0-13 tablet by [facility] tablet 00:00: mouth in [place] the Medical morning Branch and 1 tablet in the evening. pravastatin 2021-11 Yes [id number] 40mg Take 1 [facility] 40 mg 0-13 tablet by [facility] tablet 00:00: mouth at [place] 00 bedtime. [facility] Branch raloxifene 2021-11 Yes [id number] 60mg Take 1 [facility] 60 mg 0-13 tablet by [facility] tablet 00:00: mouth in [place] 00 the Medical morning. Branch gabapentin 2021-11 Yes [id number] 600mg Take 1 [facility] 600 mg 0-13 tablet by [facility] of tablet 00:00: mouth in [place] 00 the Medical morning Branch and 1 tablet in the evening. pravastatin 2021-11 Yes [id number] 40mg Take 1 [facility] 40 mg 0-13 tablet by [facility] tablet 00:00: mouth at [place] 00 bedtime. [facility] Branch raloxifene 2021-11 Yes [id number] 60mg Take 1 [facility] 60 mg 0-13 tablet by [facility] of tablet 00:00: mouth in [place] 00 the Medical morning. Branch gabapentin 2021-11 Yes [id number] 600mg Take 1 [facility] 600 mg 0-13 tablet by [facility] of tablet 00:00: mouth in [place] 00 the Medical morning Branch and 1 tablet in the evening. pravastatin 2021-11 Yes [id number] 40mg Take 1 [facility] 40 mg 0-13 tablet by [facility] of tablet 00:00: mouth at [place] 00 bedtime. Medical Branch raloxifene 2021-11 Yes [id number] 60mg Take 1 [facility] 60 mg 0-13 tablet by [facility] of tablet 00:00: mouth in [place] 00 the Medical morning. Branch gabapentin 2021-11 Yes [id number] 600mg Take 1 [facility] 600 mg 0-13 tablet by [facility] of tablet 00:00: mouth in [place] 00 the Medical morning Branch and 1 tablet in the evening. pravastatin 2021-11 Yes [id number] 40mg Take 1 [facility] 40 mg 0-13 tablet by [facility] of tablet 00:00: mouth at [place] 00 bedtime. Medical Branch raloxifene 2021-11 Yes [id number] 60mg Take 1 [facility] 60 mg 0-13 tablet by [facility] of tablet 00:00: mouth in [place] 00 the Medical morning. Branch gabapentin 2021-11 Yes [id number] 600mg Take 1 [facility] 600 mg 0-13 tablet by [facility] of tablet 00:00: mouth in [place] the Medical morning Branch and 1 tablet in the evening. pravastatin 2021-11 Yes [id number] 40mg Take 1 [facility] 40 mg 0-13 tablet by [facility] of tablet 00:00: mouth at [place] 00 bedtime. Medical Branch raloxifene 2021-11 Yes [id number] 60mg Take 1 [facility] 60 mg 0-13 tablet by [facility] of tablet 00:00: mouth in [place] 00 the Medical morning. Branch gabapentin 2021-11 Yes [id number] 600mg Take 1 [facility] 600 mg 0-13 tablet by [facility] of tablet 00:00: mouth in [place] 00 the Medical morning Branch and 1 tablet in the evening. pravastatin 2021-11 Yes [id number] 40mg Take 1 [facility] 40 mg 0-13 tablet by [facility] tablet 00:00: mouth at [place] 00 bedtime. [facility] Branch raloxifene 2021-11 Yes [id number] 60mg Take 1 [facility] 60 mg 0-13 tablet by [facility] of tablet 00:00: mouth in [place] 00 the Medical morning. Branch gabapentin 2021-11 Yes [id number] 600mg Take 1 [facility] 600 mg 0-13 tablet by [facility] of tablet 00:00: mouth in [place] 00 the Medical morning Branch and 1 tablet in the evening. pravastatin 2021-11 Yes [id number] 40mg Take 1 [facility] 40 mg 0-13 tablet by [facility] of tablet 00:00: mouth at [place] 00 bedtime. Medical Branch raloxifene 2021-11 Yes [id number] 60mg Take 1 [facility] 60 mg 0-13 tablet by [facility] of tablet 00:00: mouth in [place] 00 the Medical morning. Branch gabapentin 2021-11 Yes [id number] 600mg Take 1 [facility] 600 mg 0-13 tablet by [facility] of tablet 00:00: mouth in [place] 00 the Medical morning Branch and 1 tablet in the evening. pravastatin 2021-11 Yes [id number] 40mg Take 1 [facility] 40 mg 0-13 tablet by [facility] of tablet 00:00: mouth at [place] 00 bedtime. Medical Branch raloxifene 2021-11 Yes [id number] 60mg Take 1 [facility] 60 mg 0-13 tablet by [facility] of tablet 00:00: mouth in [place] 00 the Medical morning. Branch gabapentin 2021-11 Yes [id number] 600mg Take 1 [facility] 600 mg 0-13 tablet by [facility] of tablet 00:00: mouth in [place] the Medical morning Branch and 1 tablet in the evening. pravastatin 2021-11 Yes [id number] 40mg Take 1 [facility] 40 mg 0-13 tablet by [facility] of tablet 00:00: mouth at [place] 00 bedtime. Medical Branch raloxifene 2021-11 Yes [id number] 60mg Take 1 [facility] 60 mg 0-13 tablet by [facility] of tablet 00:00: mouth in [place] 00 the Medical morning. Branch gabapentin 2021-11 Yes [id number] 600mg Take 1 [facility] 600 mg 0-13 tablet by [facility] of tablet 00:00: mouth in [place] 00 the Medical morning Branch and 1 tablet in the evening. pravastatin 2021-11 Yes [id number] 40mg Take 1 [facility] 40 mg 0-13 tablet by [facility] of tablet 00:00: mouth at [place] 00 bedtime. Medical Branch raloxifene 2021-11 Yes [id number] 60mg Take 1 [facility] 60 mg 0-13 tablet by [facility] of tablet 00:00: mouth in [place] 00 the Medical morning. Branch gabapentin 2021-11 Yes [id number] 600mg Take 1 [facility] 600 mg 0-13 tablet by [facility] of tablet 00:00: mouth in [place] 00 the Medical morning Branch and 1 tablet in the evening. pravastatin 2021-11 Yes [id number] 40mg Take 1 [facility] 40 mg 0-13 tablet by [facility] of tablet 00:00: mouth at [place] 00 bedtime. Medical Branch raloxifene 2021-11 Yes [id number] 60mg Take 1 [facility] 60 mg 0-13 tablet by [facility] of tablet 00:00: mouth in [place] 00 the Medical morning. Branch gabapentin 2021-11 Yes [id number] 600mg Take 1 [facility] 600 mg 0-13 tablet by [facility] of tablet 00:00: mouth in [place] 00 the Medical morning Branch and 1 tablet in the evening. pravastatin 2021-11 Yes [id number] 40mg Take 1 [facility] 40 mg 0-13 tablet by [facility] of tablet 00:00: mouth at [place] 00 bedtime. Medical Branch raloxifene 2021-11 Yes [id number] 60mg Take 1 [facility] 60 mg 0-13 tablet by [facility] of tablet 00:00: mouth in [place] 00 the Medical morning. Branch gabapentin 2021-11 Yes [id number] 600mg Take 1 [facility] 600 mg 0-13 tablet by [facility] of tablet 00:00: mouth in [place] the Medical morning Branch and 1 tablet in the evening. pravastatin 2021-11 Yes [id number] 40mg Take 1 [facility] 40 mg 0-13 tablet by [facility] of tablet 00:00: mouth at [place] 00 bedtime. Medical Branch raloxifene 2021-11 Yes [id number] 60mg Take 1 [facility] 60 mg 0-13 tablet by [facility] of tablet 00:00: mouth in [place] 00 the Medical morning. Branch gabapentin 2021-11 Yes [id number] 600mg Take 1 [facility] 600 mg 0-13 tablet by [facility] of tablet 00:00: mouth in [place] 00 the Medical morning Branch and 1 tablet in the evening. pravastatin 2021-11 Yes [id number] 40mg Take 1 [facility] 40 mg 0-13 tablet by [facility] of tablet 00:00: mouth at [place] 00 bedtime. Medical Branch raloxifene 2021-11 Yes [id number] 60mg Take 1 [facility] 60 mg 0-13 tablet by [facility] of tablet 00:00: mouth in [place] 00 the Medical morning. Branch gabapentin 2021-11 Yes [id number] 600mg Take 1 [facility] 600 mg 0-13 tablet by [facility] of tablet 00:00: mouth in [place] 00 the Medical morning Branch and 1 tablet in the evening. pravastatin 2021-11 Yes [id number] 40mg Take 1 [facility] 40 mg 0-13 tablet by [facility] of tablet 00:00: mouth at [place] 00 bedtime. Medical Branch raloxifene 2021-11 Yes [id number] 60mg Take 1 [facility] 60 mg 0-13 tablet by [facility] of tablet 00:00: mouth in [place] 00 the Medical morning. Branch gabapentin 2021-11 Yes [id number] 600mg Take 1 [facility] 600 mg 0-13 tablet by [facility] of tablet 00:00: mouth in [place] 00 the Medical morning Branch and 1 tablet in the evening. pravastatin 2021-11 Yes [id number] 40mg Take 1 [facility] 40 mg 0-13 tablet by [facility] of tablet 00:00: mouth at [place] 00 bedtime. Medical Branch raloxifene 2021-11 Yes [id number] 60mg Take 1 [facility] 60 mg 0-13 tablet by [facility] of tablet 00:00: mouth in [place] 00 the Medical morning. Branch gabapentin 2021-11 Yes [id number] 600mg Take 1 [facility] 600 mg 0-13 tablet by [facility] of tablet 00:00: mouth in [place] the Medical morning Branch and 1 tablet in the evening. pravastatin 2021-11 Yes [id number] 40mg Take 1 [facility] 40 mg 0-13 tablet by [facility] of tablet 00:00: mouth at [place] 00 bedtime. Medical Branch raloxifene 2021-11 Yes [id number] 60mg Take 1 [facility] 60 mg 0-13 tablet by [facility] of tablet 00:00: mouth in [place] 00 the Medical morning. Branch gabapentin 2021-11 Yes [id number] 600mg Take 1 [facility] 600 mg 0-13 tablet by [facility] of tablet 00:00: mouth in [place] 00 the Medical morning Branch and 1 tablet in the evening. pravastatin 2021-11 Yes [id number] 40mg Take 1 [facility] 40 mg 0-13 tablet by [facility] of tablet 00:00: mouth at [place] 00 bedtime. Medical Branch raloxifene 2021-11 Yes [id number] 60mg Take 1 [facility] 60 mg 0-13 tablet by [facility] of tablet 00:00: mouth in [place] 00 the Medical morning. Branch gabapentin 2021-11 Yes [id number] 600mg Take 1 [facility] 600 mg 0-13 tablet by [facility] of tablet 00:00: mouth in [place] 00 the Medical morning Branch and 1 tablet in the evening. pravastatin 2021-11 Yes [id number] 40mg Take 1 [facility] 40 mg 0-13 tablet by [facility] of tablet 00:00: mouth at [place] 00 bedtime. Medical Branch raloxifene 2021-11 Yes [id number] 60mg Take 1 [facility] 60 mg 0-13 tablet by it[facility] of tablet 00:00: mouth in [place] 00 the Medical morning. Branch gabapentin 2021-11 Yes [id number] 600mg Take 1 [facility] 600 mg 0-13 tablet by [facility] of tablet 00:00: mouth in [place] 00 the Medical morning Branch and 1 tablet in the evening. pravastatin 2021-11 Yes [id number] 40mg Take 1 [facility] 40 mg 0-13 tablet by it[facility] of tablet 00:00: mouth at [place] 00 bedtime. Medical Branch raloxifene 2021-11 Yes [id number] 60mg Take 1 [facility] 60 mg 0-13 tablet by [facility] of tablet 00:00: mouth in [place] 00 the Medical morning. Branch gabapentin 2021-11 Yes [id number] 600mg Take 1 [facility] 600 mg 0-13 tablet by ity of tablet 00:00: mouth in [place] the Medical morning Branch and 1 tablet in the evening. pravastatin 2021-11 Yes [id number] 40mg Take 1 [facility] 40 mg 0-13 tablet by ity of tablet 00:00: mouth at [place] 00 bedtime. Medical Branch raloxifene 2021-11 Yes [id number] 60mg Take 1 [facility] 60 mg 0-13 tablet by ity of tablet 00:00: mouth in [place] 00 the Medical morning. Branch gabapentin 2021-11 Yes [id number] 600mg Take 1 [facility] 600 mg 0-13 tablet by it[facility] of tablet 00:00: mouth in [place] 00 the Medical morning Branch and 1 tablet in the evening. pravastatin 2021-11 Yes [id number] 40mg Take 1 [facility] 40 mg 0-13 tablet by it[facility] of tablet 00:00: mouth at [place] 00 bedtime. Medical Branch raloxifene 2021-11 Yes [id number] 60mg Take 1 [facility] 60 mg 0-13 tablet by ity of tablet 00:00: mouth in [place] 00 the Medical morning. Branch gabapentin 2021-11 Yes [id number] 600mg Take 1 [facility] 600 mg 0-13 tablet by it[facility] of tablet 00:00: mouth in [place] 00 the Medical morning Branch and 1 tablet in the evening. pravastatin 2021-11 Yes [id number] 40mg Take 1 [facility] 40 mg 0-13 tablet by it[facility] of tablet 00:00: mouth at [place] 00 bedtime. Medical Branch raloxifene 2021-11 Yes [id number] 60mg Take 1 [facility] 60 mg 0-13 tablet by it[facility] of tablet 00:00: mouth in [place] [id number] the Medical morning. Branch CETIRIZINE 0 Yes TAKE ONE [facility] vers 10 mg 9-26 TABLET BY ity of tablet 00:00: [facility] DAILY Medical Branch OMEPRAZOLE 2021-0 Yes TAKE ONE [facility] vers 20 mg 9-26 CAPSULE BY ity of capsule 00:00: [facility] DAILY Medical Branch CETIRIZINE 0 Yes TAKE ONE [facility] vers 10 mg 9-26 TABLET BY ity of tablet 00:00: [facility] DAILY Medical Branch OMEPRAZOLE 2021-0 Yes TAKE ONE [facility] vers 20 mg 9-26 CAPSULE BY ity of capsule 00:00: [facility] DAILY Medical Branch CETIRIZINE 2021-0 Yes TAKE ONE [facility] vers 10 mg 9-26 TABLET BY ity of tablet 00:00: [facility] DAILY Medical Branch OMEPRAZOLE 2021-0 Yes TAKE ONE [facility] vers 20 mg 9-26 CAPSULE BY ity of capsule 00:00: [facility] DAILY Medical Branch CETIRIZINE 2021-0 Yes TAKE ONE [facility] vers 10 mg 9-26 TABLET BY ity of tablet 00:00: [facility] DAILY Medical Branch OMEPRAZOLE 2021-0 Yes TAKE ONE [facility] vers 20 mg 9-26 CAPSULE BY ity of capsule 00:00: [facility] DAILY Medical Branch CETIRIZINE 2021-0 Yes TAKE ONE [facility] vers 10 mg 9-26 TABLET BY ity of tablet 00:00: [facility] DAILY Medical Branch OMEPRAZOLE 2021-0 Yes TAKE ONE [facility] vers 20 mg 9-26 CAPSULE BY ity of capsule 00:00: [facility] DAILY Medical Branch CETIRIZINE 2021-0 Yes TAKE ONE [facility] vers 10 mg 9-26 TABLET BY ity of tablet 00:00: [facility] DAILY Medical Branch OMEPRAZOLE 2021-0 Yes TAKE ONE [facility] vers 20 mg 9-26 CAPSULE BY ity of capsule 00:00: [facility] DAILY Medical Branch CETIRIZINE 2021-0 Yes TAKE ONE [facility] vers 10 mg 9-26 TABLET BY ity of tablet 00:00: [facility] DAILY Medical Branch OMEPRAZOLE 2022-0 Yes TAKE ONE [facility] vers 20 mg 9-26 CAPSULE BY ity of capsule 00:00: [facility] DAILY Medical Branch CETIRIZINE 2021-0 Yes TAKE ONE [facility] vers 10 mg 9-26 TABLET BY ity of tablet 00:00: [facility] DAILY Medical Branch OMEPRAZOLE 2-0 Yes TAKE ONE [facility] vers 20 mg 9-26 CAPSULE BY ity of capsule 00:00: [facility] DAILY Medical Branch CETIRIZINE 2021-0 Yes TAKE ONE [facility] vers 10 mg 9-26 TABLET BY ity of tablet 00:00: [facility] DAILY Medical Branch OMEPRAZOLE 2021-0 Yes TAKE ONE [facility] vers 20 mg 9-26 CAPSULE BY ity of capsule 00:00: [facility] DAILY Medical Branch OMEPRAZOLE 2021-0 Yes TAKE ONE [facility] vers 20 mg 9-26 CAPSULE BY ity of capsule 00:00: [facility] DAILY Medical Branch OMEPRAZOLE 2021-0 Yes TAKE ONE [facility] vers 20 mg 9-26 CAPSULE BY ity of capsule 00:00: [facility] DAILY Medical Branch OMEPRAZOLE 2021-0 Yes TAKE ONE [facility] vers 20 mg 9-26 CAPSULE BY ity of capsule 00:00: [facility] DAILY Medical Branch OMEPRAZOLE 2021-0 Yes TAKE ONE [facility] vers 20 mg 9-26 CAPSULE BY ity of capsule 00:00: [facility] DAILY Medical Branch OMEPRAZOLE 2-0 Yes TAKE ONE [facility] vers 20 mg 9-26 CAPSULE BY ity of capsule 00:00: [facility] DAILY Medical Branch OMEPRAZOLE 2-0 Yes TAKE ONE [facility] vers 20 mg 9-26 CAPSULE BY ity of capsule 00:00: [facility] DAILY Medical Branch OMEPRAZOLE 2022-0 Yes TAKE ONE [facility] vers 20 mg 9-26 CAPSULE BY ity of capsule 00:00: [facility] DAILY Medical Branch OMEPRAZOLE 2-0 2021- No TAKE ONE [facility] 20 mg 9-26 11-26 CAPSULE BY ity of capsule 00:00: 00:00 [facility] 00 :00 DAILY Medical Branch CETIRIZINE 2021-0 2021- No TAKE ONE [facility] 10 mg 9-26 10-24 TABLET BY ity of tablet 00:00: 00:00 [facility] 00 :00 DAILY Medical Branch CETIRIZINE 2021-0 2021- No TAKE ONE Un [facility] 10 mg 9- 10-24 TABLET BY ity of tablet 00:00: 00:00 MOUTH [place] 00 :00 DAILY Medical Branch aspirin 81 0 Yes 81mg Take 81 mg U nivers mg chewable 08-14 by mouth ity of tablet 20:12: daily. [place] [facility] omega-3 0 Yes 1g Take 1 g Univer s fatty 08-14 by mouth ity of acids-vitam 20:12: daily. [place] in E 1,000 05 Medical mg capsule Branch Cholecalcif Yes Take by [facility] vers hiren, 08-14 mouth ity of Vitamin D3, 20:12: daily. [place] 25 mcg 05 Medical (1,000 Branch unit) capsule CALCIUM Yes Take by [facility] CARBONATE/V - mouth ity of ITAMIN D2 20:12: daily. [place] (CALCIUM 05 Medical 600 + D Branch ORAL) Acetaminoph Yes Take by [facility] vers en 500 mg 08-14 mouth ity of Cap 20:12: daily. [place] [id number] Indication Medical s: and prn Branch BIOTIN ORAL Yes Take by [facility] vers 08-14 mouth ity of 20:12: daily. [place] [facility] cycloSPORIN [address] [facility] E (RESTASIS 08-14 each eye 2 it y of MULTIDOSE) 20:12: (two) [place] 0.05 % Drop 05 times Medical daily. Branch tramadol 0 Yes Take by Univer s HCl 08-14 mouth. ity of (TRAMADOL 20:12: [place] ORAL) 05 Medical Branch aspirin 81 0 Yes 81mg Take 81 mg U nivers mg chewable 08-14 by mouth ity of tablet 20:12: daily. [place] [facility] omega-3 0 Yes 1g Take 1 g Univer s fatty - by mouth ity of acids-vitam 20:12: daily. [place] in E 1,000 05 Medical mg capsule Branch Cholecalcif 0 Yes Take by [facility] vers hiren, - mouth ity of Vitamin D3, 20:12: daily. [place] 25 mcg 05 Medical (1,000 Branch unit) capsule CALCIUM 0 Yes Take by [facility] CARBONATE/V 9-21 mouth ity of ITAMIN D2 20:12: daily. [place] (CALCIUM 05 Medical 600 + D Branch ORAL) Acetaminoph 0 Yes Take by [facility] vers en 500 mg 08-14 mouth ity of Cap 20:12: daily. [place] 05 Indication Medical s: and prn Branch BIOTIN ORAL 0 Yes Take by [facility] vers 08-14 mouth ity of 20:12: daily. [place] 05 Medical Branch cycloSPORIN [address] in [facility] (RESTASIS 08-14 each eye 2 it y of MULTIDOSE) 20:12: (two) [place] 0.05 % Drop 05 times Medical daily. Branch tramadol 0 Yes Take by Univer s HCl 08-14 mouth. ity of (TRAMADOL 20:12: [place] ORAL) 05 Medical Branch aspirin 81 0 Yes 81mg Take 81 mg U nivers mg chewable 08-14 by mouth ity of tablet 20:12: daily. [place] 05 Medical Branch omega-3 Yes 1g Take 1 g Univer s fatty 08-14 by mouth ity of acids-vitam 20:12: daily. [place] in E 1,000 05 Medical mg capsule Branch Cholecalcif Yes Take by [facility] vers hiren, 08-14 mouth ity of Vitamin D3, 20:12: daily. [place] 25 mcg 05 Medical (1,000 Branch unit) capsule CALCIUM Yes Take by [facility] CARBONATE/V 08-14 mouth ity of ITAMIN D2 20:12: daily. [place] (CALCIUM 05 Medical 600 + D Branch ORAL) Acetaminoph 0 Yes Take by [facility] vers en 500 mg 08-14 mouth ity of Cap 20:12: daily. [place] 05 Indication Medical s: and prn Branch BIOTIN ORAL 0 Yes Take by [facility] vers 08-14 mouth ity of 20:12: daily. [place] 05 Medical Branch cycloSPORIN [address] in [facility] (RESTASIS 08-14 each eye 2 it y of MULTIDOSE) 20:12: (two) [place] 0.05 % Drop 05 times Medical daily. Branch tramadol 0 Yes Take by Univer s HCl - mouth. ity of (TRAMADOL 20:12: [place] ORAL) 05 Medical Branch aspirin 81 0 Yes 81mg Take 81 mg U nivers mg chewable - by mouth ity of tablet 20:12: daily. [place] 05 Medical Branch omega-3 0 Yes 1g Take 1 g Univer s fatty - by mouth ity of acids-vitam 20:12: daily. [place] in E 1,000 05 Medical mg capsule Branch Cholecalcif Yes Take by [facility] vers hiren, - mouth ity of Vitamin D3, 20:12: daily. [place] 25 mcg 05 Medical (1,000 Branch unit) capsule CALCIUM 0 Yes Take by [facility] CARBONATE/V - mouth ity of ITAMIN D2 20:12: daily. [place] (CALCIUM 05 Medical 600 + D Branch ORAL) Acetaminoph 0 Yes Take by [facility] vers en 500 mg - mouth ity of Cap 20:12: daily. [place] [address] Indication Medical s: and prn Branch BIOTIN ORAL 0 Yes Take by Uni vers - mouth ity of 20:12: daily. [place] 05 Medical Branch cycloSPORIN Yes Place in [facility] (RESTASIS 08-14 each eye 2 it y of MULTIDOSE) 20:12: (two) [place] 0.05 % Drop 05 times Medical daily. Branch tramadol Yes Take by Univer s HCl 08-14 mouth. ity of (TRAMADOL 20:12: [place] ORAL) Medical Branch aspirin 81 0 Yes 81mg Take 81 mg U nivers mg chewable 08-14 by mouth ity of tablet 20:12: daily. [place] 05 Medical Branch omega-3 0 Yes 1g Take 1 g Univer s fatty - by mouth ity of acids-vitam 20:12: daily. [place] in E 1,000 05 Medical mg capsule Branch Cholecalcif Yes Take by Uni vers hiren, 9-21 mouth ity of Vitamin D3, 20:12: daily. [place] 25 mcg 05 Medical (1,000 Branch unit) capsule CALCIUM 0 Yes Take by [facility] CARBONATE/V -21 mouth ity of ITAMIN D2 20:12: daily. [place] (CALCIUM 05 Medical 600 + D Branch ORAL) Acetaminoph 0 Yes Take by [facility] vers en 500 mg -21 mouth ity of Cap 20:12: daily. [place] 05 Indication Medical s: and prn Branch BIOTIN ORAL 0 Yes Take by [facility] vers 9-21 mouth ity of 20:12: daily. [place] 05 Medical Branch cycloSPORIN [address] in [facility] (RESTASIS 9-21 each eye 2 it y of MULTIDOSE) 20:12: (two) [place] 0.05 % Drop 05 times Medical daily. Branch tramadol 0 Yes Take by Univer s HCl - mouth. ity of (TRAMADOL 20:12: [place] ORAL) 05 Medical Branch aspirin 81 0 Yes 81mg Take 81 mg U nivers mg chewable 08-14 by mouth ity of tablet 20:12: daily. [place] 05 Medical Branch omega-3 0 Yes 1g Take 1 g Un[facility] fatty - by mouth ity of acids-vitam 20:12: daily. [place] in E 1,000 05 Medical mg capsule Branch Cholecalcif 0 Yes Take by [facility] vers hiren, 08-14 mouth ity of Vitamin D3, 20:12: daily. [place] 25 mcg 05 Medical (1,000 Branch unit) capsule CALCIUM Yes Take by [facility] CARBONATE/V 08-14 mouth ity of ITAMIN D2 20:12: daily. [place] (CALCIUM 05 Medical 600 + D Branch ORAL) Acetaminoph 0 Yes Take by [facility] vers en 500 mg 08-14 mouth ity of Cap 20:12: daily. [place] 05 Indication Medical s: and prn Branch BIOTIN ORAL 0 Yes Take by [facility] vers -21 mouth ity of 20:12: daily. [place] 05 Medical Branch cycloSPORIN [address] in [facility] (RESTASIS 9- each eye 2 it y of MULTIDOSE) 20:12: (two) [place] 0.05 % Drop 05 times Medical daily. Branch tramadol 0 Yes Take by Univer s HCl - mouth. ity of (TRAMADOL 20:12: [place] ORAL) 05 Medical Branch aspirin 81 2021-0 Yes 81mg Take 81 mg U nivers mg chewable - by mouth ity of tablet 20:12: daily. [place] 05 Medical Branch omega-3 2021-0 Yes 1g Take 1 g Un[facility] fatty - by mouth ity of acids-vitam 20:12: daily. [place] in E 1,000 05 Medical mg capsule Branch Cholecalcif Yes Take by [facility] vers hiren, 08-14 mouth ity of Vitamin D3, 20:12: daily. [place] 25 mcg 05 Medical (1,000 Branch unit) capsule CALCIUM Yes Take by [facility] CARBONATE/V 08-14 mouth ity of ITAMIN D2 20:12: daily. [place] (CALCIUM 05 Medical 600 + D Branch ORAL) Acetaminoph Yes Take by [facility] en 500 mg 08-14 mouth ity of Cap 20:12: daily. [place] 05 Indication Medical s: and prn Branch BIOTIN ORAL Yes Take by [facility] vers 08-14 mouth ity of 20:12: daily. [place] 05 Medical Branch cycloSPORIN Yes Place in [facility] (RESTASIS 08-14 each eye 2 it y of MULTIDOSE) 20:12: (two) [place] 0.05 % Drop 05 times Medical daily. Branch tramadol Yes Take by Univer s HCl 08-14 mouth. ity of (TRAMADOL 20:12: [place] ORAL) 05 Medical Branch bupivacaine 0 2021- No Caudal Uni vers (preserv 08-14 Block, ity of free) 15:36: 16:39 ONCE INTRA [place] (SENSORCAIN 00 :22 PROCEDURE, Me dical E MPF) 0.25 Starting Bran ch % (2.5 on Fri mg/mL) 08/14/22 at injection 1036, Until Fri08/14/22 at 1139, Routine, Intra-op bupivacaine 2021-0 2021- No Infiltrati Univers liposome 08-14 on, ONCE ity of (PF) 15:36: 16:39 INTRA [place] (EXPAREL 00 :07 PROCEDURE, Medic al (PF)) 1.3 % Starting Bran ch (13.3 on Wed mg/mL) 08/14/22 at injection 1036, Until 08/14/22 at 1139, Routine, Intra-op bupivacaine 2021-0 2021- No Caudal Uni vers (preserv 08-14 Block, ity of free) 15:36: 16:39 ONCE INTRA [place] (SENSORCAIN 00 :22 PROCEDURE, Me dical E MPF) 0.25 Starting Bran ch % (2.5 on Fri mg/mL) 08/14/22 at injection 1036, Until Fri08/14/22 at 1139, Routine, Intra-op bupivacaine 2021- No Infiltrati [facility] liposome 08-14 on, ONCE ity of (PF) 15:36: 16:39 INTRA [place] (EXPAREL 00 :07 PROCEDURE, Medic al (PF)) 1.3 % Starting Bran ch (13.3 on Fri mg/mL) 08/14/22 at injection 1036, Until Fri08/14/22 at 1139, Routine, Intra-op morpHINE (4 Yes 2mg 2 mg, Slow [facility] mg/mL) 08-14 IV Push, ity of injection 2 14:05: Q5MIN PRN, [place] mg 36 3 doses, Medical Starting Branch on Fri08/14/22 at 0905, Until Discontinu ed, Routine, Pain (scale 4-6), PACU morpHINE (4 2021- No 2mg 2 mg, Slow Univers mg/mL) 08-14 IV Push, ity of injection 2 14:05: 03:17 Q5MIN PRN, [place] mg 36 :12 3 doses, Medical Starting Branch on Fri08/14/22 at 0905, Until Fri08/14/22 at 2217, Routine, Pain (scale 4-6), PACU ondansetron 2021- No 4mg 4 mg, Slow Univers (ZOFRAN 08-14 IV Push, ity of (PF)) 14:05: 14:57 PRN, 1 [place] injection 4 36 :00 dose, Medical mg Starting Branch on Fri08/14/22 at 0905, Until Discontinu ed, Routine, Nausea and Vomiting (N/V), PACU ondansetron 2021- No 4mg 4 mg, Slow Univers (ZOFRAN 08-14 IV Push, ity of (PF)) 14:05: 14:57 PRN, 1 [place] injection 4 36 :00 dose, Medical mg Starting Branch on Fri08/14/22 at 0905, Until Discontinu ed, Routine, Nausea and Vomiting (N/V), PACU sugammadex 2021- No IV Push, [facility] (BRIDION) 08-14 ONCE INTRA ity of injection 13:47: 14:13 PROCEDURE, [place] 00 :01 Starting Medical on Fri Branch 08/14/22 at 0847, Until Fri08/14/22 at 0913, Routine, Intra-op sugammadex 2021- No IV Push, [place] (BRIDION) 08-14 ONCE INTRA ity of injection 13:47: 14:13 PROCEDURE, [place] 00 :01 Starting Medical on Fri Branch 08/14/22 at 0847, Until Fri08/14/22 at 0913, Routine, Intra-op ketorolac 2021- No Slow IV Univ ers (TORADOL) 08-14 Push, ONCE ity of injection 13:29: 14:13 INTRA [place] 00 :01 PROCEDURE, Medical Starting Branch on Fri08/14/22 at 0829, Until Fri08/14/22 at 0913, Routine, Intra-op ketorolac 2021- No Slow IV Univ ers (TORADOL) 08-14 Push, ONCE ity of injection 13:29: 14:13 INTRA [place] 00 :01 PROCEDURE, Medical Starting Branch on Fri08/14/22 at 0829, Until Fri08/14/22 at 0913, Routine, Intra-op Ropi-Epi-Cl 2021- No PRN, Unive rs jacquie-Ketorol 08-14 Starting ity of ac (BENITO) 13:05: 14:14 on Fri injection 00 :35 08/14/22 at Medi doris syringe 0805, Branch Until Fri08/14/22 at 0914, Routine, Intra-op vancomycin 2021- No PRN, Univer s (VANCOCIN) 08-14 Starting ity of injection 13:05: 14:14 on Fri 00 :35 08/14/22 at Medical 0805, Branch Until Fri08/14/22 at 0914, BRETT, Intra-op cefTRIAXone 2021- No PRN, Unive rs (ROCEPHIN) 08-14 Starting ity of 3 g, 13:01: 14:14 on Wed [place] vancomycin 00 :35 08/14/22 at [facility] ical (VANCOCIN) 0801, Branch 3,000 mg in Intra-op NaCl 0.9% (NS) 3,000 mL OR irrigation acetaminoph 2021- No IV Unive rs en ADULT 08-14 Infusion, ity o f (OFIRMEV) 12:43: 14:13 Administer [place] injection 00 :01 over 15 Medical Minutes, Branch ONCE INTRA PROCEDURE, Starting on Fri08/14/22 at 0743, Until Fri08/14/22 at 09, Routine, Intra-op acetaminoph 2021- No IV Unive rs en ADULT 08-14 Infusion, ity o f (OFIRMEV) 12:43: 14:13 Administer [place] injection 00 :01 over 15 Medical Minutes, Branch ONCE INTRA PROCEDURE, Starting on Fri08/14/22 at 0743, Until Fri08/14/22 at 09, Routine, Intra-op ondansetron 2021- No Slow IV [facility] (ZOFRAN 08-14 Push, ONCE ity o f (PF)) 12:39: 14:13 INTRA [place] injection 00 :01 PROCEDURE, Medi doris Starting Branch on Fri08/14/22 at 0739, Until Fri08/14/22 at 09, Routine, Intra-op ondansetron 2021- No Slow IV [place] [facility] (ZOFRAN 08-14 Push, ONCE ity o f (PF)) 12:39: 14:13 INTRA [place] injection 00 :01 PROCEDURE, Medi doris Starting Branch on Fri08/14/22 at 0739, Until Fri08/14/22 at 09, Routine, Intra-op tranexamic 2021- No IV Univer s acid 08-14 Piggyback, ity of (CYKLOKAPRO 12:37: 14:13 CONTINUOUS [place] N) 1,000 mg 00 :01 PRN, Medical in NaCl Starting Branch 0.9% (NS) on Fri 10 mL 08/14/22 at piggyback 0737, Until Fri08/14/22 at 09, Administer over 60 Minutes, 10 mL, Intra-op tranexamic 2021- No IV Univer s acid 08-14 Piggyback, ity of (CYKLOKAPRO 12:37: 14:13 CONTINUOUS [place] N) 1,000 mg 00 :01 PRN, Medical in NaCl Starting Branch 0.9% (NS) on Fri 10 mL 08/14/22 at piggyback 0737, Until Fri08/14/22 at 0913, Administer over 60 Minutes, 10 mL, Intra-op PHENYLephri 2021- No Slow IV [place] [place] 1000 08-14 Push, ity of mcg/10 mL 12:35: 14:13 CONTINUOUS [place] in 0.9% 00 :01 PRN, Medical NaCl Starting Branch syringe on Fri08/14/22 at 0735, Until Fri08/14/22 at 09, Routine, Intra-op PHENYLephri 2021- No Slow IV [place] ne 1000 08-14 Push, ity of mcg/10 mL 12:35: 14:13 CONTINUOUS [place] in 0.9% 00 :01 PRN, Medical NaCl Starting Branch syringe on Fri08/14/22 at 0735, Until Fri08/14/22 at 0913, Routine, Intra-op cefTRIAXone 2021- No Slow IV [facility] (ROCEPHIN) 08-14 Push, ONCE it y of injection 12:32: 14:13 INTRA [place] 00 :01 PROCEDURE, Medical Starting Branch on Fri08/14/22 at 0732, Until Fri08/14/22 at 09, BRETT, Intra-op cefTRIAXone 2021- No Slow IV [facility] (ROCEPHIN) 08-14 Push, ONCE it y of injection 12:32: 14:13 INTRA [place] 00 :01 PROCEDURE, Medical Starting Branch on Fri08/14/22 at 0732, Until Fri08/14/22 at 0913, BRETT, Intra-op dexamethaso 2021- No IV Push, U nivers ne 08-14 ONCE INTRA ity of (DECADRON 12:31: 14:13 PROCEDURE, [place] PHOSPHATE) 00 :01 Starting Medic al injection on Wed Branch 08/14/22 at 0731, Until Fri08/14/22 at 0913, Routine, Intra-op dexamethaso 2021- No IV Push, U nivers ne 08-14 ONCE INTRA ity of (DECADRON 12:31: 14:13 PROCEDURE, [place] PHOSPHATE) 00 :01 Starting Medic al injection on Wed Branch 08/14/22 at 0731, Until 08/14/22 at 09, Routine, Intra-op rocuronium 2021- No IV Push, [place] [facility] (ZEMURON) 08-14 ONCE INTRA ity of injection 12:25: 14:13 PROCEDURE, [place] 00 :01 Starting Medical on Wed Branch 08/14/22 at 0725, Until 08/14/22 at 09, Routine, Intra-op propofoL IV 2021- No Intravenou Univers infusion 08-14 s, ONCE ity of 12:25: 14:13 INTRA [place] 00 :01 PROCEDURE, Medical Starting Branch on 08/14/22 at 0725, Until Fri08/14/22 at 09, Routine, Intra-op lidocaine 2021- No Intravenou U nivers 1% 08-14 s, ONCE ity of (XYLOCAINE) 12:25: 14:13 INTRA [place] 100 mg/10 00 : PROCEDURE, Medi doris mL (1 %) Starting Branch injection on 08/14/22 at 0725, Until 08/14/22 at 0913, Routine, Intra-op rocuronium 2021- No IV Push, [place] (ZEMURON) 08-14 ONCE INTRA ity of injection 12:25: 14:13 PROCEDURE, [place] 00 :01 Starting Medical on Wed Branch 08/14/22 at 0725, Until 08/14/22 at 09, Routine, Intra-op propofoL IV 2021- No Intravenou Univers infusion 08-14 s, ONCE ity of 12:25: 14:13 INTRA [place] 00 :01 PROCEDURE, Medical Starting Branch on 08/14/22 at 0725, Until 08/14/22 at 0913, Routine, Intra-op lidocaine 2021- No Intravenou U nivers 1% 08-14 s, ONCE ity of (XYLOCAINE) 12:25: 14:13 INTRA [place] 100 mg/10 00 :01 PROCEDURE, Medi doris mL (1 %) Starting Branch injection on Fri08/14/22 at 0725, Until Fri08/14/22 at 0913, Routine, Intra-op lactated 2021- No IV Univers ringers IV 08-14 Infusion, ity of infusion 12:15: 14:13 CONTINUOUS [place] 00 :01 PRN, Medical Starting Branch on Fri08/14/22 at 0715, Until Fri08/14/22 at 0913, Routine, Intra-op lactated 2021- No IV Univers ringers IV 08-14 Infusion, ity of infusion 12:15: 14:13 CONTINUOUS [place] 00 :01 PRN, Medical Starting Branch on Fri08/14/22 at 0715, Until Fri08/14/22 at 0913, Routine, Intra-op FENTanyl PF 2021- No Intravenou Univers (SUBLIMAZE 08-14 s, ONCE ity o f (PF)) 12:12: 14:13 INTRA [place] injection 00 :01 PROCEDURE, Medi doris Starting Branch on Fri08/14/22 at 0712, Until Fri08/14/22 at 0913, Routine, Intra-op FENTanyl PF 2021- No Intravenou Univers (SUBLIMAZE 08-14 s, ONCE ity o f (PF)) 12:12: 14:13 INTRA [place] injection 00 :01 PROCEDURE, Medi doris Starting Branch on Fri08/14/22 at 0712, Until Fri08/14/22 at 0913, Routine, Intra-op lactated 2021- No 1000mL at 42 Unive rs ringers IV 08-14 mL/hr, ity of infusion 10:45: 11:20 1,000 mL, [place] 1,000 mL 00 :00 IV Medical Infusion, Branch ONCE, 1 dose, On Fri08/14/22 at 0545, Routine, DSU Pre-op lactated 2021- No 1000mL at 42 Unive rs ringers IV 08-14 mL/hr, ity of infusion 10:45: 11:20 1,000 mL, [place] 1,000 mL 00 :00 IV Medical Infusion, Branch ONCE, 1 dose, On Fri08/14/22 at 0545, Routine, DSU Pre-op aspirin 81 0 Yes 81mg Take 81 mg U nivers mg chewable 08-14 by mouth ity of tablet 09:19: daily. [place] [id number] Medical Branch omega-3 Yes 1g Take 1 g Univer s fatty 08-14 by mouth ity of acids-vitam 09:19: daily. [place] in E 1,000 17 Medical mg capsule Branch Cholecalcif Yes Take by Uni vers hiren, 08-14 mouth ity of Vitamin D3, 09:19: daily. [place] 25 mcg 17 Medical (1,000 Branch unit) capsule CALCIUM Yes Take by Univers CARBONATE/V 08-14 mouth ity of ITAMIN D2 09:19: daily. [place] (CALCIUM 17 Medical 600 + D Branch ORAL) Acetaminoph Yes Take by Uni vers en 500 mg 08-14 mouth ity of Cap 09:19: daily. [place] [id number] Indication Medical s: and prn Branch BIOTIN ORAL Yes Take by Uni vers 08-14 mouth ity of 09:19: daily. [place] [address] Medical Branch [address] in [facility] (RESTASIS 08-14 each eye 2 it y of MULTIDOSE) 09:19: (two) [place] 0.05 % Drop 17 times Medical daily. Branch tramadol Yes Take by Univer s HCl 08-14 mouth. ity of (TRAMADOL 09:19: [place] ORAL) 17 Medical Branch traMADoL 50 2021- No 4647 50mg Take 1 Uni vers mg tablet 08-14 tablet by ity of 00:00: 04:59 mouth [place] 00 :00 every 6 Medical (six) Branch hours as needed for Pain (scale 4-6) or Pain (scale 7-10) for up to 7 days. Indication s: acute pain HYDROcodone 2- No 4647 1{tbl} Take 1 U nivers -acetaminop 08-14 tablet by it y of hen 5-325 00:00: 04:59 mouth [place] mg tablet 00 :00 every 6 Medical (six) Branch hours as needed for Pain (scale 4-6) or Pain (scale 7-10) for up to 7 days. Indication s: acute pain traMADoL 50 2021-0 2021- No 4647 50mg Take 1 Uni vers mg tablet 08-14 tablet by ity of 00:00: 04:59 mouth [place] 00 :00 every 6 Medical (six) Branch hours as needed for Pain (scale 4-6) or Pain (scale 7-10) for up to 7 days. Indication s: acute pain HYDROcodone 2021-2021- No 4647 1{tbl} Take 1 U nivers -acetaminop 08-14 tablet by it y of hen 5-325 00:00: 04:59 mouth [place] mg tablet 00 :00 every 6 Medical (six) Branch hours as needed for Pain (scale 4-6) or Pain (scale 7-10) for up to 7 days. Indication s: acute pain traMADoL 50 2021-2021- No 4647 50mg Take 1 Uni vers mg tablet 08-14 tablet by ity of 00:00: 04:59 mouth [place] 00 :00 every 6 Medical (six) Branch hours as needed for Pain (scale 4-6) or Pain (scale 7-10) for up to 7 days. Indication s: acute pain HYDROcodone 2021-2021- No 4647 1{tbl} Take 1 U nivers -acetaminop 08-14 tablet by it y of hen 5-325 00:00: 04:59 mouth [place] mg tablet 00 :00 every 6 Medical (six) Branch hours as needed for Pain (scale 4-6) or Pain (scale 7-10) for up to 7 days. Indication s: acute pain traMADoL 50 2021-0 2021- No 4647 50mg Take 1 Uni vers mg tablet 08-14 tablet by ity of 00:00: 04:59 mouth [place] 00 :00 every 6 Medical (six) Branch hours as needed for Pain (scale 4-6) or Pain (scale 7-10) for up to 7 days. Indication s: acute pain HYDROcodone 2021-0 2021- No 4647 1{tbl} Take 1 U nivers -acetaminop 08-14 tablet by it y of hen 5-325 00:00: 04:59 mouth [place] mg tablet 00 :00 every 6 Medical (six) Branch hours as needed for Pain (scale 4-6) or Pain (scale 7-10) for up to 7 days. Indication s: acute pain RALOXIFENE 0 Yes [id number] TAKE ONE [facility] 60 mg 9-19 TABLET BY ity of tablet 00:00: MOUTH [place] 00 DAILY Medical Branch RALOXIFENE 2021-0 Yes [id number] TAKE ONE [facility] 60 mg 9-19 TABLET BY ity of tablet 00:00: MOUTH [place] 00 DAILY Medical Branch RALOXIFENE 2021-0 Yes [id number] TAKE ONE Univers 60 mg 9-19 TABLET BY ity of tablet 00:00: [facility] 00 DAILY Medical Branch RALOXIFENE 2021-0 Yes [id number] TAKE ONE Univers 60 mg 9-19 TABLET BY ity of tablet 00:00: [facility] 00 DAILY Medical Branch RALOXIFENE 2021-0 Yes [id number] TAKE ONE Univers 60 mg 9-19 TABLET BY ity of tablet 00:00: [facility] 00 DAILY Medical Branch RALOXIFENE 2021-0 Yes [id number] TAKE ONE Univers 60 mg 9-19 TABLET BY ity of tablet 00:00: [facility] 00 DAILY Medical Branch RALOXIFENE 2021-0 Yes [id number] TAKE ONE Univers 60 mg 9-19 TABLET BY ity of tablet 00:00: [facility] 00 DAILY Medical Branch RALOXIFENE 2021-0 Yes [id number] TAKE ONE Univers 60 mg 9-19 TABLET BY ity of tablet 00:00: [facility] 00 DAILY Medical Branch RALOXIFENE 2021-0 2022- No [id number] TAKE ONE Univers 60 mg 9-19 10-13 TABLET BY ity of tablet 00:00: 00:00 [facility] 00 :00 DAILY Medical Branch RALOXIFENE 2021-0 2- No [id number] TAKE ONE Univers 60 mg 9-19 10-13 TABLET BY ity of tablet 00:00: 00:00 [facility] 00 :00 DAILY Medical Branch aspirin 81 2021-0 Yes 81mg Take 81 mg U nivers mg chewable 9-16 by mouth ity of tablet 09:30: daily. [place] 59 Medical Branch omega-3 2021-0 Yes 1g Take 1 g Univer s fatty 9-16 by mouth ity of acids-vitam 09:30: daily. [place] in E 1,000 59 Medical mg capsule Branch Cholecalcif 2021-0 Yes Take by Uni vers hiren, 9-16 mouth ity of Vitamin D3, 09:30: daily. [place] 25 mcg 59 Medical (1,000 Branch unit) capsule CALCIUM 2021-0 Yes Take by Univers CARBONATE/V 9-16 mouth ity of ITAMIN D2 09:30: daily. [place] (CALCIUM 59 Medical 600 + D Branch ORAL) Acetaminoph 2021-0 Yes Take by Uni vers en 500 mg 9-16 mouth ity of Cap 09:30: daily. [place] 59 Indication Medical s: and prn Branch BIOTIN ORAL 2021-0 Yes Take by Uni vers 9-16 mouth ity of 09:30: daily. [place] 59 Medical Branch cycloSPORIN 2021-[address] in [facility] (RESTASIS 916 each eye 2 it y of MULTIDOSE) 09:30: (two) [place] 0.05 % Drop 59 times Medical daily. Branch tramadol 2021-0 Yes Take by Univer s HCl 9-16 mouth. ity of (TRAMADOL 09:30: [place] ORAL) 59 Medical Branch aspirin 81 2021-0 Yes 81mg Take 81 mg U nivers mg chewable 16 by mouth ity of tablet 09:30: daily. [place] 59 Medical Branch omega-3 2021-0 Yes 1g Take 1 g Univer s fatty -16 by mouth ity of acids-vitam 09:30: daily. [place] in E 1,000 59 Medical mg capsule Branch Cholecalcif 2021-0 Yes Take by Uni vers hiren, 9-16 mouth ity of Vitamin D3, 09:30: daily. [place] 25 mcg 59 Medical (1,000 Branch unit) capsule CALCIUM 2021-0 Yes Take by Univers CARBONATE/V 9-16 mouth ity of ITAMIN D2 09:30: daily. [place] (CALCIUM 59 Medical 600 + D Branch ORAL) Acetaminoph 2021-0 Yes Take by Uni vers en 500 mg 9-16 mouth ity of Cap 09:30: daily. [place] 59 Indication Medical s: and prn Branch BIOTIN ORAL 2-0 Yes Take by Uni vers 9-16 mouth ity of 09:30: daily. [place] 59 Medical Branch cycloSPORIN 2-[address] in [facility] (RESTASIS 9-16 each eye 2 it y of MULTIDOSE) 09:30: (two) [place] 0.05 % Drop 59 times Medical daily. Branch tramadol 2021-0 Yes Take by Univer s HCl 9-16 mouth. ity of (TRAMADOL 09:30: [place] ORAL) 59 Medical Branch aspirin 81 2021-0 Yes 81mg Take 81 mg U nivers mg chewable 08-09 by mouth ity of tablet 09:30: daily. [place] 59 Medical Branch omega-3 2021-0 Yes 1g Take 1 g Univer s fatty 08-09 by mouth ity of acids-vitam 09:30: daily. [place] in E 1,000 59 Medical mg capsule Branch Cholecalcif 0 Yes Take by Uni vers hiren, 08-09 mouth ity of Vitamin D3, 09:30: daily. [place] 25 mcg 59 Medical (1,000 Branch unit) capsule CALCIUM 0 Yes Take by Univers CARBONATE/V 08-09 mouth ity of ITAMIN D2 09:30: daily. [place] (CALCIUM 59 Medical 600 + D Branch ORAL) Acetaminoph 0 Yes Take by Uni vers en 500 mg 08-09 mouth ity of Cap 09:30: daily. [place] 59 Indication Medical s: and prn Branch BIOTIN ORAL 2021-0 Yes Take by Uni vers -16 mouth ity of 09:30: daily. [place] 59 Medical Branch cycloSPORIN 2021-[address] in [facility] (RESTASIS 9-16 each eye 2 it y of MULTIDOSE) 09:30: (two) [place] 0.05 % Drop 59 times Medical daily. Branch tramadol 0 Yes Take by Univer s HCl -16 mouth. ity of (TRAMADOL 09:30: [place] ORAL) 59 Medical Branch aspirin 81 2021-0 Yes 81mg Take 81 mg U nivers mg chewable 07-25 by mouth ity of tablet 12:37: daily. [place] 29 Medical Branch omega-3 2021-0 Yes 1g Take 1 g Univer s fatty 07-25 by mouth ity of acids-vitam 12:37: daily. [place] in E 1,000 29 Medical mg capsule Branch Cholecalcif 0 Yes Take by Uni vers hiren, 07-25 mouth ity of Vitamin D3, 12:37: daily. [place] 25 mcg 29 Medical (1,000 Branch unit) capsule CALCIUM Yes Take by Univers CARBONATE/V 07-25 mouth ity of ITAMIN D2 12:37: daily. [place] (CALCIUM 29 Medical 600 + D Branch ORAL) Acetaminoph Yes Take by Uni vers en 500 mg 07-25 mouth ity of Cap 12:37: daily. [place] Indication Medical s: and prn Branch BIOTIN ORAL Yes Take by Uni vers 07-25 mouth ity of 12:37: daily. [place] 29 Medical Branch cycloSPORIN Yes Place in [place] [facility] [facility] (RESTASIS 07-25 each eye 2 it y of MULTIDOSE) 12:37: (two) [place] 0.05 % Drop 29 times Medical daily. Branch tramadol Yes Take by Univer s HCl 07-25 mouth. ity of (TRAMADOL 12:37: [place] ORAL) 29 Medical Branch enalapril 5 Yes [id number] 2.5mg Take 0.5 Univers mg tablet 8-22 tablets by ity of 00:00: mouth in [place] 00 the Medical morning. Branch furosemide Yes [id number] 40mg Take 2 [facility] 20 mg 8-22 tablets by ity of tablet 00:00: mouth in [place] 00 the Medical morning. Branch KCL 10 mEq Yes [id number] 20meq Take 2 U nivers tablet 8-22 tablets by ity of 00:00: mouth in [place] 00 the Medical morning. Branch enalapril 5 Yes [id number] 2.5mg Take 0.5 Univers mg tablet 8-22 tablets by ity of 00:00: mouth in [place] 00 the Medical morning. Branch furosemide Yes [id number] 40mg Take 2 [place] 20 mg 8-22 tablets by ity of tablet 00:00: mouth in [place] 00 the Medical morning. Branch KCL 10 mEq Yes [id number] 20meq Take 2 U nivers tablet 8-22 tablets by ity of 00:00: mouth in [place] 00 the Medical morning. Branch enalapril 5 Yes [id number] 2.5mg Take 0.5 [facility] mg tablet 8-22 tablets by ity of 00:00: mouth in [place] 00 the Medical morning. Branch furosemide 2021-0 Yes [id number] 40mg Take 2 [facility] 20 mg 8-22 tablets by ity of tablet 00:00: mouth in [place] the Medical morning. Branch KCL 10 mEq 2021-0 Yes [id number] 20meq Take 2 U nivers tablet 8-22 tablets by ity of 00:00: mouth in [place] 00 the Medical morning. Branch enalapril 5 2021-0 Yes [id number] 2.5mg Take 0.5 [facility] mg tablet 8-22 tablets by ity of 00:00: mouth in [place] the Medical morning. Branch furosemide 2021-0 Yes [id number] 40mg Take 2 [place] [facility] 20 mg 8-22 tablets by ity of tablet 00:00: mouth in [place] the Medical morning. Branch KCL 10 mEq 2021-0 Yes [id number] 20meq Take 2 U nivers tablet 8-22 tablets by ity of 00:00: mouth in [place] the Medical morning. Branch enalapril 5 2021-0 Yes [id number] 2.5mg Take 0.5 [facility] mg tablet 8-22 tablets by ity of 00:00: mouth in [place] the Medical morning. Branch furosemide 2021-0 Yes [id number] 40mg Take 2 [facility] 20 mg 8-22 tablets by ity of tablet 00:00: mouth in [place] the Medical morning. Branch KCL 10 mEq 2021-0 Yes [id number] 20meq Take 2 U nivers tablet 8-22 tablets by ity of 00:00: mouth in [place] the Medical morning. Branch enalapril 5 2021-0 Yes [id number] 2.5mg Take 0.5 [facility] mg tablet 8-22 tablets by ity of 00:00: mouth in [place] the Medical morning. Branch furosemide 2021-0 Yes [id number] 40mg Take 2 [facility] 20 mg 8-22 tablets by ity of tablet 00:00: mouth in [place] the Medical morning. Branch KCL 10 mEq 2021-0 Yes [id number] 20meq Take 2 U nivers tablet 8-22 tablets by ity of 00:00: mouth in [place] 00 the Medical morning. Branch enalapril 5 2021-0 Yes [id number] 2.5mg Take 0.5 [facility] mg tablet 8-22 tablets by ity of 00:00: mouth in [place] the Medical morning. Branch furosemide 2021-0 Yes [id number] 40mg Take 2 [facility] 20 mg 8-22 tablets by ity of tablet 00:00: mouth in [place] the Medical morning. Branch KCL 10 mEq 2021-0 Yes [id number] 20meq Take 2 U nivers tablet 8-22 tablets by ity of 00:00: mouth in [place] the [facility] morning. Branch enalapril 5 2021-0 Yes [id number] 2.5mg Take 0.5 [facility] tablet 8-22 tablets by [facility] 00:00: mouth in [place] the Medical morning. Branch furosemide 2021-0 Yes [id number] 40mg Take 2 [facility] 20 mg 8-22 tablets by [facility] tablet 00:00: mouth in [place] the Medical morning. Branch KCL 10 mEq 2021-0 Yes [id number] 20meq Take 2 [facility] tablet 8-22 tablets by [facility] of 00:00: mouth in [place] the Medical morning. Branch enalapril 5 2021-0 Yes [id number] 2.5mg Take 0.5 [facility] mg tablet 8-22 tablets by [facility] of 00:00: mouth in [place] the Medical morning. Branch furosemide 2021-0 Yes [id number] 40mg Take 2 [facility] 20 mg 8-22 tablets by [facility] tablet 00:00: mouth in [place] the Medical morning. Branch KCL 10 mEq 2021-0 Yes [id number] 20meq Take 2 [facility] tablet 8-22 tablets by [facility] of 00:00: mouth in [place] the Medical morning. Branch enalapril 5 2021-0 Yes [id number] 2.5mg Take 0.5 [facility] mg tablet 8-22 tablets by [facility] of 00:00: mouth in [place] 00 the Medical morning. Branch furosemide 2021-0 Yes [id number] 40mg Take 2 [facility] 20 mg 8-22 tablets by [facility] tablet 00:00: mouth in [place] 00 the Medical morning. Branch KCL 10 mEq 2021-0 Yes [id number] 20meq Take 2 [facility] tablet 8-22 tablets by [facility] of 00:00: mouth in [place] 00 the Medical morning. Branch enalapril 5 2021-0 Yes [id number] 2.5mg Take 0.5 [facility] tablet 8-22 tablets by [facility] of 00:00: mouth in [place] 00 the Medical morning. Branch furosemide 2021-0 Yes [id number] 40mg Take 2 [facility] 20 mg 8-22 tablets by [facility] tablet 00:00: mouth in [place] the Medical morning. Branch KCL 10 mEq 2021-0 Yes [id number] 20meq Take 2 [facility] tablet 8-22 tablets by [facility] of 00:00: mouth in [place] the Medical morning. Branch enalapril 5 2021-0 Yes [id number] 2.5mg Take 0.5 [facility] tablet 8-22 tablets by [facility] 00:00: mouth in [place] the Medical morning. Branch furosemide 2021-0 Yes [id number] 40mg Take 2 [facility] 20 mg 8-22 tablets by [facility] tablet 00:00: mouth in [place] the Medical morning. Branch KCL 10 mEq 2021-0 Yes [id number] 20meq Take 2 [facility] tablet 8-22 tablets by [facility] of 00:00: mouth in [place] the Medical morning. Branch enalapril 5 2021-0 Yes [id number] 2.5mg Take 0.5 [facility] tablet 8-22 tablets by [facility] of 00:00: mouth in [place] the Medical morning. Branch furosemide 2021-0 Yes [id number] 40mg Take 2 [facility] 20 mg 8-22 tablets by [facility] tablet 00:00: mouth in [place] the Medical morning. Branch KCL 10 mEq 2021-0 Yes [id number] 20meq Take 2 [facility] tablet 8-22 tablets by [facility] of 00:00: mouth in [place] the Medical morning. Branch enalapril 5 2021-0 Yes [id number] 2.5mg Take 0.5 [facility] tablet 8-22 tablets by [facility] of 00:00: mouth in [place] the Medical morning. Branch furosemide 2021-0 Yes [id number] 40mg Take 2 [facility] 20 mg 8-22 tablets by [facility] tablet 00:00: mouth in [place] 00 the Medical morning. Branch KCL 10 mEq 2021-0 Yes [id number] 20meq Take 2 [facility] tablet 8-22 tablets by [facility] of 00:00: mouth in [place] 00 the Medical morning. Branch enalapril 5 2021-0 Yes [id number] 2.5mg Take 0.5 [facility] tablet 8-22 tablets by [facility] of 00:00: mouth in [place] 00 the Medical morning. Branch furosemide 2021-0 Yes [id number] 40mg Take 2 [facility] 20 mg 8-22 tablets by [facility] tablet 00:00: mouth in [place] the Medical morning. Branch KCL 10 mEq 2021-0 Yes [id number] 20meq Take 2 [facility] tablet 8-22 tablets by [facility] of 00:00: mouth in [place] the Medical morning. Branch enalapril 5 2021-0 Yes [id number] 2.5mg Take 0.5 [facility] tablet 8-22 tablets by [facility] of 00:00: mouth in [place] the Medical morning. Branch furosemide 2021-0 Yes [id number] 40mg Take 2 [facility] 20 mg 8-22 tablets by [facility] tablet 00:00: mouth in [place] the Medical morning. Branch KCL 10 mEq 2021-0 Yes [id number] 20meq Take 2 [facility] tablet 8-22 tablets by [facility] of 00:00: mouth in [place] the Medical morning. Branch enalapril 5 2021-0 Yes [id number] 2.5mg Take 0.5 [facility] tablet 8-22 tablets by [facility] of 00:00: mouth in [place] the Medical morning. Branch furosemide 2021-0 Yes [id number] 40mg Take 2 [facility] 20 mg 8-22 tablets by [facility] tablet 00:00: mouth in [place] the Medical morning. Branch KCL 10 mEq 2021-0 Yes [id number] 20meq Take 2 [facility] tablet 8-22 tablets by [facility] of 00:00: mouth in [place] the Medical morning. Branch enalapril 5 2021-0 Yes [id number] 2.5mg Take 0.5 [facility] tablet 8-22 tablets by [facility] of 00:00: mouth in [place] the Medical morning. Branch furosemide 2021-0 Yes [id number] 40mg Take 2 [facility] 20 mg 8-22 tablets by [facility] tablet 00:00: mouth in [place] the Medical morning. Branch KCL 10 mEq 2021-0 Yes [id number] 20meq Take 2 [facility] tablet 8-22 tablets by [facility] of 00:00: mouth in [place] 00 the Medical morning. Branch enalapril 5 2021-0 Yes [id number] 2.5mg Take 0.5 [facility] tablet 8-22 tablets by [facility] of 00:00: mouth in [place] the Medical morning. Branch furosemide 2021-0 Yes [id number] 40mg Take 2 [facility] 20 mg 8-22 tablets by [facility] tablet 00:00: mouth in [place] the Medical morning. Branch KCL 10 mEq 2021-0 Yes [id number] 20meq Take 2 [facility] tablet 8-22 tablets by [facility] of 00:00: mouth in [place] the Medical morning. Branch enalapril 5 2021-0 Yes [id number] 2.5mg Take 0.5 [facility] tablet 8-22 tablets by [facility] of 00:00: mouth in [place] the Medical morning. Branch furosemide 2021-0 Yes [id number] 40mg Take 2 [facility] 20 mg 8-22 tablets by [facility] of tablet 00:00: mouth in [place] the Medical morning. Branch enalapril 5 2021-0 Yes [id number] 2.5mg Take 0.5 [facility] tablet 8-22 tablets by [facility] of 00:00: mouth in [place] the Medical morning. Branch furosemide 2021-0 Yes [id number] 40mg Take 2 [facility] 20 mg 8-22 tablets by [facility] tablet 00:00: mouth in [place] the Medical morning. Branch enalapril 5 2021-0 Yes [id number] 2.5mg Take 0.5 [facility] tablet 8-22 tablets by [facility] 00:00: mouth in [place] the Medical morning. Branch furosemide 2021-0 Yes [id number] 40mg Take 2 [facility] 20 mg 8-22 tablets by [facility] of tablet 00:00: mouth in [place] the Medical morning. Branch enalapril 5 2021-0 Yes [id number] 2.5mg Take 0.5 [facility] tablet 8-22 tablets by [facility] of 00:00: mouth in [place] the Medical morning. Branch furosemide 2021-0 Yes [id number] 40mg Take 2 [facility] 20 mg 8-22 tablets by [facility] tablet 00:00: mouth in [place] 00 the Medical morning. Branch enalapril 5 2021-0 Yes [id number] 2.5mg Take 0.5 [facility] tablet 8-22 tablets by [facility] of 00:00: mouth in [place] 00 the Medical morning. Branch furosemide 2021-0 Yes [id number] 40mg Take 2 [facility] 20 mg 8-22 tablets by [facility] tablet 00:00: mouth in [place] the Medical morning. Branch enalapril 5 2021-0 Yes [id number] 2.5mg Take 0.5 [facility] tablet 8-22 tablets by [facility] 00:00: mouth in [place] the Medical morning. Branch furosemide 2021-0 Yes [id number] 40mg Take 2 [facility] 20 mg 8-22 tablets by [facility] tablet 00:00: mouth in [place] the Medical morning. Branch enalapril 5 2021-0 Yes [id number] 2.5mg Take 0.5 [facility] tablet 8-22 tablets by [facility] of 00:00: mouth in [place] the Medical morning. Branch furosemide 2021-0 Yes [id number] 40mg Take 2 [facility] 20 mg 8-22 tablets by [facility] tablet 00:00: mouth in [place] the Medical morning. Branch enalapril 5 2021-0 Yes [id number] 2.5mg Take 0.5 [facility] tablet 8-22 tablets by [facility] of 00:00: mouth in [place] the Medical morning. Branch furosemide 2021-0 Yes [id number] 40mg Take 2 [facility] 20 mg 8-22 tablets by [facility] tablet 00:00: mouth in [place] the Medical morning. Branch enalapril 5 2021-0 Yes [id number] 2.5mg Take 0.5 [facility] tablet 8-22 tablets by [facility] of 00:00: mouth in [place] the Medical morning. Branch furosemide 2021-0 Yes [id number] 40mg Take 2 [facility] 20 mg 8-22 tablets by [facility] tablet 00:00: mouth in [place] the Medical morning. Branch enalapril 5 2021-0 Yes [id number] 2.5mg Take 0.5 [facility] tablet 8-22 tablets by [facility] 00:00: mouth in [place] 00 the Medical morning. Branch furosemide 2-0 Yes [id number] 40mg Take 2 [facility] 20 mg 8-22 tablets by [facility] tablet 00:00: mouth in [place] 00 the Medical morning. Branch enalapril 5 2021-0 Yes [id number] 2.5mg Take 0.5 [facility] tablet 8-22 tablets by [facility] of 00:00: mouth in [place] 00 the Medical morning. Branch furosemide 2021-0 Yes [id number] 40mg Take 2 [facility] 20 mg 8-22 tablets by [facility] tablet 00:00: mouth in [place] 00 the Medical morning. Branch enalapril 5 2021-0 Yes [id number] 2.5mg Take 0.5 [facility] tablet 8-22 tablets by [facility] 00:00: mouth in [place] the Medical morning. Branch furosemide 2021-0 Yes [id number] 40mg Take 2 [facility] 20 mg 8-22 tablets by [facility] tablet 00:00: mouth in [place] the Medical morning. Branch enalapril 5 2021-0 Yes [id number] 2.5mg Take 0.5 [facility] tablet 8-22 tablets by [facility] of 00:00: mouth in [place] the Medical morning. Branch furosemide 2021-0 Yes [id number] 40mg Take 2 [facility] 20 mg 8-22 tablets by [facility] tablet 00:00: mouth in [place] the Medical morning. Branch enalapril 5 2021-0 Yes [id number] 2.5mg Take 0.5 [facility] tablet 8-22 tablets by [facility] of 00:00: mouth in [place] the Medical morning. Branch furosemide 2021-0 Yes [id number] 40mg Take 2 [facility] 20 mg 8-22 tablets by [facility] tablet 00:00: mouth in [place] the Medical morning. Branch enalapril 5 2021-0 Yes [id number] 2.5mg Take 0.5 [facility] tablet 8-22 tablets by [facility] of 00:00: mouth in [place] the Medical morning. Branch furosemide 2021-0 Yes [id number] 40mg Take 2 [facility] 20 mg 8-22 tablets by [facility] tablet 00:00: mouth in [place] the Medical morning. Branch enalapril 5 2021-0 Yes [id number] 2.5mg Take 0.5 [facility] tablet 8-22 tablets by [facility] of 00:00: mouth in [place] the Medical morning. Branch furosemide 2-0 Yes [id number] 40mg Take 2 [facility] 20 mg 8-22 tablets by [facility] tablet 00:00: mouth in [place] the Medical morning. Branch enalapril 5 2021-0 Yes [id number] 2.5mg Take 0.5 [facility] tablet 8-22 tablets by [facility] 00:00: mouth in [place] the Medical morning. Branch furosemide 2021-0 Yes [id number] 40mg Take 2 [facility] 20 mg 8-22 tablets by [facility] tablet 00:00: mouth in [place] the Medical morning. Branch enalapril 5 2021-0 Yes [id number] 2.5mg Take 0.5 [facility] mg tablet 8-22 tablets by [facility] of 00:00: mouth in [place] the Medical morning. Branch furosemide 2021-0 Yes [id number] 40mg Take 2 [facility] 20 mg 8-22 tablets by [facility] tablet 00:00: mouth in [place] the Medical morning. Branch enalapril 5 2021-0 Yes [id number] 2.5mg Take 0.5 [facility] mg tablet 8-22 tablets by [facility] of 00:00: mouth in [place] the Medical morning. Branch furosemide 2021-0 Yes [id number] 40mg Take 2 [facility] 20 mg 8-22 tablets by [facility] tablet 00:00: mouth in [place] the Medical morning. Branch enalapril 5 2021-0 Yes [id number] 2.5mg Take 0.5 [facility] mg tablet 8-22 tablets by [facility] of 00:00: mouth in [place] the Medical morning. Branch furosemide 2021-0 Yes [id number] 40mg Take 2 [facility] 20 mg 8-22 tablets by [facility] tablet 00:00: mouth in [place] the Medical morning. Branch enalapril 5 2021-0 Yes [id number] 2.5mg Take 0.5 [facility] mg tablet 8-22 tablets by [facility] of 00:00: mouth in [place] the Medical morning. Branch furosemide 2021-0 Yes [id number] 40mg Take 2 [facility] 20 mg 8-22 tablets by [facility] tablet 00:00: mouth in [place] the Medical morning. Branch enalapril 5 2021-0 Yes [id number] 2.5mg Take 0.5 [facility] mg tablet 8-22 tablets by [facility] of 00:00: mouth in [place] the Medical morning. Branch furosemide 2-0 Yes [id number] 40mg Take 2 [facility] 20 mg 8-22 tablets by [facility] tablet 00:00: mouth in [place] the Medical morning. Branch enalapril 5 2021-0 Yes [id number] 2.5mg Take 0.5 [facility] mg tablet 8-22 tablets by [facility] of 00:00: mouth in [place] the Medical morning. Branch furosemide 2021-0 Yes [id number] 40mg Take 2 [facility] 20 mg 8-22 tablets by [facility] tablet 00:00: mouth in [place] the Medical morning. Branch enalapril 5 2021-0 Yes [id number] 2.5mg Take 0.5 [facility] mg tablet 8-22 tablets by [facility] of 00:00: mouth in [place] the Medical morning. Branch furosemide 2021-0 Yes [id number] 40mg Take 2 [facility] 20 mg 8-22 tablets by [facility] tablet 00:00: mouth in [place] the Medical morning. Branch enalapril 5 2021-0 Yes [id number] 2.5mg Take 0.5 [facility] mg tablet 8-22 tablets by [facility] of 00:00: mouth in [place] the Medical morning. Branch furosemide 2021-0 Yes [id number] 40mg Take 2 [facility] 20 mg 8-22 tablets by [facility] tablet 00:00: mouth in [place] the Medical morning. Branch enalapril 5 2021-0 Yes [id number] 2.5mg Take 0.5 [facility] mg tablet 8-22 tablets by [facility] of 00:00: mouth in [place] the Medical morning. Branch furosemide 2021-0 Yes [id number] 40mg Take 2 [facility] 20 mg 8-22 tablets by [facility] of tablet 00:00: mouth in [place] the Medical morning. Branch enalapril 5 2021-0 Yes [id number] 2.5mg Take 0.5 [facility] mg tablet 8-22 tablets by [facility] of 00:00: mouth in [place] the Medical morning. Branch furosemide 2021-0 Yes [id number] 40mg Take 2 [facility] 20 mg 8-22 tablets by [facility] tablet 00:00: mouth in [place] the Medical morning. Branch enalapril 5 2021-0 Yes [id number] 2.5mg Take 0.5 [facility] mg tablet 8-22 tablets by [facility] 00:00: mouth in [place] 00 the Medical morning. Branch furosemide 2-0 Yes [id number] 40mg Take 2 [facility] 20 mg 8-22 tablets by [facility] tablet 00:00: mouth in [place] 00 the Medical morning. Branch enalapril 5 2021-0 Yes [id number] 2.5mg Take 0.5 [facility] mg tablet 8-22 tablets by [facility] of 00:00: mouth in [place] 00 the Medical morning. Branch furosemide 2021-0 Yes [id number] 40mg Take 2 [facility] 20 mg 8-22 tablets by [facility] tablet 00:00: mouth in [place] 00 the Medical morning. Branch enalapril 5 2021-0 Yes [id number] 2.5mg Take 0.5 [facility] mg tablet 8-22 tablets by [facility] of 00:00: mouth in [place] 00 the Medical morning. Branch furosemide 2021-0 Yes [id number] 40mg Take 2 [facility] 20 mg 8-22 tablets by [facility] tablet 00:00: mouth in [place] the Medical morning. Branch enalapril 5 2021-0 Yes [id number] 2.5mg Take 0.5 [facility] mg tablet 8-22 tablets by [facility] of 00:00: mouth in [place] the Medical morning. Branch furosemide 2021-0 Yes [id number] 40mg Take 2 [facility] 20 mg 8-22 tablets by [facility] tablet 00:00: mouth in [place] the Medical morning. Branch enalapril 5 2021-0 Yes [id number] 2.5mg Take 0.5 [facility] mg tablet 8-22 tablets by [facility] of 00:00: mouth in [place] the Medical morning. Branch furosemide 2021-0 Yes [id number] 40mg Take 2 [facility] 20 mg 8-22 tablets by [facility] tablet 00:00: mouth in [place] the Medical morning. Branch enalapril 5 2021-0 Yes [id number] 2.5mg Take 0.5 [facility] mg tablet 8-22 tablets by [facility] of 00:00: mouth in [place] 00 the Medical morning. Branch furosemide 2021-0 Yes [id number] 40mg Take 2 [facility] 20 mg 8-22 tablets by [facility] tablet 00:00: mouth in [place] 00 the Medical morning. Branch enalapril 5 2021-0 Yes [id number] 2.5mg Take 0.5 [facility] mg tablet 8-22 tablets by [facility] of 00:00: mouth in [place] 00 the Medical morning. Branch furosemide 2021-0 Yes [id number] 40mg Take 2 [facility] 20 mg 8-22 tablets by [facility] tablet 00:00: mouth in [place] 00 the Medical morning. Branch enalapril 5 2021-0 Yes [id number] 2.5mg Take 0.5 [facility] mg tablet 8-22 tablets by [facility] of 00:00: mouth in [place] 00 the Medical morning. Branch furosemide 2021-0 Yes [id number] 40mg Take 2 [facility] 20 mg 8-22 tablets by [facility] tablet 00:00: mouth in [place] 00 the Medical morning. Branch enalapril 5 2021-0 Yes [id number] 2.5mg Take 0.5 [facility] mg tablet 8-22 tablets by [facility] of 00:00: mouth in [place] 00 the Medical morning. Branch furosemide 2021-0 Yes [id number] 40mg Take 2 [facility] 20 mg 8-22 tablets by [facility] tablet 00:00: mouth in [place] 00 the Medical morning. Branch enalapril 5 2021-0 Yes [id number] 2.5mg Take 0.5 [facility] mg tablet 8-22 tablets by [facility] of 00:00: mouth in [place] the Medical morning. Branch furosemide 2021-0 Yes [id number] 40mg Take 2 [facility] 20 mg 8-22 tablets by [facility] tablet 00:00: mouth in [place] the Medical morning. Branch enalapril 5 2021-0 Yes [id number] 2.5mg Take 0.5 [facility] mg tablet 8-22 tablets by [facility] of 00:00: mouth in [place] 00 the Medical morning. Branch furosemide 2021-0 Yes [id number] 40mg Take 2 [facility] 20 mg 8-22 tablets by [facility] tablet 00:00: mouth in [place] 00 the Medical morning. Branch enalapril 5 2021-0 Yes [id number] 2.5mg Take 0.5 [facility] mg tablet 8-22 tablets by [facility] of 00:00: mouth in [place] 00 the Medical morning. Branch enalapril 5 2021-0 Yes [id number] 2.5mg Take 0.5 [facility] mg tablet 8-22 tablets by [facility] of 00:00: mouth in [place] 00 the Medical morning. Branch enalapril 5 2021-0 Yes [id number] 2.5mg Take 0.5 [facility] mg tablet 8-22 tablets by [facility] of 00:00: mouth in [place] 00 the Medical morning. Branch enalapril 5 2021-0 Yes [id number] 2.5mg Take 0.5 [facility] mg tablet 8-22 tablets by [facility] of 00:00: mouth in [place] 00 the Medical morning. Branch enalapril 5 2021-0 Yes [id number] 2.5mg Take 0.5 [facility] mg tablet 8-22 tablets by [facility] of 00:00: mouth in [place] 00 the Medical morning. Branch enalapril 5 2021-0 Yes [id number] 2.5mg Take 0.5 [facility] mg tablet 8-22 tablets by [facility] of 00:00: mouth in [place] 00 the Medical morning. Branch enalapril 5 2021-0 Yes [id number] 2.5mg Take 0.5 [facility] mg tablet 8-22 tablets by [facility] of 00:00: mouth in [place] 00 the Medical morning. Branch enalapril 5 2021-0 Yes [id number] 2.5mg Take 0.5 [facility] mg tablet 8-22 tablets by [facility] of 00:00: mouth in [place] 00 the Medical morning. Branch enalapril 5 2021-0 Yes [id number] 2.5mg Take 0.5 [facility] mg tablet 8-22 tablets by [facility] of 00:00: mouth in [place] 00 the Medical morning. Branch enalapril 5 2021-0 Yes [id number] 2.5mg Take 0.5 [facility] mg tablet 8-22 tablets by [facility] of 00:00: mouth in [place] 00 the Medical morning. Branch enalapril 5 2021-0 2022- No [id number] 2.5mg Take 0.5 [facility] mg tablet 8-22 05-07 tablets by [facility] of 00:00: 00:00 mouth in [place] 00 :00 the Medical morning. Branch furosemide 2021-0 2022- No [id number] 40mg Take 2 [facility] n[facility] 20 mg 8-22 04-18 tablets by [facility] tablet 00:00: 00:00 mouth in [place] 00 :00 the Medical morning. Branch furosemide 2021-0 2022- No [id number] 40mg Take 2 [facility] 20 mg 8-22 04-18 tablets by [facility] tablet 00:00: 00:00 mouth in [place] 00 :00 the Medical morning. Branch furosemide 2022- No [id number] 40mg Take 2 [facility] 20 mg 8-22 04-18 tablets by [facility] tablet 00:00: 00:00 mouth in [place] 00 :00 the Medical morning. Branch KCL 10 mEq 2021- No [id number] 20meq Take 2 [facility] tablet 8-22 10-31 tablets by [facility] of 00:00: 00:00 mouth in [place] 00 :00 the Medical morning. Branch KCL 10 mEq 2021- No [id number] 20meq Take 2 [facility] tablet 8-22 10-31 tablets by [facility] of 00:00: 00:00 mouth in [place] 00 :00 the Medical morning. Branch CETIRIZINE Yes TAKE ONE [facility] vers 10 mg 8-16 TABLET BY [facility] of tablet 00:00: [facility] DAILY Medical Branch CETIRIZINE Yes TAKE ONE [facility] vers 10 mg 8-16 TABLET BY it[facility] of tablet 00:00: [facility] DAILY Medical Branch CETIRIZINE Yes TAKE ONE [facility] vers 10 mg 8-16 TABLET BY it[facility] of tablet 00:00: [facility] DAILY Medical Branch CETIRIZINE Yes TAKE ONE [facility] vers 10 mg 8-16 TABLET BY it[facility] of tablet 00:00: [facility] DAILY Medical Branch CETIRIZINE Yes TAKE ONE [facility] vers 10 mg 8-16 TABLET BY it[facility] of tablet 00:00: [facility] DAILY Medical Branch CETIRIZINE Yes TAKE ONE [facility] vers 10 mg 8-16 TABLET BY it[facility] of tablet 00:00: [facility] DAILY Medical Branch CETIRIZINE Yes TAKE ONE [facility] vers 10 mg 8-16 TABLET BY [facility] of tablet 00:00: [facility] DAILY Medical Branch CETIRIZINE Yes TAKE ONE [facility] vers 10 mg 8-16 TABLET BY it[facility] of tablet 00:00: [facility] DAILY Medical Branch CETIRIZINE 0 2021- No TAKE ONE [facility] mayo 10 mg 8-16 08-19 TABLET BY [facility] of tablet 00:00: 00:00 [facility] 00 :00 DAILY Medical Branch CETIRIZINE 0 2021- No TAKE ONE [facility] 10 mg 8-16 08-19 TABLET BY [facility] of tablet 00:00: 00:00 [facility] 00 :00 DAILY Medical Branch RALOXIFENE 2-0 Yes [id number] TAKE ONE [facility] 60 mg 7-19 TABLET BY [facility] of tablet 00:00: [facility] DAILY Medical Branch RALOXIFENE 2-0 Yes [id number] TAKE ONE [facility] 60 mg 7-19 TABLET BY [facility] of tablet 00:00: [facility] DAILY Medical Branch RALOXIFENE 2-0 2- No [id number] TAKE ONE [facility] 60 mg 7-19 09-19 TABLET BY [facility] of tablet 00:00: 00:00 [facility] 00 :00 DAILY Medical Branch RALOXIFENE 2-0 2- No [id number] TAKE ONE [facility] 60 mg 7-19 09-19 TABLET BY [facility] of tablet 00:00: 00:00 [facility] 00 :00 DAILY Medical Branch RALOXIFENE 2-0 2- No [id number] TAKE ONE [facility] 60 mg 7-19 -19 TABLET BY [facility] of tablet 00:00: 00:00 [facility] 00 :00 DAILY Medical Branch OMEPRAZOLE 2-0 Yes TAKE ONE [facility] vers 20 mg 7-18 CAPSULE BY ity of capsule 00:00: [facility] DAILY Medical Branch OMEPRAZOLE 2-0 Yes TAKE ONE [facility] vers 20 mg 7-18 CAPSULE BY ity of capsule 00:00: [facility] DAILY Medical Branch OMEPRAZOLE 2-0 Yes TAKE ONE [facility] vers 20 mg 7-18 CAPSULE BY ity of capsule 00:00: [facility] DAILY Medical Branch OMEPRAZOLE 2-0 Yes TAKE ONE [facility] vers 20 mg 7-18 CAPSULE BY ity of capsule 00:00: [facility] DAILY Medical Branch OMEPRAZOLE 2022-0 Yes TAKE ONE [facility] vers 20 mg 7-18 CAPSULE BY ity of capsule 00:00: [facility] DAILY Medical Branch OMEPRAZOLE 2-0 Yes TAKE ONE [facility] vers 20 mg 7-18 CAPSULE BY ity of capsule 00:00: [facility] DAILY Medical Branch OMEPRAZOLE 2022-0 Yes TAKE ONE [facility] vers 20 mg 7-18 CAPSULE BY ity of capsule 00:00: [facility] DAILY Medical Branch OMEPRAZOLE 2-0 Yes TAKE ONE [facility] vers 20 mg 7-18 CAPSULE BY ity of capsule 00:00: [facility] DAILY Medical Branch OMEPRAZOLE 2-0 2- No TAKE ONE [facility] mayo 20 mg -08-19 CAPSULE BY ity of capsule 00:00: 00:00 MOUTH [place] 00 :00 DAILY Medical Branch OMEPRAZOLE 2021- No TAKE ONE [facility] mayo 20 mg 7-18 08-19 CAPSULE BY ity of capsule 00:00: 00:00 MOUTH [place] 00 :00 DAILY Medical Branch glipiZIDE Yes [id number] 2.5mg Take 1 U nivers XL 2.5 mg 6-06 tablet by ity o f 24 hr 00:00: mouth [place] tablet 00 daily with Medical breakfast. Branch glipiZIDE Yes [id number] 2.5mg Take 1 [facility] nivers XL 2.5 mg 6-06 tablet by ity o f 24 hr 00:00: mouth [place] tablet 00 daily with Medical breakfast. Branch glipiZIDE Yes [id number] 2.5mg Take 1 [facility] nivers XL 2.5 mg 6-06 tablet by ity o f 24 hr 00:00: mouth [place] tablet 00 daily with Medical breakfast. Branch glipiZIDE Yes [id number] 2.5mg Take 1 [facility] nivers XL 2.5 mg 6-06 tablet by ity o f 24 hr 00:00: mouth [place] tablet 00 daily with Medical breakfast. Branch glipiZIDE Yes [id number] 2.5mg Take 1 [facility] nivers XL 2.5 mg 6-06 tablet by ity o f 24 hr 00:00: mouth [place] tablet 00 daily with Medical breakfast. Branch glipiZIDE Yes [id number] 2.5mg Take 1 [facility] nivers XL 2.5 mg 6-06 tablet by ity o f 24 hr 00:00: mouth [place] tablet 00 daily with Medical breakfast. Branch glipiZIDE Yes [id number] 2.5mg Take 1 [facility] nivers XL 2.5 mg 6-06 tablet by ity o f 24 hr 00:00: mouth [place] tablet 00 daily with Medical breakfast. Branch glipiZIDE Yes [id number] 2.5mg Take 1 [facility] nivers XL 2.5 mg 6-06 tablet by ity o f 24 hr 00:00: mouth [place] tablet 00 daily with Medical breakfast. Branch glipiZIDE Yes [id number] 2.5mg Take 1 U nivers XL 2.5 mg 6-06 tablet by ity o f 24 hr 00:00: mouth [place] tablet 00 daily with Medical breakfast. Branch glipiZIDE 0 Yes [id number] 2.5mg Take 1 U nivers XL 2.5 mg 6-06 tablet by ity o f 24 hr 00:00: mouth [place] tablet 00 daily with Medical breakfast. Branch glipiZIDE 0 Yes [id number] 2.5mg Take 1 U nivers XL 2.5 mg 6-06 tablet by ity o f 24 hr 00:00: mouth [place] tablet 00 daily with Medical breakfast. Branch glipiZIDE Yes [id number] 2.5mg Take 1 U nivers XL 2.5 mg 6-06 tablet by ity o f 24 hr 00:00: mouth [place] tablet 00 daily with Medical breakfast. Branch glipiZIDE Yes [id number] 2.5mg Take 1 U nivers XL 2.5 mg 6-06 tablet by ity o f 24 hr 00:00: mouth [place] tablet 00 daily with Medical breakfast. Branch glipiZIDE Yes [id number] 2.5mg Take 1 U nivers XL 2.5 mg 6-06 tablet by ity o f 24 hr 00:00: mouth [place] tablet 00 daily with Medical breakfast. Branch glipiZIDE 0 Yes [id number] 2.5mg Take 1 [facility] nivers XL 2.5 mg 6-06 tablet by ity o f 24 hr 00:00: mouth [place] tablet 00 daily with Medical breakfast. [facility] glipiZIDE 2021-0 Yes [id number] 2.5mg Take 1 [facility] n[facility] XL 2.5 mg 6-06 tablet by ity o f 24 hr 00:00: mouth [place] tablet 00 daily with Medical breakfast. [facility] glipiZIDE 2021-0 Yes [id number] 2.5mg Take 1 [facility] n[facility] XL 2.5 mg 6-06 tablet by ity o f 24 hr 00:00: mouth [place] tablet 00 daily with Medical breakfast. [facility] glipiZIDE 2021-0 Yes [id number] 2.5mg Take 1 [facility] XL 2.5 mg 6-06 tablet by ity o f 24 hr 00:00: mouth [place] tablet 00 daily with Medical breakfast. [facility] glipiZIDE 2021-0 Yes [id number] 2.5mg Take 1 [facility] n[facility] XL 2.5 mg 6-06 tablet by ity o f 24 hr 00:00: mouth [place] tablet 00 daily with Medical breakfast. [facility] glipiZIDE 2021-0 Yes [id number] 2.5mg Take 1 [facility] n[facility] XL 2.5 mg 6-06 tablet by ity o f 24 hr 00:00: mouth [place] tablet 00 daily with Medical breakfast. [facility] glipiZIDE 2021-0 Yes [id number] 2.5mg Take 1 [facility] XL 2.5 mg 6-06 tablet by ity o f 24 hr 00:00: mouth [place] tablet 00 daily with Medical breakfast. [facility] glipiZIDE 0 Yes [id number] 2.5mg Take 1 [facility] n[facility] XL 2.5 mg 6-06 tablet by ity o f 24 hr 00:00: mouth [place] tablet 00 daily with Medical breakfast. [facility] glipiZIDE 2021-0 Yes [id number] 2.5mg Take 1 [facility] n[facility] XL 2.5 mg 6-06 tablet by ity o f 24 hr 00:00: mouth [place] tablet 00 daily with Medical breakfast. [facility] glipiZIDE 0 Yes [id number] 2.5mg Take 1 [facility] n[facility] XL 2.5 mg 6-06 tablet by ity o f 24 hr 00:00: mouth [place] tablet 00 daily with Medical breakfast. [facility] glipiZIDE 2021-0 Yes [id number] 2.5mg Take 1 [facility] n[facility] XL 2.5 mg 6-06 tablet by ity o f 24 hr 00:00: mouth [place] tablet 00 daily with Medical breakfast. [facility] glipiZIDE 2021-0 Yes [id number] 2.5mg Take 1 [facility] n[facility] XL 2.5 mg 6-06 tablet by ity o f 24 hr 00:00: mouth [place] tablet 00 daily with Medical breakfast. [facility] glipiZIDE 2021-0 Yes [id number] 2.5mg Take 1 [facility] n[facility] XL 2.5 mg 6-06 tablet by ity o f 24 hr 00:00: mouth [place] tablet 00 daily with Medical breakfast. [facility] glipiZIDE 2021-0 Yes [id number] 2.5mg Take 1 [facility] n[facility] XL 2.5 mg 6-06 tablet by ity o f 24 hr 00:00: mouth [place] tablet 00 daily with Medical breakfast. [facility] glipiZIDE 2021-0 Yes [id number] 2.5mg Take 1 [facility] nivers XL 2.5 mg 6-06 tablet by ity o f 24 hr 00:00: mouth [place] tablet 00 daily with Medical breakfast. [facility] glipiZIDE 2021-0 Yes [id number] 2.5mg Take 1 [facility] n[facility] XL 2.5 mg 6-06 tablet by ity o f 24 hr 00:00: mouth [place] tablet 00 daily with Medical breakfast. [facility] glipiZIDE 2021-0 Yes [id number] 2.5mg Take 1 [facility] nivers XL 2.5 mg 6-06 tablet by ity o f 24 hr 00:00: mouth [place] tablet 00 daily with Medical breakfast. [facility] glipiZIDE 2021-0 Yes [id number] 2.5mg Take 1 [facility] n[facility] XL 2.5 mg 6-06 tablet by ity o f 24 hr 00:00: mouth [place] tablet 00 daily with Medical breakfast. [facility] glipiZIDE 0 Yes [id number] 2.5mg Take 1 [facility] n[facility] XL 2.5 mg 6-06 tablet by ity o f 24 hr 00:00: mouth [place] tablet 00 daily with Medical breakfast. [facility] glipiZIDE 0 Yes [id number] 2.5mg Take 1 [facility] n[facility] XL 2.5 mg 6-06 tablet by ity o f 24 hr 00:00: mouth [place] tablet 00 daily with Medical breakfast. Branch glipiZIDE 2021-0 Yes [id number] 2.5mg Take 1 [facility] n[facility] XL 2.5 mg 6-06 tablet by ity o f 24 hr 00:00: mouth [place] tablet 00 daily with Medical breakfast. Branch glipiZIDE 2021-0 Yes [id number] 2.5mg Take 1 [facility] nivers XL 2.5 mg 6-06 tablet by ity o f 24 hr 00:00: mouth [place] tablet 00 daily with Medical breakfast. [facility] glipiZIDE 2021-0 Yes [id number] 2.5mg Take 1 [facility] n[facility] XL 2.5 mg 6-06 tablet by ity o f 24 hr 00:00: mouth [place] tablet 00 daily with Medical breakfast. [facility] glipiZIDE 2021-0 Yes [id number] 2.5mg Take 1 [facility] n[facility] XL 2.5 mg 6-06 tablet by ity o f 24 hr 00:00: mouth [place] tablet 00 daily with Medical breakfast. [facility] glipiZIDE 2021-0 Yes [id number] 2.5mg Take 1 [facility] n[facility] XL 2.5 mg 6-06 tablet by ity o f 24 hr 00:00: mouth [place] tablet 00 daily with Medical breakfast. [facility] glipiZIDE 2021-0 Yes [id number] 2.5mg Take 1 [facility] XL 2.5 mg 6-06 tablet by ity o f 24 hr 00:00: mouth [place] tablet 00 daily with Medical breakfast. [facility] glipiZIDE 2021-0 Yes [id number] 2.5mg Take 1 [facility] n[facility] XL 2.5 mg 6-06 tablet by ity o f 24 hr 00:00: mouth [place] tablet 00 daily with Medical breakfast. [facility] glipiZIDE 2021-0 Yes [id number] 2.5mg Take 1 [facility] n[facility] XL 2.5 mg 6-06 tablet by ity o f 24 hr 00:00: mouth [place] tablet 00 daily with Medical breakfast. [facility] glipiZIDE 2021-0 Yes [id number] 2.5mg Take 1 [facility] n[facility] XL 2.5 mg 6-06 tablet by ity o f 24 hr 00:00: mouth [place] tablet 00 daily with Medical breakfast. [facility] glipiZIDE 2021-0 Yes [id number] 2.5mg Take 1 [facility] n[facility] XL 2.5 mg 6-06 tablet by ity o f 24 hr 00:00: mouth [place] tablet 00 daily with Medical breakfast. [facility] glipiZIDE 2021-0 Yes [id number] 2.5mg Take 1 [facility] n[facility] XL 2.5 mg 6-06 tablet by ity o f 24 hr 00:00: mouth [place] tablet 00 daily with Medical breakfast. [facility] glipiZIDE 2021-0 Yes [id number] 2.5mg Take 1 [facility] nivers XL 2.5 mg 6-06 tablet by ity o f 24 hr 00:00: mouth [place] tablet 00 daily with Medical breakfast. [facility] glipiZIDE 2021-0 Yes [id number] 2.5mg Take 1 [facility] n[facility] XL 2.5 mg 6-06 tablet by ity o f 24 hr 00:00: mouth [place] tablet 00 daily with Medical breakfast. [facility] glipiZIDE 2021-0 Yes [id number] 2.5mg Take 1 [facility] n[facility] XL 2.5 mg 6-06 tablet by ity o f 24 hr 00:00: mouth [place] tablet 00 daily with Medical breakfast. [facility] glipiZIDE 2021-0 Yes [id number] 2.5mg Take 1 [facility] n[facility] XL 2.5 mg 6-06 tablet by ity o f 24 hr 00:00: mouth [place] tablet 00 daily with Medical breakfast. [facility] glipiZIDE 0 Yes [id number] 2.5mg Take 1 [facility] n[facility] XL 2.5 mg 6-06 tablet by ity o f 24 hr 00:00: mouth [place] tablet 00 daily with Medical breakfast. [facility] glipiZIDE Yes [id number] 2.5mg Take 1 [facility] nivers XL 2.5 mg 6-06 tablet by ity o f 24 hr 00:00: mouth [place] tablet 00 daily with Medical breakfast. Branch glipiZIDE Yes [id number] 2.5mg Take 1 [facility] n[facility] XL 2.5 mg 6-06 tablet by ity o f 24 hr 00:00: mouth [place] tablet 00 daily with Medical breakfast. [facility] glipiZIDE Yes [id number] 2.5mg Take 1 [facility] n[facility] XL 2.5 mg 6-06 tablet by ity o f 24 hr 00:00: mouth [place] tablet 00 daily with Medical breakfast. [facility] glipiZIDE Yes [id number] 2.5mg Take 1 [facility] n[facility] XL 2.5 mg 6-06 tablet by ity o f 24 hr 00:00: mouth [place] tablet 00 daily with Medical breakfast. [facility] glipiZIDE 0 Yes [id number] 2.5mg Take 1 [facility] n[facility] XL 2.5 mg 6-06 tablet by ity o f 24 hr 00:00: mouth [place] tablet 00 daily with Medical breakfast. [facility] glipiZIDE 0 Yes [id number] 2.5mg Take 1 [facility] nivers XL 2.5 mg 6-06 tablet by ity o f 24 hr 00:00: mouth [place] tablet 00 daily with Medical breakfast. [facility] glipiZIDE 2021-0 Yes [id number] 2.5mg Take 1 [facility] nivers XL 2.5 mg 6-06 tablet by ity o f 24 hr 00:00: mouth [place] tablet 00 daily with Medical breakfast. [facility] glipiZIDE 2021-0 Yes [id number] 2.5mg Take 1 [facility] n[facility] XL 2.5 mg 6-06 tablet by ity o f 24 hr 00:00: mouth [place] tablet 00 daily with Medical breakfast. [facility] glipiZIDE Yes [id number] 2.5mg Take 1 [facility] n[facility] XL 2.5 mg 6-06 tablet by ity o f 24 hr 00:00: mouth [place] tablet 00 daily with Medical breakfast. [facility] glipiZIDE Yes [id number] 2.5mg Take 1 [facility] nivers XL 2.5 mg 6-06 tablet by ity o f 24 hr 00:00: mouth [place] tablet 00 daily with Medical breakfast. [facility] glipiZIDE Yes [id number] 2.5mg Take 1 [facility] nivers XL 2.5 mg 6-06 tablet by ity o f 24 hr 00:00: mouth [place] tablet 00 daily with Medical breakfast. [facility] glipiZIDE Yes [id number] 2.5mg Take 1 [facility] n[facility] XL 2.5 mg 6-06 tablet by ity o f 24 hr 00:00: mouth [place] tablet 00 daily with Medical breakfast. [facility] glipiZIDE Yes [id number] 2.5mg Take 1 [facility] n[facility] XL 2.5 mg 6-06 tablet by ity o f 24 hr 00:00: mouth [place] tablet 00 daily with Medical breakfast. [facility] glipiZIDE Yes [id number] 2.5mg Take 1 [facility] nivers XL 2.5 mg 6-06 tablet by ity o f 24 hr 00:00: mouth [place] tablet 00 daily with Medical breakfast. [facility] glipiZIDE 2022- No [id number] 2.5mg Take 1 [facility] XL 2.5 mg 6-06 04-24 tablet by [facility] of 24 hr 00:00: 00:00 mouth [place] tablet 00 :00 daily with Medical breakfast. Branch glipiZIDE 2022- No [id number] 2.5mg Take 1 [facility] XL 2.5 mg 6-06 04-24 tablet by ity of 24 hr 00:00: 00:00 mouth [place] tablet 00 :00 daily with Medical breakfast. [place] fluticasone Yes [id number] 2{spray Use 2 [facility] propionate 5-16 } Sprays in ity of 50 00:00: each [place] mcg/actuati 00 nostril Medic al on nasal daily. Branch spray fluticasone Yes [id number] 2{spray Use 2 [facility] propionate 5-16 } Sprays in ity of 50 00:00: each [place] mcg/actuati 00 nostril Medic al on nasal daily. Branch spray fluticasone 0 Yes [id number] 2{spray Use 2 [facility] propionate 5-16 } Sprays in ity of 50 00:00: each [place] mcg/actuati 00 nostril Medic al on nasal daily. Branch spray fluticasone Yes [id number] 2{spray Use 2 [facility] propionate 5-16 } Sprays in ity of 50 00:00: each [place] mcg/actuati 00 nostril Medic al on nasal daily. Branch spray fluticasone Yes [id number] 2{spray Use 2 [facility] propionate 5-16 } Sprays in ity of 50 00:00: each [place] mcg/actuati 00 nostril Medic al on nasal daily. Branch spray fluticasone Yes [id number] 2{spray Use 2 [facility] propionate 5-16 } Sprays in ity of 50 00:00: each [place] mcg/actuati 00 nostril Medic al on nasal daily. Branch spray fluticasone Yes [id number] 2{spray Use 2 [facility] propionate 5-16 } Sprays in ity of 50 00:00: each [place] mcg/actuati 00 nostril Medic al on nasal daily. Branch spray fluticasone 0 Yes [id number] 2{spray Use 2 [facility] propionate 5-16 } Sprays in ity of 50 00:00: each [place] mcg/actuati 00 nostril Medic al on nasal daily. Branch spray fluticasone 2021-0 Yes [id number] 2{spray Use 2 [facility] propionate 5-16 } Sprays in ity of 50 00:00: each [place] mcg/actuati 00 nostril Medic al on nasal daily. Branch spray fluticasone 2021-0 Yes [id number] 2{spray Use 2 [facility] propionate 5-16 } Sprays in ity of 50 00:00: each [place] mcg/actuati 00 nostril Medic al on nasal daily. Branch spray fluticasone 0 Yes [id number] 2{spray Use 2 [facility] propionate 5-16 } Sprays in ity of 50 00:00: each [place] mcg/actuati 00 nostril Medic al on nasal daily. Branch spray fluticasone 0 Yes [id number] 2{spray Use 2 [facility] propionate 5-16 } Sprays in ity of 50 00:00: each [place] mcg/actuati 00 nostril Medic al on nasal daily. Branch spray fluticasone 0 Yes [id number] 2{spray Use 2 [facility] propionate 5-16 } Sprays in ity of 50 00:00: each [place] mcg/actuati 00 nostril Medic al on nasal daily. Branch spray fluticasone 0 Yes [id number] 2{spray Use 2 [facility] propionate 5-16 } Sprays in ity of 50 00:00: each [place] mcg/actuati 00 nostril Medic al on nasal daily. Branch spray fluticasone 0 Yes [id number] 2{spray Use 2 [facility] propionate 5-16 } Sprays in ity of 50 00:00: each [place] mcg/actuati 00 nostril Medic al on nasal daily. Branch spray fluticasone Yes [id number] 2{spray Use 2 [facility] propionate 5-16 } Sprays in ity of 50 00:00: each [place] mcg/actuati 00 nostril Medic al on nasal daily. Branch spray fluticasone 0 Yes [id number] 2{spray Use 2 [facility] propionate 5-16 } Sprays in ity of 50 00:00: each [place] mcg/actuati 00 nostril Medic al on nasal daily. Branch spray fluticasone 0 Yes [id number] 2{spray Use 2 [facility] propionate 5-16 } Sprays in ity of 50 00:00: each [place] mcg/actuati 00 nostril Medic al on nasal daily. Branch spray fluticasone 2021-0 Yes [id number] 2{spray Use 2 [facility] propionate 5-16 } Sprays in ity of 50 00:00: each [place] mcg/actuati 00 nostril Medic al on nasal daily. Branch spray fluticasone 2021-0 Yes [id number] 2{spray Use 2 [facility] propionate 5-16 } Sprays in ity of 50 00:00: each [place] mcg/actuati 00 nostril Medic al on nasal daily. Branch spray fluticasone 0 Yes [id number] 2{spray Use 2 [facility] propionate 5-16 } Sprays in ity of 50 00:00: each [place] mcg/actuati 00 nostril Medic al on nasal daily. Branch spray fluticasone 0 Yes [id number] 2{spray Use 2 [facility] propionate 5-16 } Sprays in ity of 50 00:00: each [place] mcg/actuati 00 nostril Medic al on nasal daily. Branch spray fluticasone 0 Yes [id number] 2{spray Use 2 [facility] propionate 5-16 } Sprays in ity of 50 00:00: each [place] mcg/actuati 00 nostril Medic al on nasal daily. Branch spray fluticasone 0 Yes [id number] 2{spray Use 2 [facility] propionate 5-16 } Sprays in ity of 50 00:00: each [place] mcg/actuati 00 nostril Medic al on nasal daily. Branch spray fluticasone 0 Yes [id number] 2{spray Use 2 [facility] propionate 5-16 } Sprays in ity of 50 00:00: each [place] mcg/actuati 00 nostril Medic al on nasal daily. Branch spray fluticasone 0 Yes [id number] 2{spray Use 2 [facility] propionate 5-16 } Sprays in ity of 50 00:00: each [place] mcg/actuati 00 nostril Medic al on nasal daily. Branch spray fluticasone 2021-0 Yes [id number] 2{spray Use 2 [facility] propionate 5-16 } Sprays in ity of 50 00:00: each [place] mcg/actuati 00 nostril Medic al on nasal daily. Branch spray fluticasone 2021-0 Yes [id number] 2{spray Use 2 [facility] propionate 5-16 } Sprays in ity of 50 00:00: each [place] mcg/actuati 00 nostril Medic al on nasal daily. Branch spray fluticasone 2021-0 Yes [id number] 2{spray Use 2 [facility] propionate 5-16 } Sprays in ity of 50 00:00: each [place] mcg/actuati 00 nostril Medic al on nasal daily. Branch spray fluticasone Yes [id number] 2{spray Use 2 [facility] propionate 5-16 } Sprays in ity of 50 00:00: each [place] mcg/actuati 00 nostril Medic al on nasal daily. Branch spray fluticasone Yes [id number] 2{spray Use 2 [facility] propionate 5-16 } Sprays in ity of 50 00:00: each [place] mcg/actuati 00 nostril Medic al on nasal daily. Branch spray fluticasone Yes [id number] 2{spray Use 2 [facility] propionate 5-16 } Sprays in ity of 50 00:00: each [place] mcg/actuati 00 nostril Medic al on nasal daily. Branch spray fluticasone Yes [id number] 2{spray Use 2 [facility] propionate 5-16 } Sprays in ity of 50 00:00: each [place] mcg/actuati 00 nostril Medic al on nasal daily. Branch spray fluticasone Yes [id number] 2{spray Use 2 [facility] propionate 5-16 } Sprays in ity of 50 00:00: each [place] mcg/actuati 00 nostril Medic al on nasal daily. Branch spray fluticasone Yes [id number] 2{spray Use 2 [facility] propionate 5-16 } Sprays in ity of 50 00:00: each [place] mcg/actuati 00 nostril Medic al on nasal daily. Branch spray fluticasone Yes [id number] 2{spray Use 2 [facility] propionate 5-16 } Sprays in ity of 50 00:00: each [place] mcg/actuati 00 nostril Medic al on nasal daily. Branch spray fluticasone Yes [id number] 2{spray Use 2 [facility] propionate 5-16 } Sprays in ity of 50 00:00: each [place] mcg/actuati 00 nostril Medic al on nasal daily. Branch spray fluticasone 0 Yes [id number] 2{spray Use 2 [facility] propionate 5-16 } Sprays in ity of 50 00:00: each [place] mcg/actuati 00 nostril Medic al on nasal daily. Branch spray fluticasone Yes [id number] 2{spray Use 2 [facility] propionate 5-16 } Sprays in ity of 50 00:00: each [place] mcg/actuati 00 nostril Medic al on nasal daily. Branch spray fluticasone 0 Yes [id number] 2{spray Use 2 [facility] propionate 5-16 } Sprays in ity of 50 00:00: each [place] mcg/actuati 00 nostril Medic al on nasal daily. Branch spray fluticasone 0 Yes [id number] 2{spray Use 2 [facility] propionate 5-16 } Sprays in ity of 50 00:00: each [place] mcg/actuati 00 nostril Medic al on nasal daily. Branch spray fluticasone 0 Yes [id number] 2{spray Use 2 [facility] propionate 5-16 } Sprays in ity of 50 00:00: each [place] mcg/actuati 00 nostril Medic al on nasal daily. Branch spray fluticasone 0 Yes [id number] 2{spray Use 2 [facility] propionate 5-16 } Sprays in ity of 50 00:00: each [place] mcg/actuati 00 nostril Medic al on nasal daily. Branch spray fluticasone Yes [id number] 2{spray Use 2 [facility] propionate 5-16 } Sprays in ity of 50 00:00: each [place] mcg/actuati 00 nostril Medic al on nasal daily. Branch spray fluticasone 0 Yes [id number] 2{spray Use 2 [facility] propionate 5-16 } Sprays in ity of 50 00:00: each [place] mcg/actuati 00 nostril Medic al on nasal daily. Branch spray fluticasone 0 Yes [id number] 2{spray Use 2 [facility] propionate 5-16 } Sprays in ity of 50 00:00: each [place] mcg/actuati 00 nostril Medic al on nasal daily. Branch spray fluticasone 2021-0 Yes [id number] 2{spray Use 2 [facility] propionate 5-16 } Sprays in ity of 50 00:00: each [place] mcg/actuati 00 nostril Medic al on nasal daily. Branch spray fluticasone 2021-0 Yes [id number] 2{spray Use 2 [facility] propionate 5-16 } Sprays in ity of 50 00:00: each [place] mcg/actuati 00 nostril Medic al on nasal daily. Branch spray fluticasone Yes [id number] 2{spray Use 2 [facility] propionate 5-16 } Sprays in ity of 50 00:00: each [place] mcg/actuati 00 nostril Medic al on nasal daily. Branch spray fluticasone Yes [id number] 2{spray Use 2 [facility] propionate 5-16 } Sprays in ity of 50 00:00: each [place] mcg/actuati 00 nostril Medic al on nasal daily. Branch spray fluticasone Yes [id number] 2{spray Use 2 [facility] propionate 5-16 } Sprays in ity of 50 00:00: each [place] mcg/actuati 00 nostril Medic al on nasal daily. Branch spray fluticasone Yes [id number] 2{spray Use 2 [facility] propionate 5-16 } Sprays in ity of 50 00:00: each [place] mcg/actuati 00 nostril Medic al on nasal daily. Branch spray fluticasone Yes [id number] 2{spray Use 2 [facility] propionate 5-16 } Sprays in ity of 50 00:00: each [place] mcg/actuati 00 nostril Medic al on nasal daily. Branch spray fluticasone Yes [id number] 2{spray Use 2 [facility] propionate 5-16 } Sprays in ity of 50 00:00: each [place] mcg/actuati 00 nostril Medic al on nasal daily. Branch spray fluticasone Yes [id number] 2{spray Use 2 [facility] propionate 5-16 } Sprays in ity of 50 00:00: each [place] mcg/actuati 00 nostril Medic al on nasal daily. Branch spray fluticasone Yes [id number] 2{spray Use 2 [facility] propionate 5-16 } Sprays in ity of 50 00:00: each [place] mcg/actuati 00 nostril Medic al on nasal daily. Branch spray fluticasone Yes [id number] 2{spray Use 2 [facility] propionate 5-16 } Sprays in ity of 50 00:00: each [place] mcg/actuati 00 nostril Medic al on nasal daily. Branch spray fluticasone Yes [id number] 2{spray Use 2 [facility] propionate 5-16 } Sprays in ity of 50 00:00: each [place] mcg/actuati 00 nostril Medic al on nasal daily. Branch spray fluticasone 0 Yes [id number] 2{spray Use 2 [facility] propionate 5-16 } Sprays in ity of 50 00:00: each [place] mcg/actuati 00 nostril Medic al on nasal daily. Branch spray fluticasone 0 Yes [id number] 2{spray Use 2 [facility] propionate 5-16 } Sprays in ity of 50 00:00: each [place] mcg/actuati 00 nostril Medic al on nasal daily. Branch spray fluticasone 0 Yes [id number] 2{spray Use 2 [facility] propionate 5-16 } Sprays in ity of 50 00:00: each [place] mcg/actuati 00 nostril Medic al on nasal daily. Branch spray fluticasone 0 Yes [id number] 2{spray Use 2 [facility] propionate 5-16 } Sprays in ity of 50 00:00: each [place] mcg/actuati 00 nostril Medic al on nasal daily. Branch spray fluticasone Yes [id number] 2{spray Use 2 [facility] propionate 5-16 } Sprays in ity of 50 00:00: each [place] mcg/actuati 00 nostril Medic al on nasal daily. Branch spray fluticasone Yes [id number] 2{spray Use 2 [facility] propionate 5-16 } Sprays in ity of 50 00:00: each [place] mcg/actuati 00 nostril Medic al on nasal daily. Branch spray fluticasone Yes [id number] 2{spray Use 2 [facility] propionate 5-16 } Sprays in ity of 50 00:00: each [place] mcg/actuati 00 nostril Medic al on nasal daily. Branch spray fluticasone 0 Yes [id number] 2{spray Use 2 [facility] propionate 5-16 } Sprays in ity of 50 00:00: each [place] mcg/actuati 00 nostril Medic al on nasal daily. Branch spray fluticasone 2021-0 Yes [id number] 2{spray Use 2 [facility] propionate 5-16 } Sprays in ity of 50 00:00: each [place] mcg/actuati 00 nostril Medic al on nasal daily. Branch spray fluticasone Yes [id number] 2{spray Use 2 [facility] propionate 5-16 } Sprays in ity of 50 00:00: each [place] mcg/actuati 00 nostril Medic al on nasal daily. Branch spray fluticasone 0 Yes [id number] 2{spray Use 2 [facility] propionate 5-16 } Sprays in ity of 50 00:00: each [place] mcg/actuati 00 nostril Medic al on nasal daily. Branch spray fluticasone Yes [id number] 2{spray Use 2 [facility] propionate 5-16 } Sprays in ity of 50 00:00: each [place] mcg/actuati 00 nostril Medic al on nasal daily. Branch spray fluticasone Yes [id number] 2{spray Use 2 [facility] propionate 5-16 } Sprays in ity of 50 00:00: each [place] mcg/actuati 00 nostril Medic al on nasal daily. Branch spray fluticasone Yes [id number] 2{spray Use 2 [facility] propionate 5-16 } Sprays in ity of 50 00:00: each [place] mcg/actuati 00 nostril Medic al on nasal daily. Branch spray fluticasone Yes [id number] 2{spray Use 2 [facility] propionate 5-16 } Sprays in ity of 50 00:00: each [place] mcg/actuati 00 nostril Medic al on nasal daily. Branch spray fluticasone 0 Yes [id number] 2{spray Use 2 [facility] propionate 5-16 } Sprays in ity of 50 00:00: each [place] mcg/actuati 00 nostril Medic al on nasal daily. Branch spray fluticasone 0 Yes [id number] 2{spray Use 2 [facility] propionate 5-16 } Sprays in ity of 50 00:00: each [place] mcg/actuati 00 nostril Medic al on nasal daily. Branch spray fluticasone 0 Yes [id number] 2{spray Use 2 [facility] propionate 5-16 } Sprays in ity of 50 00:00: each [place] mcg/actuati 00 nostril Medic al on nasal daily. Branch spray fluticasone Yes [id number] 2{spray Use 2 [facility] propionate 5-16 } Sprays in ity of 50 00:00: each [place] mcg/actuati 00 nostril Medic al on nasal daily. Branch spray fluticasone 0 Yes [id number] 2{spray Use 2 [facility] propionate 5-16 } Sprays in ity of 50 00:00: each [place] mcg/actuati 00 nostril Medic al on nasal daily. Branch spray fluticasone Yes [id number] 2{spray Use 2 [facility] propionate 5-16 } Sprays in ity of 50 00:00: each [place] mcg/actuati 00 nostril Medic al on nasal daily. Branch spray fluticasone Yes [id number] 2{spray Use 2 [facility] propionate 5-16 } Sprays in ity of 50 00:00: each [place] mcg/actuati 00 nostril Medic al on nasal daily. Branch spray fluticasone Yes [id number] 2{spray Use 2 [facility] propionate 5-16 } Sprays in ity of 50 00:00: each [place] mcg/actuati 00 nostril Medic al on nasal daily. Branch spray fluticasone Yes [id number] 2{spray Use 2 [facility] propionate 5-16 } Sprays in ity of 50 00:00: each [place] mcg/actuati 00 nostril Medic al on nasal daily. Branch spray pravastatin 2020-11 Yes [id number] 40mg Take 1 [facility] 40 mg 0-15 tablet by ity of tablet 00:00: mouth at [place] [address] bedtime. Medical Branch gabapentin 2020-11 Yes [id number] 600mg Take 1 [facility] 600 mg 0-15 tablet by ity of tablet 00:00: mouth 2 [place] (two) Medical times Branch daily. pravastatin 2020-11 Yes [id number] 40mg Take 1 [facility] 40 mg 0-15 tablet by ity of tablet 00:00: mouth at [place] [address] bedtime. Medical Branch gabapentin 2020-11 Yes [id number] 600mg Take 1 [facility] 600 mg 0-15 tablet by ity of tablet 00:00: mouth 2 [place] [address] (two) Medical times Branch daily. pravastatin 2020-11 Yes [id number] 40mg Take 1 [facility] 40 mg 0-15 tablet by ity of tablet 00:00: mouth at [place] [address] bedtime. Medical Branch gabapentin 2020-11 Yes [id number] 600mg Take 1 [facility] 600 mg 0-15 tablet by ity of tablet 00:00: mouth 2 (two) Medical times Branch daily. pravastatin 2020-11 Yes [id number] 40mg Take 1 [facility] 40 mg 0-15 tablet by ity of tablet 00:00: mouth at [place] bedtime. Medical Branch gabapentin 2020-11 Yes [id number] 600mg Take 1 [facility] 600 mg 0-15 tablet by ity of tablet 00:00: mouth 2 (two) Medical times Branch daily. pravastatin 2020-11 Yes [id number] 40mg Take 1 [facility] 40 mg 0-15 tablet by ity of tablet 00:00: mouth at [place] bedtime. Medical Branch gabapentin 2020-11 Yes [id number] 600mg Take 1 [facility] 600 mg 0-15 tablet by ity of tablet 00:00: mouth 2 [place] (two) Medical times Branch daily. pravastatin 2020-11 Yes [id number] 40mg Take 1 [facility] 40 mg 0-15 tablet by ity of tablet 00:00: mouth at [place] [address] bedtime. Medical Branch gabapentin 2020-11 Yes [id number] 600mg Take 1 [facility] 600 mg 0-15 tablet by ity of tablet 00:00: mouth 2 [place] (two) Medical times Branch daily. pravastatin 2020-11 Yes [id number] 40mg Take 1 [facility] 40 mg 0-15 tablet by ity of tablet 00:00: mouth at [place] [address] bedtime. Medical Branch gabapentin 2020-11 Yes [id number] 600mg Take 1 [facility] 600 mg 0-15 tablet by ity of tablet 00:00: mouth 2 [place] (two) Medical times Branch daily. pravastatin 2020-11 Yes [id number] 40mg Take 1 [facility] 40 [facility]-15 tablet by [facility] tablet 00:00: mouth at [place] [address] bedtime. [facility] gabapentin 2020-11 Yes [id number] 600mg Take 1 [facility] 600 mg 0-15 tablet by [facility] tablet 00:00: mouth 2 [place] (two) Medical times [facility] daily. pravastatin 2020-11 Yes [id number] 40mg Take 1 [facility] 40 mg 0-15 tablet by [facility] tablet 00:00: mouth at [place] [address] bedtime. [facility] gabapentin 2020-11 Yes [id number] 600mg Take 1 [facility] 600 mg 0-15 tablet by [facility] tablet 00:00: mouth 2 [place] 00 (two) Medical times [facility] daily. pravastatin 2020-11 Yes [id number] 40mg Take 1 [facility] 40 mg 0-15 tablet by [facility] tablet 00:00: mouth at [place] 00 bedtime. [facility] gabapentin 2020-11 Yes [id number] 600mg Take 1 [facility] 600 mg 0-15 tablet by [facility] tablet 00:00: mouth 2 [place] 00 (two) Medical times [facility] daily. pravastatin 2020-11 Yes [id number] 40mg Take 1 [facility] 40 mg 0-15 tablet by [facility] tablet 00:00: mouth at [place] 00 bedtime. [facility] gabapentin 2020-11 Yes [id number] 600mg Take 1 [facility] 600 mg 0-15 tablet by [facility] tablet 00:00: mouth 2 [place] 00 (two) Medical times [facility] daily. pravastatin 2020-11 Yes [id number] 40mg Take 1 [facility] 40 mg 0-15 tablet by [facility] tablet 00:00: mouth at [place] 00 bedtime. [facility] gabapentin 2020-11 Yes [id number] 600mg Take 1 [facility] 600 mg 0-15 tablet by [facility] tablet 00:00: mouth 2 [place] 00 (two) Medical times [facility] daily. pravastatin 2020-11- No [id number] 40mg Take 1 [facility] 40 mg 0-15 10-13 tablet by [facility] tablet 00:00: 00:00 mouth at [place] 00 :00 bedtime. [facility] gabapentin 2020-11- No [id number] 600mg Take 1 [facility] 600 mg 0-15 10-13 tablet by [facility] tablet 00:00: 00:00 mouth 2 [place] 00 :00 (two) Medical times [facility] daily. pravastatin 2020-11- No [id number] 40mg Take 1 [facility] 40 mg 0-15 10-13 tablet by [facility] tablet 00:00: 00:00 mouth at [place] 00 :00 bedtime. [facility] gabapentin 2020-11- No [id number] 600mg Take 1 [facility] 600 mg 0-15 10-13 tablet by [facility] tablet 00:00: 00:00 mouth 2 [place] 00 :00 (two) Medical times [facility] daily. Immunizations Ordered Filled Date Status Comments Source Immunization Name Immunization Name Influenza Virus 2022-09-05 Completed [facility] [place] [facility] 65+ Influenza Virus 2022-09-05 Completed [facility] Vaccine,quad 00:00:00 [place] [facility] 65+ Influenza Virus 2022-09-05 Completed [facility] Vaccine,quad 00:00:00 [place] [facility] 65+ Influenza Virus 2022-09-05 Completed [facility] Vaccine,quad 00:00:00 [place] [facility] 65+ Influenza Virus 2022-09-05 Completed [facility] Vaccine,quad 00:00:00 [place] [facility] 65+ Influenza Virus 2022-09-05 Completed [facility] Vaccine,quad 00:00:00 [place] [facility] 65+ Influenza Virus 2022-09-05 Completed [facility] Vaccine,quad 00:00:00 [place] [facility] 65+ Influenza Virus 2022-09-05 Completed [facility] Vaccine,quad 00:00:00 [place] [facility] 65+ Influenza Virus 2022-09-05 Completed [facility] Vaccine,quad 00:00:00 [place] [facility] 65+ Influenza Virus 2022-09-05 Completed [facility] Vaccine,quad 00:00:00 [place] [facility] 65+ Influenza Virus 2022-09-05 Completed [facility] Vaccine,quad 00:00:00 [place] [facility] 65+ Influenza Virus 2022-09-05 Completed [facility] Vaccine,quad 00:00:00 [place] [facility] 65+ Influenza Virus 2022-09-05 Completed [facility] Vaccine,quad 00:00:00 [place] [facility] 65+ Influenza Virus 2022-09-05 Completed [facility] Vaccine,quad 00:00:00 [place] [facility] 65+ Influenza Virus 2022-09-05 Completed [facility] Vaccine,quad 00:00:00 [place] [facility] 65+ Influenza Virus 2022-09-05 Completed [facility] Vaccine,quad 00:00:00 [place] [facility] 65+ Influenza Virus 2022-09-05 Completed [facility] Vaccine,quad 00:00:00 [place] [facility] 65+ Influenza Virus 2022-09-05 Completed [facility] Vaccine,quad 00:00:00 [place] [facility] 65+ Influenza Virus 2022-09-05 Completed [facility] Vaccine,quad 00:00:00 [place] [facility] 65+ Influenza Virus 2022-09-05 Completed [facility] Vaccine,quad 00:00:00 [place] [facility] 65+ Influenza Virus 2022-09-05 Completed [facility] Vaccine,quad 00:00:00 [place] [facility] 65+ Influenza Virus 2022-09-05 Completed [facility] Vaccine,quad 00:00:00 [place] [facility] 65+ Influenza Virus 2022-09-05 Completed [facility] Vaccine,quad 00:00:00 [place] [facility] 65+ Influenza Virus 2022-09-05 Completed [facility] Vaccine,quad 00:00:00 [place] [facility] 65+ Influenza Virus 2022-09-05 Completed [facility] Vaccine,quad 00:00:00 [place] [facility] 65+ Influenza Virus 2022-09-05 Completed [facility] Vaccine,quad 00:00:00 [place] [facility] 65+ Influenza Virus 2022-09-05 Completed [facility] Vaccine,quad 00:00:00 [place] [facility] 65+ Influenza Virus 2022-09-05 Completed [facility] Vaccine,quad 00:00:00 [place] [facility] 65+ Influenza Virus 2022-09-05 Completed [facility] Vaccine,quad 00:00:00 [place] [facility] 65+ Influenza Virus 2022-09-05 Completed [facility] Vaccine,quad 00:00:00 [place] [facility] 65+ Influenza Virus 2022-09-05 Completed [facility] Vaccine,quad 00:00:00 [place] [facility] 65+ Influenza Virus 2022-09-05 Completed [facility] Vaccine,quad 00:00:00 [place] [facility] 65+ Influenza Virus 2022-09-05 Completed [facility] Vaccine,quad 00:00:00 [place] [facility] 65+ Influenza Virus 2022-09-05 Completed [facility] Vaccine,quad 00:00:00 [place] [facility] 65+ Influenza Virus 2022-09-05 Completed [facility] Vaccine,quad 00:00:00 [place] [facility] 65+ Influenza Virus 2022-09-05 Completed [facility] Vaccine,quad 00:00:00 [place] [facility] 65+ Influenza Virus 2022-09-05 Completed [facility] Vaccine,quad 00:00:00 [place] [facility] 65+ Influenza Virus 2022-09-05 Completed [facility] Vaccine,quad 00:00:00 [place] [facility] 65+ Influenza Virus 2022-09-05 Completed [facility] Vaccine,quad 00:00:00 [place] [facility] 65+ Influenza Virus 2022-09-05 Completed [facility] Vaccine,quad 00:00:00 [place] [facility] 65+ Influenza Virus 2022-09-05 Completed [facility] Vaccine,quad 00:00:00 [place] [facility] 65+ Influenza Virus 2022-09-05 Completed [facility] Vaccine,quad 00:00:00 [place] [facility] 65+ Influenza Virus 2022-09-05 Completed [facility] Vaccine,quad 00:00:00 [place] [facility] 65+ Influenza Virus 2022-09-05 Completed [facility] Vaccine,quad 00:00:00 [place] [facility] 65+ Influenza Virus 2022-09-05 Completed [facility] Vaccine,quad 00:00:00 [place] [facility] 65+ Influenza Virus 2022-09-05 Completed [facility] Vaccine,quad 00:00:00 [place] [facility] 65+ Influenza Virus 2022-09-05 Completed [facility] Vaccine,quad 00:00:00 [place] [facility] 65+ Influenza Virus 2022-09-05 Completed [facility] Vaccine,quad 00:00:00 [place] [facility] 65+ Influenza Virus 2022-09-05 Completed [facility] Vaccine,quad 00:00:00 [place] [facility] 65+ Influenza Virus 2022-09-05 Completed [facility] Vaccine,quad 00:00:00 [place] [facility] 65+ Influenza Virus 2022-09-05 Completed [facility] Vaccine,quad 00:00:00 [place] [facility] 65+ Influenza Virus 2022-09-05 Completed [facility] Vaccine,quad 00:00:00 [place] [facility] 65+ Influenza Virus 2022-09-05 Completed [facility] Vaccine,quad 00:00:00 [place] [facility] 65+ Influenza Virus 2022-09-05 Completed [facility] Vaccine,quad 00:00:00 [place] [facility] 65+ Influenza Virus 2022-09-05 Completed [facility] Vaccine,quad 00:00:00 [place] [facility] 65+ Influenza Virus 2022-09-05 Completed [facility] Vaccine,quad 00:00:00 [place] [facility] 65+ Influenza Virus 2022-09-05 Completed [facility] Vaccine,quad 00:00:00 [place] [facility] 65+ Influenza Virus 2022-09-05 Completed [facility] Vaccine,quad 00:00:00 [place] [facility] 65+ Influenza Virus 2022-09-05 Completed [facility] Vaccine,quad 00:00:00 [place] [facility] 65+ Influenza Virus 2022-09-05 Completed [facility] Vaccine,quad 00:00:00 [place] [facility] 65+ Influenza Virus 2022-09-05 Completed [facility] Vaccine,quad 00:00:00 [place] [facility] 65+ Influenza Virus 2022-09-05 Completed [facility] Vaccine,quad 00:00:00 [place] [facility] 65+ Influenza Virus 2022-09-05 Completed [facility] Vaccine,quad 00:00:00 [place] [facility] 65+ Influenza Virus 2022-09-05 Completed [facility] Vaccine,quad 00:00:00 [place] [facility] 65+ (FLUAD) Influenza Virus 2022-09-05 Completed [facility] Vaccine,quad 00:00:00 [place] [facility] 65+ (FLUAD) SARS-COV-2 COVID-19 2022-06-14 Completed [facility] rs[facility] of MODERNA 0.25ML 00:00:00 [place] [facility] SARS-COV-2 COVID-19 2022-06-14 Completed [facility] rs[facility] of MODERNA 0.25ML 00:00:00 [place] [facility]ACC[facility] SARS-COV-2 COVID-19 2022-06-14 Completed [facility] of MODERNA 0.25ML 00:00:00 [place] [facility]ACC[facility] SARS-COV-2 COVID-19 2022-06-14 Completed [facility] of MODERNA 0.25ML 00:00:00 [place] [facility]ACCINE [facility] SARS-COV-2 COVID-19 2022-06-14 Completed [facility] rs[facility] of MODERNA 0.25ML 00:00:00 [place] [facility] VACCINE [facility] SARS-COV-2 COVID-19 2022-06-14 Completed [facility] rs[facility] of MODERNA 0.25ML 00:00:00 [place] [facility] VACCINE [facility] SARS-COV-2 COVID-19 2022-06-14 Completed [facility] of MODERNA 0.25ML 00:00:00 [place] [facility] VACCINE [facility] SARS-COV-2 COVID-19 2022-06-14 Completed [facility] of MODERNA 0.25ML 00:00:00 [place] [facility] VACCINE [facility] SARS-COV-2 COVID-19 2022-06-14 Completed [facility] rs[facility] of MODERNA 0.25ML 00:00:00 [place] [facility] VACCINE [facility] SARS-COV-2 COVID-19 2022-06-14 Completed [facility] of MODERNA 0.25ML 00:00:00 [place] [facility] VACCINE [facility] SARS-COV-2 COVID-19 2022-06-14 Completed [facility] of MODERNA 0.25ML 00:00:00 [place] [facility] VACCINE [facility] SARS-COV-2 COVID-19 2022-06-14 Completed [facility] of MODERNA 0.25ML 00:00:00 [place] [facility] VACCINE [facility] SARS-COV-2 COVID-19 2022-06-14 Completed [facility] rs[facility] of MODERNA 0.25ML 00:00:00 [place] [facility] VACCINE [facility] SARS-COV-2 COVID-19 2022-06-14 Completed [facility] rs[facility] of MODERNA 0.25ML 00:00:00 [place] [facility] VACCINE [facility] SARS-COV-2 COVID-19 2022-06-14 Completed [facility] of MODERNA 0.25ML 00:00:00 [place] [facility] VACCINE [facility] SARS-COV-2 COVID-19 2022-06-14 Completed [facility] of MODERNA 0.25ML 00:00:00 [place] [facility] VACCINE [facility] SARS-COV-2 COVID-19 2022-06-14 Completed [facility] rs[facility] of MODERNA 0.25ML 00:00:00 [place] [facility] VACCINE [facility] SARS-COV-2 COVID-19 2022-06-14 Completed [facility] of MODERNA 0.25ML 00:00:00 [place] [facility] VACCINE [facility] SARS-COV-2 COVID-19 2022-06-14 Completed [facility] of MODERNA 0.25ML 00:00:00 [place] [facility] VACCINE [facility] SARS-COV-2 COVID-19 2022-06-14 Completed [facility] of MODERNA 0.25ML 00:00:00 [place] [facility] VACCINE [facility] SARS-COV-2 COVID-19 2022-06-14 Completed [facility] of MODERNA 0.25ML 00:00:00 [place] [facility] VACCINE [facility] SARS-COV-2 COVID-19 2022-06-14 Completed [facility] of MODERNA 0.25ML 00:00:00 [place] [facility] VACCINE [facility] SARS-COV-2 COVID-19 2022-06-14 Completed [facility] of MODERNA 0.25ML 00:00:00 [place] [facility] VACCINE [facility] SARS-COV-2 COVID-19 2022-06-14 Completed [facility] of MODERNA 0.25ML 00:00:00 [place] [facility] VACCINE [facility] SARS-COV-2 COVID-19 2022-06-14 Completed [facility] of MODERNA 0.25ML 00:00:00 [place] [facility] VACCINE [facility] SARS-COV-2 COVID-19 2022-06-14 Completed [facility] of MODERNA 0.25ML 00:00:00 [place] [facility] VACCINE [facility] SARS-COV-2 COVID-19 2022-06-14 Completed [facility] of MODERNA 0.25ML 00:00:00 [place] [facility] VACCINE [facility] SARS-COV-2 COVID-19 2022-06-14 Completed [facility] of MODERNA 0.25ML 00:00:00 [place] [facility] VACCINE [facility] SARS-COV-2 COVID-19 2022-06-14 Completed [facility] of MODERNA 0.25ML 00:00:00 [place] [facility] VACCINE [facility] SARS-COV-2 COVID-19 2022-06-14 Completed [facility] of MODERNA 0.25ML 00:00:00 [place] [facility] BOOST[facility] VACCINE [facility] SARS-COV-2 COVID-19 2022-06-14 Completed [facility] of MODERNA 0.25ML 00:00:00 [place] [facility] BOOST[facility] VACCINE [facility] SARS-COV-2 COVID-19 2022-06-14 Completed [facility] of MODERNA 0.25ML 00:00:00 [place] [facility] BOOST[facility] VACCINE [facility] SARS-COV-2 COVID-19 2022-06-14 Completed [facility] of MODERNA 0.25ML 00:00:00 [place] [facility] BOOST[facility] VACCINE [facility] SARS-COV-2 COVID-19 2022-06-14 Completed [facility] of MODERNA 0.25ML 00:00:00 [place] [facility] VACCINE [facility] SARS-COV-2 COVID-19 2022-06-14 Completed [facility] of MODERNA 0.25ML 00:00:00 [place] [facility] BOOST[facility] VACCINE [facility] SARS-COV-2 COVID-19 2022-06-14 Completed [facility] of MODERNA 0.25ML 00:00:00 [place] [facility] BOOST[facility] VACCINE [facility] SARS-COV-2 COVID-19 2022-06-14 Completed [facility] of MODERNA 0.25ML 00:00:00 [place] [facility] VACCINE [facility] SARS-COV-2 COVID-19 2022-06-14 Completed [facility] of MODERNA 0.25ML 00:00:00 [place] [facility] VACCINE [facility] SARS-COV-2 COVID-19 2022-06-14 Completed [facility] of MODERNA 0.25ML 00:00:00 [place] [facility] VACCINE [facility] SARS-COV-2 COVID-19 2022-06-14 Completed [facility] of MODERNA 0.25ML 00:00:00 [place] [facility] VACCINE [facility] SARS-COV-2 COVID-19 2022-06-14 Completed [facility] of MODERNA 0.25ML 00:00:00 [place] [facility] BOOST[facility] VACCINE [facility] SARS-COV-2 COVID-19 2022-06-14 Completed [facility] of MODERNA 0.25ML 00:00:00 [place] [facility] VACCINE [facility] SARS-COV-2 COVID-19 2022-06-14 Completed [facility] of MODERNA 0.25ML 00:00:00 [place] [facility] VACCINE [facility] SARS-COV-2 COVID-19 2022-06-14 Completed [facility] of MODERNA 0.25ML 00:00:00 [place] [facility] BOOST[facility] VACCINE [facility] SARS-COV-2 COVID-19 2022-06-14 Completed [facility] of MODERNA 0.25ML 00:00:00 [place] [facility] VACCINE [facility] SARS-COV-2 COVID-19 2022-06-14 Completed [facility] of MODERNA 0.25ML 00:00:00 [place] [facility] VACCINE [facility] SARS-COV-2 COVID-19 2022-06-14 Completed [facility] of MODERNA 0.25ML 00:00:00 [place] [facility] VACCINE [facility] SARS-COV-2 COVID-19 2022-06-14 Completed [facility] of MODERNA 0.25ML 00:00:00 [place] [facility] VACCINE [facility] SARS-COV-2 COVID-19 2022-06-14 Completed [facility] of MODERNA 0.25ML 00:00:00 [place] [facility] BOOST[facility] VACCINE [facility] SARS-COV-2 COVID-19 2022-06-14 Completed [facility] of MODERNA 0.25ML 00:00:00 [place] [facility] VACCINE [facility] SARS-COV-2 COVID-19 2022-06-14 Completed [facility] of MODERNA 0.25ML 00:00:00 [place] [facility] VACCINE [facility] SARS-COV-2 COVID-19 2022-06-14 Completed [facility] of MODERNA 0.25ML 00:00:00 [place] [facility] VACCINE [facility] SARS-COV-2 COVID-19 2022-06-14 Completed [facility] of MODERNA 0.25ML 00:00:00 [place] [facility] BOOST[facility] VACCINE [facility] SARS-COV-2 COVID-19 2022-06-14 Completed [facility] of MODERNA 0.25ML 00:00:00 [place] [facility] BOOST[facility] VACCINE [facility] SARS-COV-2 COVID-19 2022-06-14 Completed [facility] of MODERNA 0.25ML 00:00:00 [place] [facility] VACCINE [facility] SARS-COV-2 COVID-19 2022-06-14 Completed [facility] of MODERNA 0.25ML 00:00:00 [place] [facility] VACCINE [facility] SARS-COV-2 COVID-19 2022-06-14 Completed [facility] of MODERNA 0.25ML 00:00:00 [place] [facility] VACCINE [facility] SARS-COV-2 COVID-19 2022-06-14 Completed [facility] of MODERNA 0.25ML 00:00:00 [place] [facility] VACCINE [facility] SARS-COV-2 COVID-19 2022-06-14 Completed [facility] of MODERNA 0.25ML 00:00:00 [place] [facility] VACCINE [facility] SARS-COV-2 COVID-19 2022-06-14 Completed [facility] of MODERNA 0.25ML 00:00:00 [place] [facility] VACCINE [facility] SARS-COV-2 COVID-19 2022-06-14 Completed [facility] of MODERNA 0.25ML 00:00:00 [place] [facility] VACCINE [facility] SARS-COV-2 COVID-19 2022-06-14 Completed [facility] MODER[facility] 0.25ML 00:00:00 [place] [facility] VACCINE [facility] SARS-COV-2 COVID-19 2022-06-14 Completed [facility] MODER[facility] 0.25ML 00:00:00 [place] [facility] VACCINE [facility] SARS-COV-2 COVID-19 2022-06-14 Completed [facility] MODERNA 0.25ML 00:00:00 [place] [facility] VACCINE [facility] SARS-COV-2 COVID-19 2022-06-14 Completed [facility] of MODERNA 0.25ML 00:00:00 [place] [facility] VACCINE [facility] SARS-COV-2 COVID-19 2022-06-14 Completed [facility] of MODERNA 0.25ML 00:00:00 [place] [facility] VACCINE [facility] SARS-COV-2 COVID-19 2022-06-14 Completed [facility] MODERNA 0.25ML 00:00:00 [place] [facility] VACCINE [facility] SARS-COV-2 COVID-19 2022-06-14 Completed [facility] MODER[facility] 0.25ML 00:00:00 [place] [facility] VACCINE [facility] SARS-COV-2 COVID-19 2022-06-14 Completed [facility] MODERNA 0.25ML 00:00:00 [place] [facility] VACCINE [facility] SARS-COV-2 COVID-19 2022-06-14 Completed [facility] of MODERNA 0.25ML 00:00:00 [place] [facility] VACC[facility] SARS-COV-2 COVID-19 2022-06-14 Completed [facility] of MODERNA 0.25ML 00:00:00 [place] [facility] VACCINE [facility] SARS-COV-2 COVID-19 2022-06-14 Completed [facility] of MODERNA 0.25ML 00:00:00 [place] [facility] VACCINE [facility] SARS-COV-2 COVID-19 2022-06-14 Completed [facility] MODERNA 0.25ML 00:00:00 [place] [facility] VACCINE [facility] SARS-COV-2 COVID-19 2022-06-14 Completed [facility] MODER[facility] 0.25ML 00:00:00 [place] [facility] VACCINE [facility] SARS-COV-2 COVID-19 2022-06-14 Completed [facility] MODERNA 0.25ML 00:00:00 [place] [facility] VACCINE [facility] SARS-COV-2 COVID-19 2022-06-14 Completed [facility] MODERNA 0.25ML 00:00:00 [place] [facility] VACCINE [facility] SARS-COV-2 COVID-19 2022-06-14 Completed [facility] of MODERNA 0.25ML 00:00:00 [place] [facility] VACCINE [facility] SARS-COV-2 COVID-19 2022-06-14 Completed [facility] MODERNA 0.25ML 00:00:00 [place] [facility]ACC[facility] SARS-COV-2 COVID-19 2021-09-11 Completed [facility] 12+ YRS 00:00:00 [place] [facility] SARS-COV-2 COVID-19 2021-09-11 Completed [facility] 12+ YRS 00:00:00 [place] [facility] SARS-COV-2 COVID-19 2021-09-11 Completed [facility] of [facility] 12+ YRS 00:00:00 [place] [facility] SARS-COV-2 COVID-19 2021-09-11 Completed [facility] of [facility] 12+ YRS 00:00:00 [place] [facility] SARS-COV-2 COVID-19 2021-09-11 Completed [facility] of [facility] 12+ YRS 00:00:00 [place] [facility] SARS-COV-2 COVID-19 2021-09-11 Completed [facility] of [facility]ERNA 12+ YRS 00:00:00 [place] [facility] SARS-COV-2 COVID-19 2021-09-11 Completed [facility] of [facility]ERNA 12+ YRS 00:00:00 [place] [facility] SARS-COV-2 COVID-19 2021-09-11 Completed [facility] of [facility]ERNA 12+ YRS 00:00:00 [place] [facility] SARS-COV-2 COVID-19 2021-09-11 Completed [facility] of [facility]ERNA 12+ YRS 00:00:00 [place] [facility] SARS-COV-2 COVID-19 2021-09-11 Completed [facility] of [facility]ERNA 12+ YRS 00:00:00 [place] [facility] SARS-COV-2 COVID-19 2021-09-11 Completed [facility] of MODERNA 12+ YRS 00:00:00 [place] [facility] SARS-COV-2 COVID-19 2021-09-11 Completed [facility] of MODERNA 12+ YRS 00:00:00 [place] [facility] SARS-COV-2 COVID-19 2021-09-11 Completed [facility] of MODERNA 12+ YRS 00:00:00 [place] [facility] SARS-COV-2 COVID-19 2021-09-11 Completed [facility] of [facility]ERNA 12+ YRS 00:00:00 [place] [facility] SARS-COV-2 COVID-19 2021-09-11 Completed [facility] of MODERNA 12+ YRS 00:00:00 [place] [facility]INE [facility] SARS-COV-2 COVID-19 2021-09-11 Completed [facility] of MODERNA 12+ YRS 00:00:00 [place] [facility] SARS-COV-2 COVID-19 2021-09-11 Completed [facility] of MODERNA 12+ YRS 00:00:00 [place] [facility] SARS-COV-2 COVID-19 2021-09-11 Completed [facility] of MODERNA 12+ YRS 00:00:00 [place] [facility] SARS-COV-2 COVID-19 2021-09-11 Completed [facility] of MODERNA 12+ YRS 00:00:00 [place] [facility] SARS-COV-2 COVID-19 2021-09-11 Completed [facility] of [facility]ERNA 12+ YRS 00:00:00 [place] [facility] SARS-COV-2 COVID-19 2021-09-11 Completed [facility] of [facility]ERNA 12+ YRS 00:00:00 [place] [facility] SARS-COV-2 COVID-19 2021-09-11 Completed [facility] of [facility]ERNA 12+ YRS 00:00:00 [place] [facility] SARS-COV-2 COVID-19 2021-09-11 Completed [facility] of [facility]ERNA 12+ YRS 00:00:00 [place] [facility] SARS-COV-2 COVID-19 2021-09-11 Completed [facility] of MODERNA 12+ YRS 00:00:00 [place] [facility] SARS-COV-2 COVID-19 2021-09-11 Completed [facility] of MODERNA 12+ YRS 00:00:00 [place] [facility] SARS-COV-2 COVID-19 2021-09-11 Completed [facility] of [facility]ERNA 12+ YRS 00:00:00 [place] [facility] SARS-COV-2 COVID-19 2021-09-11 Completed [facility] of [facility]ERNA 12+ YRS 00:00:00 [place] [facility] SARS-COV-2 COVID-19 2021-09-11 Completed [facility] of [facility]ERNA 12+ YRS 00:00:00 [place] [facility] SARS-COV-2 COVID-19 2021-09-11 Completed [facility] of [facility]ERNA 12+ YRS 00:00:00 [place] [facility]ACC[facility] SARS-COV-2 COVID-19 2021-09-11 Completed [facility] of [facility]ERNA 12+ YRS 00:00:00 [place] [facility] SARS-COV-2 COVID-19 2021-09-11 Completed [facility] of [facility]ERNA 12+ YRS 00:00:00 [place] [facility] SARS-COV-2 COVID-19 2021-09-11 Completed [facility] of [facility]ERNA 12+ YRS 00:00:00 [place] [facility] SARS-COV-2 COVID-19 2021-09-11 Completed [facility] of [facility]ERNA 12+ YRS 00:00:00 [place] [facility] SARS-COV-2 COVID-19 2021-09-11 Completed [facility] of [facility]ERNA 12+ YRS 00:00:00 [place] [facility] SARS-COV-2 COVID-19 2021-09-11 Completed [facility] of [facility]ERNA 12+ YRS 00:00:00 [place] [facility] SARS-COV-2 COVID-19 2021-09-11 Completed [facility] of [facility]ERNA 12+ YRS 00:00:00 [place] [facility] SARS-COV-2 COVID-19 2021-09-11 Completed [facility] of MODERNA 12+ YRS 00:00:00 [place] [facility] SARS-COV-2 COVID-19 2021-09-11 Completed [facility] 12+ YRS 00:00:00 [place] [facility] SARS-COV-2 COVID-19 2021-09-11 Completed [facility] 12+ YRS 00:00:00 [place] [facility] SARS-COV-2 COVID-19 2021-09-11 Completed [facility] 12+ YRS 00:00:00 [place] [facility] SARS-COV-2 COVID-19 2021-09-11 Completed [facility] 12+ YRS 00:00:00 [place] [facility] SARS-COV-2 COVID-19 2021-09-11 Completed [facility] 12+ YRS 00:00:00 [place] [facility] SARS-COV-2 COVID-19 2021-09-11 Completed [facility] 12+ YRS 00:00:00 [place] [facility] VACCINE [facility] SARS-COV-2 COVID-19 2021-09-11 Completed [facility] 12+ YRS 00:00:00 [facility] SARS-COV-2 COVID-19 2021-09-11 Completed [facility] 12+ YRS 00:00:00 [facility] SARS-COV-2 COVID-19 2021-09-11 Completed [facility] 12+ YRS 00:00:00 [facility] SARS-COV-2 COVID-19 2021-09-11 Completed [facility] 12+ YRS 00:00:00 [facility] SARS-COV-2 COVID-19 2021-09-11 Completed [facility] 12+ YRS 00:00:00 [facility] SARS-COV-2 COVID-19 2021-09-11 Completed [facility] 12+ YRS 00:00:00 [facility] SARS-COV-2 COVID-19 2021-09-11 Completed [facility] 12+ YRS 00:00:00 [facility] SARS-COV-2 COVID-19 2021-09-11 Completed [facility] 12+ YRS 00:00:00 [facility] SARS-COV-2 COVID-19 2021-09-11 Completed [facility]ER[facility] 12+ YRS 00:00:00 [facility] SARS-COV-2 COVID-19 2021-09-11 Completed [facility] 12+ YRS 00:00:00 [facility] SARS-COV-2 COVID-19 2021-09-11 Completed [facility]ER[facility] 12+ YRS 00:00:00 [facility] SARS-COV-2 COVID-19 2021-09-11 Completed [facility] 12+ YRS 00:00:00 [facility] SARS-COV-2 COVID-19 2021-09-11 Completed [facility] 12+ YRS 00:00:00 [facility] SARS-COV-2 COVID-19 2021-09-11 Completed [facility] 12+ YRS 00:00:00 [facility] SARS-COV-2 COVID-19 2021-09-11 Completed [facility] 12+ YRS 00:00:00 [facility] SARS-COV-2 COVID-19 2021-09-11 Completed [facility] 12+ YRS 00:00:00 [facility] SARS-COV-2 COVID-19 2021-09-11 Completed [facility] 12+ YRS 00:00:00 [facility] SARS-COV-2 COVID-19 2021-09-11 Completed [facility] 12+ YRS 00:00:00 [facility] SARS-COV-2 COVID-19 2021-09-11 Completed [facility] 12+ YRS 00:00:00 [facility] SARS-COV-2 COVID-19 2021-09-11 Completed [facility] 12+ YRS 00:00:00 [facility] SARS-COV-2 COVID-19 2021-09-11 Completed [facility] 12+ YRS 00:00:00 [facility] SARS-COV-2 COVID-19 2021-09-11 Completed [facility] 12+ YRS 00:00:00 [facility] SARS-COV-2 COVID-19 2021-09-11 Completed [facility] 12+ YRS 00:00:00 [facility] SARS-COV-2 COVID-19 2021-09-11 Completed [facility] 12+ YRS 00:00:00 [facility] SARS-COV-2 COVID-19 2021-09-11 Completed [facility] 12+ YRS 00:00:00 [facility] SARS-COV-2 COVID-19 2021-09-11 Completed [facility] 12+ YRS 00:00:00 [facility] SARS-COV-2 COVID-19 2021-09-11 Completed [facility] 12+ YRS 00:00:00 [facility] SARS-COV-2 COVID-19 2021-09-11 Completed [facility] 12+ YRS 00:00:00 [facility] SARS-COV-2 COVID-19 2021-09-11 Completed [facility] 12+ YRS 00:00:00 [facility] SARS-COV-2 COVID-19 2021-09-11 Completed [facility] 12+ YRS 00:00:00 [facility] SARS-COV-2 COVID-19 2021-09-11 Completed [facility] 12+ YRS 00:00:00 [facility] SARS-COV-2 COVID-19 2021-09-11 Completed [facility] 12+ YRS 00:00:00 [facility] SARS-COV-2 COVID-19 2021-09-11 Completed [facility] 12+ YRS 00:00:00 [place] [facility] SARS-COV-2 COVID-19 2021-09-11 Completed [facility] 12+ YRS 00:00:00 [place] [facility] ical VACCINE Branch SARS-COV-2 COVID-19 2021-09-11 Completed [facility] 12+ YRS 00:00:00 [facility] ical VACCINE Branch Influenza High Dose 2021-08-02 Completed [facility] of 00[facility]00:00 [facility] Influenza High Dose 2021-08-02 Completed [facility] of 00:00:00 [facility] Influenza High Dose 2021-08-02 Completed [facility] 00:00:00 [facility] Influenza High Dose 2021-08-02 Completed [facility] 00:00:00 [facility] Influenza High Dose 2021-08-02 Completed [facility] 00:00:00 [facility] Influenza High Dose 2021-08-02 Completed [facility] of 00:00:00 [facility] Influenza High Dose 2021-08-02 Completed [facility] 00:00:00 [facility] Influenza High Dose 2021-08-02 Completed [facility] 00:00:00 [facility] Influenza High Dose 2021-08-02 Completed [facility] 00:00:00 [facility] Influenza High Dose 2021-08-02 Completed [facility] 00:00:00 [facility] Influenza High Dose 2021-08-02 Completed [facility] 00:00:00 [facility] Influenza High Dose 2021-08-02 Completed [facility] 00:00:00 [facility] Influenza High Dose 2021-08-02 Completed [facility] of 00:00:00 [facility] Influenza High Dose 2021-08-02 Completed [facility] 00:00:00 [facility] Influenza High Dose 2021-08-02 Completed [facility] of 00:00:00 [facility] Influenza High Dose 2021-08-02 Completed [facility] of 00:00:00 [facility] Influenza High Dose 2021-08-02 Completed [facility] of 00:00:00 [facility] Influenza High Dose 2021-08-02 Completed [facility] of 00:00:00 [facility] Influenza High Dose 2021-08-02 Completed [facility] 00:00:00 [facility] Influenza High Dose 2021-08-02 Completed [facility] 00:00:00 [facility] Influenza High Dose 2021-08-02 Completed [facility] of 00:00:00 [facility] Influenza High Dose 2021-08-02 Completed [facility] 00:00:00 [facility] Influenza High Dose 2021-08-02 Completed [facility] of 00:00:00 [facility] Influenza High Dose 2021-08-02 Completed [facility] 00:00:00 [facility] Influenza High Dose 2021-08-02 Completed [facility] 00:00:00 [facility] Influenza High Dose 2021-08-02 Completed [facility] of 00:00:00 [facility] Influenza High Dose 2021-08-02 Completed [facility] of 00:00:00 [facility] Influenza High Dose 2021-08-02 Completed [facility] of 00:00:00 [facility] Influenza High Dose 2021-08-02 Completed [facility] of 00:00:00 [facility] Influenza High Dose 2021-08-02 Completed [facility] of 00:00:00 [facility] Influenza High Dose 2021-08-02 Completed [facility] of 00:00:00 [facility] Influenza High Dose 2021-08-02 Completed [facility] of 00:00:00 [facility] Influenza High Dose 2021-08-02 Completed [facility] of 00:00:00 [facility] Influenza High Dose 2021-08-02 Completed [facility] of 00:00:00 [facility] Influenza High Dose 2021-08-02 Completed [facility] of 00:00:00 [facility] Influenza High Dose 2021-08-02 Completed [facility] of 00:00:00 [facility] Influenza High Dose 2021-08-02 Completed [facility] of 00:00:00 [facility] Influenza High Dose 2021-08-02 Completed [facility] 00:00:00 [facility] Influenza High Dose 2021-08-02 Completed [facility] 00:00:00 [facility] Influenza High Dose 2021-08-02 Completed [facility] 00:00:00 [facility] Influenza High Dose 2021-08-02 Completed [facility] of 00:00:00 [facility] Influenza High Dose 2021-08-02 Completed [facility] of 00:00:00 [facility] Influenza High Dose 2021-08-02 Completed [facility] of 00:00:00 [facility] Influenza High Dose 2021-08-02 Completed [facility] of 00:00:00 [facility] Influenza High Dose 2021-08-02 Completed [facility] of 00:00:00 [facility] Influenza High Dose 2021-08-02 Completed [facility] of 00:00:00 [facility] Influenza High Dose 2021-08-02 Completed [facility] of 00:00:00 [facility] Influenza High Dose 2021-08-02 Completed [facility] of 00:00:00 [facility] Influenza High Dose 2021-08-02 Completed [facility] of 00:00:00 [facility] Influenza High Dose 2021-08-02 Completed [facility] of 00:00:00 [facility] Influenza High Dose 2021-08-02 Completed [facility] of 00:00:00 [facility] Influenza High Dose 2021-08-02 Completed [facility] of 00:00:00 [facility] Influenza High Dose 2021-08-02 Completed [facility] 00:00:00 [facility] Influenza High Dose 2021-08-02 Completed [facility] 00:00:00 [facility] Influenza High Dose 2021-08-02 Completed [facility] 00:00:00 [facility] Influenza High Dose 2021-08-02 Completed [facility] 00:00:00 [facility] Influenza High Dose 2021-08-02 Completed [facility] of 00:00:00 [facility] Influenza High Dose 2021-08-02 Completed [facility] of 00:00:00 [facility] Influenza High Dose 2021-08-02 Completed [facility] of 00:00:00 [facility] Influenza High Dose 2021-08-02 Completed [facility] of 00:00:00 [facility] Influenza High Dose 2021-08-02 Completed [facility] of 00:00:00 [facility] Influenza High Dose 2021-08-02 Completed [facility] of 00:00:00 [facility] Influenza High Dose 2021-08-02 Completed [facility] 00:00:00 [facility] Influenza High Dose 2021-08-02 Completed [facility] of 00:00:00 [facility] Influenza High Dose 2021-08-02 Completed [facility] of 00:00:00 [facility] Influenza High Dose 2021-08-02 Completed [facility] of 00:00:00 [facility] Influenza High Dose 2021-08-02 Completed [facility] of 00:00:00 [facility] Influenza High Dose 2021-08-02 Completed [facility] 00:00:00 [facility] Influenza High Dose 2021-08-02 Completed [facility] of 00:00:00 [facility] Influenza High Dose 2021-08-02 Completed [facility] of 00:00:00 [facility] Influenza High Dose 2021-08-02 Completed [facility] of 00:00:00 [facility] Influenza High Dose 2021-08-02 Completed [facility] of 00:00:00 [facility] Influenza High Dose 2021-08-02 Completed [facility] of 00:00:00 [facility] Influenza High Dose 2021-08-02 Completed [facility] of 00:00:00 [facility] Influenza High Dose 2021-08-02 Completed [facility] of 00:00:00 [facility] Influenza High Dose 2021-08-02 Completed [facility] of 00:00:00 [facility] Influenza High Dose 2021-08-02 Completed [facility] of 00:00:00 [facility] Influenza High Dose 2021-08-02 Completed [facility] of 00:00:00 [facility] SARS-COV-2 COVID-19 2021-01-20 Completed [facility] of MODERNA 12+ YRS 00:00:00 [facility] ical VACCINE Branch SARS-COV-2 COVID-19 2021-01-20 Completed [facility]ive [facility] of MODERNA 12+ YRS 00:00:00 [facility] ical VACCINE Branch SARS-COV-2 COVID-19 2021-01-20 Completed [facility] of MODERNA 12+ YRS 00:00:00 [facility] ical VACCINE Branch SARS-COV-2 COVID-19 2021-01-20 Completed [facility] of MODERNA 12+ YRS 00:00:00 [facility] SARS-COV-2 COVID-19 2021-01-20 Completed [facility] of MODERNA 12+ YRS 00:00:00 [place] [facility] SARS-COV-2 COVID-19 2021-01-20 Completed [facility] of MODERNA 12+ YRS 00:00:00 [facility] ical VACCINE Branch SARS-COV-2 COVID-19 2021-01-20 Completed [facility]ive [facility] of MODERNA 12+ YRS 00:00:00 [facility] ical VACCINE Branch SARS-COV-2 COVID-19 2021-01-20 Completed [facility] of MODERNA 12+ YRS 00:00:00 [facility] SARS-COV-2 COVID-19 2021-01-20 Completed [facility] of MODERNA 12+ YRS 00:00:00 [place] [facility] SARS-COV-2 COVID-19 2021-01-20 Completed [facility] of MODERNA 12+ YRS 00:00:00 [place] [facility] SARS-COV-2 COVID-19 2021-01-20 Completed [facility] of MODERNA 12+ YRS 00:00:00 [place] [facility] SARS-COV-2 COVID-19 2021-01-20 Completed [facility] of MODERNA 12+ YRS 00:00:00 [facility] SARS-COV-2 COVID-19 2021-01-20 Completed [facility] MODERNA 12+ YRS 00:00:00 [place] [facility] VACCINE [facility] SARS-COV-2 COVID-19 2021-01-20 Completed [facility] of MODERNA 12+ YRS 00:00:00 [place] [facility]ACCINE [facility] SARS-COV-2 COVID-19 2021-01-20 Completed [facility] of MODERNA 12+ YRS 00:00:00 [facility]ACC[facility] SARS-COV-2 COVID-19 2021-01-20 Completed [facility] of MODERNA 12+ YRS 00:00:00 [place] [facility]ACC[facility] SARS-COV-2 COVID-19 2021-01-20 Completed [facility] of MODERNA 12+ YRS 00:00:00 [facility] VACC[facility] SARS-COV-2 COVID-19 2021-01-20 Completed [facility] of MODERNA 12+ YRS 00:00:00 [facility] SARS-COV-2 COVID-19 2021-01-20 Completed [facility] of MODERNA 12+ YRS 00:00:00 [place] [facility] SARS-COV-2 COVID-19 2021-01-20 Completed [facility] of MODERNA 12+ YRS 00:00:00 [place] [facility] SARS-COV-2 COVID-19 2021-01-20 Completed [facility] of MODERNA 12+ YRS 00:00:00 [place] [facility] SARS-COV-2 COVID-19 2021-01-20 Completed [facility] of MODERNA 12+ YRS 00:00:00 [place] [facility] SARS-COV-2 COVID-19 2021-01-20 Completed [facility] of MODERNA 12+ YRS 00:00:00 [place] [facility] SARS-COV-2 COVID-19 2021-01-20 Completed [facility] of MODERNA 12+ YRS 00:00:00 [facility]ACC[facility] SARS-COV-2 COVID-19 2021-01-20 Completed [facility] of MODERNA 12+ YRS 00:00:00 [place] [facility] SARS-COV-2 COVID-19 2021-01-20 Completed [facility] of MODERNA 12+ YRS 00:00:00 [place] [facility] SARS-COV-2 COVID-19 2021-01-20 Completed [facility] of MODERNA 12+ YRS 00:00:00 [facility] SARS-COV-2 COVID-19 2021-01-20 Completed [facility] of MODERNA 12+ YRS 00:00:00 [facility] SARS-COV-2 COVID-19 2021-01-20 Completed [facility] of MODERNA 12+ YRS 00:00:00 [place] [facility] SARS-COV-2 COVID-19 2021-01-20 Completed [facility] of MODERNA 12+ YRS 00:00:00 [facility] SARS-COV-2 COVID-19 2021-01-20 Completed [facility] of MODERNA 12+ YRS 00:00:00 [place] [facility] SARS-COV-2 COVID-19 2021-01-20 Completed [facility] of MODERNA 12+ YRS 00:00:00 [place] [facility] SARS-COV-2 COVID-19 2021-01-20 Completed [facility] of MODERNA 12+ YRS 00:00:00 [place] [facility] SARS-COV-2 COVID-19 2021-01-20 Completed [facility] of MODERNA 12+ YRS 00:00:00 [place] [facility] SARS-COV-2 COVID-19 2021-01-20 Completed [facility] of MODERNA 12+ YRS 00:00:00 [place] [facility] SARS-COV-2 COVID-19 2021-01-20 Completed [facility] of MODERNA 12+ YRS 00:00:00 [facility]ACC[facility] SARS-COV-2 COVID-19 2021-01-20 Completed [facility] of MODERNA 12+ YRS 00:00:00 [facility]ACC[facility] SARS-COV-2 COVID-19 2021-01-20 Completed [facility] of MODERNA 12+ YRS 00:00:00 [facility] SARS-COV-2 COVID-19 2021-01-20 Completed [facility] of MODERNA 12+ YRS 00:00:00 [facility] SARS-COV-2 COVID-19 2021-01-20 Completed [facility] of MODERNA 12+ YRS 00:00:00 [facility] SARS-COV-2 COVID-19 2021-01-20 Completed [facility] of MODERNA 12+ YRS 00:00:00 [facility] SARS-COV-2 COVID-19 2021-01-20 Completed [facility] of MODERNA 12+ YRS 00:00:00 [facility] SARS-COV-2 COVID-19 2021-01-20 Completed [facility] of MODERNA 12+ YRS 00:00:00 [facility] SARS-COV-2 COVID-19 2021-01-20 Completed [facility] of MODERNA 12+ YRS 00:00:00 [facility] SARS-COV-2 COVID-19 2021-01-20 Completed [facility] of MODERNA 12+ YRS 00:00:00 [facility] SARS-COV-2 COVID-19 2021-01-20 Completed [facility] of MODERNA 12+ YRS 00:00:00 [facility] SARS-COV-2 COVID-19 2021-01-20 Completed [facility] of MODERNA 12+ YRS 00:00:00 [facility] SARS-COV-2 COVID-19 2021-01-20 Completed [facility] of MODERNA 12+ YRS 00:00:00 [facility] SARS-COV-2 COVID-19 2021-01-20 Completed [facility] of MODERNA 12+ YRS 00:00:00 [facility] SARS-COV-2 COVID-19 2021-01-20 Completed [facility] of MODERNA 12+ YRS 00:00:00 [facility] SARS-COV-2 COVID-19 2021-01-20 Completed [facility] of MODERNA 12+ YRS 00:00:00 [facility] SARS-COV-2 COVID-19 2021-01-20 Completed [facility] of MODERNA 12+ YRS 00:00:00 [facility] SARS-COV-2 COVID-19 2021-01-20 Completed [facility] of MODERNA 12+ YRS 00:00:00 [facility] SARS-COV-2 COVID-19 2021-01-20 Completed [facility] of MODERNA 12+ YRS 00:00:00 [place] [facility] SARS-COV-2 COVID-19 2021-01-20 Completed [facility] of MODERNA 12+ YRS 00:00:00 [place] [facility] SARS-COV-2 COVID-19 2021-01-20 Completed [facility] of MODERNA 12+ YRS 00:00:00 [facility] SARS-COV-2 COVID-19 2021-01-20 Completed [facility] of MODERNA 12+ YRS 00:00:00 [facility] SARS-COV-2 COVID-19 2021-01-20 Completed [facility] of MODERNA 12+ YRS 00:00:00 [facility] SARS-COV-2 COVID-19 2021-01-20 Completed [facility] of MODERNA 12+ YRS 00:00:00 [facility] SARS-COV-2 COVID-19 2021-01-20 Completed [facility] of MODERNA 12+ YRS 00:00:00 [facility] SARS-COV-2 COVID-19 2021-01-20 Completed [facility] of MODERNA 12+ YRS 00:00:00 [facility] SARS-COV-2 COVID-19 2021-01-20 Completed [facility] of MODERNA 12+ YRS 00:00:00 [facility] SARS-COV-2 COVID-19 2021-01-20 Completed [facility] of MODERNA 12+ YRS 00:00:00 [facility] SARS-COV-2 COVID-19 2021-01-20 Completed [facility] of MODERNA 12+ YRS 00:00:00 [facility] SARS-COV-2 COVID-19 2021-01-20 Completed [facility] of MODERNA 12+ YRS 00:00:00 [facility] SARS-COV-2 COVID-19 2021-01-20 Completed [facility] of MODERNA 12+ YRS 00:00:00 [facility] SARS-COV-2 COVID-19 2021-01-20 Completed [facility] of MODERNA 12+ YRS 00:00:00 [facility] SARS-COV-2 COVID-19 2021-01-20 Completed [facility] of MODERNA 12+ YRS 00:00:00 [facility] SARS-COV-2 COVID-19 2021-01-20 Completed [facility] MODERNA 12+ YRS 00:00:00 [facility] SARS-COV-2 COVID-19 2021-01-20 Completed [facility] MODERNA 12+ YRS 00:00:00 [facility] SARS-COV-2 COVID-19 2021-01-20 Completed [facility] MODERNA 12+ YRS 00:00:00 [facility] SARS-COV-2 COVID-19 2021-01-20 Completed [facility] MODERNA 12+ YRS 00:00:00 [facility] SARS-COV-2 COVID-19 2021-01-20 Completed [facility] MODERNA 12+ YRS 00:00:00 [facility] SARS-COV-2 COVID-19 2021-01-20 Completed [facility] MODERNA 12+ YRS 00:00:00 [facility] SARS-COV-2 COVID-19 2021-01-20 Completed [facility] MODERNA 12+ YRS 00:00:00 [facility] SARS-COV-2 COVID-19 2021-01-20 Completed [facility] MODERNA 12+ YRS 00:00:00 [facility] SARS-COV-2 COVID-19 2021-01-20 Completed [facility] MODERNA 12+ YRS 00:00:00 [facility] SARS-COV-2 COVID-19 2021-01-20 Completed [facility] MODERNA 12+ YRS 00:00:00 [facility] SARS-COV-2 COVID-19 2020-12-23 Completed [facility] MODERNA 12+ YRS 00:00:00 [facility] SARS-COV-2 COVID-19 2020-12-23 Completed [facility] of MODERNA 12+ YRS 00:00:00 [facility] SARS-COV-2 COVID-19 2020-12-23 Completed [facility] of MODERNA 12+ YRS 00:00:00 [facility] SARS-COV-2 COVID-19 2020-12-23 Completed [facility] of MODERNA 12+ YRS 00:00:00 [facility] SARS-COV-2 COVID-19 2020-12-23 Completed [facility] of MODERNA 12+ YRS 00:00:00 [facility] SARS-COV-2 COVID-19 2020-12-23 Completed [facility] of MODERNA 12+ YRS 00:00:00 [facility] SARS-COV-2 COVID-19 2020-12-23 Completed [facility] of MODERNA 12+ YRS 00:00:00 [facility] SARS-COV-2 COVID-19 2020-12-23 Completed [facility] MODERNA 12+ YRS 00:00:00 [facility] SARS-COV-2 COVID-19 2020-12-23 Completed [facility] of MODERNA 12+ YRS 00:00:00 [facility] SARS-COV-2 COVID-19 2020-12-23 Completed [facility] of MODERNA 12+ YRS 00:00:00 [facility] SARS-COV-2 COVID-19 2020-12-23 Completed [facility] of MODERNA 12+ YRS 00:00:00 [facility] SARS-COV-2 COVID-19 2020-12-23 Completed [facility] of MODERNA 12+ YRS 00:00:00 [facility] SARS-COV-2 COVID-19 2020-12-23 Completed [facility] of MODERNA 12+ YRS 00:00:00 [facility] SARS-COV-2 COVID-19 2020-12-23 Completed [facility] of MODERNA 12+ YRS 00:00:00 [facility] SARS-COV-2 COVID-19 2020-12-23 Completed [facility] of MODERNA 12+ YRS 00:00:00 [facility] SARS-COV-2 COVID-19 2020-12-23 Completed [facility] MODERNA 12+ YRS 00:00:00 [facility] SARS-COV-2 COVID-19 2020-12-23 Completed [facility] MODERNA 12+ YRS 00:00:00 [facility] SARS-COV-2 COVID-19 2020-12-23 Completed [facility] MODERNA 12+ YRS 00:00:00 [facility] SARS-COV-2 COVID-19 2020-12-23 Completed [facility] MODERNA 12+ YRS 00:00:00 [facility] SARS-COV-2 COVID-19 2020-12-23 Completed [facility] MODERNA 12+ YRS 00:00:00 [facility] SARS-COV-2 COVID-19 2020-12-23 Completed [facility] MODERNA 12+ YRS 00:00:00 [facility] SARS-COV-2 COVID-19 2020-12-23 Completed [facility] MODERNA 12+ YRS 00:00:00 [facility] SARS-COV-2 COVID-19 2020-12-23 Completed [facility] MODERNA 12+ YRS 00:00:00 [facility] SARS-COV-2 COVID-19 2020-12-23 Completed [facility] MODERNA 12+ YRS 00:00:00 [facility] SARS-COV-2 COVID-19 2020-12-23 Completed [facility] MODERNA 12+ YRS 00:00:00 [facility] SARS-COV-2 COVID-19 2020-12-23 Completed [facility] MODERNA 12+ YRS 00:00:00 [facility] SARS-COV-2 COVID-19 2020-12-23 Completed [facility] MODERNA 12+ YRS 00:00:00 [facility] SARS-COV-2 COVID-19 2020-12-23 Completed [facility] MODERNA 12+ YRS 00:00:00 [facility] SARS-COV-2 COVID-19 2020-12-23 Completed [facility] MODERNA 12+ YRS 00:00:00 [facility] SARS-COV-2 COVID-19 2020-12-23 Completed [facility] MODERNA 12+ YRS 00:00:00 [facility] SARS-COV-2 COVID-19 2020-12-23 Completed [facility] MODERNA 12+ YRS 00:00:00 [facility] SARS-COV-2 COVID-19 2020-12-23 Completed [facility] MODERNA 12+ YRS 00:00:00 [facility] SARS-COV-2 COVID-19 2020-12-23 Completed [facility] MODERNA 12+ YRS 00:00:00 [facility] SARS-COV-2 COVID-19 2020-12-23 Completed [facility] MODERNA 12+ YRS 00:00:00 [facility] SARS-COV-2 COVID-19 2020-12-23 Completed [facility] MODERNA 12+ YRS 00:00:00 [facility] SARS-COV-2 COVID-19 2020-12-23 Completed [facility] 12+ YRS 00:00:00 [place] [facility]ACC[facility] SARS-COV-2 COVID-19 2020-12-23 Completed [facility] 12+ YRS 00:00:00 [place] [facility]ACC[facility] SARS-COV-2 COVID-19 2020-12-23 Completed [facility] 12+ YRS 00:00:00 [place] [facility] SARS-COV-2 COVID-19 2020-12-23 Completed [facility] 12+ YRS 00:00:00 [place] [facility] SARS-COV-2 COVID-19 2020-12-23 Completed [facility] 12+ YRS 00:00:00 [place] [facility]ACC[facility] SARS-COV-2 COVID-19 2020-12-23 Completed [facility] 12+ YRS 00:00:00 [place] [facility] SARS-COV-2 COVID-19 2020-12-23 Completed [facility] 12+ YRS 00:00:00 [place] [facility] SARS-COV-2 COVID-19 2020-12-23 Completed [facility] 12+ YRS 00:00:00 [place] [facility] SARS-COV-2 COVID-19 2020-12-23 Completed [facility] 12+ YRS 00:00:00 [place] [facility] SARS-COV-2 COVID-19 2020-12-23 Completed [facility] 12+ YRS 00:00:00 [place] [facility] SARS-COV-2 COVID-19 2020-12-23 Completed [facility] 12+ YRS 00:00:00 [place] [facility] SARS-COV-2 COVID-19 2020-12-23 Completed [facility] 12+ YRS 00:00:00 [place] [facility] SARS-COV-2 COVID-19 2020-12-23 Completed [facility] 12+ YRS 00:00:00 [place] [facility] SARS-COV-2 COVID-19 2020-12-23 Completed [facility] 12+ YRS 00:00:00 [place] [facility] SARS-COV-2 COVID-19 2020-12-23 Completed [facility] 12+ YRS 00:00:00 [place] [facility] SARS-COV-2 COVID-19 2020-12-23 Completed [facility] 12+ YRS 00:00:00 [place] [facility] SARS-COV-2 COVID-19 2020-12-23 Completed [facility] 12+ YRS 00:00:00 [place] [facility] SARS-COV-2 COVID-19 2020-12-23 Completed [facility] 12+ YRS 00:00:00 [place] [facility] SARS-COV-2 COVID-19 2020-12-23 Completed [facility] 12+ YRS 00:00:00 [place] [facility] SARS-COV-2 COVID-19 2020-12-23 Completed [facility] 12+ YRS 00:00:00 [place] [facility] SARS-COV-2 COVID-19 2020-12-23 Completed [facility] 12+ YRS 00:00:00 [place] [facility] SARS-COV-2 COVID-19 2020-12-23 Completed [facility] 12+ YRS 00:00:00 [place] [facility] SARS-COV-2 COVID-19 2020-12-23 Completed [facility] 12+ YRS 00:00:00 [place] [facility] SARS-COV-2 COVID-19 2020-12-23 Completed [facility] 12+ YRS 00:00:00 [place] [facility] SARS-COV-2 COVID-19 2020-12-23 Completed [facility] 12+ YRS 00:00:00 [place] [facility] SARS-COV-2 COVID-19 2020-12-23 Completed [facility] 12+ YRS 00:00:00 [place] [facility] SARS-COV-2 COVID-19 2020-12-23 Completed [facility] 12+ YRS 00:00:00 [place] [facility] SARS-COV-2 COVID-19 2020-12-23 Completed [facility] 12+ YRS 00:00:00 [place] [facility] SARS-COV-2 COVID-19 2020-12-23 Completed [facility] 12+ YRS 00:00:00 [place] [facility] SARS-COV-2 COVID-19 2020-12-23 Completed [facility] 12+ YRS 00:00:00 [place] [facility] SARS-COV-2 COVID-19 2020-12-23 Completed [facility] 12+ YRS 00:00:00 [place] [facility] SARS-COV-2 COVID-19 2020-12-23 Completed [facility] 12+ YRS 00:00:00 [place] [facility] SARS-COV-2 COVID-19 2020-12-23 Completed [facility] 12+ YRS 00:00:00 [place] [facility] SARS-COV-2 COVID-19 2020-12-23 Completed [facility] 12+ YRS 00:00:00 [place] [facility] SARS-COV-2 COVID-19 2020-12-23 Completed [facility] 12+ YRS 00:00:00 [place] [facility] SARS-COV-2 COVID-19 2020-12-23 Completed [facility] 12+ YRS 00:00:00 [place] [facility] SARS-COV-2 COVID-19 2020-12-23 Completed [facility] 12+ YRS 00:00:00 [place] [facility] SARS-COV-2 COVID-19 2020-12-23 Completed [facility] 12+ YRS 00:00:00 [place] [facility] SARS-COV-2 COVID-19 2020-12-23 Completed [facility] 12+ YRS 00:00:00 [place] [facility] SARS-COV-2 COVID-19 2020-12-23 Completed [facility] 12+ YRS 00:00:00 [place] [facility] SARS-COV-2 COVID-19 2020-12-23 Completed [facility] 12+ YRS 00:00:00 [place] [facility] SARS-COV-2 COVID-19 2020-12-23 Completed [facility] 12+ YRS 00:00:00 [place] [facility] SARS-COV-2 COVID-19 2020-12-23 Completed [facility] 12+ YRS 00:00:00 [place] [facility] Pneumococcal 2012-09-09 Completed [facility] f Polysaccharide, 00:00:00 [place] [facility] PPSV23 (PNEUMOVAX) [facility] Pneumococcal 2012-09-09 Completed [facility] f Polysaccharide, 00:00:00 [place] [facility] PPSV23 (PNEUMOVAX) [facility] Pneumococcal 2012-09-09 Completed [facility] f Polysaccharide, 00:00:00 [place] [facility] PPSV23 (PNEUMOVAX) [facility] Pneumococcal 2012-09-09 Completed [facility] f Polysaccharide, 00:00:00 [place] [facility] PPSV23 (PNEUMOVAX) [facility] Pneumococcal 2012-09-09 Completed [facility] f Polysaccharide, 00:00:00 [place] [facility] PPSV23 (PNEUMOVAX) [facility] Pneumococcal 2012-09-09 Completed [facility] f Polysaccharide, 00:00:00 [place] [facility] PPSV23 (PNEUMOVAX) [facility] Pneumococcal 2012-09-09 Completed [facility] f Polysaccharide, 00:00:00 [place] [facility] PPSV23 (PNEUMOVAX) [facility] Pneumococcal 2012-09-09 Completed [facility] f Polysaccharide, 00:00:00 [place] [facility] PPSV23 (PNEUMOVAX) [facility] Pneumococcal 2012-09-09 Completed [facility] f Polysaccharide, 00:00:00 [place] [facility] PPSV23 (PNEUMOVAX) [facility] Pneumococcal 2012-09-09 Completed [facility] f Polysaccharide, 00:00:00 [place] [facility] PPSV23 (PNEUMOVAX) Branch Pneumococcal 2012-09-09 Completed [facility] f Polysaccharide, 00:00:00 [place] [facility] PPSV23 (PNEUMOVAX) Branch Pneumococcal 2012-09-09 Completed [facility] f Polysaccharide, 00:00:00 [place] [facility] PPSV23 (PNEUMOVAX) Branch Pneumococcal 2012-09-09 Completed [facility] f Polysaccharide, 00:00:00 [place] [facility] PPSV23 (PNEUMOVAX) Branch Pneumococcal 2012-09-09 Completed [facility] f Polysaccharide, 00:00:00 [place] [facility] PPSV23 (PNEUMOVAX) Branch Pneumococcal 2012-09-09 Completed [facility] f Polysaccharide, 00:00:00 [place] [facility] PPSV23 (PNEUMOVAX) Branch Pneumococcal 2012-09-09 Completed [facility] f Polysaccharide, 00:00:00 [place] [facility] PPSV23 (PNEUMOVAX) Branch Pneumococcal 2012-09-09 Completed [facility] f Polysaccharide, 00:00:00 [place] [facility] PPSV23 (PNEUMOVAX) Branch Pneumococcal 2012-09-09 Completed [facility] f Polysaccharide, 00:00:00 [place] [facility] PPSV23 (PNEUMOVAX) Branch Pneumococcal 2012-09-09 Completed [facility] f Polysaccharide, 00:00:00 [place] [facility] PPSV23 (PNEUMOVAX) Branch Pneumococcal 2012-09-09 Completed [facility] f Polysaccharide, 00:00:00 [place] [facility] PPSV23 (PNEUMOVAX) [facility] Pneumococcal 2012-09-09 Completed [facility] f Polysaccharide, 00:00:00 [place] [facility] PPSV23 (PNEUMOVAX) Branch Pneumococcal 2012-09-09 Completed [facility] f Polysaccharide, 00:00:00 [place] [facility] PPSV23 (PNEUMOVAX) Branch Pneumococcal 2012-09-09 Completed [facility] f Polysaccharide, 00:00:00 [place] [facility] PPSV23 (PNEUMOVAX) [facility] Pneumococcal 2012-09-09 Completed [facility] f Polysaccharide, 00:00:00 [place] [facility] PPSV23 (PNEUMOVAX) Branch Pneumococcal 2012-09-09 Completed [facility] f Polysaccharide, 00:00:00 [place] [facility] PPSV23 (PNEUMOVAX) [facility] Pneumococcal 2012-09-09 Completed [facility] f Polysaccharide, 00:00:00 [place] [facility] PPSV23 (PNEUMOVAX) Branch Pneumococcal 2012-09-09 Completed [facility] f Polysaccharide, 00:00:00 [place] [facility] PPSV23 (PNEUMOVAX) Branch Pneumococcal 2012-09-09 Completed [facility] f Polysaccharide, 00:00:00 [place] [facility] PPSV23 (PNEUMOVAX) [facility] Pneumococcal 2012-09-09 Completed [facility] f Polysaccharide, 00:00:00 [place] [facility] PPSV23 (PNEUMOVAX) Branch Pneumococcal 2012-09-09 Completed [facility] f Polysaccharide, 00:00:00 [place] [facility] PPSV23 (PNEUMOVAX) Branch Pneumococcal 2012-09-09 Completed [facility] f Polysaccharide, 00:00:00 [place] [facility] PPSV23 (PNEUMOVAX) Branch Pneumococcal 2012-09-09 Completed [facility] f Polysaccharide, 00:00:00 [place] [facility] PPSV23 (PNEUMOVAX) Branch Pneumococcal 2012-09-09 Completed [facility] f Polysaccharide, 00:00:00 [place] [facility] PPSV23 (PNEUMOVAX) Branch Pneumococcal 2012-09-09 Completed [facility] f Polysaccharide, 00:00:00 [place] [facility] PPSV23 (PNEUMOVAX) Branch Pneumococcal 2012-09-09 Completed [facility] f Polysaccharide, 00:00:00 [place] [facility] PPSV23 (PNEUMOVAX) Branch Pneumococcal 2012-09-09 Completed [facility] f Polysaccharide, 00:00:00 [place] [facility] PPSV23 (PNEUMOVAX) Branch Pneumococcal 2012-09-09 Completed [facility] f Polysaccharide, 00:00:00 [place] [facility] PPSV23 (PNEUMOVAX) Branch Pneumococcal 2012-09-09 Completed [facility] f Polysaccharide, 00:00:00 [place] [facility] PPSV23 (PNEUMOVAX) Branch Pneumococcal 2012-09-09 Completed [facility] f Polysaccharide, 00:00:00 [place] [facility] PPSV23 (PNEUMOVAX) Branch Pneumococcal 2012-09-09 Completed [facility] f Polysaccharide, 00:00:00 [place] [facility] PPSV23 (PNEUMOVAX) Branch Pneumococcal 2012-09-09 Completed [facility] f Polysaccharide, 00:00:00 [place] [facility] PPSV23 (PNEUMOVAX) Branch Pneumococcal 2012-09-09 Completed [facility] f Polysaccharide, 00:00:00 [place] [facility] PPSV23 (PNEUMOVAX) Branch Pneumococcal 2012-09-09 Completed [facility] f Polysaccharide, 00:00:00 [place] [facility] PPSV23 (PNEUMOVAX) Branch Pneumococcal 2012-09-09 Completed [facility] f Polysaccharide, 00:00:00 [place] [facility] PPSV23 (PNEUMOVAX) Branch Pneumococcal 2012-09-09 Completed [facility] f Polysaccharide, 00:00:00 [place] [facility] PPSV23 (PNEUMOVAX) Branch Pneumococcal 2012-09-09 Completed [facility] f Polysaccharide, 00:00:00 [place] [facility] PPSV23 (PNEUMOVAX) Branch Pneumococcal 2012-09-09 Completed [facility] f Polysaccharide, 00:00:00 [place] [facility] PPSV23 (PNEUMOVAX) Branch Pneumococcal 2012-09-09 Completed [facility] f Polysaccharide, 00:00:00 [place] [facility] PPSV23 (PNEUMOVAX) Branch Pneumococcal 2012-09-09 Completed [facility] f Polysaccharide, 00:00:00 [place] [facility] PPSV23 (PNEUMOVAX) Branch Pneumococcal 2012-09-09 Completed [facility] f Polysaccharide, 00:00:00 [place] [facility] PPSV23 (PNEUMOVAX) Branch Pneumococcal 2012-09-09 Completed [facility] f Polysaccharide, 00:00:00 [place] [facility] PPSV23 (PNEUMOVAX) Branch Pneumococcal 2012-09-09 Completed [facility] f Polysaccharide, 00:00:00 [place] [facility] PPSV23 (PNEUMOVAX) Branch Pneumococcal 2012-09-09 Completed [facility] f Polysaccharide, 00:00:00 [place] [facility] PPSV23 (PNEUMOVAX) Branch Pneumococcal 2012-09-09 Completed [facility] f Polysaccharide, 00:00:00 [place] [facility] PPSV23 (PNEUMOVAX) Branch Pneumococcal 2012-09-09 Completed [facility] f Polysaccharide, 00:00:00 [place] [facility] PPSV23 (PNEUMOVAX) Branch Pneumococcal 2012-09-09 Completed [facility] f Polysaccharide, 00:00:00 [place] [facility] PPSV23 (PNEUMOVAX) Branch Pneumococcal 2012-09-09 Completed [facility] f Polysaccharide, 00:00:00 [place] [facility] PPSV23 (PNEUMOVAX) Branch Pneumococcal 2012-09-09 Completed [facility] f Polysaccharide, 00:00:00 [place] [facility] PPSV23 (PNEUMOVAX) Branch Pneumococcal 2012-09-09 Completed [facility] f Polysaccharide, 00:00:00 [place] [facility] PPSV23 (PNEUMOVAX) Branch Pneumococcal 2012-09-09 Completed [facility] f Polysaccharide, 00:00:00 [place] [facility] PPSV23 (PNEUMOVAX) Branch Pneumococcal 2012-09-09 Completed [facility] f Polysaccharide, 00:00:00 [place] [facility] PPSV23 (PNEUMOVAX) Branch Pneumococcal 2012-09-09 Completed [facility] f Polysaccharide, 00:00:00 [place] [facility] PPSV23 (PNEUMOVAX) Branch Pneumococcal 2012-09-09 Completed [facility] f Polysaccharide, 00:00:00 [place] [facility] PPSV23 (PNEUMOVAX) Branch Pneumococcal 2012-09-09 Completed [facility] f Polysaccharide, 00:00:00 [place] [facility] PPSV23 (PNEUMOVAX) Branch Pneumococcal 2012-09-09 Completed [facility] f Polysaccharide, 00:00:00 [place] [facility] PPSV23 (PNEUMOVAX) Branch Pneumococcal 2012-09-09 Completed [facility] f Polysaccharide, 00:00:00 [place] [facility] PPSV23 (PNEUMOVAX) Branch Pneumococcal 2012-09-09 Completed [facility] f Polysaccharide, 00:00:00 [place] [facility] PPSV23 (PNEUMOVAX) Branch Pneumococcal 2012-09-09 Completed [facility] f Polysaccharide, 00:00:00 [place] [facility] PPSV23 (PNEUMOVAX) Branch Pneumococcal 2012-09-09 Completed [facility] f Polysaccharide, 00:00:00 [place] [facility] PPSV23 (PNEUMOVAX) Branch Pneumococcal 2012-09-09 Completed [facility] f Polysaccharide, 00:00:00 [place] [facility] PPSV23 (PNEUMOVAX) Branch Pneumococcal 2012-09-09 Completed [facility] f Polysaccharide, 00:00:00 [place] [facility] PPSV23 (PNEUMOVAX) Branch Pneumococcal 2012-09-09 Completed [facility] f Polysaccharide, 00:00:00 [place] [facility] PPSV23 (PNEUMOVAX) Branch Pneumococcal 2012-09-09 Completed [facility] f Polysaccharide, 00:00:00 [place] [facility] PPSV23 (PNEUMOVAX) Branch Pneumococcal 2012-09-09 Completed [facility] o f Polysaccharide, 00:00:00 [place] [facility] PPSV23 (PNEUMOVAX) Branch Pneumococcal 2012-09-09 Completed [facility] o f Polysaccharide, 00:00:00 [place] [facility] PPSV23 (PNEUMOVAX) Branch Pneumococcal 2012-09-09 Completed [facility] o f Polysaccharide, 00:00:00 [place] [facility] PPSV23 (PNEUMOVAX) Branch Pneumococcal 2012-09-09 Completed [facility] o f Polysaccharide, 00:00:00 [place] [facility] PPSV23 (PNEUMOVAX) Branch Pneumococcal 2012-09-09 Completed [facility] f Polysaccharide, 00:00:00 [place] [facility] PPSV23 (PNEUMOVAX) Branch SARS-COV-2 COVID-19 Unknown Completed [facility] 12+ YRS [place] [facility]ACCINE [facility] SARS-COV-2 COVID-19 Unknown Completed [facility] 12+ YRS [place] [facility] Influenza High Dose Unknown Completed [facility] Pneumococcal Unknown Completed [facility] f Polysaccharide, [place] [facility] PPSV23 (PNEUMOVAX) Branch SARS-COV-2 COVID-19 Unknown Completed [facility] 12+ YRS [place] [facility]ACCINE [facility] SARS-COV-2 COVID-19 Unknown Completed [facility] 0.25ML [place] [facility] BOOSTER VACCINE [facility] Influenza Virus Unknown Completed [facility] Vaccine,quad [place] [facility],preserve Free [facility] 65+ (FLUAD) SARS-COV-2 COVID-19 Unknown Completed [facility] 12+ YRS [place] [facility] SARS-COV-2 COVID-19 Unknown Completed [facility] 12+ YRS [place] [facility] Influenza High Dose Unknown Completed [facility] Pneumococcal Unknown Completed [facility] f Polysaccharide, [place] [facility] PPSV23 (PNEUMOVAX) Branch SARS-COV-2 COVID-19 Unknown Completed [facility] 12+ YRS [place] [facility]INE [facility] SARS-COV-2 COVID-19 Unknown Completed [facility] 0.25ML [place] [facility] BOOSTER VACCINE [facility] Influenza Virus Unknown Completed [facility] Vaccine,quad [place] [facility],preserve Free [facility] 65+ (FLUAD) SARS-COV-2 COVID-19 Unknown Completed [facility] 12+ YRS [place] [facility]INE [facility] SARS-COV-2 COVID-19 Unknown Completed [facility] 12+ YRS [place] [facility] Influenza High Dose Unknown Completed [facility] Pneumococcal Unknown Completed [facility] f Polysaccharide, [place] [facility] PPSV23 (PNEUMOVAX) Branch SARS-COV-2 COVID-19 Unknown Completed [facility] of [facility] 12+ YRS [place] [facility]ACCINE [facility] SARS-COV-2 COVID-19 Unknown Completed [facility] 0.25ML [place] [facility] BOOSTER VACCINE [facility] Influenza Virus Unknown Completed [facility] Vaccine,quad [place] [facility],preserve Free [facility] 65+ (FLUAD) SARS-COV-2 COVID-19 Unknown Completed [facility] 12+ YRS [place] [facility] SARS-COV-2 COVID-19 Unknown Completed [facility] 12+ YRS [place] [facility] Influenza High Dose Unknown Completed [facility] [place] [facility] Pneumococcal Unknown Completed [facility] f Polysaccharide, [place] [facility] PPSV23 (PNEUMOVAX) Branch SARS-COV-2 COVID-19 Unknown Completed [facility] 12+ YRS [place] [facility]ACCINE [facility] SARS-COV-2 COVID-19 Unknown Completed [facility] 0.25ML [place] [facility] BOOSTER VACCINE [facility] Influenza Virus Unknown Completed [facility] Vaccine,quad [place] [facility],preserve Free [facility] 65+ (FLUAD) Vital Signs Vital Name Observation Time Observation Value Comments Source Systolic blood 2023-09-03 20:30:00 113 mm[Hg] [facility] of pressure [facility] Diastolic blood 2023-09-03 20:30:00 59 mm[Hg] [facility] of pressure [facility] Heart rate 2023-09-03 20:30:00 96 /min [facility] Body temperature 2023-09-03 20:30:00 37.61 Purvi [facility] Respiratory rate 2023-09-03 20:30:00 18 /min [facility] of [facility] Oxygen saturation in 2023-09-03 20:30:00 96 /min [facility] Arterial blood by [facility] Pulse oximetry [place] Body weight 2023-09-03 09:00:00 92.987 kg [facility] BMI 2023-09-03 09:00:00 34.11 kg/m2 [facility] Body height 2023-08-31 02:47:00 165.1 cm [facility] Systolic blood 2023-07-22 15:45:00 151 mm[Hg] [facility] of pressure [facility] Diastolic blood 2023-07-22 15:45:00 78 mm[Hg] [facility] rs[facility] of pressure [facility] Heart rate 2023-07-22 15:45:00 80 /min [facility] Body temperature 2023-07-22 15:45:00 35.94 Purvi [facility] Body height 2023-07-22 15:45:00 165.1 cm [facility] [place] Body weight 2023-07-22 15:45:00 90.719 kg [facility] BMI 2023-07-22 15:45:00 33.28 kg/m2 [facility] Systolic blood 2023-03-17 18:40:00 135 mm[Hg] [facility] of pressure [facility] Diastolic blood 2023-03-17 18:40:00 77 mm[Hg] [facility] rs[facility] of pressure [facility] Heart rate 2023-03-17 18:40:00 77 /min [facility] Body height 2023-03-17 18:40:00 165.1 cm [facility] Body weight 2023-03-17 18:40:00 87.998 kg [facility] BMI 2023-03-17 18:40:00 32.28 kg/m2 [facility] Systolic blood 2023-03-11 15:49:00 123 mm[Hg] [facility] pressure [facility] Diastolic blood 2023-03-11 15:49:00 57 mm[Hg] [facility] pressure [facility] Heart rate 2023-03-11 15:49:00 77 /min [facility] Respiratory rate 2023-03-11 15:49:00 18 /min [facility] Body height 2023-03-11 15:49:00 165.1 cm [facility] Body weight 2023-03-11 15:49:00 87.952 kg [facility] BMI 2023-03-11 15:49:00 32.27 kg/m2 [facility] Oxygen saturation in 2023-03-11 15:49:00 97 /min [facility] of Arterial blood by [place] [employer] [facility] Pulse oximetry Branch Systolic blood 2023-01-08 15:37:00 155 mm[Hg] [facility] pressure [facility] Diastolic blood 2023-01-08 15:37:00 83 mm[Hg] [facility] pressure [facility] Heart rate 2023-01-08 15:37:00 78 /min [facility] Body temperature 2023-01-08 15:36:00 36.89 Purvi [facility] Respiratory rate 2023-01-08 15:36:00 16 /min [facility] Body height 2023-01-08 15:36:00 165.1 cm [facility] Body weight 2023-01-08 15:36:00 86.183 kg [facility] BMI 2023-01-08 15:36:00 31.62 kg/m2 [facility] Oxygen saturation in 2023-01-08 15:36:00 97 /min [facility] of Arterial blood by [facility] Pulse oximetry Branch Systolic blood 2022-12-30 19:47:00 112 mm[Hg] [facility] pressure [facility] Diastolic blood 2022-12-30 19:47:00 71 mm[Hg] [facility] pressure [facility] Heart rate 2022-12-30 19:47:00 73 /min [facility] Body temperature 2022-12-30 19:47:00 36.94 Purvi [facility] Respiratory rate 2022-12-30 19:47:00 18 /min [facility] Body weight 2022-12-30 19:47:00 85.73 kg [facility] BMI 2022-12-30 19:47:00 31.45 kg/m2 [facility] Oxygen saturation in 2022-12-30 19:47:00 98 /min [facility] of Arterial blood by [facility] Pulse oximetry Branch Systolic blood 2022-12-11 19:43:00 134 mm[Hg] [facility] pressure [facility] Diastolic blood 2022-12-11 19:43:00 71 mm[Hg] [facility] pressure [facility] Heart rate 2022-12-11 19:43:00 72 /min [facility] Respiratory rate 2022-12-11 19:43:00 22 /min [facility] Body height 2022-12-11 19:43:00 165.1 cm [facility] Body weight 2022-12-11 19:43:00 84.641 kg [facility] BMI 2022-12-11 19:43:00 31.05 kg/m2 [facility] Oxygen saturation in 2022-12-11 19:43:00 97 /min [facility] of Arterial blood by [facility] Pulse oximetry Branch Body temperature 2022-12-10 17:29:00 35.61 Purvi [facility] Body height 2022-12-10 17:29:00 165.1 cm [facility] Body weight 2022-12-10 17:29:00 86.41 kg [facility] BMI 2022-12-10 17:29:00 31.70 kg/m2 [facility] Systolic blood 2022-12-03 21:15:00 118 mm[Hg] [facility] pressure [facility] Diastolic blood 2022-12-03 21:15:00 49 mm[Hg] [facility] of pressure [facility] Respiratory rate 2022-12-03 21:15:00 17 /min [facility] Oxygen saturation in 2022-12-03 21:15:00 98 /min [facility] of Arterial blood by [facility] Pulse oximetry Branch Body temperature 2022-12-03 19:32:00 36.22 Purvi [facility] Heart rate 2022-12-03 16:05:00 68 /min [facility] Body height 2022-12-03 16:05:00 165.1 cm [facility] Body weight 2022-12-03 16:05:00 85.6 kg [facility] BMI 2022-12-03 16:05:00 31.40 kg/m2 [facility] Respiratory rate 2022-12-03 16:43:00 16 /min [facility] Systolic blood 2022-12-03 16:05:00 122 mm[Hg] [facility] of pressure [facility] Diastolic blood 2022-12-03 16:05:00 40 mm[Hg] [facility] of pressure [facility] Heart rate 2022-12-03 16:05:00 68 /min [facility] Body temperature 2022-12-03 16:05:00 36.56 Purvi [facility] Body height 2022-12-03 16:05:00 165.1 cm [facility] Body weight 2022-12-03 16:05:00 85.6 kg [facility] BMI 2022-12-03 16:05:00 31.40 kg/m2 [facility] Oxygen saturation in 2022-12-03 16:05:00 96 /min [facility] of Arterial blood by [facility] Pulse oximetry Branch Systolic blood 2022-11-14 15:39:00 113 mm[Hg] [facility] pressure [facility] Diastolic blood 2022-11-14 15:39:00 63 mm[Hg] [facility] of pressure [facility] Heart rate 2022-11-14 15:39:00 110 /min [facility] Body temperature 2022-11-14 15:39:00 37.5 Purvi [facility] Body height 2022-11-14 15:39:00 165.1 cm [facility] Body weight 2022-11-14 15:39:00 83.915 kg [facility] BMI 2022-11-14 15:39:00 30.79 kg/m2 [facility] Body temperature 2022-10-22 16:32:00 36.17 Purvi [facility] Body height 2022-10-22 16:32:00 165.1 cm [facility] Body weight 2022-10-22 16:32:00 85.73 kg [facility] BMI 2022-10-22 16:32:00 31.45 kg/m2 [facility] Systolic blood 2022-09-24 15:43:00 118 mm[Hg] [facility] Diastolic blood 2022-09-24 15:43:00 68 mm[Hg] [facility]ive [facility] Heart rate 2022-09-24 15:43:00 80 /min [facility] Body temperature 2022-09-24 15:43:00 35.94 Purvi [facility] Body height 2022-09-24 15:43:00 165.1 cm [facility] Body weight 2022-09-24 15:43:00 83.553 kg [facility] BMI 2022-09-24 15:43:00 30.65 kg/m2 [facility] Systolic blood 2022-09-10 20:01:00 108 mm[Hg] [facility] Diastolic blood 2022-09-10 20:01:00 56 mm[Hg] [facility] Heart rate 2022-09-10 20:01:00 81 /min [facility] Body temperature 2022-09-10 20:01:00 36.78 Purvi Univ ersity of [facility] Respiratory rate 2022-09-10 20:01:00 17 /min [facility] Body weight 2022-09-10 20:01:00 84.142 kg [facility] BMI 2022-09-10 20:01:00 30.87 kg/m2 [facility] Oxygen saturation in 2022-09-10 20:01:00 94 /min University of Arterial blood by [facility] Pulse oximetry Branch Systolic blood 2022-09-05 18:07:00 134 mm[Hg] Univer sity of pressure [facility] Diastolic blood 2022-09-05 18:07:00 81 mm[Hg] Unive rsity of pressure [facility] Heart rate 2022-09-05 18:06:00 80 /min [facility] Body height 2022-09-05 18:06:00 165.1 cm [facility] Body weight 2022-09-05 18:06:00 82.101 kg [facility] BMI 2022-09-05 18:06:00 30.12 kg/m2 [facility] Systolic blood 2022-08-27 15:57:00 120 mm[Hg] [facility] Diastolic blood 2022-08-27 15:57:00 74 mm[Hg] Unive rsity of pressure [facility] Heart rate 2022-08-27 15:57:00 73 /min [facility] Body temperature 2022-08-27 15:57:00 36.06 Purvi Univ ersity of [facility] Body height 2022-08-27 15:57:00 165.1 cm [facility] Body weight 2022-08-27 15:57:00 83.326 kg [facility] BMI 2022-08-27 15:57:00 30.57 kg/m2 [facility] Systolic blood 2022-08-14 16:10:00 111 mm[Hg] Univer sity of pressure [facility] Diastolic blood 2022-08-14 16:10:00 63 mm[Hg] Unive rsity of pressure [facility] Heart rate 2022-08-14 16:10:00 72 /min [facility] Oxygen saturation in 2022-08-14 16:10:00 96 /min [facility] Arterial blood by [place] [employer] doris Pulse oximetry Branch Respiratory rate 2022-08-14 15:25:00 15 /min [facility] Body temperature 2022-08-14 14:10:00 35.89 Purvi [facility] Body height 2022-08-14 11:15:00 165.1 cm [facility] Body weight 2022-08-14 11:15:00 81.647 kg [facility] BMI 2022-08-14 11:15:00 29.95 kg/m2 [facility] Systolic blood 2022-08-14 14:20:00 122 mm[Hg] [facility] Diastolic blood 2022-08-14 14:20:00 52 mm[Hg] Unive rsity of pressure [facility] Heart rate 2022-08-14 14:20:00 69 /min [facility] Respiratory rate 2022-08-14 14:20:00 14 /min [facility] Oxygen saturation in 2022-08-14 14:20:00 100 /min [facility] Arterial blood by [place] [employer] doris Pulse oximetry Branch Body temperature 2022-08-14 14:10:00 35.89 Purvi [facility] Body height 2022-08-14 11:15:00 165.1 cm [facility] Body weight 2022-08-14 11:15:00 81.647 kg [facility] BMI 2022-08-14 11:15:00 29.95 kg/m2 [facility] Body temperature 2022-08-06 15:04:00 35.61 Purvi [facility] Body height 2022-08-06 15:04:00 165.1 cm [facility] Body weight 2022-08-06 15:04:00 83.553 kg [facility] BMI 2022-08-06 15:04:00 30.65 kg/m2 [facility] Procedures Procedure Date / Time Performing Clinician Source Performed COVID-19 (ID NOW RAPID 2023-09-03 20:04:00 Aimee Live [facility] TESTING) [facility] [place] POCT GLUCOSE (AUTOMATED) 2023-09-03 16:49:00 Kim Whitaker [facility] POCT GLUCOSE (AUTOMATED) 2023-09-03 12:43:00 Kim Whitaker [facility] HEPATIC FUNCTION PANEL 2023-09-03 09:37:00 [id number] (ALB,T.PRO,BILI [facility] T,BU/BC,ALT,AST,ALK PHOS) BASIC METABOLIC PANEL (NA, 2023-09-03 09:37:00 Sera Mcgregor [facility] K, CL, CO2, GLUCOSE, BUN, Medica l Branch CREATININE, CA) CBC WITH DIFF 2023-09-03 09:37:00 Meche Lorena [facility] POCT GLUCOSE (AUTOMATED) 2023-09-02 21:30:00 [facility] Whitaker [facility] MR BRAIN WO CONTRAST 2023-09-02 18:21:00 Rod Cadet [facility] POCT GLUCOSE (AUTOMATED) 2023-09-02 16:50:00 Kim Whitaker [facility] POCT GLUCOSE (AUTOMATED) 2023-09-02 13:08:00 Kim Whitaker [facility] COMP. METABOLIC PANEL 2023-09-02 09:11:00 Kim Whitaker [facility] ([id number]) [facility] POCT GLUCOSE (AUTOMATED) 2023-09-02 02:04:00 Kim Whitaker Uni [facility] POCT GLUCOSE (AUTOMATED) 2023-09-01 21:49:00 Kim Whitaker [facility] POCT GLUCOSE (AUTOMATED) 2023-09-01 16:42:00 Kim Whitaker [facility] POCT GLUCOSE (AUTOMATED) 2023-09-01 12:50:00 Kim Whitaker [facility] MAGNESIUM 2023-09-01 09:33:00 [place], [facility] HEPATIC FUNCTION PANEL 2023-09-01 09:33:00 Julianne [facility] ([id number]) (ALB,T.PRO,[facility] T,BU/BC,ALT,AST,ALK PHOS) BASIC METABOLIC PANEL (NA, 2023-09-01 09:33:00 Rod Cadet [facility] K, CL, CO2, GLUCOSE, BUN, Medica l Branch CREATININE, CA) CBC WITHOUT DIFF 2023-09-01 09:33:00 [facility]io [facility] POCT GLUCOSE (AUTOMATED) 2023-09-01 01:45:00 Julianne [facility] MAGNESIUM 2023-08-31 23:09:00 Julianne [facility] BASIC METABOLIC PANEL (NA, 2023-08-31 23:09:00 Julianne [facility] K, CL, CO2, GLUCOSE, BUN, Medica l Branch CREATININE, CA) POCT GLUCOSE (AUTOMATED) 2023-08-31 21:40:00 Julianne [facility] TRANSTHORACIC ECHO (TTE) 2023-08-31 15:44:00 Rod Cadet [facility] COMPLETE W/ CONTRAST Medical Bra nch MAGNESIUM 2023-08-31 14:06:00 Julianne [facility] HEPATIC FUNCTION PANEL 2023-08-31 14:06:00 Julianne [facility] ([id number]) (ALB,T.PRO,[facility] T,BU/BC,ALT,AST,ALK PHOS) BASIC METABOLIC PANEL (NA, 2023-08-31 14:06:00 Rod Cadet [facility] K, CL, CO2, GLUCOSE, BUN, Medica l Branch CREATININE, CA) CBC WITHOUT DIFF 2023-08-31 14:06:00 Julianne [facility] GLYCOSYLATED HEMOGLOBIN 2023-08-31 14:06:00 [facility] LACTIC ACID WHOLE BLOOD 2023-08-31 14:05:00 Briana Nunez [facility] LACTIC ACID WHOLE BLOOD 2023-08-31 07:14:00 Briana [facility] ABDOMEN PELVIS W 2023-08-31 06:04:[address] [facility] CONTRAST [facility] URINALYSIS 2023-08-31 04:06:00 Briana Nunez [facility] XR CHEST 1 VW 2023-08-31 03:45:09 Briana Nunez [facility] LACTIC ACID WHOLE BLOOD 2023-08-31 03:21:00 Briana Nunez Uni [facility] BLOOD CULTURE SCREEN 2023-08-31 03:20:00 [facility] 2023-08-31 03:20:00 Briana Nunez [facility] MAGNESIUM 2023-08-31 03:20:00 Briana Nunez [facility] COMP. METABOLIC PANEL 2023-08-31 03:20:00 Briana Nunez [facility] ([id number]) Medical Branch CBC WITH DIFF 2023-08-31 03:20:00 Briana Nunez [facility] COVID-19 (ID NOW RAPID 2023-08-31 03:20:00 Briana Nunez [facility] TESTING) Medical Branch LAB ONLY COVID 2023-08-31 03:20:00 Briana Nunez [facility] INTERPRETATION [facility] EMERGENCY DEPARTMENT 2023-08-30 05:01:00 Doctor Mukul, [facility] DOCUMENTS [facility] EXTERNAL PROVIDER RECORDS 2023-06-10 05:01:00 Doctor Mukul, [facility] EXTERNAL PROVIDER RECORDS 2023-04-28 05:01:00 Doctor Mukul, [facility] HOME HEALTH - OTHER 2023-02-07 05:01:00 Doctor Mukul [facility] [place] HOME HEALTH 485 2023-01-02 06:01:00 Doctor Mukul, [facility] MR FOOT RIGHT W WO CONTRAST 2022-12-20 19:57:00 Kita Yates [facility] WOUND/ASPIRATE OR ABSCESS 2022-12-10 22:18:00 Ana Yates [facility] CULTURE [facility] WOUND CULTURE 2022-12-10 22:18:00 Ana Yates [facility] XR FOOT 3+ VW RIGHT 2022-12-10 18:21:39 Ana Yates [facility] POCT GLUCOSE (AUTOMATED) 2022-12-03 22:01:00 Tonny [facility] POCT GLUCOSE (AUTOMATED) 2022-12-03 22:01:00 Tonny [facility] RADIOFREQUENCY 2022-12-03 17:07:00 Tonny [facility] THERMOCOAGULATION OF Medical [facility] VARICOSE VEINS CBC WITH DIFF 2022-12-03 16:40:00 Tonny [facility] CBC WITH DIFF 2022-12-03 16:40:00 Tonny [facility] CONSENT/REFUSAL FOR 2022-12-03 16:02:56 Doctor Unassigned, [facility] DIAGNOSIS AND TREATMENT [facility] CONSENT/REFUSAL FOR 2022-12-03 16:02:56 Doctor Unassigned, [facility] DIAGNOSIS AND TREATMENT [facility] ASSIGNMENT OF BENEFITS 2022-12-03 15:59:25 Doctor Unassigned, Un [facility] ASSIGNMENT OF BENEFITS 2022-12-03 15:59:25 Doctor Unassigned, [facility] FLU 2022-09-05 18:18:25 Yareli Casey [facility] VACC(),65+YR,0.5 Edalexandria Medica l Branch ML,IM,ADJUVANTED,QUAD(FLUAD ) POCT HEMOGLOBIN A1C TEST 2022-09-05 00:00:00 Yareli Casey [facility] NERVE BLOCK 2022-08-14 16:34:46 Cira Ibarra [facility] FL TIME OR (NON-REPORTABLE) 2022-08-14 14:13:31 Karl Benjamin [facility] FL TIME OR (NON-REPORTABLE) 2022-08-14 14:13:31 [place], Paul [facility] POCT GLUCOSE (AUTOMATED) 2022-08-14 14:12:00 [facility] 2022-08-14 14:12:00 [facility] IMPLANT/HARDWARE/ORTHO 2022-08-14 13:15:00 Veronique Burns [facility] INFECTION [facility] CULTURE(AEROBIC/ANAEROBIC) INTUBATION 2022-08-14 12:27:00 Radha Pederson [facility] SHOULDER RESECTION 2022-08-14 12:04:00 Veronique Burns [facility] ARTHROPLASTY [facility] HB ABO GROUPING 2022-08-14 11:30:00 [facility] HB ABO GROUPING 2022-08-14 11:30:00 [facility] POCT GLUCOSE (AUTOMATED) 2022-08-14 11:29:00 Veronique Burns [facility] [place] POCT GLUCOSE (AUTOMATED) 2022-08-14 11:29:00 Veronique Burns [facility] [place] ASSIGNMENT OF BENEFITS 2022-08-14 10:02:15 Doctor Unassigned, [facility], 2022-08-06 05:01:00 [facility] [place] [facility] PROCEDURES DISCLOSURE AND CONSENT, 2022-08-06 05:01:00 Doctor Unasslogan, U [facility] MEDICAL AND SURGICAL [place] PROCEDURES Encounters Start End Encounter Admission Attending Care Care Encounter Source Date/Time Date/Time Type Type Clinicians Facility Department ID 2022-07-24 Inpatient Janiya BURNS [facility] ELMO [id number] Univers 14:00:00 VERONIQUE durham [facility] 2023-09-16 2023-09-16 [facility] [id number] Univers 13:30:00 13:30:00 YARELI durham [facility] 2023-09-04 2023-09-04 Transition XAVIER Storey 1.2.840.114 [id number] Univers 00:00:00 00:00:00 of Care Alan GREENE 350.1.13.10 ity [place] [id number] [facility] 403 Branch 2023-08-30 2023-09-03 Inpatient X [facility]LUISA [facility] [id number] Univers 21:45:00 17:36:00 KIM durham [facility] 2023-08-30 2023-09-03 [facility] Mayra Briana [facility] 1.2.840. 114 [id number] Univers 21:45:00 17:36:00 Encounter Kim Whitaker 350.1.13.10 ity of Rod [place] 4.2.7.2.686 [facility] [id number] [facility] 081 [place] 2023-07-22 2023-07-22 [facility] [id number] Univers 11:00:00 12:31:32 VERONIQUE durham [facility] 2023-07-22 2023-07-22 Office [facility] 1.2.166.162 [id number] Univers 11:00:00 12:31:32 Visit Veronique DIAZ 350.1.13.10 ity of [place] C[place] AT [id number] [place] jasen GÓMEZ 198 [facility] 2023-07-20 2023-07-20 Navarro [facility] 1.2.840.114 [id number] Univers 00:00:00 00:00:00 [facility] 350.1.13.10 it y of Shiva WHALEY 4.2.7.2.686 Bradly as SANTINO?BLEA [id number] [place] jasen VILLALPANDO 044 [place] MEDICAL OFFICE BUILDING 2023-06-10 2023-06-10 [facility] [id number] Univers 13:00:00 13:12:13 QIANGJUN ity o f [facility] 2023-06-10 2023-06-10 [facility] 1.2.840.114 [id number] Univers 00:00:00 00:00:00 Yareli HEALTH 350.1.13.10 it y of [place] 4.2.7.2.686 Bradly as SANTINO?BLEA [id number] [address] MEDICAL OFFICE [facility] 2023-06-10 2023-06-10 Orders Doctor SARAH 1.2.840.114 [id number] Univers 00:00:00 00:00:00 Only Unassigned, ASHOK 350.1.13.10 ity of [facility] 4.2.7.2.686 [place]ly as [id number] [address] 2023-05-13 2023-05-13 [facility] 1.2.840.114 [id number] Univers 00:00:00 00:00:00 Yareli HEALTH 350.1.13.10 it y of [place] 4.2.7.2.686 Bradly as SANTINO?BLEA [id number] [address] OFFICE [facility] 2023-05-06 2023-05-06 [facility] 1.2.840.114 [id number] Univers 00:00:00 00:00:00 Yareli HEALTH 350.1.13.10 it y of [place] 4.2.7.2.686 Bradly as SANTINO?BLEA [id number] [address] MEDICAL OFFICE [facility] 2023-04-28 2023-04-28 Orders Doctor SARAH 1.2.840.114 [id number] Univers 00:00:00 00:00:00 Only Unassigned, ASHOK 350.1.13.10 ity of [facility] 4.2.7.2.686 [place]ly as [id number] [address] 2023-04-13 2023-04-13 [facility] 1.2.840.114 [id number] Univers 00:00:00 00:00:00 Yareli HEALTH 350.1.13.10 it y of [place] 4.2.7.2.686 Bradly as SANTINO?BLEA [id number] Nc jasen VILLALPANDO 044 [facility] OFFICE [facility] 2023-03-29 2023-03-29 Refill [facility] 1.2.840.114 [id number] Univers 00:00:00 00:00:00 [facility] 350.1.13.10 it y of [place] 4.2.7.2.686 Bradly as SANTINO?BLEA [id number] Nc jasen VILLALPANDO [address] [place] [address] OFFICE [facility] 2023-03-18 2023-03-18 Preventive Maintenance Engineer Lab, [facility] 1.2.840.1 [id number] [facility] 08:15:00 09:09:18 Visit Yareli Casey christofer [facility] 350.1.13 .10 ity of [facility] 4.2.7.2.686 Bradly as SANTINO?BLEA [id number] Nc jasen VILLALPANDO 353 [facility] OFFICE [facility] 2023-03-18 2023-03-18 Outpatient R [facility] [id number] [facility] 08:15:00 08:15:00 [facility] 2023-03-17 2023-03-17 Office [facility] 1.2.840.114 [id number] [facility] 14:00:00 14:30:00 Visit [facility] 350.1.13.10 it y of [facility] 4.2.7.2.686 [place] as SANTINO?BLEA [id number] Nc prashant[address] OFFICE [facility] 2023-03-17 2023-03-17 Outpatient R [facility] [id number] [facility] 14:00:00 14:14:44 [facility] 2023-03-12 2023-03-12 [facility] [id number] [id number] [facility] 00:00:00 00:00:00 Zaria [facility] 350.1.13.10 ity of [place] 4.2.7.2.[place] [id number] [place] jasen [facility] 059 [facility] 2023-03-112023-03-11 Preventive Maintenance Engineer 2, Adc Lab [facility] 1.2.840.114 [id number] Univers 11:30:00 11:45:00 Visit Zaria ArandaANGEL 350.1.13.10 ity of [place].7.2.[place] [id number] [place] prashantpromise INDER 353 [facility] 2023-03-11 2023-03-11 Out[facility] [id number] Univers 11:00:00 11:13:12 DANDYRIGO ity o f [facility] 2023-03-11 2023-03-11 Office [facility] 1.2.840.114 [id number] Univers 11:00:00 11:13:12 Visit Dandyrigo JOVANA 350.1.13.10 ity of [facility] 4.2.7.2.[place] [id number] [facility] 059 [facility] 2023-03-07 2023-03-07 Refradhika [facility]ES[facility] 1.2.840.114 [id number] Univers 00:00:00 00:00:00 [facility] 350.1.13.10 it y of Juan Antoniochristofer RODRIGUEZANGEL 4.2.7.2.686 Bradly as SANTINO?BLEA [phone] Nc prashantpromise VILLALPANDO 044 [facility] 2023-03-06 2023-03-06 Outpatient R JACINTO [facility] [id number] Univers 13:15:00 13:15:00 YARELI ity [facility] 2023-02-21 2023-02-21 Refradhika [facility] 1.2.840.114 [id number] Univers 00:00:00 00:00:00 Zaria WHALEY 350.1.13.10 ity of [facility] 4.2.7.2.[place] [id number] [place] [id number] [facility] 2023-02-07 2023-02-07 Orders Doctor SMITH 1.2.840.114 [id number] Univers 00:00:00 00:00:00 Only Unassigned, ASHOK 350.1.13.10 ity of [place] [facility] 4.2.7.2.686 Bradly as [id number] [facility] 009 Branch 2023-02-05 2023-02-05 Outpatient R [facility] [id number] Univers 10:30:00 10:30:00 ity of [facility] 2023-01-13 2023-01-13 Telephone [facility] 1.2.236.478 [id number] Univers 00:00:00 00:00:00 Ana SPECIALTY 350.1.13.10 ity of [place]2.7.2.[place] [id number] [facility] 387 Branch 2023-01-09 2023-01-09 [facility] [id number] Univers 13:30:00 13:12:09 ISMAEL ity of [facility] 2023-01-08 2023-01-08 Office Hebert Lopez [facility] 1.2.840.1 [id number] Univers 10:30:00 11:30:[address] [facility] 350.1.13.10 ity of CLIN[place] 4.2.7.2.[place] [id number] [facility] 089 Branch 2023-01-08 2023-01-08 Outpatient R DOMINGO [facility] [id number] Univers 10:30:00 10:30:00 JORJE ity [facility] 2023-01-02 2023-01-02 Orders Doctor SARAH 1.2.840.114 [id number] Univers 00:00:00 00:00:00 Only Unassigned, ASHOK 350.1.13.10 ity of [place] [facility] 4.2.7.2.686 Bradly as [id number] [facility] 009 Branch 2022-12-31 2022-12-31 Telephone [facility] 1.2.542.266 [id number] Univers 00:00:00 00:00:00 Pura SPECIALTY 350.1.13.10 ity of [place].2.[place] C[place] AT [id number] [address] 2022-12-30 2022-12-30 Office Laura [facility] 1.2.840.114 [id number] Univers 14:00:00 14:20:00 Visit Ana SPECIALTY 350.1.13.10 ity of [place] 4.2.7.2.686 [facility] [id number] [facility] 387 Branch 2022-12-30 2022-12-30 Outpatient R ANA YATES [facility] [id number] Univers 14:00:00 14:00:00 ANA YATES itdivina [facility] 2022-12-23 2022-12-23 Refradhika Casey [facility] 1.2.840.114 [id number] Univers 00:00:00 00:00:00 [facility] 350.1.13.10 it y of Shiva [place] 4.2.7.2.686 Bradly as SANTINO?BLEA [id number] Nc jasen VILLALPANDO [address] [place] [address] OFFICE [facility] 2022-12-20 2022-12-20 Outpatient R ANA YATES [facility] [id number] Univers 12:27:57 23:59:00 ANA YATES itdivina [facility] 2022-12-20 2022-12-20 [facility] 1.2.840.114 [id number] Univers 12:27:57 23:59:00 Encounter Ana WHALEY 350.1.13.10 ity of [place] 4.2.7.2.686 [facility] [id number] [facility] 8[address] [place] 2022-12-12 2022-12-12 Outpatient Janiya LANCASTER [facility] [id number] Univers 16:30:00 16:49:52 ISMAEL ity of [facility] 2022-12-12 2022-12-12 Telephone Laura [facility] [id number] [id number] Univers 00:00:00 00:00:00 Ana SPECIALTY 350.1.13.10 ity of [facility] 4.2.7.2.686 [facility] AT [id number] [place] jasen [place] [address] [place] [address] 2022-12-11 2022-12-11 Office [facility] 1.2.840.114 [id number] Univers 14:00:00 14:00:00 Visit Zaria WHALEY 350.1.13.10 ity of [facility] 4.2.7.2.686 [place] [id number] Nc jasen NAL 059 [facility] 2022-12-11 2022-12-11 Outpatient R MANOJ [facility] [id number] Univers 14:00:00 13:59:10 ZARIA thomasy o f [facility] 2022-12-11 2022-12-11 Patient Galileo [facility] 1.2.840.114 [id number] Univers 00:00:00 00:00:00 Outreach Pura SPECIALTY 350.1.13.10 ity of [place] AT [id number] [place]c jasen GÓMEZ 198 [facility] 2022-12-10 2022-12-10 Hospital [facility] 1.2.840.114 [id number] Univers 12:12:52 23:59:00 Encounter Ana SPECIALTY 350.1.13.10 ity of [place] AT [id number] Nc jasen GÓMEZ 809 [facility] 2022-12-10 2022-12-10 Preventive Maintenance Engineer Lab, [facility] 1.2.840.114 [id number] Univers 13:15:00 13:30:00 Visit Ana Yates SPECIALTY 350.1.13.1 0 [place] [id number] [place] jasen GÓMEZ 353 [facility] 2022-12-10 2022-12-10 Outpatient R ANA YATES [facility] [id number] Univers 12:30:00 12:31:42 ANA YATES itdivina of [facility] 2022-12-10 2022-12-10 Office [facility] 1.2.840.114 [id number] Univers 12:30:00 12:31:42 Visit Ana SPECIALTY 350.1.13.10 it[place] [phone] [place]c jasen GÓMEZ 198 [facility] 2022-12-06 2022-12-06 Outpatient R TONNY [facility] [id number] Univers 12:36:14 23:59:00 ISMAEL itdivina [facility] 2022-12-03 2022-12-03 Outpatient Janiya LANCASTER [facility] [id number] Univers 09:59:00 16:05:00 ISMAEL ity [facility] 2022-12-03 2022-12-03 Hospital KALEY [place] 1.2.840.114 [id number] Univers 09:59:00 16:05:00 Encounter Ismael PULIDO 350.1.13.10 ity of [facility] 4.2.7.2.686 [place] as [phone] [facility] [address] 2022-12-03 2022-12-03 Surgery KALEY [place] 1.2.840.114 [id number] Univers 09:06:00 11:28:00 Ismael PULIDO 350.1.13.10 it y of [facility] 4.2.7.2.686 [place] as [phone] [facility] [address] 2022-11-14 2022-11-14 Office [facility] 1.2.840.114 [id number] Univers 09:45:00 10:00:00 Visit [facility] 350.1.13.10 it y of Edchristofer [place] 4.2.7.2.686 [place]ly as SANTINO?BLEA [id number] [address] MEDICAL OFFICE BUILDING 2022-11-14 2022-11-14 Outpatient Janiya CASEY [facility] [id number] Univers 09:45:00 09:45:00 YARELI durham [facility] 2022-11-10 2022-11-10 Refill [facility] 1.2.840.114 [id number] Univers 00:00:00 00:00:00 [facility] 350.1.13.10 it y of Shiva [facility] 4.2.7.2.686 [place] as SANTINO?BLEA [id number] [address] MEDICAL OFFICE BUILDING 2022-11-07 2022-11-07 Outpatient [facility] [id number] Univers 14:30:00 14:58:49 ISMAEL durham [facility] 2022-10-22 2022-10-22 Outpatient R GRANT [facility] [id number] Univers 10:45:00 10:53:40 VERONIQUE itdivina [facility] 2022-10-22 2022-10-22 Office [facility] 1.2.337.625 [id number] Univers 10:45:00 10:53:40 Visit Veronique [facility] 350.1.13.10 ity [facility] 4.2.7.2.[place] AT [id number] Nc jasen GÓMEZ 198 [facility] 2022-10-19 2022-10-19 [facility] 1.2.840.114 [id number] Univers 00:00:00 00:00:00 [facility] 350.1.13.10 it y of [facility] 4.2.7.2.686 [place] as SANTINO?BLEA [phone] Nc jasen VILLALPANDO 044 [facility] OFFICE [facility] 2022-10-14 2022-10-14 [facility] 1.2.840.114 [id number] Univers 00:00:00 00:00:00 [facility] 350.1.13.10 it y of [facility] 4.2.7.2.686 [place] as SANTINO?BLEA [id number] [facility] VILLALPANDO 044 [facility] OFFICE [facility] 2022-10-03 2022-10-03 Dottie [facility]ES[facility] 1.2.851.230 [id number] Univers 00:00:00 00:00:00 [facility] 350.1.13.10 ity [facility] 4.2.7.2.686 [place] [facility] [phone] Nc dicpromise NAL 059 [facility] 2022-09-30 2022-09-30 Outpatient R MANOJ [facility] [id number] Univers 12:38:23 23:59:00 ZARIA durham o f [facility] 2022-09-24 2022-09-24 Outpatient R GRANT [facility] [id number] Univers 10:45:00 11:18:00 VERONIQUE durham [facility] 2022-09-24 2022-09-24 Office [facility] 1.2.979.867 [id number] Univers 10:45:00 11:18:00 Visit Veronique DIAZ 350.1.13.10 ity of [place] 4.2.7.2.[place] AT [phone] Nc jasen GÓMEZ 198 [facility] 2022-09-23 2022-09-23 Refill [facility] 1.2.840.114 [id number] Univers 00:00:00 00:00:00 Bisikaylirigo JOVANA 350.1.13.10 ity of [place].2.7.2.686 [place] [phone] Nc jasen LOVING 059 [facility] 2022-09-14 2022-09-14 Refill [facility] 1.2.840.114 [id number] Univers 00:00:00 00:00:00 [facility] 350.1.13.10 it y of Shiva [place] 4.2.7.2.686 [place] as SANTINO?BLEA [phone] Nc jasen VILLALPANDO 044 [facility] OFFICE [facility] 2022-09-12 2022-09-12 Telephone [facility] 1.2.475.856 [id number] Univers 00:00:00 00:00:00 Bisikaylirigo RODRIGUEZANGEL 350.1.13.10 ity of [place] 4.2.7.2.686 [place] [id number] Nc jasen LOVING 059 [facility] 2022-09-10 2022-09-10 Preventive Maintenance Engineer 2, Adc Lab [facility] 1.2.840.114 [id number] Univers 15:45:00 16:00:00 Visit Zaria Aranda 350.1.13.10 ity of [place] 4.2.7.2.686 [place] [id number] Nc jasen LOVING 353 [facility] 2022-09-10 2022-09-10 Office [employer] 1.2.840.114 [id number] Univers 15:20:00 15:20:00 Visit Zaria WHALEY 350.1.13.10 ity of [place] 4.2.7.2.686 [place] MONI[place] [phone] Nc dical NAL [address] [facility] 2022-09-10 2022-09-10 Outpatient Janiya MANOJ [facility] [id number] Univers 15:20:00 15:15:17 BISIRIKKI williamdivina o f [facility] 2022-09-06 2022-09-06 Outpatient R SEBLEMARIANELA [facility] [id number] Univers 11:00:00 11:00:00 YARELI divina [facility] 2022-09-06 2022-09-06 Outpatient R SEBLEMARIANELA [facility] [id number] Univers 11:00:00 11:00:00 YARELI divina [facility] 2022-09-06 2022-09-06 Outpatient R SEBLEMARIANELA [facility] [id number] Univers 11:00:00 11:00:00 YARELI [facility] 2022-09-06 2022-09-06 Outpatient [facility] [id number] Univers 11:00:00 11:00:00 YARELI [facility] 2022-09-05 2022-09-05 Outpatient R SEBLEMARIANELA [facility] [id number] Univers 13:00:00 13:25:57 [facility] 2022-09-05 2022-09-05 Office [facility] 1.2.840.114 [id number] Univers 13:00:00 13:25:57 Visit [facility] 350.1.13.10 it Ivana [place] 4.2.7.2.686 [place] as SANTINO?BLEA [phone] Nc dical KNEY [address] [place] MEDICAL OFFICE [facility] 2022-08-27 2022-08-27 Outpatient R GRANT [facility] [id number] Univers 10:30:00 11:21:00 VERONIQUE divina [facility] 2022-08-27 2022-08-27 Office [facility] 1.2.868.715 [id number] Univers 10:30:00 11:21:00 Visit Veronique [facility] 350.1.13.10 [facility] 4.2.7.2.686 [facility] CENTER AT [id number] Nc jasen GÓMEZ 198 [facility] 2022-08-19 2022-08-19 Telephone [facility] 1.2.840.114 [id number] Univers 00:00:00 00:00:00 Veronique SPECIALTY 350.1.13.10 ity of [place] 4.2.7.2.686 [facility] CENTER AT [id number] Nc jasen GÓMEZ 198 [facility] 2022-08-18 2022-08-18 Refradhika CaseyARTESIA [facility] 1.2.840.114 [id number] Univers 00:00:00 00:00:00 Yareli HEALTH 350.1.13.10 it y of Shiav [place] 4.2.7.2.686 Bradly as SANTINO?BLEA [id number] Nc jasen VILLALPANDO [address] [place] [address] MEDICAL OFFICE BUILDING 2022-08-14 2022-08-14 Inpatient R [facility] [id number] Univers 13:34:00 13:34:00 [facility]22-08-14 2022-08-14 Outpatient R [facility] [id number] Univers 05:01:00 12:05:00 [facility] 2022-08-14 2022-08-14 [facility] 1.2.840.114 [id number] Univers 05:01:00 12:05:00 Encounter Veronique HEALTH 350.1.13.10 ity of Josue [place] 4.2.7.2.686 [facility] [id number] [address] ([facility]) 2022-08-14 2022-08-14 Surgery [facility] 1.2.287.124 [id number] Univers 07:05:00 09:20:00 Veronique SPECIALTY 350.1.13.10 ity of Josue CARE 4.2.7.2.686 [facility] CENTER AT [id number] Nc jasen GÓMEZ 020 [facility] 2022-08-14 2022-08-14 Anesthesia Ilana Elizabeth [facility] 1.2.8 40.114 [id number] Univers 07:15:00 09:13:00 Event Stacey, Cira SPECIALTY 350.1.13. 10 ity of [place].2.[place].2.[place] AT [id number] Nc prashantpromise RICO 020 [facility] 2022-08-14 2022-08-14 Orders Doctor SARAH 1.2.840.114 [id number] Univers 00:00:00 00:00:00 Only Unassigned, ASHOK 350.1.13.10 ity of [place] [facility] 4.2.7.2.686 Bradly as [phone] [facility] [address] 2022-08-10 2022-08-10 Laboratory Only, Adc Test [facility] 1.2.840. 114 [id number] Univers 11:45:00 12:00:00 Only Veronique Burns 350.1 .13.10 ity of [place].2.7.2.686 [place] [id number] [facility] [address] 2022-08-10 2022-08-10 Outpatient [facility] [id number] Univers 11:45:00 11:45:00 VERONIQUE ity of [facility] 2022-08-09 2022-08-09 Navarro [facility] 1.2.840.114 [id number] Univers 00:00:00 00:00:00 [facility] 350.1.13.10 it y of Shiva [place] 4.2.7.2.686 [place] as SANTINO?BLEA [id number] Nc prashantpromise VILLALPANDO [address] [place] MEDICAL OFFICE BUILDING 2022-08-06 2022-08-06 Outpatient [facility] [id number] Univers 10:17:46 23:59:00 VERONIQUE ity of [facility] 2022-08-06 2022-08-06 [facility] 1.2.840.114 [id number] Univers 10:15:00 23:59:00 Encounter Veronique SPECIALTY 350.1.13.10 ity of [facility] 4.2.7.2.686 [place] AT [id number] Nc prashantpromise RICO 809 [facility] 2022-08-06 2022-08-06 Office [facility] 1.2.196.697 [id number] Univers 10:15:00 12:37:34 Visit Veronique SPECIALTY 350.1.13.10 ity of Josue CARE 4.2.7.2.686 [facility] AT [phone] Nc jasen GÓMEZ 198 [facility] 2022-08-06 2022-08-06 Out[facility] [id number] Univers 10:15:00 12:37:34 VERONIQUESHILPI durham [facility] 2022-07-24 2022-07-25 Outpatient R [facility] [id number] Univers 10:28:00 12:36:00 VERONIQUE williamdivina [facility] 2022-07-24 2022-07-25 Hospital [facility] 1.2.840.114 [id number] Univers 10:28:00 12:36:00 [facility] 350.1.13.10 ity of Josue [facility] 4.2.7.2.686 [facility] [id number] [address] ([facility]) 2022-07-24 2022-07-24 Surgery [facility] 1.2.209.664 [id number] Univers 14:00:00 19:25:00 Veronique SPECIALTY 350.1.13.10 ity of [facility] 4.2.7.2.686 [facility] AT [id number] Nc jasen GÓMEZ 020 [facility] 2022-07-24 2022-07-24 Orders Doctor SARAH 1.2.840.114 [id number] Univers 00:00:00 00:00:00 Only Unassigned, ASHOK 350.1.13.10 ity of [place] [facility] 4.2.7.2.686 Bradly [id number] [facility] [address] 2022-07-23 2022-07-23 Laboratory Only, Adc Test [facility] 1.2.840. 114 [id number] Univers 14:00:00 14:15:00 Only Veronique Burns 350.1 .13.10 ity of [place] 4.2.7.2.686 [facility] [facility] [id number] [address] 2022-07-23 2022-07-23 [facility] [id number] Univers 14:00:00 14:00:00 VERONIQUE durham [facility] 2022-07-22 2022-07-22 Outpatient [facility] [id number] Univers 13:14:03 23:59:00 VERONIQUE ity [facility] 2022-07-22 2022-07-22 [facility] 1.2.840.114 [id number] Univers 13:14:03 23:59:00 Encounter Veronique [facility] 350.1.13.10 [facility] 4.2.7.2.686 [facility] AT [id number] Nc prashantpromise GONZALEZDivina 809 [facility] 2022-07-22 2022-07-22 Office [facility] 1.2.468.919 [id number] Univers 13:45:00 13:51:34 Visit Veronique SPECIALTY 350.1.13.10 ity [facility] 4.2.7.2.686 [facility] CENTER AT [id number] Nc prashantpromise GÓMEZ 198 [facility] 2022-07-22 2022-07-22 Outpatient R [facility] [id number] Univers 13:45:00 13:51:34 VERONIQUE thomasy [facility] 2022-07-22 2022-07-22 Outpatient [facility] [id number] Univers 13:14:03 13:14:03 VERONIQUE ity [facility] 2022-07-22 2022-07-22 [facility] 1.2.840.114 [id number] Univers 13:13:27 13:13:27 Encounter Oniel L SPECIALTY 350.1.13.10 ity of [place] 4.2.7.2.686 [place] AT [id number] Nc prashantpromise GONZALEZDivina 809 [facility] 2022-07-15 2022-07-15 Outpatient [facility] [id number] Univers 14:00:00 14:41:42 [facility] durham o [facility] 2022-07-15 2022-07-15 Office Manoj, [facility] 1.2.840.114 [id number] Univers 14:00:00 14:41:42 [facility] 350.1.13.10 ity of [place].2.686 [place] [id number] Nc dical INDER [address] [facility] 2022-07-15 2022-07-15 Outpatient R MANOJ, [facility] [id number] Univers 14:00:00 14:41:42 [facility] mar [facility] 2022-07-09 2022-07-09 Outpatient R MANOJ, [facility] [id number] Univers 14:00:00 14:00:00 [facility] 2022-07-09 2022-07-09 Outpatient R MANOJ, [facility] [id number] Univers 14:00:00 14:00:00 [facility] 2022-07-09 2022-07-09 Outpatient R MANOJ, [facility] [id number] Univers 14:00:00 14:00:00 [facility] will[facility]United [facility] 2022-07-09 2022-07-09 Outpatient R MANOJ, [facility] [id number] Univers 14:00:00 14:00:00 [facility] williamUnited Regional Healthcare System 2022-07-08 2022-07-08 Navarro [facility]ES[facility] 1.2.840.114 [id number] Univers 00:00:00 00:00:00 [facility] 350.1.13.10 it y of Shiva [place] 4.2.7.2.686 Bradly as SANTINO?BLEA [id number] Nc dical RILEYEY [address] [place] MEDICAL OFFICE BUILDING 2022-06-26 2022-06-27 Outpatient R GRANT, [facility] SOR [id number] Univers 09:14:00 12:30:00 VERONIQUE durham [facility] 2022-06-26 2022-06-27 [facility] 1.2.840.114 [id number] Univers 09:14:00 12:30:00 [facility] 350.1.13.10 ity of Josue [place] 4.2.7.2.686 [facility] [id number] [address] ([facility]) 2022-06-26 2022-06-26 Surgery [facility] 1.2.629.501 [id number] Univers 16:10:00 20:18:00 [facility] 350.1.13.10 ity of [facility] 4.2.7.2.[address] [place] [address] AT [id number] [facility] [address] 2022-06-26 2022-06-26 Orders Doctor SARAH 1.2.840.114 [id number] Univers 00:00:00 00:00:00 Only Unassigned, ASHOK 350.1.13.10 ity of [place] [address]....6 Bradly as [id number] [address] 2022-06-24 2022-06-24 Laboratory Only, Adc Test [facility] 1.2.840. 114 [id number] Univers 12:00:00 12:15:00 Only Nayely Soto 350.1.13.10 ity of [place] 4.2.7.2.[address] [place] [address] [id number] [facility] [address] 2022-06-24 2022-06-24 Outpatient Jan[facility] [id number] Univers 12:00:00 12:00:00 NAYELY durham [facility] 2022-06-24 2022-06-24 Orders Doctor SARAH 1.2.840.114 [id number] Univers 00:00:00 00:00:00 Only Unassigned, ASHOK 350.1.13.10 ity of [place] [address]..2.6 Bradly as [id number] [address] 2022-06-17 2022-06-17 Outpatient [facility] [id number] Univers 11:26:32 23:59:00 VERONIQUE ity [facility] 2022-06-17 2022-06-17 [facility] 1.2.840.114 [id number] Univers 11:26:32 23:59:00 Encounter Veronique SPECIALTY 350.1.13.10 ity of [place].2.7.2.686 [place] AT [id number] Nc jasen GÓMEZ 809 [facility] 2022-06-17 2022-06-17 Office [facility] 1.2.599.021 [id number] Univers 13:00:00 13:00:00 Visit Veronique SPECIALTY 350.1.13.10 [facility] 4.2.7.2.686 [place] AT [id number] Nc jasen GÓMEZ 198 [facility] 2022-06-17 2022-06-17 Outpatient [facility] [id number] Univers 11:26:32 11:26:32 VERONIQUE durham [facility] 2022-06-17 2022-06-17 Prep For [facility] 1.2.840.114 [id number] Univers 00:00:00 00:00:00 Surgery Veronique SPECIALTY 350.1.13.10 ity of [facility] 4.2.7.2.686 [place] CENTER AT [id number] Nc jasen GÓMEZ 198 [facility] 2022-06-14 2022-06-14 Imm/Inj Vaccine, Ang Db Cbc Fam [facility] 1. 2.840.114 [id number] Univers 11:00:00 11:10:00 Visit Yareli Casey [facility] 350.1.13 .10 itJen 4.2.7.2.686 Bradly as SANTINO?BLEA [id number] Nc jasen IRASEMA [address] MEDICAL OFFICE BUILDING 2022-06-14 2022-06-14 Outpatient R JACINTO [facility] [id number] Univers 11:00:00 11:00:00 YARELI durham [facility] 2022-06-09 2022-06-09 Refill [facility]ARTESIA [facility] 1.2.840.114 [id number] Univers 00:00:00 00:00:00 [facility] 350.1.13.10 it y of Shiva [place] 4.2.7.2.686 Bradly as SANTINO?BLEA [id number] Nc jasen VILLALPANDO 044 [facility] OFFICE [facility] 2022-05-15 2022-05-15 Telephone [facility]ARTESIA [facility] 1.2.840.114 [id number] Univers 00:00:00 00:00:00 Oniel Garcia HEALTH 350.1.13.10 it y of [place] 4.2.7.2.686 Bradly as SANTINO?BLEA 348.7468241 Nc jasen VILLALPANDO 198 [facility] OFFICE [facility] 2022-05-09 2022-05-09 Outpatient R [facility] [id number] Univers 10:30:00 10:30:00 ONIEL durham [facility] 2022-05-09 2022-05-09 Office [facility] 1.2.719.746 [id number] Univers 10:30:00 10:30:00 Visit Oniel Garcia [facility] 350.1.13.10 it y of [place] 4.2.7.2.686 Bradly as SANTINO?BLEA 236.1511288 Nc jasen VILLALPANDO 198 [facility] OFFICE [facility] 2022-05-09 2022-05-09 Outpatient R [facility] [id number] Univers 10:30:00 09:31:49 ONIEL divina [facility] 2022-04-29 2022-04-29 [facility] SeblemarianelaARTESIA [facility]AL [facility] 1.2.840.114 [id number] Univers 00:00:00 00:00:00 [facility] 350.1.13.10 it y of [place] [facility] 4.2.7.2.686 Bradly as SANTINO?BLEA [id number] Nc jasen VILLALPANDO 044 [facility] OFFICE [facility] 2022-04-23 2022-04-23 Outpatient R [facility] [id number] Univers 08:46:36 23:59:00 ONIEL durham [facility] 2022-04-23 2022-04-23 [facility] 1.2.840.114 [id number] Univers 08:46:36 23:59:00 Encounter Oniel Garcia [place] 350.1.13.10 ity of [place] 4.2.7.2.686 [place] [id number] [address] 2022-04-12 2022-04-12 Office [facility]ESIA [facility] 1.2.827.115 [id number] Univers 11:00:00 11:00:00 Visit Oniel Garcia HEALTH 350.1.13.10 it y of [place] 4.2.7.2.686 Bradly as SANTINO?BLEA [id number] Nc dical KNEY 198 [facility] OFFICE [facility] 2022-04-12 2022-04-12 Outpatient R [facility] [id number] Univers 11:00:00 09:05:43 ONIEL divina [facility] 2022-04-08 2022-04-08 Refill [facility] 1.2.840.114 [id number] Univers 00:00:00 00:00:00 [facility] 350.1.13.10 it y of [place] [facility] 4.2.7.2.686 Bradly as SANTINO?BLEA [phone] Nc dical KNEY 044 [facility] 2022-04-01 2022-04-01 Outpatient [facility] [id number] Univers 14:00:00 14:00:00 [facility] 2022-03-18 2022-03-18 Outpatient [facility] [id number] Univers 13:45:00 13:45:00 [facility] 2022-03-15 2022-03-15 Telephone [facility] 1.2.840.114 [id number] Univers 00:00:00 00:00:00 [facility] 350.1.13.10 it y of [place] 4.2.7.2.686 Bradly as SANTINO?BLEA [id number] Nc dical KNEY 044 [facility] OFFICE [facility] 2022-03-13 2022-03-13 Ancillary Susan Burrows [facility] 1.2.84 0.114 [id number] Univers 11:00:00 11:45:00 Visit Oniel Oliver [place] 350.1.13.10 ity of [place] 4.2.7.2.686 [place] [facility] [phone] N[place] dical N[place] [address] [facility] 2022-03-13 2022-03-13 Outpatient R MELODY [facility] [id number] Univers 11:00:00 11:00:00 ONIEL [facility] 2022-03-12 2022-03-12 Preventive Maintenance Engineer Lab, Ang - Db [facility] 1.2.840.1 [id number] Univers 08:30:00 08:45:00 Visit Yareli Casey [facility] 350.1.13 .10 ity of [place] 4.2.7.2.686 Bradly as SANTINO?BLEA [phone] [facility] [address] [facility] OFFICE [facility] 2022-03-12 2022-03-12 Outpatient R JACINTO [facility] [id number] Univers 08:30:00 08:30:00 YARELI [facility] 2022-03-11 2022-03-11 Outpatient R MELODY [facility] [id number] Univers 13:45:00 17:55:00 ONIEL [facility] 2022-03-11 2022-03-11 Ancillary Susan Burrows [facility] 1.2.84 0.114 [id number] Univers 13:45:00 17:55:00 [facility] [id number] [place] [phone] [place] jasen [facility] [address] [facility] 2022-03-08 2022-03-08 Outpatient R JACINTO [facility] [id number] Univers 10:00:00 10:00:00 YARELI [facility] 2022-03-07 2022-03-07 Outpatient R JACINTO [facility] [id number] Univers 11:30:00 11:30:00 YARELI [facility] 2022-03-07 2022-03-07 Office Jacinto [facility] 1.2.840.114 [id number] Univers 10:30:00 11:00:00 Visit [facility] 350.1.13.10 it y of [place] 4.2.7.2.686 Bradly as SANTINO?BLEA [phone] Me dical [address] 2022-03-07 2022-03-07 Outpatient Janiya CASEY [facility] [id number] Univers 10:30:00 10:30:00 YARELI divina [facility] 2022-03-07 2022-03-07 Outpatient Janiya CASEY [facility] [id number] Univers 10:30:00 10:30:00 YARELI [facility] 2022-03-07 2022-03-07 Outpatient Janiya CASEY [facility] [id number] Univers 10:30:00 10:30:00 YARELI [facility] 2022-03-06 2022-03-06 Ancillary Jacek Adams [facility] 1..840. 114 [id number] Univers 13:45:00 14:30:00 Visit Oniel Oliver 350.1.13.10 ity [facility] 4[place] [phone] N[place] dical NAL 179 [facility] 2022-03-06 2022-03-06 Outpatient R [facility] [id number] Univers 13:45:00 13:45:00 [facility] 2022-03-06 2022-03-06 Outpatient R MELODY [facility] [id number] Univers 13:45:00 13:45:00 ONIEL [facility] 2022-03-04 2022-03-04 Ancillary Susan Burrows [facility] 1.2.84 0.114 [id number] Univers 14:30:00 15:15:00 Visit Oniel Oliver 350.1.13.10 ity [facility] [place] [id number] [place] dical NAL 179 [facility] 2022-03-04 2022-03-04 Outpatient R MELODY [facility] [id number] Univers 14:30:00 14:30:00 [facility] 2022-02-28 2022-02-28 [facility] 1..840.114 [id number] Univers 00:00:00 00:00:00 [facility] 350.1.13.10 it y of [place] 4.2.7.2.686 Bradly as SANTINO?BLEA [phone] Nc jasen VILLALPANDO 044 [facility] 2022-02-28 2022-02-28 Telephone Jacinto [facility] 1.2.840.114 [id number] Univers 00:00:00 00:00:00 [facility] 350.1.13.10 it y of [place] 4.2.7.2.686 Bradly as SANTINO?BLEA [phone] Nc jasen VILLALPANDO 044 [facility] 2022-02-25 2022-02-25 Outpatient Janiya [facility] [id number] Univers 13:25:00 23:59:00 [facility] 2022-02-25 2022-02-25 Outpatient Janiya [facility] [id number] Univers 13:30:00 14:10:44 [facility] 2022-02-25 2022-02-25 [facility] 1.2.840.114 [id number] Univers 13:30:00 14:10:[address] [facility] 350.1.13.10 it y [facility] 4.2.7.2.686 [place]ly as SANTINO?BLEA [id number] Nc jasen VILLALPANDO 198 [facility] 2022-02-25 2022-02-25 Outpatient Janiya [facility] [id number] Univers 13:30:00 13:30:00 [facility] 2022-02-21 2022-02-21 Ancillary Alexandria Rocha [facility] 1.2. 840.114 [id number] Univers 14:30:00 15:15:00 Visit Oniel Oliver 350.1.13.10 ity of [facility] 4.2.7.2.[place] [phone] Nc jasen LOVING 179 [facility] 2022-02-21 2022-02-21 Outpatient Janiya OLIVER [facility] [id number] Univers 14:30:00 14:30:00 ONIEL [facility] 2022-02-19 2022-02-19 Ancillary Alexandria Rocha [facility] 1.2. 840.114 [id number] Univers 14:30:00 15:15:00 Visit Oniel Oliver 350.1.13.10 ity of [place] 4.2.7.2.[place] [id number] [place] dical NAL 179 [facility] 2022-02-19 2022-02-19 Outpatient R M[facility]ODY [facility] [id number] Univers 14:30:00 14:30:00 ONIEL ity of [facility] 2022-02-15 2022-02-15 Ancillary Susan Burrows [facility] 1.2.84 0.114 [id number] Univers 13:00:00 13:45:00 Visit Oniel Oliver 350.1.13.10 ity of [place] 4.[place].2.[place] [id number] Nc dical NAL 179 [facility] 2022-02-13 2022-02-13 Ancillary Jacek Adams [facility] 1.2.840. 114 [id number] Univers 13:45:00 14:30:00 Visit Oniel Oliver 350.1.13.10 ity of [place] 4.[place].2.[place] [phone] Nc dical NAL 179 [facility] 2022-02-11 2022-02-11 Ancillary Jacek Adams [facility] 1.2.840. 114 [id number] Univers 15:15:00 16:43:35 Visit Oniel Oliver 350.1.13.10 ity of [place] 4.[place].7.2.[place] [id number] Nc dical NAL 179 [facility] 2022-02-11 2022-02-11 Ancillary Jacek Adams [facility] 1.2.840. 114 [id number] Univers 15:15:00 16:00:00 Visit Oniel Oliver 350.1.13.10 ity of [place] 4.2.7.2.[place] [id number] Nc dical NAL 179 [facility] 2022-02-11 2022-02-11 Outpatient R MELODY [facility] [id number] Univers 15:15:00 15:15:00 ONIEL [facility] 2022-02-08 2022-02-08 Ancillary Alexandria Rocha [facility] 1.2. 840.114 [id number] Univers 13:45:00 14:30:00 Visit Oniel Oliver 350.1.13.10 ity of [place] 4.2.7.2.[place] [id number] Nc dical NAL 179 [facility] 2022-02-06 2022-02-06 Ancillary Jacek Adams [facility] 1.2.840. 114 [id number] Univers 15:15:00 16:00:00 Visit Oniel Oliver 350.1.13.10 ity of [place] 4.2.7.2.[place] [id number] Nc dical NAL 179 [facility] 2022-02-01 2022-02-01 Ancillary Susan Burrows [facility] 1.2.84 0.114 [id number] Univers 13:45:00 14:30:00 Visit Oniel Oliver 350.1.13.10 ity of [place] 4.2.7.2.[place] [id number] Nc dical NAL 179 [facility] 2022-01-31 2022-01-31 Ancillary Jacek Adams [facility] 1.2.840. 114 [id number] Univers 13:45:00 14:30:00 Visit Oniel Oliver 350.1.13.10 ity of [place] 4.2.7.2.[place] [phone] Nc dical NAL 179 [facility] 2022-01-31 2022-01-31 Outpatient R M[facility]ODY [facility] [id number] Univers 13:45:00 13:45:00 ONIEL [facility] 2022-01-28 2022-01-28 Ancillary Jacek Adams [facility] 1.2.840. 114 [id number] Univers 13:45:00 14:28:20 Visit Oniel Oliver 350.1.13.10 ity of [facility] 4.2.7.2.[place] [id number] Nc dical NAL 179 [facility] 2022-01-25 2022-01-25 Ancillary Jannie Soto [facility] 1 .2.840.114 [id number] Univers 15:15:00 16:27:08 Visit Oniel Oliver 350.1.13.10 ity of [facility] 4.2.7.2.[place] [id number] Nc dical NAL 179 [facility] 2022-01-23 2022-01-23 Outpatient Janiya [facility] [id number] Univers 13:45:00 14:57:19 ONIEL [facility] 2022-01-23 2022-01-23 Ancillary Kathy Adams [facility] 1.2.840 .114 [id number] Univers 13:45:00 14:30:00 Visit Oniel Oliver 350.1.13.10 ity of [place] 4.2.7.2.[place] [id number] Nc dical NAL 179 [facility] 2022-01-22 2022-01-22 Outpatient Janiya [facility] [id number] Univers 13:04:52 23:59:00 ONIEL [facility] 2022-01-22 2022-01-22 Office Seferino [facility] 1.2.840.114 [id number] Univers 13:15:00 13:30:[address] [facility] 350.1.13.10 it y of [place] 4.2.7.2.686 Bradly as SANTINO?BLEA [id number] Nc dicpromise [address] MEDICAL OFFICE BUILDING 2022-01-22 2022-01-22 Outpatient Janiya [facility] [id number] Univers 13:15:00 13:15:00 AMELIA [facility] 2022-01-22 2022-01-22 Outpatient Janiya [facility] [id number] Univers 13:15:00 13:15:00 AMELIA [facility] 2022-01-21 2022-01-21 Ancillary Jacek Adams [facility] 1.2.840. 114 [id number] Univers 13:45:00 15:44:14 Visit Oniel Oliver 350.1.13.10 ity of [place] 4.[place].2.[place] [id number] Nc dical NAL 179 [facility] 2022-01-21 2022-01-21 Outpatient R [facility] [id number] Univers 13:45:00 15:44:14 ONIEL [facility] 2022-01-21 2022-01-21 Outpatient R [facility]ODY [facility] [id number] Univers 13:45:00 13:45:00 ONIEL [facility] 2022-01-18 2022-01-18 Ancillary Susan Burrows [facility] 1.2.84 0.114 [id number] Univers 13:45:00 14:30:00 Visit Oniel Oliver 350.1.13.10 ity of [place] 4.2.7.2.[place] [id number] Nc dical NAL 179 [facility] 2022-01-16 2022-01-16 Outpatient R [facility] [id number] Univers 13:45:00 15:44:37 ONIEL [facility] 2022-01-16 2022-01-16 Ancillary Sergio Ponce Jannie [facility] 1 .2.840.114 [id number] Univers 13:45:00 15:44:37 Visit Oniel Oliver 350.1.13.10 ity of [place] 4.[place].2.[place] [id number] Nc dical NAL 179 [facility] 2022-01-11 2022-01-11 Ancillary Susan Burrows [facility] 1.2.84 0.114 [id number] Univers 13:45:00 14:30:00 Visit Oniel Oliver 350.1.13.10 ity of [place] 4.2.7.2.[place] [phone] Nc dical NAL 179 [facility] 2022-01-09 2022-01-09 Ancillary Kathy Adams [facility] 1.2.840 .114 [id number] Univers 13:45:00 14:30:47 Visit Oniel Oliver 350.1.13.10 ity of [place] 4.2.7.2.686 [place] [id number] Nc dical NAL 179 [facility] 2022-01-07 2022-01-07 Ancillary Susan Burrows [facility] 1.2.84 0.114 [id number] Univers 13:45:00 14:30:00 Visit Oniel Oliver 350.1.13.10 ity of [place] 4.2.7.2.686 [place] [phone] Nc dical NAL 179 [facility] 2022-01-04 2022-01-04 Telephone Jacinto [facility] 1.2.840.114 [id number] Univers 00:00:00 00:00:00 [facility] 350.1.13.10 it y of [place] 4.2.7.2.686 Bradly as SANTINO?BLEA [phone] Nc dical IRASEMA [address] [place] MEDICAL OFFICE [facility] 2022-01-04 2022-01-04 Orders Doctor SARAH 1.2.840.114 [id number] Univers 00:00:00 00:00:00 Only Unassigned, ASHOK 350.1.13.10 ity of [place] [facility] 4.2.7.2.686 Bradly as [phone] [address] 2022-01-03 2022-01-03 Ancillary Jacek Adams [facility] 1.2.840. 114 [id number] Univers 11:00:00 11:45:00 Visit Oniel Oliver 350.1.13.10 ity of [place].2.[place] [id number] Nc dical NAL 179 [facility] 2021-12-31 2021-12-31 Ancillary Susan Burrows [facility] 1.2.84 0.114 [id number] Univers 13:45:00 14:30:00 Visit Oniel Oliver 350.1.13.10 ity of [place] 4.2.7.2.686 [place] [id number] Nc dical NAL 179 [facility] 2021-12-26 2021-12-27 Ancillary Jannie Soto [facility] 1 .2.840.114 [id number] Univers 15:15:00 16:44:06 Visit Oniel Oliver [place] 350.1.13.10 ity of [facility] 4.2.7.2.[place] [id number] Nc dical NAL 179 [facility] 2021-12-26 2021-12-27 Outpatient R MELODY [facility] [id number] Univers 15:15:00 16:44:06 [facility] 2021-12-25 2021-12-25 [facility] [id number] Univers 13:10:00 23:59:00 [facility] 2021-12-25 2021-12-25 [facility] 1.2.840.114 [id number] Univers 13:10:00 23:59:00 Encounter Oniel Garcia HEALTH 350.1.13.10 ity of [place] 4.2.7.2.686 Bradly as SANTINO?BLEA [id number] Nc jasen VILLALPANDO 809 [facility] OFFICE [facility] 2021-12-25 2021-12-25 Office [facility] 1.2.840.114 [id number] Univers 13:15:00 13:30:00 Visit [facility] HEALTH 350.1.13.10 it y [facility] 4.2.7.2.686 Bradly as SANTINO?BLEA [id number] Nc jasen VILLALPANDO 198 [facility] OFFICE [facility] 2021-12-25 2021-12-25 [facility] [id number] Univers 13:10:00 13:10:00 [facility] 2021-12-07 2021-12-07 [facility] 1.2.840.114 [id number] Univers 11:00:00 11:15:00 Visit [facility] HEALTH 350.1.13.10 it y [facility] 4.2.7.2.686 Bradly as SANTINO?BLEA [id number] Nc jasen VILLALPANDO [address] [place] MEDICAL OFFICE [facility] 2021-12-07 2021-12-07 Outpatient Janiya [facility] [id number] Univers 11:00:00 11:00:00 AMELIA ity [facility] 2021-12-03 2021-12-03 Navarro Casey [facility] 1.2.840.114 [id number] Univers 00:00:00 00:00:00 Yareli HEALTH 350.1.13.10 it y of [place] 4.2.7.2.686 Bradly as SANTINO?BLEA [id number] Nc jasen VILLALPANDO 044 [facility] OFFICE [facility] 2021-12-03 2021-12-03 Telephone Provider, [facility] 1.2.840.114 [id number] Univers 00:00:00 00:00:00 Ang Db HEALTH 350.1.13.10 it y of Urgent Care [place] 4.2.7.2.686 [place] SANTINO?BLEA [id number] [facility] [address] [facility] OFFICE [facility] 2021-12-01 2021-12-01 Letter SARAH Palacios 1.2.840.114 [id number] Univers 00:00:00 00:00:00 (Out) Fabiana PULIDO 350.1.13.10 it y of HOSPITAL 4.2.7.2.686 [place]ly as [phone] [address] 2021-11-29 2021-11-29 Outpatient Janiya MOREJON [facility] [id number] Univers 13:45:00 13:45:00 [facility]-11-29 2021-11-29 Laboratory Only, Ang Db Test [facility] 1.2.8 40.114 [id number] Univers 13:45:00 13:45:00 Only Mary Morejon HEALTH 350.1.13.10 ity [facility] 4.2.7.2.686 Bradly as SANTINO?BLEA [id number] Nc jasen VILLALPANDO 370 [facility] OFFICE [facility] 2021-11-28 2021-11-28 Outpatient Janiya CASEY [facility] [id number] Univers 00:00:00 00:00:00 YARELI [facility] 2021-11-23 2021-11-23 Outpatient Janiya [facility] [id number] Univers 11:10:00 23:59:00 [facility] 2021-11-23 2021-11-23 [facility] 1.2.840.114 [id number] Univers 11:00:00 11:30:[address] [facility] 350.1.13.10 it y of [place] 4.2.7.2.686 Bradly as SANTINO?BLEA [id number] Nc jasen VILLALPANDO 198 [facility] OFFICE [facility] 2021-11-23 2021-11-23 Outpatient Janiya [facility] [id number] Univers 11:10:00 11:10:00 [facility] 2021-11-23 2021-11-23 Outpatient Janiya [facility] [id number] Univers 11:00:00 11:00:00 [facility] 2021-11-21 2021-11-21 Outpatient Janiya [facility] [id number] Univers 15:15:00 15:15:00 [facility] 2021-11-13 2021-11-13 Emergency X Jesus KRUGER [facility] ERT [id number] Univers 10:16:00 13:05:00 [facility] 2021-11-13 2021-11-13 Emergency Jesus Kruger [facility] 1.2.840.114 [id number] Univers 10:16:00 13:05:00 Candace WHALEY 350.1.13.10 i ty of [place] 4[place]2.7.2.[place] [id number] [address] 2021-11-13 2021-11-13 Dottie Casey [facility] 1.2.840.114 [id number] Univers 00:00:00 00:00:00 Yareli [facility] 350.1.13.10 it y of [place] 4.2.7.2.686 Bradly as SANTINO?BLEA [id number] Nc jasen VILLALPANDO [address] [place] MEDICAL OFFICE [facility] 2021-11-02 2021-11-02 Outpatient R JACINTO [facility] [id number] Univers 00:00:00 00:00:00 YARELI [facility] 2021-10-23 2021-10-23 Orders Doctor SARAH 1.2.840.114 [id number] Univers 00:00:00 00:00:00 Only Unassigned, ASHOK 350.1.13.10 ity of [place] [facility] 4.2.7.2.686 Bradly as [id number] [address] 2021-09-26 2021-09-26 [facility] 1.2.840.114 [id number] Univers 00:00:00 00:00:00 [facility] 350.1.13.10 it y of [place] 4.2.7.2.686 Bradly as SANTINO?BLEA [id number] [address] OFFICE [facility] 2021-09-26 2021-09-26 [facility] 1.2.840.114 [id number] Univers 00:00:00 00:00:00 [facility] 350.1.13.10 it y of [place] 4.2.7.2.686 Bradly as SANTINO?BLEA [id number] [address] OFFICE [facility] 2021-09-11 2021-09-11 Outpatient Janiya VALERO [facility] [id number] Univers 10:00:00 10:00:00 ENOC durham [facility] 2021-09-11 2021-09-11 Imm/Inj Nurse, Adc Pob Immunization [facility] 1.2.840.114 [id number] Univers 09:46:26 09:46:36 Visit Enoc Valero 350.1.13 .10 ity of [place].7.2.[place] Profess[place] [phone] Nc prashant[address] 2021-09-10 2021-09-10 Outpatient Janiya VLAERO [facility] [id number] Univers 10:00:00 10:00:00 ENOC [facility] 2021-09-07 2021-09-07 Outpatient Janiya VALERO [facility] [id number] Univers 11:30:00 11:30:00 ENOC ity [facility] 2021-09-07 2021-09-07 [facility] 1.2.840.114 [id number] Univers 09:03:56 09:33:56 Visit Yareli Rivero 350.1.13.10 it y of [place] 4.2.7.2.686 Bradly as Santino?Blea [phone] Nc dical kney 044 [facility] Office [facility] 2021-09-07 2021-09-07 Outpatient [facility] [id number] Univers 09:30:00 09:30:00 YARELI y [facility] 2021-07-09 2021-07-09 Office [facility] [employer] [facility] 1.2.840.114 [id number] Univers 13:39:43 14:30:07 Visit Zaria Whaley 350.1.13.10 ity of [place].2.686 [place] [facility] [phone] Nc dical nal 059 [facility] 2021-07-09 2021-07-09 [facility] [id number] Univers 14:00:00 14:00:00 DANDYRIGO herminio o f [facility] 2021-07-09 2021-07-09 Orders Doctor SARAH 1.2.840.114 [id number] Univers 00:00:00 00:00:00 Only Unassigned, ASHOK 350.1.13.10 ity of [place] [facility] 4.2.7.2.686 Bradly as [phone] [facility] [address] [place] 2020-11-06 2020-11-06 Hospital Radiology [facility] 1.2.840.114 [id number] Univers 11:04:17 23:59:00 Encounter [place] 350.1.13.10 ity of [place].2.686 [place] [phone] [facility] [address] [place] 2020-11-06 2020-11-06 Outpatient R RADIOLOGY [facility] [id number] Univers 00:00:00 00:00:00 ity of [facility] 2020-10-31 2020-10-31 Hospital Radiology [facility] 1.2.840.114 [id number] Univers 10:54:03 23:59:00 Encounter Jovana 350.1.13.10 ity of [place] 4.2.7.2.686 [facility] [phone] [facility] [address] [place] 2020-10-31 2020-10-31 Outpatient R RADIOLOGY [facility] [id number] Univers 10:54:03 23:59:00 ity of [facility] 2020-10-31 2020-10-31 Orders Doctor SARAH 1.2.840.114 [id number] Univers 00:00:00 00:00:00 Only Unassigned, ASHOK 350.1.13.10 ity of [place] [facility] 4.2.7.2.686 Bradly as [id number] [address] 2020-07-05 2020-07-05 Office Manoj, [facility] 1.2.840.114 [id number] Univers 13:40:57 14:19:57 Visit Zaria Whaley 350.1.13.10 ity of [place] 4.2.7.2.686 [facility] [phone] N[place] dical [facility]9 [facility] 2020-07-05 2020-07-05 Outpatient R MANOJ, [facility] [id number] Univers 14:00:00 14:00:00 ZARIA durham o f [facility] 2020-07-05 2020-07-05 Orders Doctor SARAH 1.2.840.114 [id number] Univers 00:00:00 00:00:00 Only Unassigned, ASHOK 350.1.13.10 ity of [place] [facility] 4.2.7.2.686 Bradly as [id number] [address] 2020-01-28 2020-01-28 Outpatient R ABRAM RASHID [facility] [id number] Univers 20:00:00 20:00:00 ABRAM RASHID [facility] 2020-01-28 2020-01-28 Preventive Maintenance Engineer 1, [facility] Sleep Lab Bed [facility] 1. 2.840.114 [id number] Univers 13:49:18 16:19:18 Visit Abram Rashid 350.1.13. 10 ity of [place] 4.2.7.2.686 [place] [facility] [phone] [facility] [address] [place] 2020-01-28 2020-01-28 Orders Doctor SARAH 1.2.840.114 [id number] Univers 00:00:00 00:00:00 Only Unassigned, ASHOK 350.1.13.10 ity of [place] [facility] 4.2.7.2.686 Bradly as [phone] [address] 2020-01-07 2020-01-07 Orders Doctor SARAH 1.2.840.114 [id number] Univers 00:00:00 00:00:00 Only Unassigned, ASHOK 350.1.13.10 ity of [place] [facility] 4.2.7.2.686 [place]ly as [phone] [address] 2019-07-27 2019-07-27 Orders Doctor SMITH 1.2.840.114 [id number] Univers 00:00:00 00:00:00 Only Unassigned, ASHOK 350.1.13.10 ity of [place] [facility] 4.2.7.2.686 Bradly as [phone] [address] 2019-07-14 2019-07-14 Office Seferino [facility] 1.2.840.114 [id number] Univers 15:26:49 15:41:49 Visit [facility] 350.1.13.10 it y of Surgical 4.2.7.2.686 [place]ly as Specialti [phone] Nc dical es 198 [facility] 2019-07-07 2019-07-07 Orders Doctor SMITH 1.2.840.114 [id number] Univers 00:00:00 00:00:00 Only Unassigned, AHSOK 350.1.13.10 ity of [place] [facility] 4.2.7.2.686 Bradly as [id number] [address] 2019-07-05 2019-07-05 Office Manoj [facility] 1.2.840.114 [id number] Univers 13:43:47 14:03:47 Visit Dandyrigo [place] 350.1.13.10 ity of [place].2.[place] [id number] Nc dical nal 059 [facility] 2019-07-05 2019-07-05 Orders Doctor SMITH 1.2.840.114 [id number] Univers 00:00:00 00:00:00 Only Unassigned, ASHOK 350.1.13.10 ity of [place] [facility] 4.2.7.2.686 Bradly as [phone] [address] 2019-07-02 2019-07-02 Orders Doctor SARAH Pandya.2.840.114 [id number] Univers 00:00:00 00:00:00 Only Unassigned, ASHOK 350.1.13.10 ity of [place] [facility] 4.2.7.2.686 [place]ly as [id number] [address] 2019-06-25 2019-06-25 Orders Doctor SARAH Pandya.2.840.114 [id number] Univers 00:00:00 00:00:00 Only Unassigned, ASHOK 350.1.13.10 ity of [place] [facility] 4.2.7.2.686 Bradly as [id number] [address] 2019-06-17 2019-06-17 Orders Doctor SARAH Pandya.2.840.114 [id number] Univers 00:00:00 00:00:00 Only Unassigned, ASHOK 350.1.13.10 ity of [facility] 4.2.7.2.686 [place] as [phone] [address] Results Test Description Test Time Test Comments Results Result Comments Source POCT GLUCOSE (AUTOMATED) 2023-09-03 16:50:34 Test Item Value Reference Range Interpretation Comme nts POCT GLU (test code = 5188916778) 84 mg/dL 70-110 Lab Interpretation (test code = 14607-8) Normal [facility] GLUCOSE (AUTOMATED)2023-09-03 12:48:15 Test Item Value Reference Range Interpretation Comments POCT GLU (test code = 2185592305) 80 mg/dL 70-110 Lab Interpretation (test code = Normal 47836-4) [facility] GLUCOSE (AUTOMATED)2023-09-02 21:31:22 Test Item Value Reference Range Interpretation Comments POCT GLU (test code = 0842076685) 128 mg/dL 70-110 H Lab Interpretation (test code = Abnormal 35966-0) [facility] GLUCOSE (AUTOMATED)2023-09-02 16:50:42 Test Item Value Reference Range Interpretation Comments POCT GLU (test code = 6127247169) 116 mg/dL 70-110 H Lab Interpretation (test code = Abnormal 15826-8[facility] 13:24:16 Test Item Value Reference Range Interpretation Comments POCT GLU (test code = 2589513224) 82 mg/dL 70-110 Lab Interpretation (test code = Normal 48597-8) [facility]. METABOLIC PANEL (68389)2023-09-02 10:54:19 Test Item Value Reference Range Interpretation Comments NA (test code = 129 mmol/L 135-145 L 3430919506) K (test code = 3.7 mmol/L 3.5-5.0 5280166717) CL (test code = 105 mmol/L 98-108 9361848014) CO2 TOTAL (test code = 18 mmol/L 23-31 L 5961621462) AGAP (test code = 6 2-16 6347557872) BUN (test code = 12 mg/dL 7-23 2763587483) GLUCOSE (test code = 79 mg/dL 70-110 7840940698) CREATININE (test code = 0.71 mg/dL 0.50-1.04 8421276828) TOTAL BILI (test code = 0.5 mg/dL 0.1-1.5 9420977427) CALCIUM (test code = 7.6 mg/dL 8.6-10.6 L 3473960335) T PROTEIN (test code = 4.8 g/dL 6.3-8.2 L 0251868823) ALBUMIN (test code = 2.5 g/dL 3.5-5.0 L 3212796245) ALK PHOS (test code = 54 U/L 34-122 1737811006) ALTv (test code = 70 U/L 5-35 H 1742-6) AST(SGOT) (test code = 187 U/L 13-40 H 7306222556) eGFR (test code = 79.8 mL/min/1.73m2 6204384768) MICHAEL (test code = MICHAEL) Association of Glomerular Filtration Rate (GFR) and Staging of Kidney Disease* + --+ --+ ------+| GFR (mL/min/1.73 m2) ?| With Kidney Damage ?| ?Without Kidney Damage+ --------+ --------+ +| ?>90 ?| ?Stage one ?| ? Normal ?+ ---+ ---+ -------+| ?60-89 ?| ?Stage two ?| ? Decreased GFR ? + --+ --+ ------+| ?30-59 ?| ?Stage three ?| ? Stage three ? + --+ --+ ------+| ?15-29 ?| ?Stage four ? | ? Stage four ?+ ---+ ---+ -------+| ?<15 (or dialysis) ? ?| ?Stage five ? | ? Stage five ?+ ---+ ---+ -------+ *Each stage assumes the associated GFR level has been in effect for at least three months. ?Stages 1 to 5, with or without kidney disease, indicate chronic kidney disease. Notes: Determination of stages one and two (with eGFR >59mL/min/1.73 m2) requires estimation of kidney damage for at least three months as defined by structural or functional abnormalities of the kidney, manifested by either:Pathological abnormalities or Markers of kidney damage (including abnormalities in the composition of the blood or urine or abnormalities in imaging tests). Lab Interpretation Abnormal (test code = 14301-2) [facility] GLUCOSE (AUTOMATED)2023-09-02 02:10:34 Test Item Value Reference Range Interpretation Comments POCT GLU (test code = 4386166382) 117 mg/dL 70-110 H Lab Interpretation (test code = Abnormal 86248-7) [facility] GLUCOSE (AUTOMATED)2023-09-01 21:50:24 Test Item Value Reference Range Interpretation Comments POCT GLU (test code = 4175253806) 101 mg/dL 70-110 Lab Interpretation (test code = Normal 49690-6) [facility] GLUCOSE (AUTOMATED)2023-09-01 16:44:31 Test Item Value Reference Range Interpretation Comments POCT GLU (test code = 3411260041) 114 mg/dL 70-110 H Lab Interpretation (test code = Abnormal 17073-0) [facility] GLUCOSE (AUTOMATED)2023-09-01 12:50:36 Test Item Value Reference Range Interpretation Comments POCT GLU (test code = 5460477547) 88 mg/dL 70-110 Lab Interpretation (test code = Normal 17062-6) [facility]29[facility]40 Test Item Value Reference Range Interpretation Comments MAGNESIUM (test code = 4143412252) 1.9 mg/dL 1.7-2.4 Lab Interpretation (test code = Normal 91624-4) [facility] (NA, K, CL, CO2, GLUCOSE, BUN, CREATININE, CA)2023-09-01 10:29:20 Test Item Value Reference Range Interpretation Comments NA (test code = 137 mmol/L 135-145 0157976613) K (test code = 4.4 mmol/L 3.5-5.0 5839040532) CL (test code = 105 mmol/L 98-108 4784551677) CO2 TOTAL (test code = 17 mmol/L 23-31 L 0544350564) AGAP (test code = 15 2-16 1721950666) BUN (test code = 13 mg/dL 7-23 5437258750) GLUCOSE (test code = 82 mg/dL 70-110 1043349427) CREATININE (test code = 0.74 mg/dL 0.50-1.04 1509679926) CALCIUM (test code = 8.0 mg/dL 8.6-10.6 L 8735655949) eGFR (test code = 76.1 mL/min/1.73m2 8150687073) MICHAEL (test code = MICHAEL) Association of Glomerular Filtration Rate (GFR) and Staging of Kidney Disease* + --+ --+ ------+| GFR (mL/min/1.73 m2) ?| With Kidney Damage ?| ?Without Kidney Damage+ --------+ --------+ +| ?>90 ?| ?Stage one ?| ? Normal ?+ ---+ ---+ -------+| ?60-89 ?| ?Stage two ?| ? Decreased GFR ? + --+ --+ ------+| ?30-59 ?| ?Stage three ?| ? Stage three ? + --+ --+ ------+| ?15-29 ?| ?Stage four ? | ? Stage four ?+ ---+ ---+ -------+| ?<15 (or dialysis) ? ?| ?Stage five ? | ? Stage five ?+ ---+ ---+ -------+ *Each stage assumes the associated GFR level has been in effect for at least three months. ?Stages 1 to 5, with or without kidney disease, indicate chronic kidney disease. Notes: Determination of stages one and two (with eGFR >59mL/min/1.73 m2) requires estimation of kidney damage for at least three months as defined by structural or functional abnormalities of the kidney, manifested by either:Pathological abnormalities or Markers of kidney damage (including abnormalities in the composition of the blood or urine or abnormalities in imaging tests). Lab Interpretation Abnormal (test code = 32209-4) [facility]17[facility] (ALB,T.PRO,BILI T,BU/BC,ALT,AST,ALK PHOS)2023-09-01 10:29:20 Test Item Value Reference Range Interpretation Comments TOTAL BILI (test code = 9207229061) 0.9 mg/dL 0.1-1.1 BILI UNCON (test code = 6022644732) 0.5 mg/dL 0.1-1.1 BILI CONJ (test code = 5891543865) 0.0 mg/dL 0.0-0.3 T PROTEIN (test code = 0926386626) 6.1 g/dL 6.3-8.2 L ALBUMIN (test code = 4952733400) 3.2 g/dL 3.5-5.0 L ALK PHOS (test code = 2316209310) 52 U/L 34-122 ALTv (test code = 1742-6) 76 U/L 5-35 H AST(SGOT) (test code = 3417316232) 228 U/L 13-40 H Lab Interpretation (test code = Abnormal 22024-9) [facility] WITHOUT [id number] 10:10:19 Test Item Value Reference Range Interpretation Comments WBC (test code = 4.25 See_Comment L [Automated message] 6690-2) The system [employer] generated this result transmitted ref erence range: 4.30 - 1 1.10 10*3/?L. The reference range was not used to int erpret this result as normal/abnormal . RBC (test code = 789-8) 4.39 See_Comment [Au tomated message] The system [employer] generated this result transmitted ref erence range: 3.93 - 5 .25 10*6/?L. The reference range was not used to int erpret this result as normal/abnormal . HGB (test code = 718-7) 14.1 g/dL 11.6-15.0 HCT (test code = 41.1 % 35.7-45.2 4544-3) MCH (test code = 785-6) 32.1 pg 25.9-32.8 MCV (test code = 787-2) 93.6 fL 80.6-95.5 MCHC (test code = 34.3 g/dL 31.6-35.1 786-4) PLT (test code = 777-3) 93 See_Comment L [Au tomated message] The system [employer] generated this result transmitted ref erence range: 166 - 35 8 10*3/?L. The reference range was not used to int erpret this result as normal/abnormal . MPV (test code = 11.1 fL 9.5-12.9 86342-8) RDW-CV (test code = 12.5 % 12.0-15.5 788-0) RDW-SD (test code = 43.8 fL 39.0-49.9 35335-7) NRBC x10^3 (test code = See_Comment [Au tomated message] 9642856713) The system [employer] generated this result transmitted ref erence range: 10*3/?L. The reference range was not used to int erpret this result as normal/abnormal . NRBC/100 WBC (test code 0.0 See_Comment [Au tomated message] = 4267531534) The system [employer] generated this result transmitted ref erence range: 0.0 - 10 .0 /100 WBCs. The reference range was not used to int erpret this result as normal/abnormal . IPF % (test code = 8.0 % 1.3-7.7 H Platelet count 7677308367) measured by fluorescence me thod. Lab Interpretation Abnormal (test code = 38675-6) [facility] GLUCOSE (AUTOMATED)2023-09-01 01:46:35 Test Item Value Reference Range Interpretation Comments POCT GLU (test code = 1478789681) 140 mg/dL 70-110 H Lab Interpretation (test code = Abnormal 84497-9) [facility]2023-08-31 21:45:46 Test Item Value Reference Range Interpretation Comments POCT GLU (test code = 5683231535) 86 mg/dL 70-110 Lab Interpretation (test code = Normal 79020-7) [facility]2023-08-31 16:29:59 Test Item Value Reference Range Interpretation Comments Height (test code = 65 in 3370155050) Weight (test code = 200 lbs 3807156755) Systolic BP (test code = 161 mmHg 4245642780) Diastolic BP (test code 78 mmHg = 0849827269) Heart Rate (test code = 88 bpm 5600132544) MR max PG (test code = 88.30 mm[Hg] 1980465406) MR max jj (test code = 469.70 cm/s 4586240104) Ao root diam (test code 2.50 cm = 2889583827) Mr max jj (test code = 469.7 m/s 2137092829) Aortic root (test code = 2.5 cm 9574359533) Ao root annulus (test 2.5 cm code = 2542305243) BSA (test code = 1.98 m2 2633460924) LVOT diameter (test code 2.05 cm = 5225396784) LVOT area (test code = 3.30 cm2 4821827884) LA size (test code = 3.4 cm 7469852613) ACS (test code = 1.37 cm 4062346267) LVIDD (test code = 3.80 cm 7688528775) Left Ventricular End 61.0 mL Diastolic Volume by Teichholz Method (test code = 0264105) IVS (test code = 1.04 cm 2641871839) Interventricular Septum 1.04 cm Diastolic Thickness by 2D (test code = 4547137) LVPWD (test code = 1.19 cm 6698398116) PW (test code = 1.19 cm 0.6-1.3 3853367113) EF(Teich) (test code = 58.50 % 9361368451) LVIDS (test code = 2.60 cm 0319874481) Left Ventricular End 25.3 mL Systolic Volume by Teichholz Method (test code = 2370654) FS (test code = 30 % 8156632256) EF - 2D (test code = 58.50 % 89791410) TR Peak Jj (test code = 203.7 cm/s 2573775048) Triscuspid Valve 18.2 mmHg Regurgitation Peak Gradient (test code = 5988679744) PV PEAK VELOCITY (test 93.8 cm/s code = 7678806466) PV peak gradient (test 3.5 mmHg code = 5593596069) MV E-F slope (test code 44.80 cm/s = 0511301836) MV Peak E Jj (test code 119.5 cm/s = 1642302307) MV Peak A Jj (test code 147.3 cm/s = 8023020710) E/A ratio (test code = 0.81 ratio 5218512882) MV valve area p 1/2 3.50 cm2 method (test code = 1872310625) MV dec slope (test code 540.10 cm/s2 = 5153511657) MV P1/2t max jj (test 116.90 cm/s code = 2217940192) LVOT stroke volume (test 86.00 cm3 code = 4937235059) LVOT peak jj (test code 115.8 cm/s = 3614825558) LVOT mn grad (test code 2.1 mmHg = 7348882062) AV LVOT peak gradient 5.4 mmHg (test code = 5205276907) LVOT peak VTI (test code 26.2 cm = 7115177347) LV V1 mean (test code = 65.80 cm/s 6218589593) Aortic valve mean 129.8 cm/s velocity (test code = 5518278116) Ao peak jj (test code = 227.1 cm/s 5237277311) Ao VTI (test code = 47.5 cm 2566360108) AV area by cont VTI 1.8 cm2 (test code = 1135869919) AV area peak jj (test 1.7 cm2 code = 1110409656) Ao max PG (test code = 20.60 mm[Hg] 0220059710) AV peak gradient (test 20.6 mmHg code = 4990419445) AV valve area (test code 1.81 cm2 = 6599284635) AV mean gradient (test 8.2 mmHg code = 3445543494) LAV(MOD-sp4) (test code 18.90 mL = 9926638438) LA Volume Index (BP) 11.3 mL/m2 (test code = 0561505638) LA volume (BP) (test 22.4 mL code = 8369169622) LAV(MOD-sp2) (test code 26.20 mL = 0622505780) Radiology Study observation (narrative) (test code = 95586-0) MICHAEL (test code = MICHAEL) ?Left?Ventricle: Left ventricle size is normal. Normal wall thickness. Normal wall motion. Normal systolic function with a visually estimated EF of 60 - 65%. There is impaired relaxation. ?Tricuspid?Valve: Insufficient tricuspid regurgitation jet to estimate RVSP . ?RA pressure is 0-5 mmHg. Left VentricleLeft ventricle size is normal. Normal wall thickness. Normal wall motion. Normal systolic function with a visually estimated EF of 60 - 65%. There is impaired relaxation.Right VentricleRight ventricle size is normal. Normal systolic function.Left AtriumLeft atrium size is normal.Right AtriumRight atrium size is normal.IVC/SVCIVC diameter is less than or equal to 21 mm and decreases greater than 50% during inspiration; therefore the estimated right atrial pressure is normal (~0-5 mmHg).Mitral ValveMitral valve structure is normal. Trace transvalvular regurgitation.Tricusp id ValveTricuspid valve structure is normal. Trace transvalvular regurgitation. Insufficient tricuspid regurgitation jet to estimate RVSP . RA pressure is 0-5 mmHg.Aortic ValveTricuspid. Mildly thickened cusps. Trace transvalvular regurgitation.Pulmoni c ValveNot well visualized.Ascending AortaNormal sized aorta.PericardiumThe pericardium is normal. No pericardial effusion.Study DetailsStudy quality was adequate. A complete echocardiogram was performed using 2D, color flow Doppler and spectral Doppler. 5 mL of Lumason ultrasound enhancing agent used. [facility] CenterL[facility] Whole [id number] 14:18:49 Test Item Value Reference Range Interpretation Comments LACTIC ACID (test code = 2.04 mmol/L 0.50-2.20 1669740591) Lab Interpretation (test code = Normal 28598-6) [facility] 05:20:32 Test Item Value Reference Range Interpretation Comments LIPASE (test code = 8767769734) 155 U/L 0-220 Lab Interpretation (test code = Normal 14924-3) [facility] WITH [id number] 04:22:50 Test Item Value Reference Range Interpretation Comments WBC (test code = 3.66 See_Comment L [Automated 6690-2) message] The sy stem which generated this result transmitted reference range : 4.30 - 11.10 10*3/?L. The reference range was not used to interpret this result as normal/abnormal . RBC (test code = 4.67 See_Comment [Automated 789-8) message] The sy stem which generated this result transmitted reference range : 3.93 - 5.25 10*6/?L. The reference range was not used to interpret this result as normal/abnormal . HGB (test code = 14.7 g/dL 11.6-15.0 718-7) HCT (test code = 41.5 % 35.7-45.2 4544-3) MCV (test code = 88.9 fL 80.6-95.5 787-2) MCH (test code = 31.5 pg 25.9-32.8 785-6) MCHC (test code = 35.4 g/dL 31.6-35.1 H 786-4) RDW-SD (test code = 40.7 fL 39.0-49.9 77080-6) RDW-CV (test code = 12.4 % 12.0-15.5 788-0) PLT (test code = 140 See_Comment L [Automated 777-3) message] The sy stem which generated this result transmitted reference range : 166 - 358 10*3/ ?L. The reference r luis was not used to interpret this result as normal/abnormal . MPV (test code = 11.0 fL 9.5-12.9 28845-2) NRBC/100 WBC (test 0.0 See_Comment [Automat ed code = 1594652449) message] The system which generated this result transmitted reference range : 0.0 - 10.0 /100 WBCs. The refer ence range was not u sed to interpret th is result as normal/abnormal . NRBC x10^3 (test code See_Comment [Auto mated = 2396728323) message] The s ystem which generated this result transmitted reference range : 10*3/?L. The reference range was not used to interpret this result as normal/abnormal . GRAN MAT (NEUT) % 76.6 % (test code = 770-8) IMM GRAN % (test code 0.30 % = 8786969552) LYMPH % (test code = 13.9 % 736-9) MONO % (test code = 8.7 % 5905-5) EOS % (test code = 0.0 % 713-8) BASO % (test code = 0.5 % 706-2) GRAN MAT x10^3(ANC) 2.80 10*3/uL 1.88-7.09 (test code = 0477748957) IMM GRAN x10^3 (test 0.00-0.06 code = 8719248839) LYMPH x10^3 (test code 0.51 10*3/uL 1.32-3.29 L = 731-0) MONO x10^3 (test code 0.32 10*3/uL 0.33-0.92 L = 742-7) EOS x10^3 (test code = 0.03-0.39 L 711-2) BASO x10^3 (test code 0.01-0.07 = 704-7) Lab Interpretation Abnormal (test code = 70615-2) [facility]. METABOLIC PANEL (19076)2023-08-31 04:22:50 Test Item Value Reference Range Interpretation Comments NA (test code = 133 mmol/L 135-145 L 0351328735) K (test code = 3.4 mmol/L 3.5-5.0 L 2468707151) CL (test code = 98 mmol/L 98-108 1882403927) CO2 TOTAL (test code = 21 mmol/L 23-31 L 8157193216) AGAP (test code = 14 2-16 2344981440) BUN (test code = 23 mg/dL 7-23 6235851961) GLUCOSE (test code = 169 mg/dL 70-110 H 0612677958) CREATININE (test code = 1.20 mg/dL 0.50-1.04 H 6572754313) TOTAL BILI (test code = 0.8 mg/dL 0.1-1.7 2469026093) CALCIUM (test code = 8.8 mg/dL 8.6-10.6 2194154243) T PROTEIN (test code = 7.2 g/dL 6.3-8.2 1304010547) ALBUMIN (test code = 3.9 g/dL 3.5-5.0 7497772264) ALK PHOS (test code = 53 U/L 34-122 6734252359) ALTv (test code = 68 U/L 5-35 H 1742-6) AST(SGOT) (test code = 207 U/L 13-40 H 7887755206) eGFR (test code = 43.6 mL/min/1.73m2 2861904795) MICHAEL (test code = MICHAEL) Association of Glomerular Filtration Rate (GFR) and Staging of Kidney Disease* + --+ --+ ------+| GFR (mL/min/1.73 m2) ?| With Kidney Damage ?| ?Without Kidney Damage+ --------+ --------+ +| ?>90 ?| ?Stage one ?| ? Normal ?+ ---+ ---+ -------+| ?60-89 ?| ?Stage two ?| ? Decreased GFR ? + --+ --+ ------+| ?30-59 ?| ?Stage three ?| ? Stage three ? + --+ --+ ------+| ?15-29 ?| ?Stage four ? | ? Stage four ?+ ---+ ---+ -------+| ?<15 (or dialysis) ? ?| ?Stage five ? | ? Stage five ?+ ---+ ---+ -------+ *Each stage assumes the associated GFR level has been in effect for at least three months. ?Stages 1 to 5, with or without kidney disease, indicate chronic kidney disease. Notes: Determination of stages one and two (with eGFR >59mL/min/1.73 m2) requires estimation of kidney damage for at least three months as defined by structural or functional abnormalities of the kidney, manifested by either:Pathological abnormalities or Markers of kidney damage (including abnormalities in the composition of the blood or urine or abnormalities in imaging tests). Lab Interpretation Abnormal (test code = 19953-0) [facility] 04:22:50 Test Item Value Reference Range Interpretation Comments MAGNESIUM (test code = 2223982709) 1.8 mg/dL 1.7-2.4 Lab Interpretation (test code = Normal 38873-2) [facility] GLUCOSE (AUTOMATED)2022-12-03 22:02:26 Test Item Value Reference Range Interpretation Comments POCT GLU (test code = 9492882869) 105 mg/dL 70-110 Lab Interpretation (test code = Normal 25824-8) [facility] GLUCOSE (AUTOMATED)2022-12-03 22:02:26 Test Item Value Reference Range Interpretation Comments POCT GLU (test code = 9554574102) 105 mg/dL 70-110 Lab Interpretation (test code = Normal 47980-0) [facility] HEMOGLOBIN A1C [id number] 18:24:00 Test Item Value Reference Range Interpretation Comments POCT HBA1C (test code = 4548-4) 5.5 % 4-6 [facility] HEMOGLOBIN A1C [id number] 18:24:00 Test Item Value Reference Range Interpretation Comments POCT HBA1C (test code = 4548-4) 5.5 % 4-6 [facility] GLUCOSE (AUTOMATED)2022-08-14 14:13:25 Test Item Value Reference Range Interpretation Comments POCT GLU (test code = 9260000654) 118 mg/dL 70-110 H Lab Interpretation (test code = Abnormal 58828-4) [facility] GLUCOSE (AUTOMATED)2022-08-14 14:13:25 Test Item Value Reference Range Interpretation Comments POCT GLU (test code = 7610366933) 118 mg/dL 70-110 H Lab Interpretation (test code = Abnormal 77480-8) [facility] Center[facility] Screen - ONCE [id number] 12:11:30 Test Item Value Reference Range Interpretation Comments ABO & RH (test code A Positive Performe d at [facility] = 20) Laboratory Serv [facility] Blood Bank[address] [place] [address]Lfkr Free: [phone] A No. [id number] IAT (test code = Negative Performed a t [facility] 1185) Laboratory Serv [facility] Blood Bank[address] [place] [address]Clvk Free: [phone] A No. [id number] [facility] Center[facility] - ONCE [id number] 12:11:30 Test Item Value Reference Range Interpretation Comments ABO & RH (test code A Positive Performe d at [facility] = 20) Laboratory [facility] Blood [address] [address]Mrrr Free: [phone] A No. [id number] IAT (test code = Negative Performed a t [facility] 1185) Laboratory [facility] Blood [address] [address]Qdgb Free: [phone] A No. [id number] [facility]2022-08-14 11:34:55 Test Item Value Reference Range Interpretation Comments POCT GLU (test code = 4038889935) 98 mg/dL 70-110 Lab Interpretation (test code = Normal 44158-9) [facility] GLUCOSE (AUTOMATED)2022-08-14 11:34:55 Test Item Value Reference Range Interpretation Comments POCT GLU (test code = 9683744126) 98 mg/dL 70-110 Lab Interpretation (test code = Normal 95539-2) [facility]"
[2023-09-06 21:20] LABS: Arterial Blood Carboxyhemoglob 0.7 % (0-1.5)
[2023-09-06 21:24] LABS: Hematocrit 35.1 % (36.0-45.0); Lymphocytes % 10.3 % (15.3-44.8); MCV 89.6 fL (80-100); MPV 12.5 fL (7.6-11.3); Platelets 54 thou/uL (152-406); RBC Red Blood Cell Count 3.91 M/uL (3.86-4.86)
[2023-09-06 21:36] LABS: Protime INR 1.29
--- NOTE | 2023-09-06 21:38 | RAD REPORT ---
EXAM DESCRIPTION: [facility] Single View09/06/2023 9:17 pm CLINICAL HISTORY: Chest pain COMPARISON: none FINDINGS: The lungs appear clear of acute infiltrate. The heart is normal size IMPRESSION: No acute abnormalities displayed
[2023-09-06] MEDS ORDERED: ALBUMIN HUMAN 25% 100 ML IV ONE (21:43)
[2023-09-06] MEDS ORDERED: NOREPINEPHRINE BITARTRATE/D5W 4 MG/250 ML BAG IV ONE (21:43)
[2023-09-06 21:44] LABS: Albumin 1.7 g/dL (3.4-5.0); Bilirubin Total 0.9 mg/dL (0.2-1.0); Potassium 3.3 mEq/L (3.5-5.1); Protein, Total 4.5 g/dL (6.4-8.2)
[2023-09-06] MEDS ORDERED: NA CHLORIDE 0.9% 1,000 ML ONE (21:44)
[2023-09-06 22:22] LABS: Blood Morphology Comment NOT SEEN (NOT SEEN); Platelet Estimate DECR; White Blood Cell Scan OK (OK)
[2023-09-06] MEDS ORDERED: Meropenem 1000 MG/VIAL IV ONE (22:43)
[2023-09-06] MEDS ORDERED: NA CHLORIDE 0.9% 500 ML ONE (22:44)
[2023-09-06] MEDS ORDERED: VANCOMYCIN 1 GM/VIAL ONE (22:44)
[2023-09-06] MEDS ORDERED: NA CHLORIDE 0.9% 100 ML ONE (22:44)
[2023-09-07 01:58] LABS: Specific Gravity 1.008 (1.005-1.030); Urine Bacteria <20 /HPF (<20); Urine Bilirubin NEGATIVE (Negative); Urine Blood 2+ (Negative); Urine Clarity Extremely Turbid (Clear); Urine Color Yellow (Yellow); Urine Glucose NEGATIVE (Negative); Urine Mucus Slight /HPF (None Seen); Urine Protein TRACE (Negative); Urine Urobilinogen Normal (Normal); Urine WBC Clump Many /HPF (None Seen)
--- NOTE | 2023-09-07 02:23 | ER ---
Nurse's Notes [facility] Name: Zak Grossman Age: 78 yrs Sex: Female : 1945 Arrival Date: 09/06/2023 Time: 20:52 Bed 4 Private MD: Diagnosis: Severe sepsis with septic shock;Hypovolemia;UTI/ Urinary tract infection, site not specified;Acute hypoactive delirium, sepsis, physical debility Presentation: 09/06 21:14 Chief complaint: EMS states: Pt was recently D/c'ed from [facility], started becoming altered jb4 last night with a fever. The [facility] noticed she was more confused and is now A\T\Ox 1-2. Rhonci noted up auscultation. Tempt is 98.9, [facility]p staff gave 1g of Tylenol. Pt noted to be in A-fib RVR. Staff reported pt had a large amount of blood in her brief. Coronavirus screen: At this time, the client does not indicate any symptoms associated with coronavirus-19. Ebola Screen: No symptoms or risks identified at this time. Initial Sepsis Screen: Does the patient meet any 2 criteria? RR > 20 per min. Temp <36.0*C (96.8*F)) or > 38.3*C (100.9*F). Altered Mental Status. HR > 90 bpm. Does the patient have a suspected source of infection? No. Patient's initial sepsis screen is negative. Risk Assessment: Do you want to hurt yourself or someone else? Patient reports no desire to harm self or others. Onset of symptoms was September 05, 2023. Transition of care: patient was received from another setting of care (long-term care facility), [facility]. 21:14 Method Of Arrival: EMS: [facility] jb4 21:14 Acuity: BRIDGET 2 jb4 Historical: - Allergies: 21:21 Codeine; jb4 21:21 Betadine; jb4 21:21 Penicillins; jb4 - PMHx: 21:21 HTN; Hypercholesterolemia; gastritis; Sleep apnea; DM 2; PVD; jb4 - Immunization history:: Adult Immunizations up to date. - Social history:: Smoking status: Patient denies any tobacco usage or history of. - Family history:: not pertinent. Screenin/15 04:20 [facility] ED Fall Risk Assessment (Adult) History of falling in the last 3 months, jb4 including since admission No falls in past 3 months (0 pts) Confusion or Disorientation No (0 pts) Score/Fall Risk Level 0 - 2 = Low Risk Oriented to surroundings, Maintained a safe environment. Abuse screen: Denies threats or abuse. Nutritional screening: No deficits noted. Tuberculosis screening: No symptoms or risk factors identified. Assessment: 09/06 20:50 General: Appears in no apparent distress. ill, Behavior is calm, cooperative. Pain: jb4 Denies pain. Neuro: Level of Consciousness is awake, alert, obeys commands, Oriented to person. Cardiovascular: Patient's skin is warm and dry. Respiratory: Airway is patent Respiratory effort is labored, Respiratory pattern is symmetrical, tachypnea. GI: Reports diarrhea. : No signs and/or symptoms were reported regarding the genitourinary system. EENT: No signs and/or symptoms were reported regarding the EENT system. Derm: Skin is intact, Skin is clammy, Skin is normal, Skin temperature is warm. Musculoskeletal: Circulation, motion, and sensation intact. Range of motion: intact in all extremities. 22:00 Reassessment: Pt remains A\T\Ox1, respirations are more relaxed, even and tachypneic. No jb4 s/s of pain or distress noted. 23:00 Reassessment: Patient appears in no apparent distress at this time. No changes from jb4 previously documented assessment. Patient and/or family updated on plan of care and expected duration. Pain level reassessed. 09/07 00:00 Reassessment: Patient appears in no apparent distress at this time. No changes from jb4 previously documented assessment. Patient and/or family updated on plan of care and expected duration. Pain level reassessed. 01:34 Reassessment: Patient appears in no apparent distress at this time. No changes from jb4 previously documented assessment. Patient and/or family updated on plan of care and expected duration. Pain level reassessed. 02:30 Reassessment: Patient appears in no apparent distress at this time. Patient and/or jb4 family updated on plan of care and expected duration. Pain level reassessed. Patient is alert, oriented x 3, equal unlabored respirations, skin warm/dry/pink. 03:50 Reassessment: Patient appears in no apparent distress at this time. Patient and/or jb4 family updated on plan of care and expected duration. Pain level reassessed. Patient is alert, oriented x 3, equal unlabored respirations, skin warm/dry/pink. Vital Signs: 09/06 21:14 BP 86 / 59; Pulse 120; Resp 30; Temp 97.1(TE); Pulse Ox 98% on 2 lpm NC; Weight 97 kg jb4 (M); 21:45 BP 114 / 73; Pulse 117; Resp 23; Pulse Ox 100% on 4 lpm NC; jb4 22:13 BP 75 / 61; Pulse 120; jb4 23:00 BP 120 / 51; Pulse 124; Resp 24; Pulse Ox 94% on 4 lpm NC; jb4 09/07 00:21 BP 119 / 89; Pulse 122; Resp 25; Pulse Ox 100% on 4 lpm NC; jb4 01:34 BP 113 / 80; Pulse 124; Resp 21; Pulse Ox 96% on 4 lpm NC; jb4 03:00 BP 108 / 70; Pulse 89; Resp 19; Pulse Ox 98% on 4 lpm NC; jb4 03:35 BP 131 / 81; Pulse 100; Resp 24; Temp 97.2(TE); Pulse Ox 97% on 4 lpm NC; jb4 ED Course: 09/06 20:50 Initial lab(s) drawn, by me, sent to lab. Inserted saline lock: 18 gauge in right jb4 antecubital area, using aseptic technique. Blood collected. 20:57 Patient arrived in ED. as6 20:58 Sandoval Billy MD is Attending Physician. sp4 21:19 Chest Single View XRAY In Process Unspecified. EDMS 21:21 Triage completed. jb4 21:21 Arm band placed on right wrist. EKG completed in triage. Results shown to MD. jb4 22:11 Guy Case, RN is Primary Nurse. jb4 22:52 Chest Single View XRAY In Process Unspecified. EDMS 09/07 00:14 CT Chest Abdomen Pelvis W/O Contrast In Process Unspecified. EDMS 00:14 CT Head Brain wo Cont In Process Unspecified. EDMS 01:14 Bath given. Cleaned of incontinence. Linen changed. kb3 01:14 Gomez cath inserted, using sterile technique, 16 Fr., by me, balloon inflated, to kb3 gravity drainage. 01:32 No provider procedures requiring assistance completed. jb4 02:35 called [facility] for Transfer. sp 03:[address] Ammon Lazo accepted pt to [facility] DARIEN Carrillo admin approval sp report [phone] bed 8[address] [facility] [place] [address]. 03:50 Called [facility] for transfer to [facility]. sp 04:20 Patient has correct armband on for positive identification. Bed in low position. Call jb4 light in reach. Side rails up X 1. Client placed on continuous cardiac and pulse oximetry monitoring. NIBP monitoring applied. plsql developer on. 04:20 Patient transferred, IV remains in place. jb4 Administered Medications: 09/06 21:24 Drug: NS 0.9% IV 1000 ml IV at 1 bolus Per protocol; 1000 mL bolus {Note: Finished EMS jb4 1L bolus.} Route: IV; Rate: 1 bolus; Site: right antecubital; 21:44 Drug: NS 0.9% IV 1000 ml IV at 1 bolus Per protocol; 1000 mL bolus Route: IV; Rate: 1 jb4 bolus; Site: left antecubital; 21:45 Drug: Norepinephrine IV 0.1 mcg/kg/min IV at calculated rate See Administration jb4 Instructions; (Standard concentration 4 mg / 250 mL D5W); Recommended max rate 3 mcg/kg/min; Titrate 0.05 mcg/kg/min as often as every 5 minutes to achieve goal (see titration policy); Goal parameter MAP greater than 65 mmHg. Route: IV; Rate: calculated rate; Site: left antecubital; 22:13 Follow up: BP 75 / 61; Pulse 120 bpm; Rate change 0.15 mcg/kg/min jb4 22:59 Drug: Albumin IVPB 25 grams 100 ml IVPB once; (Note: Albumin 25% concentration) Volume: jb4 100 ml; Route: IVPB; Site: right jugular; 23:09 Drug: Meropenem IV 1 grams IV at calculated rate once; (mix in NS 100 mL) Route: IV; jb4 Rate: calculated rate; Site: right jugular; 09/07 00:21 Drug: vancoMYCIN IVPB 2 grams IVPB at calculated rate once Route: IVPB; Rate: jb4 calculated rate; Site: right jugular; Outcome: 02:23 ER care complete, transfer ordered by sp4 04:20 Transferred by ground EMS to [facility], Transfer form jb4 completed. X-rays sent w/ patient. 04:20 Condition: stable 04:20 Discharge instructions given to patient, Instructed on the need for transfer, Demonstrated understanding of instructions, 04:21 Patient left the ED. jb4 Signatures: Dispatcher [employer] EDMS Mary Lebron James, MG HOLLIDAY jb4 Javon Wadsworth, MG HOLLIDAY as6 Elena Sifuentes, MG RN [id number] Sandoval Billy MD MD sp4 Corrections: (The following items were deleted from the chart) 00:21 09/06 21:14 BP 86 / 59; Pulse 120bpm; Resp 30bpm; Pulse Ox 98% 2 lpm Nasal Cannula; 97 jb4 kg Measured; jb4 09/07 00:22 09/06 21:45 BP 114 / 73; Pulse 117bpm; Resp 23bpm; Pulse Ox 100% 2 lpm Nasal Cannula; jb4 jb4 09/07 00:22 09/06 23:00 BP 120 / 51; Pulse 124bpm; Resp 24bpm; Pulse Ox 94% 2 lpm Nasal Cannula; [id number] 09/07 04:12 09/06 21:14 Chief complaint: Patient states: Pt was recently D/c'ed from [facility], started jb4 becoming altered last night with a fever. The [facility] noticed she was more confused and is now A\T\Ox 1-2. Rhonci noted up auscultation. Tempt is 98.9, usp staff gave 1g of Tylenol. Pt noted to be in A-fib RVR. Staff reported pt had a large amount of blood in her brief. jb4
--- NOTE | 2023-09-07 02:23 | EDPHYS ---
Physician Documentation [facility] Name: Zak Grossman Age: 78 yrs Sex: Female : 1945 Arrival Date: 09/06/2023 Time: 20:52 Bed 4 Private MD: ED Physician Sandoval Billy HPI: 09/06 20:58 This 78 yrs old Female presents to ER via Unassigned with complaints of sp4 hypotension , fever . 22:08 Patient presents with EMS alert and oriented x1. Patient has reported bloody stools at [facility] the residential also fever altered mental status since yesterday. Patient is not able to provide any HPI. On arrival patient is hypotensive toxic appearing, having profuse watery diarrhea that is nonbloody. . Patient's medications at the residential include acetaminophen, aspirin, buspirone 5 mg daily, cetirizine 10 mg daily, cholecalciferol daily, cyclosporine eyedrops, enalapril 5 mg daily, fluticasone 2 sprays 1 times a day, furosemide 20 mg daily, gabapentin 600 mg 3 times a day, glipizide 2.5 mg once a day, potassium supplement Klor-Con 10 mEq daily, omeprazole 20 mg daily, pravastatin 40 mg daily, raloxifene 1 mg daily, Silvadene as needed and tramadol 50 mg every 8 hours as needed pain. Patient is a resident of [facility].. 22:12 Patient was discharged from [facility] in [place] on 09/04/2023. . sp4 22:19 Based on the residential [facility] record there is history of sp4 hypertension, obesity, hyperlipidemia, gastritis, obstructive sleep apnea, hypertension, essential hypertension, type 2 diabetes mellitus, diabetic neuropathy, peripheral vascular disease, autonomic polyneuropathy of diabetes, peripheral vascular disease. Hypovolemia. No apparent history of atrial fibrillation. 09/07 03:09 . sp4 Historical: - Allergies: 09/06 21:21 Codeine; jb4 21:21 Betadine; jb4 21:21 Penicillins; jb4 - PMHx: 21:21 HTN; Hypercholesterolemia; gastritis; Sleep apnea; DM 2; PVD; jb4 - Immunization history:: Adult Immunizations up to date. - Social history:: Smoking status: Patient denies any tobacco usage or history of. - Family history:: not pertinent. ROS: 22:12 Constitutional: Positive for confusion, altered mental status, additional ROS not sp4 available. 22:12 All other systems are negative, 22:12 Unable to obtain ROS due to altered mental status, Exam: 22:12 Constitutional: This is a well developed, morbidly obese female, hypotensive, pale, sp4 toxic appearing, alert and oriented to self only, able to follow basic commands, patient has profuse watery diarrhea, incontinent of bowel and bladder, signs of moderate to severe physical deconditioning and prolonged immobility, no sign of GI bleeding, febrile on arrival. Head/Face: Normocephalic, atraumatic. Eyes: Pupils equal round and reactive to light, extra-ocular motions intact. Lids and lashes normal. Conjunctiva and sclera are not injected. Cornea within normal limits. Periorbital areas with no swelling, redness, or edema. ENT: Nares patent. No nasal discharge, no septal abnormalities noted. Tympanic membranes are normal and external auditory canals are clear. Oropharynx with no redness, swelling, or masses, exudates, or evidence of obstruction, uvula midline. Dry mucous membranes, poor dentition Neck: Trachea midline, no thyromegaly or masses palpated, and no cervical lymphadenopathy. Supple, full range of motion without nuchal rigidity, or vertebral point tenderness. Chest/axilla: Normal chest wall appearance and motion. Nontender with no deformity. No lesions are appreciated. Cardiovascular: Irregularly irregular tachycardia, atrial fibrillation on the monitor. no murmurs, or rubs. Normal PMI, no JVD. No pulse deficits. Respiratory: Lungs have equal breath sounds bilaterally, clear to auscultation and percussion. No rales, rhonchi or wheezes noted. No increased work of breathing, no retractions or nasal flaring. Abdomen/GI: Soft, non-tender, with normal bowel sounds. No distension or tympany. No guarding or rebound. No evidence of tenderness throughout. Back: No spinal tenderness. No costovertebral tenderness. Female : Normal external genitalia. Incontinent of bowel and bladder. Digital rectal exam with head refrigeration engineer RN reveals nonbloody watery diarrhea that is profuse. No impaction, no rectal mass, no fissure, no fistula Skin: Warm, dry with poor skin turgor, generalized pallor no cyanosis MS/ Extremity: Pulses equal, no cyanosis. Neurovascular intact. Generalized muscular atrophy provide prolonged immobility, morbid obesity, bilateral lower extremity edema with pitting Neuro: Awake and alert to self only, prolonged immobility limits exam, there is generalized weakness, no sign of lateralizing deficits, signs of prolonged immobility and generalized muscular atrophy. Morbid obesity, patient has not nonambulatory 22:12 ECG was reviewed by the Attending Physician. Atrial fibrillation at the rate of 127, EKG time 2103, no ST elevation or depression, A-fib with RVR. Vital Signs: 21:14 BP 86 / 59; Pulse 120; Resp 30; Temp 97.1(TE); Pulse Ox 98% on 2 lpm NC; Weight 97 kg jb4 (M); 21:45 BP 114 / 73; Pulse 117; Resp 23; Pulse Ox 100% on 4 lpm NC; jb4 22:13 BP 75 / 61; Pulse 120; jb4 23:00 BP 120 / 51; Pulse 124; Resp 24; Pulse Ox 94% on 4 lpm NC; jb4 09/07 00:21 BP 119 / 89; Pulse 122; Resp 25; Pulse Ox 100% on 4 lpm NC; jb4 01:34 BP 113 / 80; Pulse 124; Resp 21; Pulse Ox 96% on 4 lpm NC; jb4 03:00 BP 108 / 70; Pulse 89; Resp 19; Pulse Ox 98% on 4 lpm NC; jb4 03:35 BP 131 / 81; Pulse 100; Resp 24; Temp 97.2(TE); Pulse Ox 97% on 4 lpm NC; jb4 Procedures: 09/06 21:56 Central Line: the site was prepped with in sterile fashion, Hibiclens , a triple lumen sp4 catheter was inserted, in the right internal jugular vein, in 1 attempts. placement was verified, by CXR, by blood return, the site was dressed with Tegaderm, using sterile technique, the patient tolerated the procedure, well, Ultrasound guided Triple Lumen Right IJ CVL for septic shock placed without complications. MDM: 21:09 Patient medically screened. sp4 23:51 ED course: After CVL placement - TECHNIQUE: One view of the chest. COMPARISON: No prior sp4 exams provided for comparison. FINDINGS: There is a right jugular central venous catheter in place with its tip projecting over the SVC. Increased bronchovascular markings and cardiac size may be related to low lung volumes. Aortic atherosclerosis. There is no focal consolidation, effusion, or pneumothorax. IMPRESSION: Right jugular central venous catheter in good position. . 09/07 00:35 Differential Diagnosis altered mental status, sepsis, flu. Data reviewed: vital signs, sp4 nurses notes, EMS record, old medical records, lab test result(s), EKG, radiologic studies, CT scan, plain films. Consideration of Admission/Observation Escalation of care including admission/observation considered. ED course: CT head - FINDINGS: Multiple transaxial tomograms of the brain were obtained from the base of the skull to the vertex without contrast. 2-D multiplanar reformats and the coronal and sagittal plane were performed and reviewed. This exam was performed according to our departmental dose-optimization protocol, which includes automated exposure control, adjustment of the mA and/or kV according to patient size and/or use of iterative reconstruction technique. Brain parenchyma demonstrate mild prominence of the sulci and gyri are corresponding to mild cerebral and cerebellar atrophy. There is minimal periventricular white matter changes of microvascular ischemia. There is no midline shift and/or mass effect. There is no evidence for acute intracranial hemorrhage. Lateral ventricles and cisterns displace normal appearance. No intra or extra axial fluid collections were seen. The calvarium is intact with no evidence for fracture. The visualized portions of the paranasal sinuses and orbits demonstrate to be clear. IMPRESSION: No acute intracranial hemorrhage identified. Mild brain atrophy with minimal periventricular white matter changes of microvascular ischemia. . 00:40 ED course: CT chest , abdomen - PELVIS: Urinary bladder is unremarkable. Status post sp4 hysterectomy. ABDOMINAL WALL: The abdominal wall is intact. Surgical clips lower anterior pelvic wall. BONES: No suspicious osseous lytic or blastic lesions seen. IMPRESSION: 1. Cardiomegaly with mild interstitial edema and small bilateral pleural effusions. 2. Minimal bibasilar subsegmental atelectasis. 3. No acute intra-abdominal or pelvic disease. 4. Sigmoid colon diverticulosis without diverticulitis. 5. Status post cholecystectomy, appendectomy, and hysterectomy. Electronically signed by: Sang Maldonado MD 09/07/2023. 09/06 20:59 Order name: Blood Culture Adult (2) sp4 09/06 20:59 Order name: CBC with Diff; Complete Time: 23:50 sp4 09/06 20:59 Order name: CMP; Complete Time: 23:50 sp4 09/06 20:59 Order name: Lactate w/ 2H reflex if indic.; Complete Time: 23:50 sp4 09/06 20:59 Order name: Protime (+inr); Complete Time: 23:50 sp4 09/06 20:59 Order name: Ptt, Activated; Complete Time: 23:50 sp4 09/06 20:59 Order name: Urinalysis w/ reflexes; Complete Time: 02:13 sp4 09/06 20:59 Order name: ABG; Complete Time: 23:50 sp4 09/06 20:59 Order name: Procalcitonin; Complete Time: 23:50 4 09/06 22:22 Order name: CBC Smear Scan; Complete Time: 23:50 EDWV 09/07 00:39 Order name: Influenza Screen (a \T\ B); Complete Time: 02:13 4 09/07 00:39 Order name: COVID-19 SARS RT PCR; Complete Time: 02:13 4 09/07 02:01 Order name: Urine Culture EDWV 09/06 20:59 Order name: Chest Single View XRAY; Complete Time: 23:50 4 09/06 21:57 Order name: CT Chest Abdomen Pelvis W/O Contrast sp 09/06 22:28 Order name: Chest Single View XRAY sp4 09/06 23:53 Order name: CT Head Brain wo Cont sp4 09/06 20:59 Order name: EKG; Complete Time: 21:00 [facility] 09/06 20:59 Order name: Accucheck; Complete Time: 21:25 sp4 09/06 20:59 Order name: Cardiac monitoring; Complete Time: 21:07 4 09/06 20:59 Order name: Cath; Complete Time: 01:35 sp4 09/06 20:59 Order name: EKG - Nurse/Tech; Complete Time: 21:07 4 09/06 20:59 Order name: IV Saline Lock - Large Bore; Complete Time: 21:07 4 09/06 20:59 Order name: Labs collected and sent; Complete Time: 21:14 sp4 09/06 20:59 Order name: O2 Per Protocol; Complete Time: 21:08 sp4 09/06 20:59 Order name: O2 Sat Monitoring; Complete Time: 21:08 sp4 09/06 20:59 Order name: Vital Signs; Complete Time: 21:14 sp4 09/06 21:00 Order name: Central Line Kit; Complete Time: 22:02 sp4 EC/14 22:12 Rate is 127 beats/min. Rhythm is irregularly irregular, A fib with Rapid ventricular sp4 response. T waves are Normal. No ST changes noted. Clinical impression: No evidence of ischemia. Interpreted by me. Administered Medications: 21:24 Drug: NS 0.9% IV 1000 ml IV at 1 bolus Per protocol; 1000 mL bolus {Note: Finished EMS jb4 1L bolus.} Route: IV; Rate: 1 bolus; Site: right antecubital; 21:44 Drug: NS 0.9% IV 1000 ml IV at 1 bolus Per protocol; 1000 mL bolus Route: IV; Rate: 1 jb4 bolus; Site: left antecubital; 21:45 Drug: Norepinephrine IV 0.1 mcg/kg/min IV at calculated rate See Administration jb4 Instructions; (Standard concentration 4 mg / 250 mL D5W); Recommended max rate 3 mcg/kg/min; Titrate 0.05 mcg/kg/min as often as every 5 minutes to achieve goal (see titration policy); Goal parameter MAP greater than 65 mmHg. Route: IV; Rate: calculated rate; Site: left antecubital; 22:13 Follow up: BP 75 / 61; Pulse 120 bpm; Rate change 0.15 mcg/kg/min jb4 22:59 Drug: Albumin IVPB 25 grams 100 ml IVPB once; (Note: Albumin 25% concentration) Volume: jb4 100 ml; Route: IVPB; Site: right jugular; 23:09 Drug: Meropenem IV 1 grams IV at calculated rate once; (mix in NS 100 mL) Route: IV; jb4 Rate: calculated rate; Site: right jugular; 09/07 00:21 Drug: vancoMYCIN IVPB 2 grams IVPB at calculated rate once Route: IVPB; Rate: jb4 calculated rate; Site: right jugular; Disposition Summary: 09/07/23 02:23 Transfer Ordered Notes: Transfer Location: [facility]-System sp4 Reason: Higher level of care sp4 Condition: Stable sp4 Problem: new sp4 Symptoms: have improved sp4 Accepting Physician: [facility] Attending - Dr. Lazo - [facility](09/07/23 04:21) jb4 Diagnosis - Severe sepsis with septic shock sp4 - Hypovolemia sp4 - UTI/ Urinary tract infection, site not specified sp4 - Acute hypoactive delirium, sepsis, physical debility sp4 Forms: - Medication Reconciliation Form sp4 - SBAR form sp4 Signatures: Dispatcher [employer] EDGuy Leal RN RN jb4 Sandoval Billy MD MD sp4 Corrections: (The following items were deleted from the chart) 03:12 02:23 [facility] Attending sp4 sp4 04:21 03:12 [facility] Attending - Dr. Lazo - [facility] sp4 jb4
[2023-09-07] MEDS ORDERED: NOREPINEPHRINE BITARTRATE/D5W 4 MG/250 ML BAG IV ONE (02:35)
[2023-09-07 04:35] VITALS: BP 131/81; TEMP 97.2; O2SAT 97
--- NOTE | 2023-09-08 14:52 | RAD REPORT ---
EXAM DESCRIPTION: Chest Single View CLINICAL HISTORY: 78 years Female after Right CVL placement TECHNIQUE: One view of the chest. COMPARISON: No prior exams provided for comparison. FINDINGS: There is a right jugular central venous catheter in place with its tip projecting over the SVC. Increased bronchovascular markings and cardiac size may be related to low lung volumes. Aortic athero sclerosis. There is no focal consolidation, effusion, or pneumothorax. IMPRESSION: Right jugular central venous catheter in good position. Electronically signed by: Lorie Saldana MD 09/06/2023 11:29 PM CDT Due to temporary technical issues with the PACS/Fluency reporting system, reports are being signed by the in house radiologists without review as a courtesy to insure prompt reporting. The interpreting radiologist is fully responsible for the content of the report.
--- NOTE | 2023-09-08 15:21 | RAD REPORT ---
EXAM DESCRIPTION: Chest Abd Pelvis Wo Con CLINICAL HISTORY: 78 years Female, ABDOMINAL DISTENTION TECHNIQUE: Helical CT axial images are obtained from the thoracic inlet to the pubic symphysis withou t IV contrast. No oral contrast was administered. Multiplanar reconstruction. This exam was per formed according to our departmental dose-optimization program, which includes automated exposure con trol, adjustment of the mA and/or kV according to patient size and/or use of iterative reconstruction technique. COMPARISON: Chest x-ray performed one day prior on 09/06/2023 FINDINGS: Motion and streak artifacts mildly limits this exam. CHEST: LUNGS: Mild interstitial edema. Minimal bibasilar subsegmental atelectasis. No confluent areas of a cute consolidation. No pulmonary masses or suspicious nodules. MEDIASTINUM: No abnormally enlarged mediastinal or hilar lymph nodes. PLEURA: Small bilateral pleural effusions. No pneumothorax. CARDIAC: Cardiomegaly. No pericardial effusion. VASCULAR: Thoracic aorta is normal in caliber without aneurysm. The pulmonary vasculature demonstrate s no significant dilatation. CHEST WALL: Right internal jugular central venous catheter in place. Chronic deformity right shoulder . Chest wall is intact. No abnormal axillary lymphadenopathy. ABDOMEN/PELVIS: LIVER: Normal in size. Normal attenuation. No focal masses. HEPATOBILIARY: Status post cholecystectomy. No intra- or extrahepatic ductal dilatation. SPLEEN: Normal size. PANCREAS: Normal size and contour. No focal mass. ADRENAL GLANDS: Normal size. No adrenal masses. KIDNEYS: Bilateral kidneys are normal in size without obstructing calculi or hydronephrosis. No nep hrolithiasis. No significant cysts are present. BOWEL AND MESENTERY: No small or large bowel dilatation. Sigmoid colon diverticulosis. Status post appendectomy. No abnormal mesenteric lymphadenopathy. No free fluid or pneumoperitoneum. RETROPERITONEUM: ormal caliber abdominal aorta without aneurysm. Mild ASVD. No abnormal retroperito douglas lymphadenopathy. PELVIS: Urinary bladder is unremarkable. Status post hysterectomy. ABDOMINAL WALL: The abdominal wall is intact. Surgical clips lower anterior pelvic wall. BONES: No suspicious osseous lytic or blastic lesions seen. IMPRESSION: 1. Cardiomegaly with mild interstitial edema and small bilateral pleural effusions. 2. Minimal bibasilar subsegmental atelectasis. 3. No acute intra-abdominal or pelvic disease. 4. Sigmoid colon diverticulosis without diverticulitis. 5. Status post cholecystectomy, appendectomy, and hysterectomy. Electronically signed by: Sang Maldonado MD 09/07/2023 12:37 AM CDT Due to temporary technical issues with the PACS/Fluency reporting system, reports are being signed by the in house radiologists without review as a courtesy to insure prompt reporting. The interpreting radiologist is fully responsible for the content of the report.
--- NOTE | 2023-09-08 16:24 | RAD REPORT ---
EXAM DESCRIPTION: Head Brain Wo Cont 09/07/2023 12:22 AM CDT CLINICAL HISTORY: 78 years, Female, CONFUSED COMPARISON: None. FINDINGS: Multiple transaxial tomograms of the brain were obtained from the base of the skull to the vertex without contrast. 2-D multiplanar reformats and the coronal and sagittal plane were performed and reviewed. This exam was performed according to our departmental dose-optimization protocol, which includes auto mated exposure control, adjustment of the mA and/or kV according to patient size and/or use of iterat jerrica reconstruction technique. Brain parenchyma demonstrate mild prominence of the sulci and gyri are corresponding to mild cerebral and cerebellar atrophy. There is minimal periventricular white matter changes of microvascular ische jasmeet. There is no midline shift and/or mass effect. There is no evidence for acute intracranial hemorr jesi. Lateral ventricles and cisterns displace normal appearance. No intra or extra axial fluid c ollections were seen. The calvarium is intact with no evidence for fracture. The visualized portions of the paranasal sinuses and orbits demonstrate to be clear. IMPRESSION: No acute intracranial hemorrhage identified. Mild brain atrophy with minimal periventricular white matter changes of microvascular ischemia. Electronically signed by: Luis Zamora MD 09/07/2023 12:24 AM CDT Due to temporary technical issues with the PACS/Fluency reporting system, reports are being signed by the in house radiologists without review as a courtesy to insure prompt reporting. The interpreting radiologist is fully responsible for the content of the report.
--- NOTE | 2023-09-08 17:06 | EKG ---
Test Date: 2023-09-06 Test Time: 21:03:22 [employer]: MEASUREMENT RESULTS: Intervals: Rate: 127 MT: QRSD: 78 QT: 290 QTc: 421 [place]: P: MT: QRS: 4 T: 31 INTERPRETIVE STATEMENTS: Atrial fibrillation with rapid ventricular response Low voltage QRS Nonspecific T wave abnormality Abnormal ECG No previous ECG available for comparison Electronically Signed On 09-08-23 17:04:02 CDT by Meir Weller
== END 2023-09-07 04:21 | disposition short-term general hospital (02) ==
LOC: ER 20:52
PROC: 05HM33Z Insertion of Infusion Device into Right Internal Jugular Vein, Percutaneous Approach (ICD-10-PCS; principal; 2023-09-07)
DX: A41.9 Sepsis, unspecified organism (principal); N39.0 Urinary tract infection, site not specified; R65.21 Severe sepsis with septic shock; E86.1 Hypovolemia; R53.81 Other malaise; E11.9 Type 2 diabetes mellitus without complications; I10 Essential (primary) hypertension; Z20.822 Contact with and (suspected) exposure to COVID-19; Z88.0 Allergy status to penicillin; Z88.5 Allergy status to narcotic agent; Z91.048 Other nonmedicinal substance allergy status
CPT/HCPCS: 93005; 87040 ×2; 87088; 85025; 81001; 87086; 36415; 85610; 83605; 85730; 80053; 84145; 87635; 87804 ×2; 70450; 71250; 74176; 71045 ×2; 82805; 51702; 99291; 99292; 36600; 36556; J2185; P9047; J7040; J7030